=== PATIENT | female | born 1960 | race Caucasian/White ===

== ENCOUNTER 2020-01-29 15:58 | Outpatient (REF) | payer OTHER, SELFPAY ==
[2020-01-29 16:47] LABS: MANUAL DIFF FLAG NO
[2020-01-29 16:50] LABS: Basophils Absolute Auto 0.1 X10*3/uL (0.0-0.2); Basophils Percent Auto 0.5 % (0-2); Eosinophils Absolute Auto 0.2 X10*3/uL (0.0-0.4); Eosinophils Percent Auto 1.9 % (0-4); Hematocrit 42.7 % (37-47); Hemoglobin 14.2 g/dl (12.0-16.0); Imm Gran Abs Auto 0.03 X10*3/uL (0.00-0.03); Imm Gran Pct Auto 0.3 % (0.0-0.4); Lymphocytes Absolute Auto 2.3 X10*3/uL (1.2-4.9); Lymphocytes Percent Auto 19.8 % (20-40); Mean Corpuscular HGB Conc 33.3 g/dl (31.0-35.0); Mean Corpuscular Hemoglobin 30.1 pg (27.0-33.0); Mean Corpuscular Volume 90.7 fL (80-98); Mean Platelet Volume 10.7 fL (9.4-12.3); Monocytes Percent Auto 8.5 % (2-11); Neutrophils Absolute Auto 7.8 X10*3/uL (2.0-8.3); Platelet Count 313 X10*3/uL (160-400); Red Blood Count 4.71 X10*6/uL (4.20-5.50); Red Cell Distribution Width 13.6 % (11.0-16.0); White Blood Count 11.4 X10*3/uL (4.8-10.8)
[2020-01-29 16:53] LABS: Glucose Urine UA NEG (NEG); Leukocyte Esterase Urine NEG (NEG); Nitrite Urine NEG (NEG); Specific Gravity - Urine <= 1.005 (1.005-1.025); Urine Blood 1+ (NEG); Urine Ketones NEG (NEG); Urine Protein NEG (NEG-TRACE)
[2020-01-29 16:55] LABS: Appearance Urine CLEAR; Color Urine STRAW
[2020-01-29 16:58] LABS: Estimated Average Glucose 123 mg/dL; Hemoglobin A1c % 5.9 %
[2020-01-29 17:02] LABS: RBC Urine 0-2 /HPF (0); Squamous Epithelial Cell Urine 4+ /LPF; WBC Urine 0-2 /HPF (0-4)
[2020-01-29 17:18] LABS: Creatinine Urine 14.25 mg/dL; Microalbumin Urine < 5.0 mg/L
[2020-01-29 17:20] LABS: Alanine Aminotransferase 17 U/L (0-31); Albumin Level 4.5 g/dL (3.5-5.0); Alkaline Phosphatase 66 U/L (39-117); Anion Gap 13 (12-20); Aspartate Amino Transferase 18 U/L (5-31); Bilirubin Total 0.3 mg/dL (0.0-1.0); Blood Urea Nitrogen 17 mg/dL (9-16); C Reactive Protein 0.29 mg/dL (< or = 0.50); Carbon Dioxide 25 mmol/L (22-29); Chloride 101 mmol/L (96-108); Estimated Glomerular Filt Rate > 60; Glucose Random 85 mg/dL (60-115); Potassium 4.4 mmol/l (3.3-5.1); Sodium 135 mmol/L (135-145); Total Protein 6.8 g/dL (6.5-8.0)
[2020-01-29 17:42] LABS: Free T4 (Free Thyroxine) 1.08 ng/dL (0.71-1.85); Thyroid Stimulating Hormone 3.21 mIU/mL (0.32-4.0); Vitamin B12 513 pg/mL (200-900)
[2020-01-29 17:48] LABS: Calcium 9.8 mg/dL (8.4-10.2)
== END 2020-01-29 15:59 | disposition home or self-care (01) ==
LOC: HO.LAB 15:58
PROVIDERS: PCP Internal Medicine; Visit Provider Internal Medicine
DX: R73.03 Prediabetes (principal)
CPT/HCPCS: 36415; 80053; 81001; 82043; 82607; 83036; 84439; 84443; 85025; 86140

== ENCOUNTER 2020-12-21 06:30 | Observation (INO) | payer OTHER, SELFPAY ==
--- NOTE | ~2020-12-21 | CT_ITS ---
EXAMINATION: CT HEAD WITHOUT CONTRAST CLINICAL INFORMATION: Weakness, headache COMPARISON: None TECHNIQUE: Contiguous axial imaging was performed from the skull base to vertex without intravenous administration of contrast. This CT examination was performed using dose optimization techniques as appropriate, variously including the following: *Automated exposure control *Adjustment of mA and/or kV according to patient size (this includes techniques or standardized protocols for targeted exams where dose is matched to indication/reason for exam; i.e. extremities or head) *Use of iterative reconstruction technique DLP: 611 mGy-cm FINDINGS: There is no evidence of acute intracranial hemorrhage or territorial infarction. No abnormal mass effect or midline shift is seen. [place]field to white matter differentiation is well preserved. No extra-axial fluid collections are identified. The ventricles are normal in size. There is no abnormal attenuation within the brain parenchyma. The osseous structures and soft tissues are normal. The mastoid air cells and visualized portions of the paranasal sinuses are well aerated. CT/CT head/brain wo con IMPRESSION: No acute intracranial pathology.
[2020-12-21 06:36] VITALS: BP 140/91; PULSE 86; RESP 18; O2SAT 97; BMI 23.4
--- NOTE | 2020-12-21 06:37 | ED.NAVMDI ---
HPI - Nausea/Vomiting/Diarrhea General Chief complaint: Nausea/Vomiting/Diarrhea Stated complaint: vomiting/ not feeling well Time Seen by Provider: 12/21/20 06:37 Source: patient and EMS Mode of arrival: EMS Limitations: other (anxious and somewhat agitated when asking questions, poor historian at times) History of Present Illness MD elicited complaint: nausea, vomiting and other ( I am definitely dehydrated. back pain cramping) Pertinent past history: abdominal surgery (states she had a total colectomy with J pouch and if she ever does to much she gets dehydrated - she spent most of yesterday outside) Onset (ago): day(s) (1) Description of vomiting: watery Associated nausea: Yes Associated abdominal pain: No Pain consistency: intermittent Severity: similar to previous episodes Exacerbating factors: none Relieving factors: other (rest and drinking fluids) Context: history of abdominal surgery (state she gets dehydrated fast due to her colectomy) Associated symptoms: other (chronic back pain then mentions that she has been taking extra ativan every day up to 3mg ) Treatment prior to arrival: fluids (states she tried to drink some water last night but couldn't take much in.) Related Data Home Medications Medication Instructions Recorded Confirmed buspirone 10 mg tablet 1 tab PO TID 12/21/20 12/21/20 gabapentin 300 mg capsule 1 cap PO TID 12/21/20 12/21/20 lorazepam 0.5 mg tablet 1 tab PO TID PRN 12/21/20 12/21/20 Allergies Allergy/AdvReac Type Severity Reaction Status Date / Time amoxicillin [AMOXICILLIN] Allergy Intermediate HIVES Verified 12/21/20 06:49 Review of Systems Review of Systems: Constitutional : No Weight loss, No Fever, No Chills ENT/Mouth : No sore throat, No Rhinorrhea Eyes: No Swelling, No Redness Cardiovascular : No Chest Pain, No SOB, NoEdema Respiratory : No Cough, No Sputum, No Wheezing Gastrointestinal : Positive Nausea, Positive Vomiting, no Diarrhea, no abdominal Pain, No Hematochezia, No Melena Genitourinary : No Dysuria, No Urinary Frequency, No Hematuria, No Urgency Musculoskeletal : No joint pain, No Myalgias, No Joint Swelling, pos back pain Skin : No Skin Lesions, No rash Neuro : No Weakness, No Numbness, No Dizziness, No Headache Psych : No Anxiety/Panic, No Depression Heme/Lymph: No Bruising, No Lymphadenopathy Endocrine : No Polyuria, No Polydipsia All other systems reviewed and are negative. Gastrointestinal: Gastrointestinal: Reports nausea PMFSH Past Medical History Attestation statement: The following information was validated with the patient. Medical History (Updated 12/21/20 @ 12:17 by Susie Silva DO) Anxiety Chronic back pain Depression HTN (hypertension) Surgical History (Updated 12/21/20 @ 07:05 by Susie Silva DO) H/O total colectomy Social History Social History (Updated 12/21/20 @ 07:05 by Susie Silva DO) Patient Tobacco Use Status: Never used Tobacco Use of substances other than those prescribed or required for medical reasons: No Advance Directives: No Advance Directives Information Provided: Yes Physical Exam Vital Signs: Vital Signs: Last Vital Signs Pulse 76 12/21/20 13:52 Resp 16 12/21/20 13:52 BP 126/82 12/21/20 13:52 Pulse Ox 98 12/21/20 13:52 Body Mass Index 23.4 Appearance: Alert. Oriented X3. No acute distress. Anxious walking around getting up and down from the bed in no obvious pain or distress Eyes: Pupils equal, round and reactive to light. ENT: Pharynx dry lips Neck: Normal inspection. Neck supple. CVS: Normal heart rate and rhythm. Pulses normal. Respiratory: No respiratory distress. Breath sounds normal. Abdomen: Soft and non-tender. Skin: Skin warm and dry. Normal skin color. Normal skin turgor. Extremities: No lower extremity edema. No calf ttp Neuro: Oriented X 3. No motor deficit. No sensory deficit. Course Course Course Narrative: IVF x 2 ordered suspected she was dehydrated now the patient notes that she actually drank 100+ ounces of water overnight which she neglected to tell me and it was not consistent with her n/v she has gone from 117 to 128 with IVF will discuss with nephro given her correction likely acute hyponatremia given her now admission of being able to drink 100+ ounces of water overnight - has not had chronic hyponatremia per EMR, of note the patient has 3 cups of water at bed side just now - ?psychogenic polydipsia nephrology call out 1115am repeat call to nephrology 1213pm given Na correction will place on D5W until I hear from nephrology 105pm Dr. Win D5W 100 - 2mcg of DDAVP IV, leave her on D5W on 100 down to 130s and 128 Q2hr hourly sodium keep in ED until down to 128/130 discussed with patient and her sister the over correction they are aware we are watching her and there needs to be a decrease now in sodium to prevent CPM - the patient now states that all night last night she was drinking 8 ounces of fluid every 15 minutes to prevent dehydration which none of this was relayed to us on her arrival the patient is repeatedly taking her fluids off to go to the bathroom then walking around and is giving us a hard time about the labs, this is not a change from her baseline she was anxious and agitated on arrival we are now having her walk to and from the bathroom with the fluids connected increased D5W to 150 per Nephrology patient will need arm board she is now bending her arm Filomena her sister aware we spoke again about the medical error her number is [phone] - she has not been involved with her sister for 4 years until recently thinks there is a BPD or bipolar dx, she went to her sister's house today it is in shambles and the patient is hoarding. Sister did mention if the patient could have done something like this in a self harm manner - I am not sure as the patient has denied SI. signed out to Dr. Suarez, did discuss likely admission with Dr. Persaud 4pm MDM - Nausea/Vomiting/Diarrhea MDM Narrative Medical decision making narrative: 60 yo female with anxiety, depression, chronic back pain, prior total colectomy states she was walking around and very active outside yesterday and thinks she over did it and now she feels dehydrated. She also is complaining of taking more ativan for her back I have compounding medical issues. She is not suicidal and I did ask her if she was in crisis but she states no. At this time labs, IVF, zofran, UA ordered. Concern for dehydration given her total colectomy reports of nausea/vomiting and reported prior episodes of dehydration with exertion. Dispo per results and findings. Lab Data Result diagrams: 12/21/20 07:12 12/21/20 14:40 Labs: Lab Results 12/21/20 12/21/20 12/21/20 Range/Units 07:12 07:12 07:12 WBC 11.1 H (4.8-10.8) X10*3/uL RBC 4.55 (4.20-5.50) X10*6/uL Hgb 13.7 (12.0-16.0) g/dl Hct 38.5 (37-47) % MCV 84.6 (80-98) fL MCH 30.1 (27.0-33.0) pg MCHC 35.6 H (31.0-35.0) g/dl RDW 12.4 (11.0-16.0) % Plt Count 273 (160-400) X10*3/uL MPV 9.4 (9.4-12.3) fL Immature Gran % (Auto) 0.4 (0.0-0.4) % Neut % (Auto) 80.3 H (45-73) % Lymph % (Auto) 11.2 L (20-40) % Bracken % (Auto) 6.6 (2-11) % Eos % (Auto) 1.0 (0-4) % Baso % (Auto) 0.5 (0-2) % Lymph # (Auto) 1.2 (1.2-4.9) X10*3/uL Bracken # (Auto) 0.7 (0.1-1.2) X10*3/uL Eos # (Auto) 0.1 (0.0-0.4) X10*3/uL Baso # (Auto) 0.1 (0.0-0.2) X10*3/uL Abs Immat Gran (auto) 0.04 H (0.00-0.03) X10*3/uL Absolute Neuts (auto) 8.9 H (2.0-8.3) X10*3/uL Absolute Nucleated RBC 0.000 (0.0-0.012) X10*3/uL Nucleated RBC % (auto) 0.0 (0.0-0.2) /100WBC Sodium 117 L* (135-145) mmol/L Potassium 4.1 (3.3-5.1) mmol/L Chloride 84 L (96-108) mmol/L Carbon Dioxide 24 (22-29) mmol/L Anion Gap 13 (12-20) BUN 7 L D (9-16) mg/dL Creatinine 0.67 (0.5-1.4) mg/dL Estim Creat Clear Calc 64.9 Estimated GFR > 60 Random Glucose 107 (60-115) mg/dL Osmolality Calcium 9.8 (8.4-10.2) mg/dL Magnesium 1.6 (1.6-2.6) mg/dL Total Bilirubin 0.7 (0.0-1.0) mg/dL Direct Bilirubin 0.2 (0.0-0.5) mg/dL AST 23 (5-31) U/L ALT 16 (0-31) U/L Alkaline Phosphatase 59 (39-117) U/L Total Protein 6.5 (6.5-8.0) g/dL Albumin 4.2 (3.5-5.0) g/dL Lipase 18 (8-78) U/L Urine Color Urine Appearance Urine pH (5.0-8.0) Ur Specific [place] (1.005-1.025) Urine Protein (NEG-TRACE) MG/DL Urine Glucose (UA) (NEG) MG/DL Urine Ketones (NEG) MG/DL Urine Blood (NEG) Urine Nitrite (NEG) Ur Leukocyte Esterase (NEG) Urine RBC (0) /HPF Urine WBC (0-4) /HPF Ur Squamous Epith Cells /LPF Urine Bacteria /LPF Urine Osmolality (373-1093) mosm/kg Ur Random Sodium mmol/L Urine Creatinine mg/dL COVID-19 ([facility]ERTO) Negative (Negative) COVID-19 Clin Com See Note 12/21/20 12/21/20 12/21/20 Range/Units 07:12 10:06 10:06 WBC (4.8-10.8) X10*3/uL RBC (4.20-5.50) X10*6/uL Hgb (12.0-16.0) g/dl Hct (37-47) % MCV (80-98) fL MCH (27.0-33.0) pg MCHC (31.0-35.0) g/dl RDW (11.0-16.0) % Plt Count (160-400) X10*3/uL MPV (9.4-12.3) fL Immature Gran % (Auto) (0.0-0.4) % Neut % (Auto) (45-73) % Lymph % (Auto) (20-40) % Bracken % (Auto) (2-11) % Eos % (Auto) (0-4) % Baso % (Auto) (0-2) % Lymph # (Auto) (1.2-4.9) X10*3/uL Bracken # (Auto) (0.1-1.2) X10*3/uL Eos # (Auto) (0.0-0.4) X10*3/uL Baso # (Auto) (0.0-0.2) X10*3/uL Abs Immat Gran (auto) (0.00-0.03) X10*3/uL Absolute Neuts (auto) (2.0-8.3) X10*3/uL Absolute Nucleated RBC (0.0-0.012) X10*3/uL Nucleated RBC % (auto) (0.0-0.2) /100WBC Sodium 128 L (135-145) mmol/L Potassium 3.7 (3.3-5.1) mmol/L Chloride 97 (96-108) mmol/L Carbon Dioxide 25 (22-29) mmol/L Anion Gap 10 L (12-20) BUN 6 L (9-16) mg/dL Creatinine 0.65 (0.5-1.4) mg/dL Estim Creat Clear Calc 66.9 Estimated GFR > 60 Random Glucose 94 (60-115) mg/dL Osmolality Cancelled Calcium 8.2 L D (8.4-10.2) mg/dL Magnesium (1.6-2.6) mg/dL Total Bilirubin (0.0-1.0) mg/dL Direct Bilirubin (0.0-0.5) mg/dL AST (5-31) U/L ALT (0-31) U/L Alkaline Phosphatase (39-117) U/L Total Protein (6.5-8.0) g/dL Albumin (3.5-5.0) g/dL Lipase (8-78) U/L Urine Color STRAW Urine Appearance CLEAR Urine pH 6.5 (5.0-8.0) Ur Specific [place] <= 1.005 (1.005-1.025) Urine Protein NEG (NEG-TRACE) MG/DL Urine Glucose (UA) NEG (NEG) MG/DL Urine Ketones NEG (NEG) MG/DL Urine Blood 1+ H (NEG) Urine Nitrite NEG (NEG) Ur Leukocyte Esterase NEG (NEG) Urine RBC 1-4 (0) /HPF Urine WBC 0 (0-4) /HPF Ur Squamous Epith Cells TRACE /LPF Urine Bacteria NONE /LPF Urine Osmolality (373-1093) mosm/kg Ur Random Sodium mmol/L Urine Creatinine mg/dL COVID-19 ([facility]ERTO) (Negative) COVID-19 Clin Com 12/21/20 12/21/20 12/21/20 Range/Units 12:07 12:07 12:33 WBC (4.8-10.8) X10*3/uL RBC (4.20-5.50) X10*6/uL Hgb (12.0-16.0) g/dl Hct (37-47) % MCV (80-98) fL MCH (27.0-33.0) pg MCHC (31.0-35.0) g/dl RDW (11.0-16.0) % Plt Count (160-400) X10*3/uL MPV (9.4-12.3) fL Immature Gran % (Auto) (0.0-0.4) % Neut % (Auto) (45-73) % Lymph % (Auto) (20-40) % Bracken % (Auto) (2-11) % Eos % (Auto) (0-4) % Baso % (Auto) (0-2) % Lymph # (Auto) (1.2-4.9) X10*3/uL Bracken # (Auto) (0.1-1.2) X10*3/uL Eos # (Auto) (0.0-0.4) X10*3/uL Baso # (Auto) (0.0-0.2) X10*3/uL Abs Immat Gran (auto) (0.00-0.03) X10*3/uL Absolute Neuts (auto) (2.0-8.3) X10*3/uL Absolute Nucleated RBC (0.0-0.012) X10*3/uL Nucleated RBC % (auto) (0.0-0.2) /100WBC Sodium 135 (135-145) mmol/L Potassium (3.3-5.1) mmol/L Chloride (96-108) mmol/L Carbon Dioxide (22-29) mmol/L Anion Gap (12-20) BUN (9-16) mg/dL Creatinine (0.5-1.4) mg/dL Estim Creat Clear Calc Estimated GFR Random Glucose (60-115) mg/dL Osmolality 282 Calcium (8.4-10.2) mg/dL Magnesium (1.6-2.6) mg/dL Total Bilirubin (0.0-1.0) mg/dL Direct Bilirubin (0.0-0.5) mg/dL AST (5-31) U/L ALT (0-31) U/L Alkaline Phosphatase (39-117) U/L Total Protein (6.5-8.0) g/dL Albumin (3.5-5.0) g/dL Lipase (8-78) U/L Urine Color Urine Appearance Urine pH (5.0-8.0) Ur Specific [place] (1.005-1.025) Urine Protein (NEG-TRACE) MG/DL Urine Glucose (UA) (NEG) MG/DL Urine Ketones (NEG) MG/DL Urine Blood (NEG) Urine Nitrite (NEG) Ur Leukocyte Esterase (NEG) Urine RBC (0) /HPF Urine WBC (0-4) /HPF Ur Squamous Epith Cells /LPF Urine Bacteria /LPF Urine Osmolality (373-1093) mosm/kg Ur Random Sodium < 20.0 mmol/L Urine Creatinine 18.91 mg/dL COVID-19 ([facility]ERTO) (Negative) COVID-19 Clin Com 12/21/20 12/21/20 Range/Units 12:33 14:40 WBC (4.8-10.8) X10*3/uL RBC (4.20-5.50) X10*6/uL Hgb (12.0-16.0) g/dl Hct (37-47) % MCV (80-98) fL MCH (27.0-33.0) pg MCHC (31.0-35.0) g/dl RDW (11.0-16.0) % Plt Count (160-400) X10*3/uL MPV (9.4-12.3) fL Immature Gran % (Auto) (0.0-0.4) % Neut % (Auto) (45-73) % Lymph % (Auto) (20-40) % Bracken % (Auto) (2-11) % Eos % (Auto) (0-4) % Baso % (Auto) (0-2) % Lymph # (Auto) (1.2-4.9) X10*3/uL Bracken # (Auto) (0.1-1.2) X10*3/uL Eos # (Auto) (0.0-0.4) X10*3/uL Baso # (Auto) (0.0-0.2) X10*3/uL Abs Immat Gran (auto) (0.00-0.03) X10*3/uL Absolute Neuts (auto) (2.0-8.3) X10*3/uL Absolute Nucleated RBC (0.0-0.012) X10*3/uL Nucleated RBC % (auto) (0.0-0.2) /100WBC Sodium 135 (135-145) mmol/L Potassium (3.3-5.1) mmol/L Chloride (96-108) mmol/L Carbon Dioxide (22-29) mmol/L Anion Gap (12-20) BUN (9-16) mg/dL Creatinine (0.5-1.4) mg/dL Estim Creat Clear Calc Estimated GFR Random Glucose (60-115) mg/dL Osmolality Calcium (8.4-10.2) mg/dL Magnesium (1.6-2.6) mg/dL Total Bilirubin (0.0-1.0) mg/dL Direct Bilirubin (0.0-0.5) mg/dL AST (5-31) U/L ALT (0-31) U/L Alkaline Phosphatase (39-117) U/L Total Protein (6.5-8.0) g/dL Albumin (3.5-5.0) g/dL Lipase (8-78) U/L Urine Color Urine Appearance Urine pH (5.0-8.0) Ur Specific [place] (1.005-1.025) Urine Protein (NEG-TRACE) MG/DL Urine Glucose (UA) (NEG) MG/DL Urine Ketones (NEG) MG/DL Urine Blood (NEG) Urine Nitrite (NEG) Ur Leukocyte Esterase (NEG) Urine RBC (0) /HPF Urine WBC (0-4) /HPF Ur Squamous Epith Cells /LPF Urine Bacteria /LPF Urine Osmolality 102 L (373-1093) mosm/kg Ur Random Sodium mmol/L Urine Creatinine mg/dL COVID-19 ([facility]) (Negative) COVID-19 Clin Com Critical Care Time Critical Care Time Critical Care Time: Yes Total Critical Care Time: 60 Attestation: reassessments, medical consult, family discussion I attest to this time spent taking care of the patient Discharge Plan Discharge Clinical Impression: Acute hyponatremia Prescriptions: No Action lorazepam 0.5 mg tablet 1 tab PO TID PRN (Reason: Anxiety) RF: 0 buspirone 10 mg tablet 1 tab PO TID RF: 0 gabapentin 300 mg capsule 1 cap PO TID RF: 0
--- NOTE | 2020-12-21 07:00 | PC.NURSE ---
pt alert, vss. pt presents to ed with multiple complaints. Nausea, vomiting, dehydration, chronic back pain. no c/o sob/headache/dizziness. pt reports that she has been drinking a lot of water but she knows she is dehydrated. Pt pacing back and forth in room, states she is very debilitated because of her back pain. IV established, labs drawn, meds given as documented.
[2020-12-21] MEDS: 0.9 % Sodium Chloride 1,000 ML 999 ML IVCONT (07:15)
[2020-12-21 07:16] LABS: MANUAL DIFF FLAG NO
[2020-12-21 07:18] LABS: Basophils Absolute Auto 0.1 X10*3/uL (0.0-0.2); Basophils Percent Auto 0.5 % (0-2); Eosinophils Absolute Auto 0.1 X10*3/uL (0.0-0.4); Hematocrit 38.5 % (37-47); Hemoglobin 13.7 g/dl (12.0-16.0); Imm Gran Abs Auto 0.04 X10*3/uL (0.00-0.03); Imm Gran Pct Auto 0.4 % (0.0-0.4); Lymphocytes Absolute Auto 1.2 X10*3/uL (1.2-4.9); Lymphocytes Percent Auto 11.2 % (20-40); Mean Corpuscular HGB Conc 35.6 g/dl (31.0-35.0); Mean Corpuscular Hemoglobin 30.1 pg (27.0-33.0); Mean Corpuscular Volume 84.6 fL (80-98); Mean Platelet Volume 9.4 fL (9.4-12.3); Monocytes Absolute Auto 0.7 X10*3/uL (0.1-1.2); Monocytes Percent Auto 6.6 % (2-11); Neutrophils Absolute Auto 8.9 X10*3/uL (2.0-8.3); Neutrophils Percent Auto 80.3 % (45-73); Platelet Count 273 X10*3/uL (160-400); Red Blood Count 4.55 X10*6/uL (4.20-5.50); Red Cell Distribution Width 12.4 % (11.0-16.0); White Blood Count 11.1 X10*3/uL (4.8-10.8)
[2020-12-21 07:22] LABS: Appearance Urine CLEAR; Color Urine STRAW; Glucose Urine UA NEG (NEG); Leukocyte Esterase Urine NEG (NEG); Nitrite Urine NEG (NEG); PH 6.5 (5.0-8.0); Specific Gravity - Urine <= 1.005 (1.005-1.025); UACC Culture Trigger NO; Urine Blood 1+ (NEG); Urine Ketones NEG (NEG); Urine Protein NEG (NEG-TRACE)
[2020-12-21] MEDS: ondansetron HCL 4 MG/2 ML VIAL IVPUSH (07:25)
[2020-12-21 07:34] LABS: COVID-19 Test Negative (Negative)
[2020-12-21 07:37] LABS: Squamous Epithelial Cell Urine TRACE /LPF; WBC Urine 0 /HPF (0-4)
[2020-12-21 07:46] LABS: Alanine Aminotransferase 16 U/L (0-31); Albumin Level 4.2 g/dL (3.5-5.0); Alkaline Phosphatase 59 U/L (39-117); Aspartate Amino Transferase 23 U/L (5-31); Bilirubin Direct 0.2 mg/dL (0.0-0.5); Bilirubin Total 0.7 mg/dL (0.0-1.0); Blood Urea Nitrogen 7 mg/dL (9-16); Calcium 9.8 mg/dL (8.4-10.2); Creatinine Clr Calc Pharmacy 64.9; Estimated Glomerular Filt Rate > 60; Glucose Random 107 mg/dL (60-115); Lipase 18 U/L (8-78); Magnesium 1.6 mg/dL (1.6-2.6); Total Protein 6.5 g/dL (6.5-8.0)
[2020-12-21 07:53] LABS: Anion Gap 13 (12-20); Carbon Dioxide 24 mmol/L (22-29); Chloride 84 mmol/L (96-108); Potassium 4.1 mmol/L (3.3-5.1); Sodium 117 mmol/L (135-145)
[2020-12-21] MEDS: 0.9 % Sodium Chloride 1,000 ML 999 ML IV (08:14)
[2020-12-21 10:41] LABS: Anion Gap 10 (12-20); Blood Urea Nitrogen 6 mg/dL (9-16); Calcium 8.2 mg/dL (8.4-10.2); Carbon Dioxide 25 mmol/L (22-29); Chloride 97 mmol/L (96-108); Creatinine Clr Calc Pharmacy 66.9; Estimated Glomerular Filt Rate > 60; Glucose Random 94 mg/dL (60-115); Potassium 3.7 mmol/L (3.3-5.1); Sodium 128 mmol/L (135-145)
[2020-12-21 11:24] VITALS: BP 134/80; PULSE 84; RESP 16; O2SAT 99
[2020-12-21 12:24] LABS: Sodium 135 mmol/L (135-145)
[2020-12-21] MEDS: Dextrose 5 % 1,000 ML 100 ML IVCONT (12:33)
[2020-12-21 12:40] VITALS: BMI 23.4
[2020-12-21 12:41] LABS: Osmolality, Serum 282 mosm/kg (281-305)
[2020-12-21 13:03] LABS: Creatinine Urine 18.91 mg/dL; Sodium Urine Random < 20.0 mmol/L
[2020-12-21 13:52] VITALS: BP 126/82; PULSE 76; RESP 16; O2SAT 98
[2020-12-21 13:53] LABS: Osmolality Urine 102 mosm/kg (373-1093)
--- NOTE | 2020-12-21 14:26 | PM.EVENT ---
Event Note Date of Service: 12/21/20 Event Note: Pt seen in The ER Consult requested by ER attending Hyponatremia - Mild Hypo osmolar Low Urine OSM/ Low Urine Na c/w excessive free water intake Doubt SIADH or other causes Now Rapid correction Suggested IVF with D5 w Pt can take free water as needed DDAVP 2 mcg IVP x 1 dose now NA level Q 2hrly Target Na 123- 127 over the next few hrs and maintain NA around this level for next 24 hrs D/w Pt / ER attending Please call me for any issues / ? 's Thx Dr. Win
--- NOTE | 2020-12-21 14:51 | PC.NURSE ---
Patient spending long periods in bathroom. Patient can no longer use bathroom without supervision as she is a concern for drinking fluids from sink.
[2020-12-21 15:00] LABS: Sodium 135 mmol/L (135-145)
[2020-12-21] MEDS: Dextrose 5 % 1,000 ML 150 ML IVCONT (15:06)
[2020-12-21 16:12] VITALS: BP 134/86; PULSE 80; RESP 18; O2SAT 98
--- NOTE | 2020-12-21 16:26 | MHC.CARE ---
1530 ? Met with pt after receiving a request for a consult.? Pt has been experiencing anxiety and depression throughout her life but it has recently become exacerbated due to a variety of worsening health conditions.? She has been in counseling in the past, she did not comment on it?s effectiveness.? Today, she is expressing anxiety around being discharged not feeling well enough to return home.? During the consult, it was discovered that she will be admitted to one of the nursing floors so she may fully recover before being discharged.? Pt has been managing many health conditions which she reports have worsened over the years, making attending to many of her ADLs challenging.? She used to cook, clean, and go for walks but no longer does due to back pain (which has worsened) and the pandemic.? During the pandemic, many of her activities such as mandaen and swimming at the [facility] have ceased, eliminating a large portion of the day structure she had in place.? Her health issues and the pandemic have all contributed to an increase in her depression and anxiety.? Pt has adult children and family members but all with the exception of one sister are living out of state.? The one sister that is within the state lives in the [facility].? This isolation has also lent to the increase in anxiety and depression.? Services were not discussed, as pt did not appear ready to discuss them.? The plan is for CARE Team to follow up with pt tomorrow to discuss services.
--- NOTE | 2020-12-21 16:30 | PC.NURSE ---
Addendum entered by Pina Light RN 12/21/20 16:32: Pending lab work. Original Note: Patient in NAD, breathing even and unlabored.
[2020-12-21 16:50] LABS: Sodium 130 mmol/L (135-145)
--- NOTE | 2020-12-21 17:59 | P.HPHOSP_ITS ---
History of Present Illness Date of Service: 12/21/20 Chief Complaint: Hyponatremia 60 year old female with anxiety desorder, depression, chronic back pain, histoy of ulcerative colitis s/p colectomy. She presented to the emergency room because she was not feeling well and felt that she was dehydrated. She reports that she has been feeing more depressed and anxious because of her back pain worsening. She spent alot of time drink water overnight as she felt she was dehydrated and wasn't feeling well so she came to the ED and labs show hypOnatremia sodium level of 117 and was given Normal saline bolus and repeat sodium went up to 135 in a short period of time, making too rapid correction and has since been given DDAVP and D5W in attempt to bring it down and most recent sodium is now 130. She feels better and is assymptomatic. N has seen her, she denies SI Review of Systems Review of Systems: Gen: no fever Resp: no sob, no cough CV: no chest, no ROSSI, no leg edema GI: no n/v, no abd pain Neuro: No confusion Yes all other systems are reviewed and are negative [facility] Medical History (Updated 12/21/20 @ 18:18 by Wilmer Persaud MD) Anxiety Chronic back pain Depression HTN (hypertension) Pertinent family history: No family history of hear diease, kidney disease, or depression Surgical History H/O total colectomy Social History Patient Tobacco Use Status: Never used Tobacco Use of substances other than those prescribed or required for medical reasons: No Advance Directives: No Advance Directives Information Provided: Yes Meds Allergies Allergy/AdvReac Type Severity Reaction Status Date / Time amoxicillin [AMOXICILLIN] Allergy Intermediate HIVES Verified 12/21/20 06:49 Active Medications: Current Medications Dextrose (D5w) 1,000 mls @ 100 mls/hr IVCONT .Q10H SID Last Infusion: 12/21/20 17:43 Dose: 100 mls/hr Documented by: Pharmacy Consult (Consult Rx Perform Med Rec) 1 each MISCELLANE ONCE PRN PRN Reason: Consult order Home Medications Medication Instructions Recorded Confirmed Last Taken Type buspirone 10 mg tablet 1 tab PO TID 12/21/20 12/21/20 Unknown History gabapentin 300 mg capsule 1 cap PO TID 12/21/20 12/21/20 Unknown History lorazepam 0.5 mg tablet 1 tab PO TID PRN 12/21/20 12/21/20 Unknown History Physical Exam Vital Signs and Narrative: Vital Signs: Last Vital Signs Pulse 80 12/21/20 16:12 Resp 18 12/21/20 16:12 BP 134/86 12/21/20 16:12 Pulse Ox 98 12/21/20 16:12 Body Mass Index 23.4 Constitutional Awake and Alert, No apparent distress HEENT Neck Supple, No lymphadenopathy Cardiovascular RRR, No M/R/G, S1 S2, No S3 S4, No pedal edema Respiratory Lungs clear, No respiratory distress Gastrointestinal Non tender, Non-distended Skin No rash Neurological Alert & oriented x3, nofocal deficit, cranial nerve 2 to 12 intact Psychological Appropriate affect, no SI, no HI Results Labs CBC and Chem 7: 12/21/20 07:12 12/21/20 16:38 Labs: Laboratory Results - last 24 hr 12/21/20 12/21/20 12/21/20 07:12 07:12 07:12 MCV 84.6 MCH 30.1 MCHC 35.6 H RDW 12.4 Plt Count 273 MPV 9.4 Immature Gran % (Auto) 0.4 Neut % (Auto) 80.3 H Lymph % (Auto) 11.2 L Bollinger % (Auto) 6.6 Eos % (Auto) 1.0 Baso % (Auto) 0.5 Lymph # (Auto) 1.2 Bollinger # (Auto) 0.7 Eos # (Auto) 0.1 Baso # (Auto) 0.1 Abs Immat Gran (auto) 0.04 H Absolute Neuts (auto) 8.9 H Absolute Nucleated RBC 0.000 Nucleated RBC % (auto) 0.0 Sodium 117 L* Anion Gap 13 Estim Creat Clear Calc 64.9 Estimated GFR > 60 Random Glucose 107 Osmolality Calcium 9.8 Magnesium 1.6 Total Bilirubin 0.7 Direct Bilirubin 0.2 AST 23 ALT 16 Alkaline Phosphatase 59 Total Protein 6.5 Albumin 4.2 Lipase 18 Urine Color Urine Appearance Urine pH Ur Specific [place] Urine Protein Urine Glucose (UA) Urine Ketones Urine Blood Urine Nitrite Ur Leukocyte Esterase Urine RBC Urine WBC Ur Squamous Epith Cells Urine Bacteria Urine Osmolality Ur Random Sodium Urine Creatinine COVID-19 (ROBERTO) Negative COVID-19 Clin Com See Note 12/21/20 12/21/20 12/21/20 07:12 10:06 10:06 MCV MCH MCHC RDW Plt Count MPV Immature Gran % (Auto) Neut % (Auto) Lymph % (Auto) Bollinger % (Auto) Eos % (Auto) Baso % (Auto) Lymph # (Auto) Bollinger # (Auto) Eos # (Auto) Baso # (Auto) Abs Immat Gran (auto) Absolute Neuts (auto) Absolute Nucleated RBC Nucleated RBC % (auto) Sodium 128 L Anion Gap 10 L Estim Creat Clear Calc 66.9 Estimated GFR > 60 Random Glucose 94 Osmolality Cancelled Calcium 8.2 L D Magnesium Total Bilirubin Direct Bilirubin AST ALT Alkaline Phosphatase Total Protein Albumin Lipase Urine Color STRAW Urine Appearance CLEAR Urine pH 6.5 Ur Specific [place] <= 1.005 Urine Protein NEG Urine Glucose (UA) NEG Urine Ketones NEG Urine Blood 1+ H Urine Nitrite NEG Ur Leukocyte Esterase NEG Urine RBC 1-4 Urine WBC 0 Ur Squamous Epith Cells TRACE Urine Bacteria NONE Urine Osmolality Ur Random Sodium Urine Creatinine COVID-19 (ROBERTO) COVID-19 Clin Com 12/21/20 12/21/20 12/21/20 12:07 12:07 12:33 MCV MCH MCHC RDW Plt Count MPV Immature Gran % (Auto) Neut % (Auto) Lymph % (Auto) Bollinger % (Auto) Eos % (Auto) Baso % (Auto) Lymph # (Auto) Bollinger # (Auto) Eos # (Auto) Baso # (Auto) Abs Immat Gran (auto) Absolute Neuts (auto) Absolute Nucleated RBC Nucleated RBC % (auto) Sodium 135 Anion Gap Estim Creat Clear Calc Estimated GFR Random Glucose Osmolality 282 Calcium Magnesium Total Bilirubin Direct Bilirubin AST ALT Alkaline Phosphatase Total Protein Albumin Lipase Urine Color Urine Appearance Urine pH Ur Specific [place] Urine Protein Urine Glucose (UA) Urine Ketones Urine Blood Urine Nitrite Ur Leukocyte Esterase Urine RBC Urine WBC Ur Squamous Epith Cells Urine Bacteria Urine Osmolality Ur Random Sodium < 20.0 Urine Creatinine 18.91 COVID-19 (ROBERTO) COVID-19 Clin Com 12/21/20 12/21/20 12/21/20 12:33 14:40 16:38 MCV MCH MCHC RDW Plt Count MPV Immature Gran % (Auto) Neut % (Auto) Lymph % (Auto) Bollinger % (Auto) Eos % (Auto) Baso % (Auto) Lymph # (Auto) Bollinger # (Auto) Eos # (Auto) Baso # (Auto) Abs Immat Gran (auto) Absolute Neuts (auto) Absolute Nucleated RBC Nucleated RBC % (auto) Sodium 135 130 L Anion Gap Estim Creat Clear Calc Estimated GFR Random Glucose Osmolality Calcium Magnesium Total Bilirubin Direct Bilirubin AST ALT Alkaline Phosphatase Total Protein Albumin Lipase Urine Color Urine Appearance Urine pH Ur Specific [place] Urine Protein Urine Glucose (UA) Urine Ketones Urine Blood Urine Nitrite Ur Leukocyte Esterase Urine RBC Urine WBC Ur Squamous Epith Cells Urine Bacteria Urine Osmolality 102 L Ur Random Sodium Urine Creatinine COVID-19 (ROBERTO) COVID-19 Clin Com Imaging Radiologist's Impressions: Impressions Head CT 12/21/20 11:27 IMPRESSION: No acute intracranial pathology. Assessment and Plan (1) Acute hyponatremia: Status: Acute (2) Anxiety: Status: Acute (3) Chronic back pain: Status: Acute 60/F with anxiety, depression, chronic back here with acute hypOnatremia due to polydypsia, now rapidly corrected 1/HypOnatremia--rapid correction, given DDAVP, sodium level is now 135, has been seen by [facility] with the following remarks and recommendation: IVF with D5 w Pt can take free water as needed DDAVP 2 mcg IVP x 1 dose (done) NA level Q 2hrly Target Na 123- 127 over the next few hrs and maintain NA around this level for next 24 hrs 2. Anxiety/Depression - no SI-- CARE team has done a prelim assessment and will follow up tomorrow. Ativan PRN 3. Back pain--Continue Gabapentin. low risk for dvt as will likely be discharge tomorrow if not then give heparin Quality Stroke Does the patient have a stroke diagnosis?: No VTE Prior VTE?: No VTE Risk Level:: Medical - low VTE Device Contraindication: Treatment Not Indicated VTE Drug Contraindication: Treatment Not Indicated
[2020-12-21 18:55] LABS: Sodium 130 mmol/L (135-145)
[2020-12-21 19:35] LABS: Sodium 130 mmol/L (135-145)
[2020-12-21 21:24] VITALS: BP 120/85; PULSE 80; RESP 15; O2SAT 98
[2020-12-22] VITALS (8 sets, daily range): BP systolic 120–148; BP diastolic 63–96; PULSE 72–85; RESP 14–20; TEMP 36.3–37.1; O2SAT 97–100; BMI 25.3
[2020-12-22] MEDS: Dextrose 5 % 1,000 ML 100 ML IVCONT (02:50)
[2020-12-22] MEDS: 0.9 % Sodium Chloride Flush 3 ML SYRINGE IVFLUSH ×3 (07:28→21:14)
[2020-12-22 08:00] LABS: Anion Gap 9 (12-20); Blood Urea Nitrogen 5 mg/dL (9-16); Calcium 8.9 mg/dL (8.4-10.2); Carbon Dioxide 30 mmol/L (22-29); Chloride 95 mmol/L (96-108); Creatinine Clr Calc Pharmacy 64.9; Estimated Glomerular Filt Rate > 60; Glucose Random 98 mg/dL (60-115); Potassium 3.5 mmol/L (3.3-5.1); Sodium 130 mmol/L (135-145)
[2020-12-22] MEDS: Gabapentin 300 MG CAPSULE PO (08:51)
[2020-12-22] MEDS: busPIRone HCl 10 MG TABLET PO ×3 (08:51→21:14)
[2020-12-22] MEDS: LORazepam 0.5 MG TABLET PO ×2 (09:25→21:14)
--- NOTE | 2020-12-22 11:34 | PC.NURSE ---
THIS RN HAD A CONVERSATION WITH THE PT AND HER SISTER REGARDING HER PENDING DISCHARGE HOME AND CONCERNS REGARDING THIS. HER SISTER DOES NOT FEEL THE PT IS ABLE TO MANAGE HER SELF CARE, MEDICATIONS AND MENTAL WELL BEING. SHE STATES THE HOME IS A HOARDING ATMOSPHERE. THE SISTER FEELS THAT THE PT IS INCAPABLE OF MANAGING HER MEDICATIONS AND PHYSICAL HEALTH. I EDUCATED BOTH ON CASE MANAGEMENTS ROLE AND POSSIBLE PLACEMENT AND/OR SERVICES
--- NOTE | 2020-12-22 11:42 | HO.PM.IMPN ---
Subjective Subjective Date of Service: 12/23/20 Interval History: Seen in f/u HypOnatremia. Sodium is still low but better Review of Systems no confuion Physical Exam Vital Signs: Vital Signs: Last Vital Signs Temp 98.3 F 12/22/20 07:45 Pulse 83 12/22/20 07:45 Resp 17 12/22/20 07:45 BP 120/63 12/22/20 07:45 Pulse Ox 100 12/22/20 07:45 Body Mass Index 23.4 General: AO X 3, no acute distress Resp: CTA bilateral CVS: S1,S2,RRR GI: +BS, NT, no distention Skin: No rash Neuro: motor grossly intact Psych: appropriate affect Objective Data Active Medications Buspirone HCl (Buspirone Hcl 10 Mg Tablet) 10 mg PO TID [facility] Last Admin: 12/22/20 08:51 Dose: 10 mg Documented by: CLEMENTINA Gabapentin (Gabapentin 300 Mg Capsule) 300 mg PO TID [facility] Last Admin: 12/22/20 08:51 Dose: 300 mg Documented by: CLEMENTINA Dextrose (D5w) 1,000 mls @ 150 mls/hr IVCONT .Q6H40M [facility] Last Admin: 12/22/20 02:50 Dose: 100 mls/hr Documented by: SAIRA Lorazepam (Lorazepam 0.5 Mg Tablet) 0.5 mg PO TID PRN PRN Reason: Anxiety Last Admin: 12/22/20 09:25 Dose: 0.5 mg Documented by: CLEMENTINA Ondansetron HCl (Ondansetron Hcl 4 Mg/2 Ml Vial) 4 mg IVPUSH Q8H PRN PRN Reason: Nausea and Vomiting Pharmacy Consult (Consult Rx Perform Med Rec) 1 each MISCELLANE ONCE PRN PRN Reason: Consult order Sodium Chloride (0.9 % Sodium Chloride Flush 3 Ml Syringe) 3 ml IVFLUSH QSHIFT [facility] Last Admin: 12/22/20 07:28 Dose: 3 ml Documented by: CLEMENTINA Labs CBC & Chem 7: 12/21/20 07:12 12/22/20 22:53 Labs: Laboratory Results - last 24 hr 12/21/20 12/21/20 12/21/20 10:06 12:07 12:33 Anion Gap Estim Creat Clear Calc Estimated GFR Random Glucose Osmolality Cancelled 282 Calcium Urine Osmolality Ur Random Sodium < 20.0 Urine Creatinine 18.91 12/21/20 12/22/20 12:33 07:02 Anion Gap 9 L Estim Creat Clear Calc 64.9 Estimated GFR > 60 Random Glucose 98 Osmolality Calcium 8.9 D Urine Osmolality 102 L Ur Random Sodium Urine Creatinine Assessment and Plan (1) Acute hyponatremia: Status: Acute (2) Chronic back pain: Status: Acute (3) Anxiety: Status: Acute Assessment and Plan: 60/F with anxiety, depression, chronic back here with acute hypOnatremia due to polydypsia, now rapidly corrected 1/HypOnatremia--rapid correction, given DDAVP, sodium level is now 130. Awaiting Nephrology input for further direction. Continue D5 for now 2. Anxiety/Depression - no SI-- CARE team has done a prelim assessment and will follow up tomorrow. Atartur RADFORDN. Psych consult, reportedly sister is saying that she does not blieve that patient is safe at home 3. Back pain--Continue Gabapentin. low risk for dvt as will likely be discharge tomorrow if not then give heparin Quality Stroke Does the patient have a stroke diagnosis?: No VTE Prior VTE?: No VTE Risk Level:: Medical - low VTE Device Contraindication: Treatment Not Indicated VTE Drug Contraindication: Treatment Not Indicated
[2020-12-22] MEDS: Dextrose 5 % 1,000 ML 150 ML IVCONT ×2 (14:02→15:41)
--- NOTE | 2020-12-22 14:33 | PC.NURSE ---
pt ate/drank 100% for breakfast and lunch. pt's diet to be upgraded by hosp . pt amb (i) gait steady to br and btb.
--- NOTE | 2020-12-22 19:19 | PM.PNNEP ---
Subjective Subjective Date of Service: 12/22/20 Interval history: Seen in f/u HypOnatremia. NA is still low but better Physical Exam Vital Signs: Vital Signs: Last Vital Signs Temp 98.4 F 12/22/20 14:26 Pulse 74 12/22/20 14:26 Resp 16 12/22/20 14:26 BP 132/88 12/22/20 14:26 Pulse Ox 97 12/22/20 14:26 Body Mass Index 23.4 General: AO X 3, no acute distress Resp:? CTA bilateral CVS: S1,S2,RRR GI: +BS, NT, no distention Skin: No rash Neuro:? motor grossly intact Psych: appropriate affect Objective Data Labs CBC & Chem 7: 12/21/20 07:12 12/22/20 07:02 Labs: Laboratory Results - last 24 hr 12/21/20 12/22/20 19:18 07:02 Sodium 130 L 130 L Potassium 3.5 Chloride 95 L Carbon Dioxide 30 H Anion Gap 9 L BUN 5 L Creatinine 0.67 Estim Creat Clear Calc 64.9 Estimated GFR > 60 Random Glucose 98 Calcium 8.9 D Procedures Date of Service Date of Service: 12/22/20 Assessment & Plan Assessment and plan (1) Acute hyponatremia: Status: Acute (2) Anxiety: Status: Acute Assessment and Plan: Hyponatremia - Mild Hypoosmolar Low Urine OSM/ Low Urine Na c/w excessive free water intake Doubt SIADH or other causes Rapid correction- Treated with DDAVP and D5w Suggested D/c IVF with D5 w D5 NS at 80 ml/ Hr Can d/c IVF in AM - Target Na 130-135 Can check Na in AM Thx Dr. Win Time Spent With Patient Time: Total time spent is greater than 50% in coordination of care (as documented) at patient's floor/unit and/or counseling patient: Progress Note: Quality Stroke Does the patient have a stroke diagnosis?: No
[2020-12-22] MEDS: Dextrose 5 % and 0.9 % NaCl 1,000 ML 80 ML IVCONT (21:09)
--- NOTE | 2020-12-22 22:10 | CONS_ITS ---
DATE OF SERVICE: 12/21/2020 REASON FOR CONSULTATION: Consult requested by the ER team to evaluate and help in management of patient with severe hyponatremia. HISTORY OF PRESENT ILLNESS: The patient is a 60-year-old female, who is a fair historian due to her psych history, history of anxiety, depression, ulcerative colitis, status post colectomy, who presented to the ER as she was not feeling well. She was feeling that she was having dehydration and more depressed. She was also more anxious and had back pain. She has been drinking a fair amount of water i.e. 8 ounces of water every few hours, so the last 2 days. She came into the ER and was evaluated and sodium level of 117. She was given normal saline bolus and repeat sodium increased to 135, and renal consult with me was requested. Over the phone, I requested the ER team to stop the normal saline, started on D5 water at 150 mL an hour. She was also given DDAVP 2 mcg IV push earlier today. Repeat sodium has been around 130. She feels better when I saw her in the ER, but she is comfortable. She did not have any chest pain, did not have any dysuria, urgency of urination, frequent urination, no diarrhea. There was no fever or chills. REVIEW OF SYSTEMS: As noted above. Other systems were reviewed, negative. PAST MEDICAL HISTORY: History of anxiety, chronic back pain, depression, hypertension. PAST SURGICAL HISTORY: History of total colectomy. PERSONAL AND SOCIAL HISTORY: The patient never used to smoke tobacco. Does not abuse drugs or use alcohol. ALLERGIES: THE PATIENT HAS ALLERGIES TO AMOXICILLIN. HOME MEDICATIONS: Include buspirone, gabapentin, lorazepam. PHYSICAL EXAMINATION: GENERAL: The patient is resting in the bed. Awake, alert, oriented x3. VITAL SIGNS: Blood pressure was 134/86, pulse 80, afebrile. HEENT: Shows pupils equal bilaterally and reactive to light. No jugular venous distention is noted. NECK: Supple. CARDIOVASCULAR SYSTEM: S1, S2 without rub or murmur. RESPIRATORY SYSTEM: Air entry decreased in the bases. No crepitation or rhonchi is noted. ABDOMEN: Soft, nontender. No guarding. No rigidity. Bowel sounds normal. EXTREMITIES: Showed no edema. There is no peripheral cyanosis or clubbing. NEURO: Essentially nonfocal. LABORATORY DATA: Labs done recently, sodium 117, potassium 4.1, chloride 84, CO2 of 24, BUN 7, creatinine 0.67, repeat sodium was 135 which dropped down 130 calcium level of 8.2,Platelets 273, hemoglobin 13.7, hematocrit 38.5. Urinalysis shows clear yellow urine, specific gravity less than 1.005, rbc's 1 to 4, wbc's 0, urine sodium was less than 20, urine osmolality was 102. IMPRESSION: 1. A 60-year-old female with hyponatremia, Hypoosmolar.. Her urine osmolality and urine sodium were low and this is consistent with psychogenic polydipsia/excessive free water intake. I doubt the patient has SIADH or other causes. 2. Rapid correction of sodium. 3. Anxiety/depression. RECOMMENDATIONS: I had a lengthy discussion in the ER team and the medical team. I recommend continuation of D5 water as she has already received a DDAVP dose 2 mcg. We need to try to keep her serum sodium targeted around 123 to 127 over the next 24 hours. Free fluid restriction can be discontinued on this patient, but we need to reinstitute it after 24 to 48 hours. We will continue to follow the patient with you closely. Thank you for allowing me to participate in the medical management of this patient. MD CHOLO Mao/CAM / [id number] MTDD
[2020-12-23 00:42] LABS: Anion Gap 9 (12-20); Blood Urea Nitrogen 6 mg/dL (9-16); Carbon Dioxide 29 mmol/L (22-29); Chloride 94 mmol/L (96-108); Creatinine Clr Calc Pharmacy 60.7; Estimated Glomerular Filt Rate > 60; Glucose Random 134 mg/dL (60-115); Potassium 2.8 mmol/L (3.3-5.1); Sodium 129 mmol/L (135-145)
[2020-12-23 04:00] VITALS: BP 145/90; PULSE 75; RESP 18; TEMP 36.8; O2SAT 96
[2020-12-23 07:55] VITALS: BP 134/91; PULSE 91; RESP 18; TEMP 37; O2SAT 98
--- NOTE | 2020-12-23 08:11 | HO.PM.IMPN ---
Subjective Subjective Date of Service: 12/23/20 Interval History: Seen in f/u HypOnatremia. Sodium level is normal with at 138, hyponatremia Review of Systems no fever no confusion Physical Exam Vital Signs: Vital Signs: Last Vital Signs Temp 98.6 F 12/23/20 07:55 Pulse 91 12/23/20 07:55 Resp 18 12/23/20 07:55 BP 134/91 H 12/23/20 07:55 Pulse Ox 98 12/23/20 07:55 Body Mass Index 25.3 General: AO X 3, no acute distress Resp: CTA bilateral CVS: S1,S2,RRR GI: +BS, NT, no distention Skin: No rash Neuro: motor grossly intact Psych: appropriate affect Objective Data Active Medications Buspirone HCl (Buspirone Hcl 10 Mg Tablet) 10 mg PO TID [facility] Last Admin: 12/22/20 21:14 Dose: 10 mg Documented by: JERRY Gabapentin (Gabapentin 300 Mg Capsule) 300 mg PO TID [facility] Last Admin: 12/22/20 20:07 Dose: Not Given Documented by: SAAD Non-Admin Reason: Patient Refused Lorazepam (Lorazepam 0.5 Mg Tablet) 0.5 mg PO TID PRN PRN Reason: Anxiety Last Admin: 12/22/20 21:14 Dose: 0.5 mg Documented by: JERRY Ondansetron HCl (Ondansetron Hcl 4 Mg/2 Ml Vial) 4 mg IVPUSH Q8H PRN PRN Reason: Nausea and Vomiting Pharmacy Consult (Consult Rx Perform Med Rec) 1 each MISCELLANE ONCE PRN PRN Reason: Consult order Sodium Chloride (0.9 % Sodium Chloride Flush 3 Ml Syringe) 3 ml IVFLUSH QSHIFT [facility] Last Admin: 12/22/20 21:14 Dose: 3 ml Documented by: JERRY Labs CBC & Chem 7: 12/21/20 07:12 12/23/20 08:29 Labs: Laboratory Results - last 24 hr 12/21/20 12/21/20 12/21/20 07:12 10:06 12:07 Sodium 117 L* 128 L 135 Anion Gap Estim Creat Clear Calc Estimated GFR Random Glucose Calcium 12/21/20 12/21/20 12/21/20 14:40 16:38 18:39 Sodium 135 130 L 130 L Anion Gap Estim Creat Clear Calc Estimated GFR Random Glucose Calcium 12/21/20 12/22/20 12/22/20 19:18 07:02 22:53 Sodium 130 L 130 L Anion Gap 9 L Estim Creat Clear Calc 60.7 Estimated GFR > 60 Random Glucose 134 H Calcium 9.0 Assessment and Plan (1) Acute hyponatremia: Status: Acute (2) Chronic back pain: Status: Acute (3) Anxiety: Status: Acute Assessment and Plan: 60/F with anxiety, depression, chronic back here with acute hypOnatremia due to polydypsia, now rapidly corrected 1/HypOnatremia--rapid correction, given DDAVP, and came back down, and now up to normal while still on D5 2. Anxiety/Depression - no SI-- CARE team has done a prelim assessment and will follow up tomorrow. Rosy HARRIS. Sister is saying that she doesn't think patient is capable of leaving alone and not able to make decision. Therefore Psych consult to assess compentency/capacity to make decision 3. Back pain--Continue Gabapentin. low risk for dvt, ambulate Quality Stroke Does the patient have a stroke diagnosis?: No VTE Prior VTE?: No VTE Risk Level:: Medical - low VTE Device Contraindication: Treatment Not Indicated VTE Drug Contraindication: Treatment Not Indicated
[2020-12-23 09:07] LABS: Anion Gap 15 (12-20); Blood Urea Nitrogen 6 mg/dL (9-16); Carbon Dioxide 28 mmol/L (22-29); Chloride 99 mmol/L (96-108); Creatinine Clr Calc Pharmacy 61.5; Estimated Glomerular Filt Rate > 60; Glucose Random 104 mg/dL (60-115); Potassium 3.6 mmol/L (3.3-5.1); Sodium 138 mmol/L (135-145)
[2020-12-23] MEDS: busPIRone HCl 10 MG TABLET PO ×2 (10:15→15:10)
[2020-12-23] MEDS: Gabapentin 300 MG CAPSULE PO (10:15)
[2020-12-23] MEDS: Potassium Chloride Packet 20 MEQ PACKET 40 MEQ PO (10:15)
[2020-12-23] MEDS: LORazepam 0.5 MG TABLET PO (10:18)
[2020-12-23] MEDS: 0.9 % Sodium Chloride Flush 3 ML SYRINGE IVFLUSH (10:18)
--- NOTE | 2020-12-23 10:24 | P.CNPS_ITS ---
History of Present Illness Date of Service: 12/23/20 Chief Complaint: vomiting/ not feeling well Reason for Consult: capacity for medical decision making. Also evaluate for depression / anxiety. Requesting physician: Wilmer Persaud Discussed with referring provider: Yes Sources of Information: patient interviewed, chart reviewed and crisis/core team assessment reviewed Additional Sources of Information: sister Melisa, at [phone]. HPI Narrative: Patient is a 60 year-old female, admitted with acute hyponatremia. Psychiatry was asked to meet with patient regarding capacity for medical decision making, and management of depression / anxiety. Patient was alert and oriented x4 upon my entering the room. She was agreeable to meet with me. She was fully alert and oriented, and fully understood medical concerns and why she is hospitalized. She describes her mood as anxious, depressed . She was tearful at times during encounter, and reports that she has been experiencing increased pain in her back, which in turn has caused her anxiety and depression symptoms to increase. She described herself as a person that has always struggled with depression and anxiety during her lifetime. She states that she began seeing a therapist in 2007, while she was going through a divorce. She states that she has been seen her primary care physician who has prescribed her BuSpar for anxiety. She states that she has also been taking p.r.n. lorazepam, as well as gabapentin. She states that she was going to the [facility] 3 times per week for swimming therapy. She states that overall she has been able to keep her anxiety and depressive symptoms under control with the combination of medication and exercise. She states that since the pandemic it has been increasingly harder for her to do this, and the isolation has increased her mental health symptoms. She reports that although gabapentin is scheduled t.i.d., she only takes the morning dose. She also reports that at 1 time her provider had started her on an antidepressant, but she did not feel it helped at all and she did not con tinue it. She does not remember the name of the med. She reports that this was ?years ago ?. She reports that she has 2 adult grown children that live in [place]. She has been since 2007, and has lived alone since then. She is currently receiving disability. She had received therapy at 1 point in 2007, and then again several years ago. She does not currently have any type of psychiatric provider, has never been hospitalized psychiatrically, and has never attended any type of partial program. She does report that she experiences chronic pain issues, which in turn add to her feelings of anxiety and depression. She states that she has had thoughts of wanting ?to harm myself, wanting to end my life . She describes a plan that she would overdose on her medication. She states that these are passive suicidal ideations, and that she does not feel them daily, and has never acted on them. She states that she has tried to eat healthy, exercise on a regular basis, and keep stress management under control. She states that it has been very difficult to do this over the past few months, and that she has noticed her symptoms have been escalating. She does not have any type of home care services, and states that her home is in disarray at this time. She called her sister while this typewriter assembler was in the room. She asked this typewriter assembler to speak with her sister, who happens to be her healthcare proxy. She gave verbal permission for this typewriter assembler to call her sister when out of room to discuss situation. Her sister reports that patient has always struggled with mental health, and appear to have some type of breakdown after college although she was not hospitalized. She describes her sister as extreme the anxious. She states that she is not sure for sister has ever been diagnosed with a personality disorder, but feels that she may have one. Her sister has reported that patient's apartment is in disarray, the patient has been hoarding, and not attending to any type of housekeeping. She also reports that patient has been hoarding medications in the home. She is concerned regarding her sister, and thinks that her sister should live in a nursing home. This typewriter assembler did explain that patient is fully alert and oriented, and most likely would not meet criteria for a nursing home setting at this time. Her sister also reports there is a family history that her grandmother had mental health issues, and that there is a history of dementia in multiple family members. Past Psychiatric History: Therapist in 2007, therapy here outpatient for several months, approximately 4-5 years ago. Medical Evaluation Reviewed: Yes Personal & Social History: Patient raised by parents, has multiple siblings, including a sister who is healthcare proxy. She was and has 2 adult children, who both live in [place]. She in 2007. Currently disabled. Review of Systems Review of Systems A full review of systems was completed and was negative with the exception of pertinent positives noted in history of the presenting illness (HPI). Constitutional: Reports as per HPI Eyes: Reports as per HPI Reports as per HPI and Reports Normal hearing present Cardiovascular: Reports as per HPI Respiratory: Reports as per HPI Gastrointestinal: Reports as per HPI Genitourinary: Reports as per HPI Musculoskeletal: Reports as per HPI and Reports back pain Skin/Breast: Reports other (facial psyoriais present) Reports as per HPI and Reports Normal hearing present Psychiatric: Reports anxiety, Reports depression, Reports hopelessness and Reports irritability Endocrine: Reports as per HPI [facility] Medical History (Updated 12/23/20 @ 15:20 by Carly Campbell) Anxiety Chronic back pain Depression HTN (hypertension) Surgical History H/O total colectomy Family History: familial history of dementia. grandmother had similar depressive / anxiety symptoms sister has depression Social History: lives alone, on disability. Substance History: Patient denies any type of substance use history. Trauma History: unknown. Patient did not report any type of trauma history. Diagnostics Vital Signs (24Hr): Vital Signs - 24 hr 12/22/20 11:48 12/22/20 14:26 12/22/20 20:00 Temperature 98.4 F 97.4 F Pulse Rate 85 74 77 Respiratory Rate 17 16 20 Blood Pressure 148/96 H 132/88 141/85 H Pulse Oximetry 99 97 98 12/22/20 23:23 12/23/20 04:00 12/23/20 07:55 Temperature 97.6 F 98.3 F 98.6 F Pulse Rate 80 75 91 Respiratory Rate 18 18 18 Blood Pressure 132/80 145/90 H 134/91 H Pulse Oximetry 98 96 98 Body Mass Index 25.3 Labs Results: 12/21/20 07:12 12/23/20 08:29 Labs: Laboratory Results - last 48 hr 12/21/20 12/21/20 12/21/20 10:06 10:06 12:07 Sodium 128 L 135 Potassium 3.7 Chloride 97 Carbon Dioxide 25 Anion Gap 10 L BUN 6 L Creatinine 0.65 Estim Creat Clear Calc 66.9 Estimated GFR > 60 Random Glucose 94 Osmolality Cancelled Calcium 8.2 L D Urine Osmolality Ur Random Sodium Urine Creatinine 12/21/20 12/21/20 12/21/20 12:07 12:33 12:33 Sodium Potassium Chloride Carbon Dioxide Anion Gap BUN Creatinine Estim Creat Clear Calc Estimated GFR Random Glucose Osmolality 282 Calcium Urine Osmolality 102 L Ur Random Sodium < 20.0 Urine Creatinine 18.91 12/21/20 12/21/20 12/21/20 14:40 16:38 18:39 Sodium 135 130 L 130 L Potassium Chloride Carbon Dioxide Anion Gap BUN Creatinine Estim Creat Clear Calc Estimated GFR Random Glucose Osmolality Calcium Urine Osmolality Ur Random Sodium Urine Creatinine 12/21/20 12/22/20 12/22/20 19:18 07:02 22:53 Sodium 130 L 130 L 129 L Potassium 3.5 2.8 L Chloride 95 L 94 L Carbon Dioxide 30 H 29 Anion Gap 9 L 9 L BUN 5 L 6 L Creatinine 0.67 0.80 Estim Creat Clear Calc 64.9 60.7 Estimated GFR > 60 > 60 Random Glucose 98 134 H Osmolality Calcium 8.9 D 9.0 Urine Osmolality Ur Random Sodium Urine Creatinine 12/23/20 08:29 Sodium 138 Potassium 3.6 D Chloride 99 Carbon Dioxide 28 Anion Gap 15 BUN 6 L Creatinine 0.79 Estim Creat Clear Calc 61.5 Estimated GFR > 60 Random Glucose 104 Osmolality Calcium 10.0 D Urine Osmolality Ur Random Sodium Urine Creatinine Imaging Radiology Impressions: ITS Impressions Head CT 12/21/20 11:27 IMPRESSION: No acute intracranial pathology. Mental Status Exam Mental Status Exam Narrative: Well-nourished, well-developed female, appears stated age. Somewhat unkempt, wearing hospital garb. Was restless upon this typewriter assembler's entrance, did settle down and sit in bed for rest of interview. Ambulation normal, no cogwhee ling or rigidity noted. Patient was alert and oriented x4. Level of consciousness awake, appropriate. No involuntary movements were noted, motor activity calm. Patient was overall, cooperative with interview. Speech was fluent, articulate, logical, normal rate and rhythm. Mood depressed and an xious. Describes difficulty with concentration. It feeling anhedonia, guilt, passive SI at times. Also reports feeling nervous, excessive worry, difficulty relaxing, fatigue, restlessness, feeling annoyed and irritable, as if something awful is going to happen. Affect: congruent with mood, patient was tearful at times during interview. No evidence of juana or hypomania noted. Thought process and associations were linear, goal directed. Thought content was normal, future oriented. No evidence of any type of delusions or hallucinations noted or reported. Patient describes passive SI, states that she would complete a suicide by overdosing on her medications. She denies any SI at this time, and reports that she feels safe while here in hospital. Patient denies any type of homicide does thoughts or violence toward others. Patient appears to be a reliable historian. Judgment and insight appear fair. Medications Medications Current Medications Buspirone HCl (Buspirone Hcl 10 Mg Tablet) 10 mg PO TID [facility] Last Admin: 12/23/20 10:15 Dose: 10 mg Documented by: Gabapentin (Gabapentin 300 Mg Capsule) 300 mg PO TID [facility] Last Admin: 12/23/20 10:15 Dose: 300 mg Documented by: Dextrose/Sodium Chloride (D51/2ns) 1,000 mls @ 100 mls/hr IVCONT .Q10H [facility] Lorazepam (Lorazepam 0.5 Mg Tablet) 0.5 mg PO TID PRN PRN Reason: Anxiety Last Admin: 12/23/20 10:18 Dose: 0.5 mg Documented by: Ondansetron HCl (Ondansetron Hcl 4 Mg/2 Ml Vial) 4 mg IVPUSH Q8H PRN PRN Reason: Nausea and Vomiting Pharmacy Consult (Consult Rx Perform Med Rec) 1 each MISCELLANE ONCE PRN PRN Reason: Consult order Sodium Chloride (0.9 % Sodium Chloride Flush 3 Ml Syringe) [facility] Admin: 12/23/20 10:18 Dose: 3 ml Documented by: Allergies Allergies Allergy/AdvReac Type Severity Reaction Status Date / Time amoxicillin [AMOXICILLIN] Allergy Intermediate HIVES Verified 12/21/20 06:49 Assessment & Plan Assessment & Plan (1) Anxiety: Status: Acute Code(s): F41.9 - Anxiety disorder, unspecified Assessment and Plan: Patient reports she has been taking BuSpar, although she has been taking higher doses at times. She reports that she has at times been taking 15 mg BuSpar some days rather than 10 mg. Reports this is not daily, and only when she feels she needs extra help regarding her anxiety. also reports that she has not been taking gabapentin regularly, and has only been taking the morning dose. (2) Depression: Status: Acute Code(s): F32.9 - Major depressive disorder, single episode, unspecified Assessment and Plan: Patient is willing to try duloxetine, as it may help with depression, anxiety, and fibromyalgia symptoms concurrently. Assessment and Plan: Regarding Capacity: Ms. Weller was able to state, in her own words, exactly what medical problem has occurred, and why she needed to be hospitalized. She reported that she knew her sodium was low and it needed to be rectified while here. She states that she was concerned about dehydration due to her history of total colectomy. She states that due to this, she can become dehydrated extremely easily. She states that she had gone grocery shopping last Wednesday, and then had consumed 4 bottles of water with in a short time of several hours. She states the next thing she remembers is that she needed to go to the hospital. She states she was told her sodium level was extremely low and was most likely due to her consumption of large amounts of water. She stated that she understands that they have been working to increase her sodium level, and that it has been improving. She states she does not intend to refuse any treatment for this, and that she has been cooperative with her care. Therefore, at this time, patient has demonstrated that she is able to receive information regarding her medical condition, process it in a meaningful way, and make appropriate decisions. Therefore she does have capacity for medical decision making. Depression / Anxiety: Patient was encouraged to take medications as prescribed. Discussion of PHP, respite as options, as well as list of outpatient providers was discussed. Patient not currently reporting active SI at this time, although she has expressed recent suicidal ideation, with a plan to overdose on her medications. Care team has been notified, and asked to meet with patient once she is medically cleared, to determine appropriate level of care upon disposition. Patient was provided education regarding duloxetine, and is willing to try the medication. Recomendations: 1. Although patient has capacity for medical decision making, this typewriter assembler requests that she may not leave AMA until CARE team has met with her. 2. Duloxetine 40mg daily has been ordered, start today. My thoughts and recommendations have been shared with Dr. Wilmer Persaud, via secure electronic messaging. Greater than 50% of the session was spent on counseling and/or coordination of care
[2020-12-23 11:24] VITALS: BP 115/64; PULSE 86; RESP 18; TEMP 37.3; O2SAT 95
--- NOTE | 2020-12-23 11:50 | PM.PNNEP ---
Subjective Subjective Date of Service: 12/23/20 Interval history: Seen in f/u HypOnatremia. Sodium level is normal with at 138, hyponatremia Physical Exam Vital Signs: Vital Signs: Last Vital Signs Temp 99.2 F 12/23/20 11:24 Pulse 86 12/23/20 11:24 Resp 18 12/23/20 11:24 BP 115/64 12/23/20 11:24 Pulse Ox 95 12/23/20 11:24 Body Mass Index 25.3 Const: General: no acute distress Orientation/consciousness: oriented to person Neck: Neck: Yes supple and Yes no JVD Resp: Auscultation: clear to auscultation bilaterally Cardio: Jugular venous distension: no JVD Rhythm: regular rhythm Heart sounds: no gallops, no murmurs and no rubs GI: Inspection: Yes normal to inspection Palpation (GI): Soft to palpation and No hepatosplenomegaly present Auscultation: normal bowel sounds Skin: General skin exam: no rashes or lesions noted Neuro: General: oriented to person and no focal motor deficits Motor exam (neuro): No Asterixis during motor activity present Extrem: General: Yes normal to inspection Left upper extremity: No no edema Objective Data Labs CBC & Chem 7: 12/21/20 07:12 12/23/20 08:29 Labs: Laboratory Results - last 24 hr 12/22/20 12/23/20 22:53 08:29 Sodium 129 L 138 Potassium 2.8 L 3.6 D Chloride 94 L 99 Carbon Dioxide 29 28 Anion Gap 9 L 15 BUN 6 L 6 L Creatinine 0.80 0.79 Estim Creat Clear Calc 60.7 61.5 Estimated GFR > 60 > 60 Random Glucose 134 H 104 Calcium 9.0 10.0 D Procedures Date of Service Date of Service: 12/23/20 Assessment & Plan Assessment and plan (1) Acute hyponatremia: Status: Acute Assessment and Plan: Hyponatremia Dilute urine Na suggestive to excessive free water intake Na stands corrected DC PO water restrition No need for IVF Repeat Sodium to watch for over correction Time Spent With Patient Time: Total time spent is greater than 50% in coordination of care (as documented) at patient's floor/unit and/or counseling patient: Time with patient: 15 - 24 minutes Progress Note: Quality Stroke Does the patient have a stroke diagnosis?: No
--- NOTE | 2020-12-23 12:09 | MHC.CM.PN ---
met with pt who will be seen by edwige allen inpt psych placement pts hcp is on chart
[2020-12-23] MEDS: DULoxetine HCl 20 MG CAPSULE.DR 40 MG PO (15:10)
[2020-12-23 15:16] VITALS: BP 134/80; PULSE 107; RESP 18; TEMP 36.9; O2SAT 97
--- NOTE | 2020-12-23 16:17 | PM.DS ---
DS: Providers Provider Date of Service: 12/23/20 Date of admission: 12/21/20 18:24 Primary care physician: Gee Villarreal MD Consults: 12/21/20 10:55 Consult to Care Team Stat Comment: Reason for consultation: anxiety 12/22/20 11:41 Consult to Psychiatry Routine Consulting Provider: [facility] Reason for consultation: Depression management and competency assessment 12/23/20 11:29 Consult to Care Team Routine Comment: Reason for consultation: medically ready for inpatient [facility] DS: Diagnosis Discharge Diagnosis (1) Acute hyponatremia: Status: Acute (2) Chronic back pain: Status: Acute (3) Anxiety: Status: Acute DS: Summary Hospital Course Hospital Course: Chief Complaint: Hyponatremia 60 year old female with anxiety desorder, depression, chronic back pain, histoy of ulcerative colitis s/p colectomy. She presented to the emergency room because she was not feeling well and felt that she was dehydrated. She reports that she has been feeing more depressed and anxious because of her back pain worsening. She spent alot of time drink water overnight as she felt she was dehydrated and wasn't feeling well so she came to the ED and labs show hypOnatremia sodium level of 117 and was given Normal saline bolus? and repeat sodium went up to 135 in a short period of time, making too rapid correction and has since been given DDAVP and D5W in attempt to bring it down and most recent sodium is now 130. She feels better and is assymptomatic. 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 Management was asissted by nephrology. 2/Depression/Anxiety and Suicide thought at time--To be admitted to inpatient Psych for further treament following evaluation of Psych and Crisis team. Time Spent with Patient Time attestation: Total time spent providing and/or coordinating discharge services: Discharge coordination time: Greater than 30 minutes Quality: Stroke Does the patient have a stroke diagnosis?: No Physical Exam Vital Signs: Vital Signs: Last Vital Signs Temp 98.4 F 12/23/20 15:16 Pulse 107 H 12/23/20 15:16 Resp 18 12/23/20 15:16 BP 134/80 12/23/20 15:16 Pulse Ox 97 12/23/20 15:16 Body Mass Index 25.3 General: AO X 3, no acute distress Resp: CTA bilateral CVS: S1,S2,RRR GI: +BS, NT, no distention Skin: No rash Neuro: motor grossly intact Psych: appropriate affect, no SI thought at moment. DS: Data Data Completed and Pending Labs on day of discharge: Laboratory Results - last 24 hr 12/22/20 12/23/20 22:53 08:29 Sodium 129 L 138 Potassium 2.8 L 3.6 D Chloride 94 L 99 Carbon Dioxide 29 28 Anion Gap 9 L 15 BUN 6 L 6 L Creatinine 0.80 0.79 Estim Creat Clear Calc 60.7 61.5 Estimated GFR > 60 > 60 Random Glucose 134 H 104 Calcium 9.0 10.0 D Discharge Plan Discharge Anticipated Discharge Date/Time: 12/23/20 15:53 Disposition: Xfer Psychiatric Hosp Discharge Diagnosis: Depression, Hyponatremia Referrals: Gee Villarreal MD [Primary Care Provider] - 1 Week Discharge Medications: New duloxetine 20 mg Capsule,Delayed Release(Dr/Ec) 40 mg PO DAILY Qty: 30 RF: 0 Continued lorazepam 0.5 mg tablet 1 tab PO TID PRN (Reason: Anxiety) RF: 0 buspirone 10 mg tablet 1 tab PO TID RF: 0 gabapentin 300 mg capsule 1 cap PO TID RF: 0 Discharge Orders: Discharge Order (Routine); Ordered 12/23/20 Ordered By: Wilmer [facility] Forms: Patient Portal Discharge page Care Plan Goals: prevent rehospitalization Health Concerns: Depression Plan of Treatment: Inpatient Psych treatment Patient Instructions: Duloxetine (By mouth)
--- NOTE | 2020-12-23 16:41 | MHC.CARE ---
CARE team evaluated pt, disposition is for inpt psych. Accepted for admission to [facility]. Will be transferred to unit this evening.
--- NOTE | 2020-12-23 16:54 | MHC.CARE ---
Patient evaluated by CARE team and will require inpatient psychiatric treatment. She has been accepted to for admission today, patient, providers and family all updated about plan of care.
== END 2020-12-23 17:16 ==
LOC: HO.ED 17:20 → HO.EDOVER 18:51 → HO.IMC 12-22 19:06
PROVIDERS: Emergency Medicine; Admitting Provider Internal Medicine; Emergency Provider Emergency Medicine; PCP Internal Medicine; Visit Provider Internal Medicine
DX: E87.1 Hypo-osmolality and hyponatremia (principal); G89.29 Other chronic pain; M54.9 Dorsalgia, unspecified; F41.8 Other specified anxiety disorders; I10 Essential (primary) hypertension; R53.1 Weakness; R51.9 Headache, unspecified; Z20.822 Contact with and (suspected) exposure to COVID-19; Z87.19 Personal history of other diseases of the digestive system; Z90.49 Acquired absence of other specified parts of digestive tract; Z88.1 Allergy status to other antibiotic agents; Z79.899 Other long term (current) drug therapy
CPT/HCPCS: 36415; 70450; 80048; 80076; 81001; 83690; 83735; 83930; 83935; 84295; 84300; 85025; 87635; 96361; 96365; 96366; 96375; 96376; 97166; 99219; 99284; 99291; J2405; J2597

== ENCOUNTER 2020-12-23 19:21 | Inpatient (IN) | payer OTHER, SELFPAY ==
--- NOTE | 2020-12-23 23:32 | HO.PSYADMNOT ---
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 She has chronic back pain, ulcerative colitis s/p colectomy. She reported drinking 16 oz of [place] water every 15 minutes due to believing she was dehydrated. Labs showed hyponatremia sodium level of 117 and was given normal saline bolus and repeat sodium went up to 135 in a short period of time, making too rapid correction, was given DDAVP and D5W in attempt to bring it down. As of 12/23/20 sodium level was 138. Per nephrology, she can now take free water as needed. Upon discharge from [facility] she was seen for psych consult due to endorsing sx of depression, suicidal ideation, and anxiety, it was determined she would benefit from an inpatient psych admission, brought to on a CV. Precipitating factors include worsening back pain, stress from the pandemic. Utox negative for illicit substances, no alcohol use reported. Per CARE team notes and psych consult, collateral contacts were called and provided history. Patient's sister and brother have not seen the patient in several years, she has been difficult to deal with, so distanced themselves. By report, patient's adult children have done the same for similar reasons. Siblings expressed concern regarding patient's mental health stability, appalled by her living conditions. Sister stated there are multiple bags of groceries, bottles of medications, notes saying to take a shower, many lights don't work, things are filthy and the unit is uninhabitable. Her sister reports that patient has always struggled with mental health and had some type of breakdown after college, although she was not hospitalized.?? Current med regimen: gabapentin 300 mg TID (only takes in morning due to ?constipation?), ativan 0.5 mg PRN TID (uses 2-3 times a day), buspar 10 mg TID. Meds prescribed by PCP (Dr. Gee Villarreal [place] [facility] She was started on cymbalta 40 mg QD by Psych consult provider, Carly Campbell, on 09/20/21.? I evaluated the patient this evening and upon interview she reports she is ?depressed.? Of note, pt is extremely circumstantial, speaks at length about certain details and is irritable when redirected. She reports she began drinking water Noah evening because ?I felt because I dont have a large intestine, i was prone to dehydrate.? She felt she was getting dehydrated due to headache, dry mouth, nausea and says her rationale was ?I got to try to nip this in the bud, I thought I was totally doing the right thing.? When her sx were not improving, she called 911 because ?I thought I was going to pass out or have a stroke.? Says she has been more depressed in the past 3 months and attributes this to her ?back has been really acting up a lot? and ?it gets so freakin bad,? unsure why it has been worse.? She was coping with pain and mood sx through physical activity but hasnt been swimming in a yr and 6 mo. Has also decreased her self care routines at home, says she has been ?cutting back? on cooking, doing dishes, cleaning. Only showering once a week due to pain. Reports this has also contributed to her sx of depression. Says her apartment is ?cluttered? and she has needed to give some things back to her ex- but has not done this due to ?difficulty letting go,? says she has had multiple losses in her life. Discloses passive SI and recently has had thoughts that ?I would put myself out and I would overdose.? She has access to excess medication at home, as she takes gabapentin once a day when its prescribed TID and she uses her ativan PRN. In the milieu, patient is safe and appropriate in behavior, ruminative. Denies SI/SIB/HI upon inquiry. Somewhat irritable. Says she feels safe. Substance use: Nicotine: 2 cigarettes per day PMH: -Pt was concerned that she was prediabetic and has been on a strict high fiber and low carbohydrate diet for a year.? -Sister is HCP -She has herniated disc (diagnosed 4 yr ago), nerve pain in leg pain (takes gabapentin). States ?my day involves chronic pain management.? Has seen two neurosurgeons but they declined to operate. Also fractured her L shoulder 2 yr ago this past june, slipped on black ice, did PT.? -Diagnosed with ulcerative colitis at age 36. She had complete colectomy procedure and J-pouch surgery at [facility] age 40. Says this was ?traumatic? and took 2-3 yr to recover. SH: -Per chart, patient's sister provided collateral info that their father provides a great deal of financial support each month. Has SSDI. In the past worked as a statistical methods teacher, paraprofessional but unable to sustain due to chronic back pain and UC. -She has three siblings, parents when she was age 16. Mom is , father is alive. -Has 2 adult grown children that live in [place].? She has been since 2007, and has lived alone since then.? PPH: -Per chart, she reports hx of depression since childhood. Has intermittent hx of therapy, Alanon, self-help books, and med management from PCP. She reportedly began seeing a therapist in 2007, while she was going through a divorce.? -Per psych consult note: She also reports that at 1 time her provider had started her on an antidepressant, but she did not feel it helped at all and she did not continue it. She does not remember the name of the med. She reports that this was ?years ago.? -Per psych consult note, Aan reported ?she has been able to keep her anxiety and depressive symptoms under control with the combination of medication and exercise.? FH: -Bio mom: alcohol use disorder -Grandmother: ?mental health issues? -Hx of dementia in several family members Medical Evaluation Reviewed: Yes [facility] Medical History (Updated 12/23/20 @ 15:20 by Carly Campbell) Anxiety Chronic back pain Depression HTN (hypertension) Surgical History H/O total colectomy Family History: familial history of dementia. grandmother had similar depressive / anxiety symptoms sister has depression Social History: lives alone, on disability. Trauma History: unknown. Patient did not report any type of trauma history. Meds/Allergies Meds Home Medications Acetaminophen (Acetaminophen 325 Mg Tablet) 650 mg PO Q6H PRN PRN Reason: Headache/Pain Mild Scale (1-3) Al Hydroxide/Mg Hydroxide (Magnesium Hydrox/Alum Hydrox 30 Ml Oral.Susp) 30 ml PO Q6H PRN PRN Reason: Heartburn/Nausea Buspirone HCl (Buspirone Hcl 10 Mg Tablet) 10 mg PO TID [facility] Last Admin: 12/24/20 08:23 Dose: 10 mg Documented by: Duloxetine HCl (Duloxetine Hcl 30 Mg Capsule.Dr) 30 mg PO DAILY [facility] Last Admin: 12/24/20 08:23 Dose: 30 mg Documented by: Duloxetine HCl (Duloxetine Hcl 20 Mg Capsule.Dr) 40 mg PO DAILY [facility] Last Admin: 12/24/20 08:34 Dose: Not Given Documented by: Gabapentin (Gabapentin 300 Mg Capsule) 300 mg PO DAILY [facility] Last Admin: 12/24/20 08:23 Dose: 300 mg Documented by: Hydroxyzine HCl (Hydroxyzine Hcl 25 Mg Tablet) 25 mg PO Q6H PRN PRN Reason: Anxiety Ibuprofen (Ibuprofen 600 Mg Tablet) 600 mg PO Q8H PRN PRN Reason: mild-moderate pain Lorazepam (Lorazepam 0.5 Mg Tablet) 0.5 mg PO Q8H PRN PRN Reason: anxiety Magnesium Hydroxide (Milk Of Magnesia 30 Ml Oral.Susp) 30 ml PO DAILY PRN PRN Reason: Constipation Trazodone HCl (Trazodone Hcl 50 Mg Tablet) 50 mg PO BEDTIME PRN PRN Reason: Insomnia Allergies Allergies Allergy/AdvReac Type Severity Reaction Status Date / Time amoxicillin [AMOXICILLIN] Allergy Intermediate HIVES Verified 12/21/20 06:49 Mental Status Exam Mental Status Exam Narrative: A&O. In hospital attire, okay hygiene, overweight, psoriasis on face. Good eye contact, somewhat attentive. No Tics or Tremors. No abnormal involuntary movements. Agitated, guarded, difficult to re-direct. Hyperverbal, excessive. Non-pressured speech, spontaneous with regular rate and rhythm, normal volume and prosody. No prolonged speech latency or dysarthria. Mood is ?depressed,? affect is constricted. Currently denies SI/SIB/HI upon inquiry. Denies A/VH or delusional thought content however thoughts are ruminative, circumstantial. Evasive thought process. Appears paranoid. No known cognitive or memory impairment. Insight/ Judgment limited but adequate. 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 She presents with sx of depression, poor insight, decompensation in self care, impaired thought process (circumstantial, ruminative, difficult to re-direct), paranoid ideations, and SI with plan to OD. R/o BPD and schizoaffective DO/ MDD with psychotic features. Has intermittent hx of OP therapy, no hx of PHP or IPLOC, has not seen a psychiatrist and meds are prescribed by PCP. Hx of trauma related to divorce, multiple losses in family, and has reported her health issues are traumatic to her. Has lack of social supports, as her family finds her difficult to engage with. Denies psychotic sx. No hx of manic episodes endorsed. Was started on cymbalta 40 mg on [facility] per psych consult. Reports she is unsure if cymbalta is helping, as she only had one dose, but thinks it has caused side effects of nausea, increased bowel movements. Will decrease to 30 mg. Plan: 1. Decrease cymbalta to 30 mg QD for sx of depression, anxiety. 2. Continue buspar 10 mg TID for anxiety 3. Continue gabapentin at 300 mg QAM, as this is how she takes it OP, helps with nerve pain 4. Continue ativan 0.5 mg TID PRN for anxiety 5. Consider tx with AAP to target ruminative, paranoid thoughts 6. Monitor response to medications. Monitor for safety in the milieu. Discharge on stabilization. Patient seen. Chart reviewed. Discussed with team. Obtain collateral contact info?as needed Reason for continued inpatient stay Substantial Risk for: inability to function, rapid decompensation and med/psych decompensation
[2020-12-24 06:00] VITALS: BP 162/87; PULSE 79; RESP 16; TEMP 36.4; O2SAT 99
[2020-12-24] MEDS: Gabapentin 300 MG CAPSULE PO (08:23)
[2020-12-24] MEDS: DULoxetine HCl 30 MG CAPSULE.DR PO (08:23)
[2020-12-24] MEDS: busPIRone HCl 10 MG TABLET PO ×3 (08:23→20:34)
--- NOTE | 2020-12-24 16:30 | HO.PSYCHPN ---
Subjective Subjective Date of Service: 12/25/20 Reason For Visit: Depression, Anxiety Subjective Notes: Motley Warning and Conditional Voluntary Interim History: Patient seen and discussed with team. Per RN, she presented as easily agitated, pressured speech, difficult to re-direct. 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 Thinks it might be making me really tired, also c/o constipation, decreased appetite. However, also says she has been up 4-5 times at night to use the bathroom. She is perseverating on the exact times she gets her medications, wants to go over this several times, also wanted to tell me what she ate for every meal in excessive detail, difficult to re-direct. Discussed irritability, she attributes this to back pain. Also discussed her thought process to assess for insight, as she continues to present as paranoid, circumstantial, and disorganized and asked if anyone else in her life has reflected this back to her- she minimized symptoms and says she is not disorganized because she was able to remember to do her shoulder exercises today (hx of L side fx, had PT) but later is able to say I know im needy. She continues to report feeling sad, says she has unresolved pain issues that i have in my personal life and thoughts about my daughter who i havent seen in years. In the milieu, patient is intrusive, agitated, restless in behavior. Denies SI/SIB/HI upon inquiry. Says she feels safe. Medication Compliance: Yes Side effects from medications: Yes Review of Systems Medical Review of Systems: unchanged Mental Status Exam Mental Status Exam Narrative: A&O. In hospital attire, okay hygiene, overweight, psoriasis on face. Good eye contact, somewhat attentive. No Tics or Tremors. No abnormal involuntary movements. Agitated, guarded, difficult to re-direct. Hyperverbal, excessive. Non-pressured speech during interview. Mood is ?sad,? affect is constricted. Currently denies SI/SIB/HI upon inquiry. Denies A/VH or delusional thought content however thoughts are ruminative, circumstantial, presents as paranoid, minimizing sx. No known cognitive or memory impairment. Insight/ Judgment limited but adequate. Diagnostics Vital Signs (24Hr): Vital Signs - 24 hr 09/21/21 06:00 Temperature 97.6 F Pulse Rate 79 Respiratory Rate 16 Blood Pressure 162/87 H Pulse Oximetry 99 Medications Medications Current Medications Acetaminophen (Acetaminophen 325 Mg Tablet) 650 mg PO Q6H PRN PRN Reason: Headache/Pain Mild Scale (1-3) Al Hydroxide/Mg Hydroxide (Magnesium Hydrox/Alum Hydrox 30 Ml Oral.Susp) 30 ml PO Q6H PRN PRN Reason: Heartburn/Nausea Buspirone HCl (Buspirone Hcl 10 Mg Tablet) 10 mg PO TID [facility] Last Admin: 12/24/20 15:51 Dose: 10 mg Documented by: Duloxetine HCl (Duloxetine Hcl 30 Mg Capsule.) 30 mg PO DAILY [facility] Last Admin: 12/24/20 08:23 Dose: 30 mg Documented by: Duloxetine HCl (Duloxetine Hcl 20 Mg Capsule.) 40 mg PO DAILY [facility] Last Admin: 12/24/20 08:34 Dose: Not Given Documented by: Gabapentin (Gabapentin 300 Mg Capsule) 300 mg PO DAILY [facility] Last Admin: 12/24/20 08:23 Dose: 300 mg Documented by: Hydroxyzine HCl (Hydroxyzine Hcl 25 Mg Tablet) 25 mg PO Q6H PRN PRN Reason: Anxiety Ibuprofen (Ibuprofen 600 Mg Tablet) 600 mg PO Q8H PRN PRN Reason: mild-moderate pain Lorazepam (Lorazepam 0.5 Mg Tablet) 0.5 mg PO Q8H PRN PRN Reason: anxiety Magnesium Hydroxide (Milk Of Magnesia 30 Ml Oral.Susp) 30 ml PO DAILY PRN PRN Reason: Constipation Trazodone HCl (Trazodone Hcl 50 Mg Tablet) 50 mg PO BEDTIME PRN PRN Reason: Insomnia Allergies Allergies Allergy/AdvReac Type Severity Reaction Status Date / Time amoxicillin [AMOXICILLIN] Allergy Intermediate HIVES Verified 12/21/20 06:49 Assessment & Plan Assessment & Plan (1) Depression: Status: Acute Code(s): F32.9 - Major depressive disorder, single episode, unspecified (2) Anxiety: Status: Acute Code(s): F41.9 - Anxiety disorder, unspecified Assessment and Plan: Ana is a 60 year old female who presented to [facility] with psychogenic polydipsia and multiple co-morbid medical issues. She presents with sx of depression, poor insight, decompensation in self care, impaired thought process (circumstantial, ruminative, difficult to re-direct), paranoid ideations, and SI with plan to OD. R/o BPD and schizoaffective DO/ MDD with psychotic features. Has intermittent hx of OP therapy, no hx of PHP or IPLOC, has not seen a psychiatrist and meds are prescribed by PCP. Hx of trauma related to divorce, multiple losses in family, and has reported her health issues are traumatic to her. Has lack of social supports, as her family finds her difficult to engage with. Denies psychotic sx. No hx of manic episodes endorsed. Was started on cymbalta 40 mg on [facility] per psych consult. Reports she is unsure if cymbalta is helping thinks it has caused side effects of nausea, constipation. Willing to trial abilify to target sx of depression, disorganized thoughts, agitation. Plan: 1. Discontinue cymbalta to 30 mg QD. Start abilify 5 mg QAM. 2. Continue buspar 10 mg TID for anxiety 3. Continue gabapentin at 300 mg QAM, as this is how she takes it OP, helps with nerve pain 4. Continue ativan 0.5 mg Q6H PRN for anxiety 5. Consider tx with AAP to target ruminative, paranoid thoughts 6. Monitor response to medications. Monitor for safety in the milieu. Discharge on stabilization. Patient seen. Chart reviewed. Discussed with team. Obtain collateral contact info?as needed Greater than 50% of the session was spent on counseling and/or coordination of care Reason for contiued inpatient stay Substantial Risk for: rapid decompensation and med/psych decompensation
[2020-12-24] MEDS: LORazepam 0.5 MG TABLET PO (16:32)
[2020-12-24 18:00] VITALS: BP 123/90; PULSE 84; TEMP 37
[2020-12-24] MEDS: Docusate Sodium 100 MG CAPSULE PO (20:34)
[2020-12-25] MEDS: LORazepam 0.5 MG TABLET PO ×3 (04:05→20:26)
[2020-12-25 08:00] VITALS: BP 117/69; PULSE 98; RESP 16; TEMP 37.1; O2SAT 95
[2020-12-25] MEDS: busPIRone HCl 10 MG TABLET PO ×3 (08:45→20:25)
[2020-12-25] MEDS: ARIPiprazole 5 MG TABLET PO (08:45)
[2020-12-25] MEDS: Gabapentin 300 MG CAPSULE PO (08:46)
--- NOTE | 2020-12-25 11:00 | P.PNPSI_ITS ---
Subjective Subjective Date of Service: 12/25/20 Reason For Visit: Depression, Anxiety Interim History: Met with patient who seems to report ongoing depression and anxiety however it is difficult to gauge her symptoms as she is very circumstantial. She currently denies any SI since her admission to the hospital. She says that over the past few months her depression has increased which is interesting to her is usually she struggles more with anxiety. Patient reports that starting BuSpar in 2008 during her divorce was very helpful for her anxiety. She was started on Abilify the other day and is unsure if it is helpful and publications writer educated patient that it may take a little time to know. Developmental Electronics Assembler discussed medications for depression and anxiety which seemed to trigger some anxiety in patient who then asked multiple questions , often either repeating the question or repeating her thoughts about medication-not disorganized, but in more of a circular way. Patient however agreed with publications writer that it would be best to just think about some of these options and talk about it again tomorrow. Patient shared that her medical history has been contributing to her depression, specifically her history of colectomy and herniated disc which causes pain and discomfort. Of note, patient understands that she misunderstood her need to drink fluids and that she was over drinking water which caused hyponatremia. Mental Status Exam Mental Status Exam Narrative: Pt is alert and oriented; behavior is cooperative, friendly; patient is not in distress; dressed in casual attire with adequate hygiene; mood is described as good and affect congruent; eye contact appropriate; Speech is verbose, but normal rate, volume and prosody and not pressured; some psychomotor agitation pr esent; thought process is very circumstantial and at times tangential but can also be linear and goal directed. Thought content is on treatment and her own hx of illness; otherwise TC relevant to pertinent topics and without any delusional content; no overt paranoid ideations expressed; denies any SI/HI. There is no evidence of perceptual disturbance. ?Patients insight and judgment appear mildly impaired. Diagnostics Vital Signs (24Hr): Vital Signs - 24 hr 12/24/20 18:00 12/25/20 08:00 Temperature 98.6 F 98.8 F Pulse Rate 84 98 Respiratory Rate 16 Blood Pressure 123/90 H 117/69 Pulse Oximetry 95 Medications Medications Current Medications Acetaminophen (Acetaminophen 325 Mg Tablet) 650 mg PO Q6H PRN PRN Reason: Headache/Pain Mild Scale (1-3) Al Hydroxide/Mg Hydroxide (Magnesium Hydrox/Alum Hydrox 30 Ml Oral.Susp) 30 ml PO Q6H PRN PRN Reason: Heartburn/Nausea Aripiprazole (Aripiprazole 5 Mg Tablet) 5 mg PO DAILY [facility] Last Admin: 12/25/20 08:45 Dose: 5 mg Documented by: Buspirone HCl (Buspirone Hcl 10 Mg Tablet) 10 mg PO TID [facility] Last Admin: 12/25/20 08:45 Dose: 10 mg Documented by: Docusate Sodium (Docusate Sodium 100 Mg Capsule) 100 mg PO BEDTIME [facility] Last Admin: 12/24/20 20:34 Dose: 100 mg Documented by: Duloxetine HCl (Duloxetine Hcl 20 Mg Capsule.Dr) 40 mg PO DAILY [facility] Last Admin: 12/25/20 09:51 Dose: Not Given Documented by: Gabapentin (Gabapentin 300 Mg Capsule) 300 mg PO DAILY [facility] Last Admin: 12/25/20 08:46 Dose: 300 mg Documented by: Hydroxyzine HCl (Hydroxyzine Hcl 25 Mg Tablet) 25 mg PO Q6H PRN PRN Reason: Anxiety Ibuprofen (Ibuprofen 600 Mg Tablet) 600 mg PO Q8H PRN PRN Reason: mild-moderate pain Lorazepam (Lorazepam 0.5 Mg Tablet) 0.5 mg PO Q6H PRN PRN Reason: anxiety Last Admin: 12/25/20 04:05 Dose: 0.5 mg Documented by: Magnesium Hydroxide (Milk Of Magnesia 30 Ml Oral.Susp) 30 ml PO DAILY PRN PRN Reason: Constipation Trazodone HCl (Trazodone Hcl 50 Mg Tablet) 50 mg PO BEDTIME PRN PRN Reason: Insomnia Allergies Allergies Allergy/AdvReac Type Severity Reaction Status Date / Time amoxicillin [AMOXICILLIN] Allergy Intermediate HIVES Verified 12/21/20 06:49 Assessment & Plan Assessment & Plan (1) Depression: Status: Acute Code(s): F32.9 - Major depressive disorder, single episode, unspecified (2) Anxiety: Status: Acute Code(s): F41.9 - Anxiety disorder, unspecified Assessment and Plan: Ana is a 60 year old female who [place] [facility] [place]ogenic polydipsia and multiple co-morbid medical issues. She presents with sx of depression, poor insight, decompensation in self care, impaired thought process (circumstantial, ruminative, difficult to re-direct), paranoid ideations, and SI with plan to OD. R/o BPD and schizoaffective DO/ MDD with psychotic features. Has intermittent hx of OP therapy, no hx of PHP or IPLOC, has not seen a psychiatrist and meds are prescribed by PCP. Hx of trauma related to divorce, mu ltiple losses in family, and has reported her health issues are traumatic to her. Has lack of social supports, as her family finds her difficult to engage with. Denies psychotic sx. No hx of manic episodes endorsed. Was started on cymbalta 40 mg on [facility] per psych consult. Patient is willing to continue with Abilify 5 mg daily (Cymbalta discontinue); she presents with anxiety and perseverates on the topic of medication and her history of illness. AMADO is a rule out. Will continue current medication regimen for now Will consider increasing BuSpar since it has helped in the past Plan: 1. Discontinue cymbalta to 30 mg QD. STARTED abilify 5 mg QAM. 2. Continue buspar 10 mg TID for anxiety 3. Continue gabapentin at 300 mg QAM, as this is how she takes it OP, helps with nerve pain 4. Continue ativan 0.5 mg Q6H PRN for anxiety 5. Consider tx with AAP to target ruminative, paranoid thoughts 6. Monitor response to medications. Monitor for safety in the milieu. Discharge on stabilization. Patient seen. Chart reviewed. Discussed with team. Obtain collateral contact info?as needed Greater than 50% of the session was spent on counseling and/or coordination of care Reason for contiued inpatient stay Substantial Risk for: med/psych decompensation
[2020-12-25] MEDS: Nicotine 7 MG PATCH.TD24 TRANSDERMA (14:04)
[2020-12-25 18:00] VITALS: BP 133/70; PULSE 100; RESP 18; TEMP 36.6; O2SAT 96
[2020-12-26] MEDS: busPIRone HCl 10 MG TABLET PO ×3 (08:17→20:14)
[2020-12-26] MEDS: ARIPiprazole 5 MG TABLET PO (08:17)
[2020-12-26] MEDS: Nicotine 7 MG PATCH.TD24 TRANSDERMA ×2 (08:17→14:32)
[2020-12-26] MEDS: Gabapentin 300 MG CAPSULE PO ×2 (08:17→20:17)
[2020-12-26] MEDS: LORazepam 0.5 MG TABLET PO ×2 (08:17→14:31)
[2020-12-26] MEDS: Acetaminophen 325 MG TABLET 650 MG PO (10:31)
[2020-12-26 11:20] VITALS: BMI 27.1
--- NOTE | 2020-12-26 14:01 | P.PNPSI_ITS ---
Subjective Subjective Date of Service: 12/26/20 Reason For Visit: Depression, Anxiety Subjective Notes: Motley Warning and Conditional Voluntary Healthcare Proxy: No Guardianship: No Medical Problems Affecting Mental Status: Yes Interim History: Patient seen and discussed with team. Patient evaluated this morning and upon interview she states she has had unwanted side effects on abilify. States she was initially experiencing lightheadedness, dizziness, and a ?tired feeling? but this subsided after a day. Says she has noticed three incidents of it ?affecting my speech,? says her words came out ?slowed,? felt she was ?tripping on my tongue.? No akathesia. AIMS negative, no oral/facial dyskinesia noticed or involuntary movements. Says her energy is ?okay? and last night ?I actually slept 7 hours straight which was unreal.? Initially requested to have gabapentin BID PRN for pain (was prescribed TID in the community) decided not to take it ?because I was doing okay,? she was worried about constipation. Denies noticing any benefit on abilify, says ?I cant say that there?s anything going well,? however T/W noticed she is less circumstantial and less agitated. 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 nausea, and headache on this. Participated in art group today. Interested in increasing buspar for anxiety but will discuss this with primary team tomorrow. In the milieu, patient is safe but intrusive at times in behavior, has mutliple requests of nursing staff. Denies SI/SIB/HI upon inquiry. Denies irritability or assaultive ideation. Says she feels safe. Medication Compliance: Yes Side effects from medications: Yes Attending Groups: Intermittent Review of Systems Acute medical concerns: No Medical Review of Systems: unchanged Mental Status Exam Mental Status Exam Narrative: Pt is alert and oriented; behavior is cooperative, friendly; patient is not in distress; dressed in casual attire with adequate hygiene; mood is described as okay and affect congruent; eye contact appropriate; Speech is verbose, but normal rate, volume and prosody and not pressured; some psychomotor agitation present; thought process is somewhat less circumstantial, more linear and goal directed. Thought content is on side effects of meds, pain, what she ate today; without any delusional content; no overt paranoid ideations expressed; denies any SI/HI. There is no evidence of perceptual disturbance. Patients insight and judgment appear mildly impaired. Diagnostics Vital Signs (24Hr): Vital Signs - 24 hr 12/25/20 18:00 Temperature 97.9 F Pulse Rate 100 Respiratory Rate 18 Blood Pressure 133/70 Pulse Oximetry 96 Body Mass Index 27.1 Medications Medications Current Medications Acetaminophen (Acetaminophen 325 Mg Tablet) 650 mg PO Q6H PRN PRN Reason: Headache/Pain Mild Scale (1-3) Last Admin: 12/26/20 10:31 Dose: 650 mg Documented by: Al Hydroxide/Mg Hydroxide (Magnesium Hydrox/Alum Hydrox 30 Ml Oral.Susp) 30 ml PO Q6H PRN PRN Reason: Heartburn/Nausea Aripiprazole (Aripiprazole 5 Mg Tablet) 5 mg PO DAILY [facility] Last Admin: 12/26/20 08:17 Dose: 5 mg Documented by: Buspirone HCl (Buspirone Hcl 10 Mg Tablet) 10 mg PO TID [facility] Last Admin: 12/26/20 08:17 Dose: 10 mg Documented by: Docusate Sodium (Docusate Sodium 100 Mg Capsule) 100 mg PO BEDTIME [facility] Last Admin: 12/25/20 20:26 Dose: Not Given Documented by: Gabapentin (Gabapentin 300 Mg Capsule) 300 mg PO DAILY [facility] Last Admin: 12/26/20 08:17 Dose: 300 mg Documented by: Gabapentin (Gabapentin 300 Mg Capsule) 300 mg PO BID PRN PRN Reason: pain Hydroxyzine HCl (Hydroxyzine Hcl 25 Mg Tablet) 25 mg PO Q6H PRN PRN Reason: Anxiety Ibuprofen (Ibuprofen 600 Mg Tablet) 600 mg PO Q8H PRN PRN Reason: mild-moderate pain Lorazepam (Lorazepam 0.5 Mg Tablet) 0.5 mg PO Q6H PRN PRN Reason: anxiety Last Admin: 12/26/20 08:17 Dose: 0.5 mg Documented by: Magnesium Hydroxide (Milk Of Magnesia 30 Ml Oral.Susp) 30 ml PO DAILY PRN PRN Reason: Constipation Nicotine (Nicotine 7 Mg Patch.Td24) 7 mg TRANSDERMA DAILY [facility] Last Admin: 12/26/20 08:17 Dose: 7 mg Documented by: Trazodone HCl (Trazodone Hcl 50 Mg Tablet) 50 mg PO BEDTIME PRN PRN Reason: Insomnia Allergies Allergies Allergy/AdvReac Type Severity Reaction Status Date / Time amoxicillin [AMOXICILLIN] Allergy Intermediate HIVES Verified 12/21/20 06:49 Assessment & Plan Assessment & Plan (1) Depression: Status: Acute Code(s): F32.9 - Major depressive disorder, single episode, unspecified (2) Anxiety: Status: Acute Code(s): F41.9 - Anxiety disorder, unspecified Assessment and Plan: Ana is a 60 year old female who [place] [facility] [place]ogenic polydipsia and multiple co-morbid medical issues. She presents with sx of depression, poor insight, decompensation in self care, impaired thought process (circumstantial, ruminative, difficult to re-direct), paranoid ideations, and SI with plan to OD. R/o BPD and schizoaffective DO/ MDD with psychotic features. Has intermittent hx of OP therapy, no hx of PHP or IPLOC, has not seen a psychiatrist and meds are prescribed by PCP. Hx of trauma related to divorce, multiple losses in family, and has reported her health issues are traumatic to her. Has lack of social supports, as her family finds her difficult to engage with. Denies psychotic sx. No hx of manic episodes endorsed. Was started on cymbalta 40 mg on [facility] per psych consult. Patient is willing to continue with Abilify 5 mg daily (Cymbalta discontinue); she presents with anxiety and perseverates on the topic of medication and her history of illness. AMADO is a rule out. Will continue current medication regimen for now Will consider increasing BuSpar since it has helped in the past 12/26: Reports SE of impaired speech on abilify, AIMS 0, will continue to monitor, thoughts appear less circumstantial, less agitated today. Will consider inrease in buspar. Has tx plan meeting scheduled for 12/27/20 with family. Plan: 1. Discontinue cymbalta to 30 mg QD. STARTED abilify 5 mg QAM. 2. Continue buspar 10 mg TID for anxiety 3. Continue gabapentin at 300 mg QAM, as this is how she takes it OP, helps with nerve pain 4. Continue ativan 0.5 mg Q6H PRN for anxiety 5. Consider tx with AAP to target ruminative, paranoid thoughts 6. Monitor response to medications. Monitor for safety in the milieu. Discharge on stabilization. Patient seen. Chart reviewed. Discussed with team. Obtain collateral contact info?as needed Greater than 50% of the session was spent on counseling and/or coordination of care Reason for contiued inpatient stay Substantial Risk for: rapid decompensation and med/psych decompensation
[2020-12-26 16:31] VITALS: BP 128/81; PULSE 84; RESP 16; TEMP 36.4; O2SAT 98
[2020-12-26] MEDS: Docusate Sodium 100 MG CAPSULE PO (20:14)
[2020-12-27] MEDS: LORazepam 0.5 MG TABLET PO ×4 (01:24→22:01)
[2020-12-27] MEDS: Docusate Sodium 100 MG CAPSULE PO (01:24)
[2020-12-27] MEDS: busPIRone HCl 10 MG TABLET PO ×3 (08:23→20:37)
[2020-12-27] MEDS: ARIPiprazole 5 MG TABLET PO (08:23)
[2020-12-27] MEDS: Gabapentin 300 MG CAPSULE PO (08:23)
[2020-12-27] MEDS: Nicotine 7 MG PATCH.TD24 TRANSDERMA (08:23)
--- NOTE | 2020-12-27 11:09 | P.PNPSI_ITS ---
Subjective Subjective Date of Service: 12/27/20 Reason For Visit: Depression, Anxiety Interim History: Patient continues to deny depression and says anxiety is lower, however she says that hospital setting makes it hard to fully judge's clerk. She denies any side effects today of medication and agrees to continue. Given her overall anxiety patient agrees to increase BuSpar to 20 mg t.i.d., rather than start Prozac for what seems like AMAOD. Patient reports that she sleeping ?good enough.: She denies any SI. Also Met with patient and her family at a family meeting with social services. If patient and her brother and sister agreed that they would help clean her apartment and that she will remain in the hospital for continued medication management during which time outpatient services will be set up including [facility]. Mental Status Exam Mental Status Exam Narrative: ?Pt is alert and oriented; behavior is cooperative, friendly; patient is not in distress; dressed in casual attire with adequate hygiene; mood is described as good and affect congruent; eye contact appropriate; Speech is verbose, but normal rate, volume and prosody and not pressured; no psychomotor present; thought process circumstantial and can get overly fixated on one idea, but she is also able to be goal directed. Thought content is on side effects of meds, chronic pain...on what she ate today; no any delusional content; no paranoid ideations expressed; denies any SI/HI. There is no evidence of perceptual disturbance. Patients insight and judgment appear mildly impaired. Diagnostics Vital Signs (24Hr): Vital Signs - 24 hr 12/26/20 16:31 Temperature 97.6 F Pulse Rate 84 Respiratory Rate 16 Blood Pressure 128/81 Pulse Oximetry 98 Body Mass Index 27.1 Medications Medications Current Medications Acetaminophen (Acetaminophen 325 Mg Tablet) 650 mg PO Q6H PRN PRN Reason: Headache/Pain Mild Scale (1-3) Last Admin: 12/26/20 10:31 Dose: 650 mg Documented by: Al Hydroxide/Mg Hydroxide (Magnesium Hydrox/Alum Hydrox 30 Ml Oral.Susp) 30 ml PO Q6H PRN PRN Reason: Heartburn/Nausea Aripiprazole (Aripiprazole 5 Mg Tablet) 5 mg PO DAILY [facility] Last Admin: 12/27/20 08:23 Dose: 5 mg Documented by: Buspirone HCl (Buspirone Hcl 10 Mg Tablet) 10 mg PO TID [facility] Last Admin: 12/27/20 08:23 Dose: 10 mg Documented by: Docusate Sodium (Docusate Sodium 100 Mg Capsule) 100 mg PO BEDTIME [facility] Last Admin: 12/27/20 01:24 Dose: 100 mg Documented by: Gabapentin (Gabapentin 300 Mg Capsule) 300 mg PO DAILY [facility] Last Admin: 12/27/20 08:23 Dose: 300 mg Documented by: Gabapentin (Gabapentin 300 Mg Capsule) 300 mg PO BID PRN PRN Reason: pain Last Admin: 12/26/20 20:17 Dose: 300 mg Documented by: Hydroxyzine HCl (Hydroxyzine Hcl 25 Mg Tablet) 25 mg PO Q6H PRN PRN Reason: Anxiety Ibuprofen (Ibuprofen 600 Mg Tablet) 600 mg PO Q8H PRN PRN Reason: mild-moderate pain Lorazepam (Lorazepam 0.5 Mg Tablet) 0.5 mg PO Q6H PRN PRN Reason: anxiety Last Admin: 12/27/20 08:23 Dose: 0.5 mg Documented by: Magnesium Hydroxide (Milk Of Magnesia 30 Ml Oral.Susp) 30 ml PO DAILY PRN PRN Reason: Constipation Nicotine (Nicotine 7 Mg Patch.Td24) 7 mg TRANSDERMA DAILY [facility] Last Admin: 12/27/20 08:23 Dose: 7 mg Documented by: Trazodone HCl (Trazodone Hcl 50 Mg Tablet) 50 mg PO BEDTIME PRN PRN Reason: Insomnia Allergies Allergies Allergy/AdvReac Type Severity Reaction Status Date / Time amoxicillin [AMOXICILLIN] Allergy Intermediate HIVES Verified 12/21/20 06:49 Assessment & Plan Assessment & Plan (1) Depression: Status: Acute Code(s): F32.9 - Major depressive disorder, single episode, unspecified (2) Anxiety: Status: Acute Code(s): F41.9 - Anxiety disorder, unspecified Assessment and Plan: Ana is a 60 year old female who 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 She presents with sx of depression, poor insight, decompensation in self care, impaired thought process (circumstantial, ruminative, difficult to re-direct), paranoid ideations, and SI with plan to OD. R/o BPD and schizoaffective DO/ MDD with psychotic features. Has intermittent hx of OP therapy, no hx of PHP or IPLOC, has not seen a psychiatrist and meds are prescribed by PCP. Hx of trauma related to divorce, multiple losses in family, and has reported her health issues are traumatic to her. Has lack of social supports, as her family finds her difficult to engage with. Denies psychotic sx. No hx of manic episodes endorsed. Was started on cymbalta 40 mg on [facility] per psych consult. Patient is willing to continue with Abilify 5 mg daily (Cymbalta discontinue); she presents with anxiety and perseverates on the topic of medication and her history of illness. AMADO is a rule out. Will continue current medication regimen for now Will consider increasing BuSpar since it has helped in the past 12/26: Reports SE of impaired speech on abilify, AIMS 0, will continue to monitor, thoughts appear less circumstantial, less agitated today. -no return of any side effects from Abilify which she is tolerating well Agreed to increase BuSpar for anxiety/depression; considered Prozac but patient has already been started on Abilify which will hopefully tamped down her anxious thoughts which reportedly had a touch of paranoia to them Plan: Continue abilify 5 mg QAM. (started on this admission after Cymbalta discontinued which was also started on this admission) Increased to BuSpar 20 mg t.i.d. for chronic anxiety and depression Continue gabapentin at 300 mg QAM, as this is how she takes it OP, helps with nerve pain Continue ativan 0.5 mg Q6H PRN for anxiety Monitor response to medications. Monitor for safety in the milieu. Discharge on stabilization. Patient seen. Chart reviewed. Discussed with team. Obtain collateral contact info?as needed Greater than 50% of the session was spent on counseling and/or coordination of care Reason for contiued inpatient stay Substantial Risk for: rapid decompensation
[2020-12-27 13:36] VITALS: BP 127/90; PULSE 109; RESP 16; TEMP 36.2; O2SAT 97
[2020-12-27 18:00] VITALS: BP 122/82; PULSE 76; RESP 18; O2SAT 99
[2020-12-27] MEDS: Ibuprofen 600 MG TABLET PO (19:35)
--- NOTE | 2020-12-27 21:37 | PM.EVENT ---
Event Note Date of Service: 12/27/20 Event Note: Patient reports she is not comfortable increasing buspar to 20 mg TID, will change to 15 mg TID to target sx of anxiety.
[2020-12-28 06:00] VITALS: BP 145/91; PULSE 90; RESP 16; TEMP 35.9; O2SAT 95
[2020-12-28] MEDS: busPIRone HCl 5 MG TABLET 15 MG PO ×3 (08:02→20:38)
[2020-12-28] MEDS: Nicotine 7 MG PATCH.TD24 TRANSDERMA (08:02)
[2020-12-28] MEDS: Gabapentin 300 MG CAPSULE PO ×2 (08:02→16:07)
[2020-12-28] MEDS: ARIPiprazole 5 MG TABLET PO (08:02)
[2020-12-28] MEDS: LORazepam 0.5 MG TABLET PO ×3 (08:02→20:38)
--- NOTE | 2020-12-28 12:52 | P.PNPSI_ITS ---
Subjective Subjective Date of Service: 12/28/20 Reason For Visit: Depression, Anxiety Interim History: Patient continues to deny depression or any SI; anxiety seems to be improving Patient said she talked with provider last evening and wanted to continue with increased Buspar but at only 15 mg t.i.d. rather than 20 mg t.i.d. Vocational Rehabilitation Technician agrees with this change accepting that patient is more comfortable with modest increase at this time. Patient denies any medication side effects from Abilify. She says that she has managing to sleep despite uncomfortable mattress and chronic back pain. Otherwise patient has no complaints or requests. Mental Status Exam Mental Status Exam Narrative: ??Pt is alert and oriented; behavior is cooperative, friendly; patient is not in distress; dressed in casual attire with adequate hygiene; mood is described as good and affect congruent; eye contact appropriate; Speech is verbose, but normal rate, volume and prosody and not pressured; no psychomotor? present; thought process circumstantial but take less time to [place] back to original point; she is also able to be goal directed. Thought content is to exhaustively share her thoughts on a topic which is on her mind, such as thoughts about medications, dealing with uncomfortable mattress and her chronic pain; no any delusional content; no paranoid ideations expressed; denies any SI/HI. There is no evidence of perceptual disturbance. Patients insight and judgment appear intact. Diagnostics Vital Signs (24Hr): Vital Signs - 24 hr 12/27/20 13:36 12/27/20 18:00 12/28/20 06:00 Temperature 97.2 F 96.7 F L Pulse Rate 109 H 76 90 Respiratory Rate 16 18 16 Blood Pressure 127/90 H 122/82 145/91 H Pulse Oximetry 97 99 95 Body Mass Index 27.1 Medications Medications Current Medications Acetaminophen (Acetaminophen 325 Mg Tablet) 650 mg PO Q6H PRN PRN Reason: Headache/Pain Mild Scale (1-3) Last Admin: 12/26/20 10:31 Dose: 650 mg Documented by: Al Hydroxide/Mg Hydroxide (Magnesium Hydrox/Alum Hydrox 30 Ml Oral.Susp) 30 ml PO Q6H PRN PRN Reason: Heartburn/Nausea Aripiprazole (Aripiprazole 5 Mg Tablet) 5 mg PO DAILY SID Last Admin: 12/28/20 08:02 Dose: 5 mg Documented by: Buspirone HCl (Buspirone Hcl 5 Mg Tablet) 15 mg PO TID [facility] Last Admin: 12/28/20 08:02 Dose: 15 mg Documented by: Docusate Sodium (Docusate Sodium 100 Mg Capsule) 100 mg PO BEDTIME [facility] Last Admin: 12/27/20 01:24 Dose: 100 mg Documented by: Gabapentin (Gabapentin 300 Mg Capsule) 300 mg PO DAILY [facility] Last Admin: 12/28/20 08:02 Dose: 300 mg Documented by: Gabapentin (Gabapentin 300 Mg Capsule) 300 mg PO BID PRN PRN Reason: pain Last Admin: 12/26/20 20:17 Dose: 300 mg Documented by: Hydroxyzine HCl (Hydroxyzine Hcl 25 Mg Tablet) 25 mg PO Q6H PRN PRN Reason: Anxiety Ibuprofen (Ibuprofen 600 Mg Tablet) 600 mg PO Q8H PRN PRN Reason: mild-moderate pain Last Admin: 12/27/20 19:35 Dose: 600 mg Documented by: Lorazepam (Lorazepam 0.5 Mg Tablet) 0.5 mg PO Q6H PRN PRN Reason: anxiety Last Admin: 12/28/20 08:02 Dose: 0.5 mg Documented by: Magnesium Hydroxide (Milk Of Magnesia 30 Ml Oral.Susp) 30 ml PO DAILY PRN PRN Reason: Constipation Nicotine (Nicotine 7 Mg Patch.Td24) 7 mg TRANSDERMA DAILY [facility] Last Admin: 12/28/20 08:02 Dose: 7 mg Documented by: Nicotine Polacrilex (Nicotine Polacrilex 2 Mg Gum) 2 mg BUCCAL Q2H PRN PRN Reason: Nicotine Cravings Trazodone HCl (Trazodone Hcl 50 Mg Tablet) 50 mg PO BEDTIME PRN PRN Reason: Insomnia Allergies Allergies Allergy/AdvReac Type Severity Reaction Status Date / Time amoxicillin [AMOXICILLIN] Allergy Intermediate HIVES Verified 12/21/20 06:49 Assessment & Plan Assessment & Plan (1) Depression: Status: Acute Code(s): F32.9 - Major depressive disorder, single episode, unspecified (2) Anxiety: Status: Acute Code(s): F41.9 - Anxiety disorder, unspecified Assessment and Plan: Ana is a 60 year old female who 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 She presents with sx of depression, poor insight, decompensation in self care, impaired thought process (circumstantial, ruminative, difficult to re-direct), paranoid ideations, and SI with plan to OD. R/o BPD and schizoaffective DO/ MDD with psychotic features. Has intermittent hx of OP therapy, no hx of PHP or IPLOC, has not seen a psychiatrist and meds are prescribed by PCP. Hx of trauma related to divorce, multiple losses in family, and has reported her health issues are traumatic to her. Has lack of social supports, as her family finds her difficult to engage with. Denies psychotic sx. No hx of manic episodes endorsed. Was started on cymbalta 40 mg on [facility] per psych consult. Patient is willing to continue with Abilify 5 mg daily (Cymbalta discontinue); she presents with anxiety and perseverates on the topic of medication and her history of illness. AMADO is a rule out. Will continue current medication regimen for now Will consider increasing BuSpar since it has helped in the past 12/26: Reports SE of impaired speech on abilify, AIMS 0, will continue to monitor, thoughts appear less circumstantial, less agitated today. -no return of any side effects from Abilify which she is tolerating well Agreed to increase BuSpar for anxiety/depression; considered Prozac but patient has already been started on Abilify which will hopefully tamped down her anxious thoughts which reportedly had a touch of paranoia to them Remains stable, continues to deny any SI, depression seems to have abated and anxiety getting under control Plan: Continue abilify 5 mg QAM. (started on this admission after Cymbalta discontinued which was also started on this admission) Increased to BuSpar 20 mg t.i.d. for chronic anxiety and depression Continue gabapentin at 300 mg QAM, as this is how she takes it OP, helps with nerve pain Continue ativan 0.5 mg Q6H PRN for anxiety Monitor response to medications. Monitor for safety in the milieu. Discharge on stabilization. Patient seen. Chart reviewed. Discussed with team. Obtain collateral contact info?as needed Greater than 50% of the session was spent on counseling and/or coordination of care Reason for contiued inpatient stay Substantial Risk for: med/psych decompensation
[2020-12-28] MEDS: Nicotine Polacrilex 2 MG GUM BUCCAL ×2 (15:21→20:08)
[2020-12-28 18:00] VITALS: BP 110/78; PULSE 87; RESP 18; TEMP 36.6; O2SAT 97
[2020-12-28] MEDS: Docusate Sodium 100 MG CAPSULE PO (20:38)
[2020-12-29 06:00] VITALS: BP 137/94; PULSE 99; RESP 16; TEMP 36.5; O2SAT 98
[2020-12-29] MEDS: ARIPiprazole 5 MG TABLET PO (08:08)
[2020-12-29] MEDS: LORazepam 0.5 MG TABLET PO ×3 (08:08→20:58)
[2020-12-29] MEDS: Gabapentin 300 MG CAPSULE PO (08:08)
[2020-12-29] MEDS: Nicotine 7 MG PATCH.TD24 TRANSDERMA (08:08)
[2020-12-29] MEDS: busPIRone HCl 5 MG TABLET 15 MG PO ×3 (08:08→20:27)
[2020-12-29] MEDS: Ibuprofen 600 MG TABLET PO (13:48)
--- NOTE | 2020-12-29 19:08 | P.PNPSI_ITS ---
Subjective Subjective Date of Service: 12/29/20 Reason For Visit: Depression, Anxiety Interim History: pt denies depression or SI; mood is good and affect noticeable brighter. Pt denies medication side-effects and want to keep taking current regimen. She remains verbose and likes to explain all her thoughts regarding a topic, but her speech is not pressured and she is overall organized in speech and behavior. Sleeping well. had good visit / her brother yesterday; Mental Status Exam Mental Status Exam Narrative: Pt is alert and oriented; behavior is cooperative, friendly; patient is not in distress; dressed in casual attire with adequate hygiene; mood is described as good and affect congruent; eye contact appropriate; Speech is verbose, but normal rate, volume and prosody and not pressured; no psychomotor? present; thought process circumstantial but take less time to [place] back to original point; she is also able to be goal directed. Thought content is to exhaustively share her thoughts on a topic which is on her mind, such as thoughts about medications, chronic pain; no any delusional content; no paranoid ideations expressed; denies any SI/HI. There is no evidence of perceptual disturbance. Patients insight and judgment appear intact. Diagnostics Vital Signs (24Hr): Vital Signs - 24 hr 12/29/20 06:00 Temperature 97.7 F Pulse Rate 99 Respiratory Rate 16 Blood Pressure 137/94 H Pulse Oximetry 98 Body Mass Index 27.1 Medications Medications Current Medications Acetaminophen (Acetaminophen 325 Mg Tablet) 650 mg PO Q6H PRN PRN Reason: Headache/Pain Mild Scale (1-3) Last Admin: 12/26/20 10:31 Dose: 650 mg Documented by: Al Hydroxide/Mg Hydroxide (Magnesium Hydrox/Alum Hydrox 30 Ml Oral.Susp) 30 ml PO Q6H PRN PRN Reason: Heartburn/Nausea Aripiprazole (Aripiprazole 5 Mg Tablet) 5 mg PO DAILY [facility] Last Admin: 12/29/20 08:08 Dose: 5 mg Documented by: Buspirone HCl (Buspirone Hcl 5 Mg Tablet) 15 mg PO TID [facility] Last Admin: 12/29/20 15:05 Dose: 15 mg Documented by: Docusate Sodium (Docusate Sodium 100 Mg Capsule) 100 mg PO BEDTIME [facility] Last Admin: 12/28/20 20:38 Dose: 100 mg Documented by: Gabapentin (Gabapentin 300 Mg Capsule) 300 mg PO DAILY [facility] Last Admin: 12/29/20 08:08 Dose: 300 mg Documented by: Gabapentin (Gabapentin 300 Mg Capsule) 300 mg PO BID PRN PRN Reason: pain Last Admin: 12/28/20 16:07 Dose: 300 mg Documented by: Hydroxyzine HCl (Hydroxyzine Hcl 25 Mg Tablet) 25 mg PO Q6H PRN PRN Reason: Anxiety Ibuprofen (Ibuprofen 600 Mg Tablet) 600 mg PO Q8H PRN PRN Reason: mild-moderate pain Last Admin: 12/29/20 13:48 Dose: 600 mg Documented by: Magnesium Hydroxide (Milk Of Magnesia 30 Ml Oral.Susp) 30 ml PO DAILY PRN PRN Reason: Constipation Nicotine (Nicotine 7 Mg Patch.Td24) 7 mg TRANSDERMA DAILY [facility] Last Admin: 12/29/20 08:08 Dose: 7 mg Documented by: Nicotine Polacrilex (Nicotine Polacrilex 2 Mg Gum) 2 mg BUCCAL Q2H PRN PRN Reason: Nicotine Cravings Last Admin: 12/28/20 20:08 Dose: 2 mg Documented by: Trazodone HCl (Trazodone Hcl 50 Mg Tablet) 50 mg PO BEDTIME PRN PRN Reason: Insomnia Allergies Allergies Allergy/AdvReac Type Severity Reaction Status Date / Time amoxicillin [AMOXICILLIN] Allergy Intermediate HIVES Verified 12/21/20 06:49 Assessment & Plan Assessment & Plan (1) Depression: Status: Acute Code(s): F32.9 - Major depressive disorder, single episode, unspecified (2) Anxiety: Status: Acute Code(s): F41.9 - Anxiety disorder, unspecified Assessment and Plan: Ana is a 60 year old female who 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 She presents with sx of depression, poor insight, decompensation in self care, impaired thought process (circumstantial, ruminative, difficult to re-direct), paranoid ideations, and SI with plan to OD. R/o BPD and schizoaffective DO/ MDD with psychotic features. Has intermittent hx of OP therapy, no hx of PHP or IPLOC, has not seen a psychiatrist and meds are prescribed by PCP. Hx of trauma related to divorce, multiple losses in family, and has reported her health issues are traumatic to her. Has lack of social supports, as her family finds her difficult to engage with. Denies psychotic sx. No hx of manic episodes endorsed. Was started on cymbalta 40 mg on I[facility] per psych consult. Patient is willing to continue with Abilify 5 mg daily (Cymbalta discontinue); she presents with anxiety and perseverates on the topic of medication and her history of illness. AMADO is a rule out and seems likely; some thoughts about D. Will continue current medication regimen for now increase BuSpar since it has helped in the past 12/26: Reports SE of impaired speech on abilify, AIMS 0, will continue to monitor, thoughts appear less circumstantial, less agitated today. -no return of any side effects from Abilify which she is tolerating well Agreed to increase BuSpar for anxiety/depression; considered Prozac but patient has already been started on Abilify which will hopefully tamped down her anxious thoughts which reportedly had a touch of paranoia to them Remains stable, continues to deny any SI, depression seems to have abated and anxiety getting under control Plan: Continue abilify 5 mg QAM. (started on this admission after Cymbalta discontinued which was also started on this admission) Increased to BuSpar 15 mg t.i.d. for chronic anxiety and depression Continue gabapentin at 300 mg QAM, as this is how she takes it OP, helps with nerve pain Continue ativan 0.5 mg Q6H PRN for anxiety Monitor response to medications. Monitor for safety in the milieu. Discharge on stabilization. Patient seen. Chart reviewed. Discussed with team. Obtain collateral contact info?as needed Greater than 50% of the session was spent on counseling and/or coordination of care Reason for contiued inpatient stay Substantial Risk for: stable for discharge
[2020-12-29] MEDS: Docusate Sodium 100 MG CAPSULE PO (20:27)
[2020-12-30] MEDS: busPIRone HCl 5 MG TABLET 15 MG PO ×3 (09:35→20:52)
[2020-12-30] MEDS: ARIPiprazole 5 MG TABLET PO (09:35)
[2020-12-30] MEDS: Nicotine 7 MG PATCH.TD24 TRANSDERMA (09:35)
[2020-12-30] MEDS: Gabapentin 300 MG CAPSULE PO (09:35)
[2020-12-30 10:00] VITALS: BP 137/97; PULSE 102
[2020-12-30] MEDS: LORazepam 0.5 MG TABLET PO ×2 (10:28→17:18)
[2020-12-30] MEDS: Ibuprofen 600 MG TABLET PO (15:21)
[2020-12-30 18:00] VITALS: BP 136/94; PULSE 102; TEMP 36.2; O2SAT 97
--- NOTE | 2020-12-30 19:08 | P.PNPSI_ITS ---
Subjective Subjective Date of Service: 12/30/20 Reason For Visit: Depression, Anxiety Interim History: pt in good mood, no depression, no SI; anxiety under control, tolerating meds well. She says she's constipated since she does not have her coffee in the morning and asks junior copywriter if it's possible to make this available to which junior copywriter agreed to try and organize. Pt feels ready to go home however, her sister won't be able to get her until tomorrow. Mental Status Exam Mental Status Exam Narrative: ?Pt is alert and oriented; behavior is cooperative, friendly; patient is not in distress; dressed in casual attire with adequate hygiene; mood is described as good and affect congruent; eye contact appropriate; Speech is verbose, but normal rate, volume and prosody and not pressured; no psychomotor? present; thought process circumstantial; she is also able to be goal directed. Thought content is to exhaustively share her thoughts on a topic; no any delusional content; no paranoid ideations expressed; denies any SI/HI. There is no evidence of perceptual disturbance. Patients insight and judgment appear intact. Diagnostics Vital Signs (24Hr): Vital Signs - 24 hr 12/30/20 10:00 Pulse Rate 102 H Blood Pressure 137/97 H Body Mass Index 27.1 Medications Medications Current Medications Acetaminophen (Acetaminophen 325 Mg Tablet) 650 mg PO Q6H PRN PRN Reason: Headache/Pain Mild Scale (1-3) Last Admin: 12/26/20 10:31 Dose: 650 mg Documented by: Al Hydroxide/Mg Hydroxide (Magnesium Hydrox/Alum Hydrox 30 Ml Oral.Susp) 30 ml PO Q6H PRN PRN Reason: Heartburn/Nausea Aripiprazole (Aripiprazole 5 Mg Tablet) 5 mg PO DAILY [facility] Last Admin: 12/30/20 09:35 Dose: 5 mg Documented by: Buspirone HCl (Buspirone Hcl 5 Mg Tablet) 15 mg PO TID [facility] Last Admin: 12/30/20 15:21 Dose: 15 mg Documented by: Docusate Sodium (Docusate Sodium 100 Mg Capsule) 100 mg PO BEDTIME [facility] Last Admin: 12/29/20 20:27 Dose: 100 mg Documented by: Gabapentin (Gabapentin 300 Mg Capsule) 300 mg PO DAILY [facility] Last Admin: 12/30/20 09:35 Dose: 300 mg Documented by: Gabapentin (Gabapentin 300 Mg Capsule) 300 mg PO BID PRN PRN Reason: pain Last Admin: 12/28/20 16:07 Dose: 300 mg Documented by: Hydroxyzine HCl (Hydroxyzine Hcl 25 Mg Tablet) 25 mg PO Q6H PRN PRN Reason: Anxiety Ibuprofen (Ibuprofen 600 Mg Tablet) 600 mg PO Q8H PRN PRN Reason: mild-moderate pain Last Admin: 12/30/20 15:21 Dose: 600 mg Documented by: Lorazepam (Lorazepam 0.5 Mg Tablet) 0.5 mg PO Q6H PRN PRN Reason: anixety Last Admin: 12/30/20 17:18 Dose: 0.5 mg Documented by: Magnesium Hydroxide (Milk Of Magnesia 30 Ml Oral.Susp) 30 ml PO DAILY PRN PRN Reason: Constipation Nicotine (Nicotine 7 Mg Patch.Td24) 7 mg TRANSDERMA DAILY [facility] Last Admin: 12/30/20 09:35 Dose: 7 mg Documented by: Nicotine Polacrilex (Nicotine Polacrilex 2 Mg Gum) 2 mg BUCCAL Q2H PRN PRN Reason: Nicotine Cravings Last Admin: 12/28/20 20:08 Dose: 2 mg Documented by: Trazodone HCl (Trazodone Hcl 50 Mg Tablet) 50 mg PO BEDTIME PRN PRN Reason: Insomnia Allergies Allergies Allergy/AdvReac Type Severity Reaction Status Date / Time amoxicillin [AMOXICILLIN] Allergy Intermediate HIVES Verified 12/21/20 06:49 Assessment & Plan Assessment & Plan (1) Depression: Status: Acute Code(s): F32.9 - Major depressive disorder, single episode, unspecified (2) Anxiety: Status: Acute Code(s): F41.9 - Anxiety disorder, unspecified Assessment and Plan: Ana is a 60 year old female who 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 She presents with sx of depression, poor insight, decompensation in self care, impaired thought process (circumstantial, ruminative, difficult to re-direct), paranoid ideations, and SI with plan to OD. R/o BPD and schizoaffective DO/ MDD with psychotic features. Has intermittent hx of OP therapy, no hx of PHP or IPLOC, has not seen a psychiatrist and meds are prescribed by PCP. Hx of trauma related to divorce, multiple losses in family, and has reported her health issues are traumatic to her. Has lack of social supports, as her family finds her difficult to engage with. Denies psychotic sx. No hx of manic episodes endorsed. Was started on cymbalta 40 mg on I[facility] per psych consult. Patient is willing to continue with Abilify 5 mg daily (Cymbalta discontinue); she presents with anxiety and perseverates on the topic of medication and her history of illness. AMADO is a rule out and seems likely; some thoughts about ASD. Will continue current medication regimen for now increase BuSpar since it has helped in the past 12/26: Reports SE of impaired speech on abilify, AIMS 0, will continue to monitor, thoughts appear less circumstantial, less agitated today. -no return of any side effects from Abilify which she is tolerating well Agreed to increase BuSpar for anxiety/depression; considered Prozac but patient has already been started on Abilify which will hopefully tamped down her anxious thoughts which reportedly had a touch of paranoia to them Remains stable, continues to deny any SI, depression seems to have abated and anxiety getting under control Plan: Continue abilify 5 mg QAM. (started on this admission after Cymbalta discontinued which was also started on this admission) Increased to BuSpar 15 mg t.i.d. for chronic anxiety and depression Continue gabapentin at 300 mg QAM, as this is how she takes it OP, helps with nerve pain Continue ativan 0.5 mg Q6H PRN for anxiety Monitor response to medications. Monitor for safety in the milieu. Discharge on stabilization. Patient seen. Chart reviewed. Discussed with team. Obtain collateral contact info?as needed Greater than 50% of the session was spent on counseling and/or coordination of care Reason for contiued inpatient stay Substantial Risk for: stable for discharge
[2020-12-30] MEDS: Docusate Sodium 100 MG CAPSULE PO (20:53)
[2020-12-31] MEDS: LORazepam 0.5 MG TABLET PO ×2 (04:54→14:10)
[2020-12-31] MEDS: Gabapentin 300 MG CAPSULE PO ×2 (04:54→14:10)
[2020-12-31 06:00] VITALS: BP 117/83; PULSE 104; RESP 18; TEMP 36.3; O2SAT 97
[2020-12-31] MEDS: ARIPiprazole 5 MG TABLET PO (08:28)
[2020-12-31] MEDS: Triamcinolone Acet 0.1 % Cream 15 GM TUBE 1 APPL TOPICAL (08:29)
[2020-12-31] MEDS: busPIRone HCl 5 MG TABLET 15 MG PO ×2 (08:29→14:10)
[2020-12-31] MEDS: Nicotine 7 MG PATCH.TD24 TRANSDERMA (08:29)
--- NOTE | 2020-12-31 09:59 | PM.PSYDC ---
DS: Providers Provider Date of Service: 12/31/20 Date of admission: 12/23/20 19:21 Date of discharge: 12/31/20 Primary care physician: Unknown Physician Attending physician on admission: Iván Aguila Attending physician on discharge: Iván Aguila DS: Diagnosis Discharge Diagnosis (1) MDD (major depressive disorder), recurrent episode, moderate: Status: Acute (2) AMADO (generalized anxiety disorder): Status: Acute DS: Medications Discharge Medications Home Medications: Home Medications Medication Instructions Recorded Confirmed buspirone 10 mg tablet 1 tab PO TID 12/21/20 12/21/20 gabapentin 300 mg capsule 1 cap PO TID 12/21/20 12/21/20 lorazepam 0.5 mg tablet 1 tab PO TID PRN 12/21/20 12/21/20 Previous Rx's Medication Instructions Recorded duloxetine 20 mg capsule,delayed 40 mg PO DAILY #30 cap 12/23/20 release Mental Status Exam Mental Status Exam Narrative: ?Pt is alert and oriented; behavior is cooperative, friendly; patient is not in distress; dressed in casual attire with adequate hygiene; mood is described as good and affect congruent; eye contact appropriate; Speech is verbose at times, but not pressured and normal rate, volume and prosody; no psychomotor? present; thought process linear and goal oriented; sometime circumstantial; Thought content is on treatment and discharge; no delusional content; no paranoid ideations; denies any SI/HI. There is no evidence of perceptual disturbance. Patients insight and judgment are intact. 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 She presents with sx of depression, poor insight, decompensation in self care, impaired thought process (circumstantial, ruminative, difficult to re-direct), paranoid ideations, and SI with plan to OD. R/o BPD and schizoaffective DO/ MDD with psychotic features. Has intermittent hx of OP therapy, no hx of PHP or IPLOC, has not seen a psychiatrist and meds are prescribed by PCP. Hx of trauma related to divorce, multiple losses in family, and has reported her health issues are traumatic to her. Has lack of social supports, as her family finds her difficult to engage with. Denies psychotic sx. No hx of manic episodes endorsed. Was started on cymbalta 40 mg on IMC per psych consult. Patient signed a CV. She was started on Abilify 5 mg. Patient reported that depression had cleared and she denied any SI. She still continued to have anxiety and perseverating on various issues, and frequently the topic of medication and her history of illness.? Patient was eventually diagnosed with AMADO in addition to MDD. Patient agreed to increase BuSpar since it has helped in the past. At 1st patient thought she had side effects from Abilify, however there were vague and quickly resolved on their own; patient thus for tolerated Abilify well as well as increase in BuSpar. Patient's mood remained good; she reported her anxiety was under better control and she continued to deny any SI saying that depression has abated. Patient could be mildly irritable times but overall got along with peers and staff and demonstrated appropriate behaviors and impulse control while on the unit. Patient felt ready for discharge. She understood her medication regimen and plan to continue taking it. She was future oriented with good mood, appearing more relaxed and with a noticeably brighter affect. She was not in imminent risk for harm to self or others and her request for discharge honored. Time spent discussing smoking cessation with patient: 3 to 10 minutes Status at Discharge Functional status at discharge: independent ambulation Overall status at discharge: patient is back to baseline Time Spent with Patient Time attestation: Total time spent providing and/or coordinating discharge services: Discharge Plan Discharge Patient Disposition: Home, Self-Care Discharge Diagnosis: MDD, recurrent, moderate in full remission Referrals: [facility] ([facility]) [Other] - 01/01/21 11:30 am (Referral made to [facility] on [facility], spoke with Liudmila in intake and referral department and provided discharge date of 12/30/20 @ 1 PM. Please call intake and referral with any questions @ [phone] ext. [phone] Meals are set to occur on Wednesday01/01/21.) [facility] (psychiatrist) [Other] - 01/29/21 9:00 am (Initial medication appointment scheduled for 01/29/21 9:00 AM-10:00 AM with Doretha Cortez meeting via computer, so please check your email for the link. Please call above number with any questions or concerns. 2 nd MEDICATION APPT SCHEDULED FOR 02/25/21 @ 8:30 AM-8:50 AM WITH Lamont Coyne via zoom so again please check your email for zoom link. ) [facility] (therapists) [Other] - 01/03/21 11:30 am (Appointment scheduled for initial assessment on 01/03/21 @ 11:30-12:20 PM with Mone Chester. Please do not miss appointment or all subsequent appointments will be canceled.) [facility] (TRANSPORTATION [employer]ING TECHNICIAN services) [Other] - 01/02/21 1:00 am (Referral made on 12/27/20 to intake and referral at [facility], please call and follow up with referral status when you arrive home. ext. [phone]) Physician,Unknown J [Primary Care Provider] - 1 Week Discharge Medications: New buspirone 15 mg tablet 15 mg PO TID 30 Days Qty: 90 RF: 0 aripiprazole [Abilify] 5 mg tablet 5 mg PO DAILY 30 Days Qty: 30 RF: 0 gabapentin 300 mg capsule 300 mg PO BID 30 Days Qty: 60 RF: 0 nicotine (polacrilex) 2 mg Gum 2 mg buccal Q2H PRN (Reason: Nicotine Cravings) 30 Days Qty: 50 RF: 0 docusate sodium 100 mg capsule 100 mg PO DAILY 30 Days Qty: 30 RF: 0 triamcinolone acetonide 0.1 % cream 1 appl topical DAILY PRN (Reason: psoriasis) 30 Days Qty: 15 RF: 0 Changed lorazepam 0.5 mg tablet 0.5 mg PO TID PRN (Reason: Anxiety) 30 Days Qty: 90 RF: 0 Discontinued buspirone 10 mg tablet 1 tab PO TID RF: 0 gabapentin 300 mg capsule 1 cap PO TID RF: 0 duloxetine 20 mg Capsule,Delayed Release(Dr/Ec) 40 mg PO DAILY Qty: 30 RF: 0 Discharge Orders: Discharge Order (Routine); Ordered 12/24/20 Ordered By: Kelsey Luong Diet: regular diet Activity on Discharge: As tolerated Stand Alone Forms: Patient Portal Discharge page Care Plan Goals: Maintain mood and safe behaviors Take medications as prescribed Practice coping skills Continue with outpatient providers and reach out to them as needed Health Concerns: Mood stability Chronic lower back pain; leg pain Ulcerative Colitis Plan of Treatment: Follow up with your PCP and psychiatric provider regarding above concerns Take medications as prescribed Assessment: Risk assessment at time of discharge: Patient was interviewed prior to discharge and found to be fully oriented and without any SI or HI. Patient has insight and demonstrates good judgment in terms of wanting to pursue treatment. Patient is not in imminent risk of harm to self or others and has a safety plan that includes presenting to the closest ER or calling 911 if feeling unsafe. Patient has been observed closely by nursing and unit staff throughout admission; patient has not engaged in any behaviors that suggest dangerousness to self or others and has demonstrated appropriate behaviors and impulse control. Discharge Date/Time: 12/31/20 14:27
[2020-12-31] MEDS: Ibuprofen 600 MG TABLET PO (11:18)
== END 2020-12-31 14:27 | disposition home or self-care (01) | DRG 751 ==
PROVIDERS: Admitting Provider Psychiatry & Neurology Psychiatry; Visit Provider Psychiatry & Neurology Psychiatry
DX: F33.1 Major depressive disorder, recurrent, moderate (principal); R45.851 Suicidal ideations; F17.210 Nicotine dependence, cigarettes, uncomplicated; F41.1 Generalized anxiety disorder; F41.9 Anxiety disorder, unspecified; G89.29 Other chronic pain; I10 Essential (primary) hypertension; Z71.6 Tobacco abuse counseling; Z88.0 Allergy status to penicillin; Z79.899 Other long term (current) drug therapy

== ENCOUNTER 2021-01-07 13:53 | Outpatient (REF) | payer OTHER, SELFPAY ==
[2021-01-07 14:58] LABS: Alanine Aminotransferase 13 U/L (0-31); Albumin Level 4.1 g/dL (3.5-5.0); Alkaline Phosphatase 56 U/L (39-117); Anion Gap 11 (12-20); Aspartate Amino Transferase 20 U/L (5-31); Bilirubin Total 0.2 mg/dL (0.0-1.0); Blood Urea Nitrogen 18 mg/dL (9-16); Calcium 9.8 mg/dL (8.4-10.2); Carbon Dioxide 29 mmol/L (22-29); Chloride 105 mmol/L (96-108); Estimated Glomerular Filt Rate > 60; Glucose Random 84 mg/dL (60-115); Magnesium 2.2 mg/dL (1.6-2.6); Potassium 4.1 mmol/L (3.3-5.1); Sodium 141 mmol/L (135-145); Total Protein 6.2 g/dL (6.5-8.0)
== END 2021-01-07 13:54 | disposition home or self-care (01) ==
LOC: HO.LAB 13:53
PROVIDERS: PCP Internal Medicine; Visit Provider Internal Medicine
DX: M54.9 Dorsalgia, unspecified (principal); M19.90 Unspecified osteoarthritis, unspecified site; E03.9 Hypothyroidism, unspecified
CPT/HCPCS: 36415; 80053; 83735

== ENCOUNTER 2021-01-28 11:36 | Outpatient (REF) | payer OTHER, SELFPAY ==
[2021-01-28 12:09] LABS: MANUAL DIFF FLAG NO
[2021-01-28 12:42] LABS: Basophils Absolute Auto 0.1 X10*3/uL (0.0-0.2); Basophils Percent Auto 0.4 % (0-2); Eosinophils Absolute Auto 0.3 X10*3/uL (0.0-0.4); Eosinophils Percent Auto 2.7 % (0-4); Hematocrit 41.6 % (37-47); Hemoglobin 13.9 g/dl (12.0-16.0); Imm Gran Abs Auto 0.03 X10*3/uL (0.00-0.03); Imm Gran Pct Auto 0.3 % (0.0-0.4); Lymphocytes Absolute Auto 2.1 X10*3/uL (1.2-4.9); Mean Corpuscular HGB Conc 33.4 g/dl (31.0-35.0); Mean Corpuscular Hemoglobin 30.2 pg (27.0-33.0); Mean Corpuscular Volume 90.2 fL (80-98); Mean Platelet Volume 10.3 fL (9.4-12.3); Monocytes Absolute Auto 0.8 X10*3/uL (0.1-1.2); Neutrophils Absolute Auto 8.4 X10*3/uL (2.0-8.3); Neutrophils Percent Auto 71.6 % (45-73); Platelet Count 284 X10*3/uL (160-400); Red Blood Count 4.61 X10*6/uL (4.20-5.50); White Blood Count 11.7 X10*3/uL (4.8-10.8)
[2021-01-28 12:47] LABS: INTERNATIONAL NORM RATIO 0.9 (0.9-1.1); Prothrombin Time 10.4 SEC (9.9-13.0)
[2021-01-28 12:47] LABS: Sodium Urine Random < 20.0 mmol/L
[2021-01-28 12:50] LABS: Partial Thromboplastin Time 33.8 SEC (24.1-38.0)
[2021-01-28 13:38] LABS: Alanine Aminotransferase 17 U/L (0-31); Albumin Level 4.4 g/dL (3.5-5.0); Alkaline Phosphatase 64 U/L (39-117); Anion Gap 13 (12-20); Aspartate Amino Transferase 21 U/L (5-31); Bilirubin Total 0.3 mg/dL (0.0-1.0); Blood Urea Nitrogen 17 mg/dL (9-16); C Reactive Protein 0.33 mg/dL (< or = 0.50); Calcium 10.1 mg/dL (8.4-10.2); Carbon Dioxide 29 mmol/L (22-29); Chloride 100 mmol/L (96-108); Estimated Glomerular Filt Rate > 60; Glucose Random 88 mg/dL (60-115); Potassium 4.4 mmol/L (3.3-5.1); Sodium 138 mmol/L (135-145); Total Protein 6.8 g/dL (6.5-8.0)
[2021-01-28 13:49] LABS: Lactate Dehydrogenase 264 U/L (122-220)
== END 2021-01-28 11:37 | disposition home or self-care (01) ==
LOC: HO.LAB 11:36
PROVIDERS: PCP Internal Medicine; Visit Provider Internal Medicine
DX: M19.90 Unspecified osteoarthritis, unspecified site (principal); M54.9 Dorsalgia, unspecified; S60.00XD Contusion of unspecified finger without damage to nail, subsequent encounter; Z87.19 Personal history of other diseases of the digestive system
CPT/HCPCS: 36415; 80053; 82550; 83615; 84300; 85025; 85610; 85730; 86140

== ENCOUNTER 2021-10-16 13:37 | Outpatient (REF) | payer OTHER, SELFPAY ==
[2021-10-16 15:21] LABS: Anion Gap 15 (12-20); Blood Urea Nitrogen 23 mg/dL (9-16); Calcium 9.3 mg/dL (8.4-10.2); Carbon Dioxide 24 mmol/L (22-29); Chloride 102 mmol/L (96-108); Estimated Glomerular Filt Rate > 60; Glucose Random 117 mg/dL (60-115); Potassium 4.5 mmol/L (3.3-5.1); Sodium 136 mmol/L (135-145)
== END 2021-10-16 13:38 | disposition home or self-care (01) ==
LOC: HO.LAB 13:37
PROVIDERS: PCP Internal Medicine; Visit Provider Internal Medicine
DX: E87.1 Hypo-osmolality and hyponatremia (principal)
CPT/HCPCS: 36415; 80048

== ENCOUNTER 2022-02-05 08:45 | Outpatient (REF) | payer OTHER, SELFPAY ==
[2022-02-05 11:22] LABS: MANUAL DIFF FLAG NO
[2022-02-05 11:26] LABS: Basophils Absolute Auto 0.1 X10*3/uL (0.0-0.2); Basophils Percent Auto 0.8 % (0-2); Eosinophils Absolute Auto 0.2 X10*3/uL (0.0-0.4); Eosinophils Percent Auto 2.1 % (0-4); Hematocrit 40.7 % (37.0-47.0); Hemoglobin 13.8 g/dl (12.0-16.0); Imm Gran Abs Auto 0.03 X10*3/uL (0.00-0.03); Imm Gran Pct Auto 0.3 % (0.0-0.4); Lymphocytes Absolute Auto 1.6 X10*3/uL (1.2-4.9); Lymphocytes Percent Auto 17.9 % (20-40); Mean Corpuscular HGB Conc 33.9 g/dl (31.0-35.0); Mean Corpuscular Hemoglobin 29.4 pg (27.0-33.0); Mean Corpuscular Volume 86.8 fL (80.0-98.0); Mean Platelet Volume 10.5 fL (9.4-12.3); Monocytes Absolute Auto 0.7 X10*3/uL (0.1-1.2); Monocytes Percent Auto 8.2 % (2-11); Neutrophils Absolute Auto 6.4 x10*3/uL (2.0-8.3); Neutrophils Percent Auto 70.7 % (45-73); Platelet Count 377 X10*3/uL (160-400); Red Blood Count 4.69 X10*6/uL (4.20-5.50); Red Cell Distribution Width 13.2 % (11.0-16.0)
[2022-02-05 11:48] LABS: Alanine Aminotransferase 12 U/L (0-31); Albumin Level 4.4 g/dL (3.5-5.0); Alkaline Phosphatase 67 U/L (39-117); Anion Gap 16 (12-20); Aspartate Amino Transferase 16 U/L (5-31); Bilirubin Total 0.4 mg/dL (0.0-1.0); Blood Urea Nitrogen 10 mg/dL (9-16); Calcium 10.2 mg/dL (8.4-10.2); Carbon Dioxide 24 mmol/L (22-29); Chloride 98 mmol/L (96-108); Cholesterol 203 mg/dL; Estimated Glomerular Filt Rate > 60; Glucose Fasting 91 mg/dL (60-99); HDL Cholesterol 64 mg/dL; LDL Cholesterol Calculated 119 mg/dl; Potassium 4.7 mmol/L (3.3-5.1); Sodium 133 mmol/L (135-145); Total Protein 6.7 g/dL (6.5-8.0); Triglycerides 100 mg/dL
[2022-02-05 11:59] LABS: Thyroid Stimulating Hormone 1.53 uIU/mL (0.32-4.0); Vitamin D 25-OH Total 56.5 ng/mL (>30)
== END 2022-02-05 08:46 | disposition home or self-care (01) ==
LOC: HO.HMGCLDS 08:45
PROVIDERS: PCP Internal Medicine; Visit Provider Internal Medicine
DX: Z00.00 Encounter for general adult medical examination without abnormal findings (principal)
CPT/HCPCS: 36415; 80053; 80061; 82306; 84443; 85025

== ENCOUNTER → 2022-03-09 12:55 | Outpatient (BNVA) | payer OTHER, SELFPAY | PROVIDERS: PCP Internal Medicine; Visit Provider Nurse Practitioner Family | DX: M47.26 Other spondylosis with radiculopathy, lumbar region (principal); M48.061 Spinal stenosis, lumbar region without neurogenic claudication; M51.36 Other intervertebral disc degeneration, lumbar region; M51.26 Other intervertebral disc displacement, lumbar region; M25.561 Pain in right knee; M25.562 Pain in left knee; M79.7 Fibromyalgia | CPT/HCPCS: 99202 ==

== ENCOUNTER 2022-07-27 10:50 | Emergency (ER) | payer OTHER, SELFPAY ==
--- NOTE | ~2022-07-27 | MR_ITS ---
EXAMINATION: MR LUMBAR SPINE WITHOUT CONTRAST CLINICAL INFORMATION: Back pain, incontinence, rule out cauda equina COMPARISON: MRI lumbar spine without contrast 02/04/2017 TECHNIQUE: MRI of the lumbar spine was obtained using routine sequences without contrast. FINDINGS: Transitional lumbosacral anatomy. The last well-formed disc space corresponds to S1-S2 with a lumbarized butterfly S1 vertebra. There is also a butterfly L4 vertebra. Rightward convexity of the lumbar spine. No suspicious marrow signal or focal osseous lesion. No significant marrow edema. No new vertebral body height loss. Stable chronic decreased height of L4 and S1. The intervertebral discs are of normal height and signal. The conus medullaris terminates at the level of L1-L2. The distal spinal cord is normal in appearance. The cauda equina nerve roots appear normal. No significant abnormalities of the paraspinal musculature. Limited evaluation of the intra-abdominal structures without significant abnormalities. Incompletely visualized enlarged and likely fibroid uterus The abdominal aorta is of normal contour and caliber. SPINAL LEVELS: L1-L2: No significant spinal canal or neuroforaminal narrowing. Shallow disc bulge L2-L3: No significant spinal canal or neuroforaminal narrowing. Decreased size of a previous left central disc extrusion with small residual disc bulge and annular fissure. L3-L4: Broad-based disc bulge with superimposed left paracentral disc protrusion which impinges the traversing left L4 nerve root, similar to prior. Bilateral facet arthropathy. Stable extruded disc material along the left posterior aspect of the L4 vertebral body connecting the L3-L4 and L4-L5 discs. No significant central spinal canal stenosis. Stable mild bilateral neural foraminal narrowing L4-L5: Diffuse disc bulge with superimposed left foraminal extrusion which contributes to stable severe left neural foraminal narrowing and impingement of the exiting left L4 nerve root. Stable left subarticular zone narrowing with mass effect on the traversing left L5 nerve root. Bilateral facet arthropathy. No significant central spinal canal stenosis. L5-S1: Disc bulge and facet arthropathy. No significant central spinal canal stenosis. Stable mild to moderate right neural foraminal narrowing. S1-S2: Facet arthropathy and shallow disc bulge. No significant spinal canal stenosis. Stable mild right neural foraminal narrowing. Increased size of a left-sided sacral Tarlov cyst at S1-S2 measuring up to to 12 mm craniocaudally (previously 8 mm). MR/MR lumbar spine wo con IMPRESSION: 1. No significant spinal canal stenosis or evidence of cauda equina nerve root compression. 2. 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 Multilevel lumbar spondylosis and associated subarticular and neural foraminal narrowing appears stable stable compared to MRI from 2017, most notable for severe left neural foraminal narrowing at L4-L5 with left L4 nerve root impingement. 3. Increased size of a left-sided sacral Tarlov cyst at S1-S2 4. Incompletely visualized enlarged and likely fibroid uterus
--- NOTE | 2022-07-27 11:27 | ED_ITS ---
HPI - General Adult General Chief complaint: Back Pain/Injury <ELVI Kennedy - Last Filed: 07/27/22 11:52> Stated complaint: l leg into hip groin foot ankle numbness <ELVI Kennedy - Last Filed: 07/27/22 11:52> Time Seen by Provider: 07/27/22 12:08 <ELVI Kennedy - Last Filed: 07/27/22 11:52> Source: patient <Sofía Rust NP - Last Filed: 07/27/22 18:41> Mode of arrival: ambulatory <Sofía Rust NP - Last Filed: 07/27/22 18:41> Limitations: no limitations <Sofía Rust NP - Last Filed: 07/27/22 18:41> History of Present Illness HPI narrative: 62 year old female with anxiety disorder, depression, chronic back pain, history of ulcerative colitis s/p colectomy, lumbar spinal stenosis, fibromyalgia c/o acute on chronic low back pain radiating down LLE with associated numbness/tingling x 1 week. Patient believes that showering on may have and had denies her pain. She reports over the last 1 week she has had worsening left-sided back pain which radiates down the left leg with numbness and tingling in her calf region. Patient reports history of urinary incontinence but feels over the last week that this has been worse require her to use a pad. Patient also reports bowel incontinence with an episode occurring last evening while she was sleeping. Of note, patient does have a history of a J pouch and intermittent incontinence. No fevers, chills, saddle anesthesia. Patient is ambulatory with a walker. Patient has been on Solu-Medrol with continued symptoms. She spoke to her primary care doctor who referred into the ER for further evaluation. Of note patient has history of degenerative spinal changes and stenosis with her last MRI in 2016 (degeneratve changes, L4-L5 left central protrusion on ventral thecal sac, asymmetric narrowing of the left subarticular zone causing compression of the left traversing L5 nerve roots. Moderate to severe compression of the formal segment of the left L4-L5 nerve root.) Patient reports chronic back pain since then but worsened over the last week. <Sofía Rust NP - Last Filed: 07/27/22 18:41> Related Data Home medications: Previous Rx's Medication Instructions Recorded aripiprazole 5 mg tablet (Abilify) 5 mg PO DAILY 30 days #30 tabs 12/31/20 buspirone 15 mg tablet 15 mg PO TID 30 days #90 tabs 12/31/20 docusate sodium 100 mg capsule 100 mg PO DAILY 30 days #30 caps 12/31/20 gabapentin 300 mg capsule 300 mg PO BID 30 days #60 caps 12/31/20 lorazepam 0.5 mg tablet 0.5 mg PO TID PRN Anxiety 30 days 12/31/20 #90 tabs nicotine (polacrilex) 2 mg gum 2 mg buccal Q2H PRN Nicotine 12/31/20 Cravings 30 days #50 ea triamcinolone acetonide 0.1 % 1 appl topical DAILY PRN psoriasis 12/31/20 topical cream 30 days #15 grams <ELVI Kennedy - Last Filed: 07/27/22 11:52> Allergies/adverse reactions: Allergies Allergy/AdvReac Type Severity Reaction Status Date / Time amoxicillin [AMOXICILLIN] Allergy Intermediate HIVES Verified 07/27/22 11:34 <ELVI Kennedy - Last Filed: 07/27/22 11:52> Review of Systems Review of Systems: Yes all other systems are reviewed and are negative <Sofía Rust NP - Last Filed: 07/27/22 18:41> Constitutional: Constitutional: Reports no additional constitutional complaints, Denies body ache(s), Denies chills, Denies fever(s), Denies headache(s) and Denies weakness <JIM Yang Last Filed: 07/27/22 18:41> Eyes: Eyes: Reports no additional eye complaints and Denies change in vision <Sofía Rust NP - Last Filed: 07/27/22 18:41> ENT: Reports system reviewed and no additional complaints, except as documented, Denies dizziness, Denies headache(s), Denies nasal congestion, Denies nasal discharge and Denies neck pain <Sofía Rust NP - Last Filed: 07/27/22 18:41> Cardiovascular: Cardiovascular: Reports no additional cardiovascular complaints, Denies chest pain, Denies leg edema and Denies dyspnea <Sofía Rust NP - Last Filed: 07/27/22 18:41> Respiratory: Respiratory: Reports no additional respiratory complaints, Denies cough and Denies dyspnea <Sofía Rust NP - Last Filed: 07/27/22 18:41> Gastrointestinal: Gastrointestinal: Reports no additional gastrointestinal complaints, Denies abdominal pain, Reports fecal incontinence, Denies diarrhea, Denies nausea and Denies vomiting <Sofía Rust NP - Last Filed: 07/27/22 18:41> Genitourinary: Genitourinary: Reports no additional female genitourinary complaints and Reports urinary incontinence <Sofía Rust NP - Last Filed: 07/27/22 18:41> Musculoskeletal: Musculoskeletal: Reports no additional musculoskeletal complaints, Reports back pain, Denies arthralgias, Denies joint swelling, Denies neck pain, Reports numbness and Reports tingling <Sofía Rust NP - Last Filed: 07/27/22 18:41> Integumentary/Breasts: Skin/Breast: Reports system reviewed and no additional complaints, except as docu and Denies rash <Sofía Rust NP - Last Filed: 07/27/22 18:41> Neurologic: Reports system reviewed and no additional complaints, except as documented, Denies dizziness, Denies headache(s), Reports numbness, Reports tingling and Denies weakness <Sofía Rust NP - Last Filed: 07/27/22 18:41> [facility] Past Medical History Attestation statement: The following information was validated with the patient. <Sofía Rust NP - Last Filed: 07/27/22 18:41> Source: old records reviewed and nursing notes reviewed <Sofía Rust NP - Last Filed: 07/27/22 18:41> Medical History: Medical History Anxiety Chronic back pain Depression AMADO (generalized anxiety disorder) HTN (hypertension) MDD (major depressive disorder), recurrent episode, moderate <ELVI Kennedy - Last Filed: 07/27/22 11:52> Surgical History: Surgical History H/O total colectomy <ELVI Kennedy - Last Filed: 07/27/22 11:52> Social History Social History: Social History Household Members: None Housing: House Do you presently have visiting nurse or other home services: No Unable to assess alcohol history related to: Unknown Alcohol intake: never Patient Tobacco Use Status: Current everyday Tobacco user Tobacco use type: Cigarette Smoked in Last 30 Days: No Use of substances other than those prescribed or required for medical reasons: No Advance Directives: No Advance Directives Information Provided: Yes Patient : No service: No Sexual orientation: Straight/Heterosexual <ELVI Kennedy - Last Filed: 07/27/22 11:52> Physical Exam ED Vital Signs: Vital Signs - 24 hr 07/27/22 11:28 07/27/22 16:21 07/27/22 18:15 Temperature 98.5 F 98.3 F Pulse Rate 120 H 97 82 Respiratory Rate 18 16 18 Blood Pressure 140/110 H 116/72 141/86 H Pulse Oximetry 97 96 98 Oxygen Delivery Method Room Air Room Air Room Air BMI result Body Mass Index 24.7 <ELVI Kennedy - Last Filed: 07/27/22 11:52> Vital Signs - 24 hr 07/27/22 11:28 07/27/22 16:21 07/27/22 18:15 Temperature 98.5 F 98.3 F Pulse Rate 120 H 97 82 Respiratory Rate 18 16 18 Blood Pressure 140/110 H 116/72 141/86 H Pulse Oximetry 97 96 98 Oxygen Delivery Method Room Air Room Air Room Air BMI result Body Mass Index 24.7 <Sofía Rust NP - Last Filed: 07/27/22 18:41> Vital Signs - 24 hr 07/27/22 11:28 07/27/22 16:21 07/27/22 18:15 Temperature 98.5 F 98.3 F Pulse Rate 120 H 97 82 Respiratory Rate 18 16 18 Blood Pressure 140/110 H 116/72 141/86 H Pulse Oximetry 97 96 98 Oxygen Delivery Method Room Air Room Air Room Air BMI result Body Mass Index 24.7 <Anna Cantor PA - Last Filed: 07/27/22 20:37> Const General: cooperative, healthy appearing, comfortable and no acute distress <Sofía Rust NP - Last Filed: 07/27/22 18:41> Orientation/consciousness: patient oriented x3 <Sofía Rust BENZENE STILL UTILITY OPERATOR - Last Filed: 07/27/22 18:41> Limitations: no limitations <Sofía Rust NP - Last Filed: 07/27/22 18:41> HENMT Head: Yes normal to inspection <Sofía Rust [employer]ENZENE STILL UTILITY OPERATOR - Last Filed: 07/27/22 18:41> Ears: hearing grossly normal bilaterally <Sofía Rust NP - Last Filed: 07/27/22 18:41> Eyes General: appearance normal, both eyes and all related structures <Sofía Rust NP - Last Filed: 07/27/22 18:41> Neck Neck: Yes normal visual inspection <Sofía Rust [employer]ENZENE STILL UTILITY OPERATOR - Last Filed: 07/27/22 18:41> Chest Chest palpation & inspection: normal inspection of the chest <Sofía Rust NP - Last Filed: 07/27/22 18:41> Resp Effort & Inspection: normal respiratory effort <Sofía Rust NP - Last Filed: 07/27/22 18:41> Cardio Peripheral pulses: Peripheral pulses 2+ throughout <Sofía Rust NP - Last Filed: 07/27/22 18:41> GI Other: +perinanal sensation Neena RN overhauler <Sofía Rust BENZENE STILL UTILITY OPERATOR - Last Filed: 07/27/22 18:41> Inspection: Yes normal to inspection <Sofía Rust NP - Last Filed: 07/27/22 18:41> Palpation (GI): Soft to palpation and nontender <Sofía Rust NP - Last Filed: 07/27/22 18:41> Rectal Exam - Female: visual inspection normal and normal sphincter tone <Sofía Rust NP - Last Filed: 07/27/22 18:41> Back/Spine/Pelvis Other: +TTP lumbar spine with no step offs or deformities <Sofía Rust BENZENE STILL UTILITY OPERATOR - Last Filed: 07/27/22 18:41> Thoracic/Lumbar Spine: thoracic and lumbar spine normal to inspection <Sofía Rust BENZENE STILL UTILITY OPERATOR - Last Filed: 07/27/22 18:41> Skin General skin exam: no rashes or lesions noted <Sofíadoreen Rust, BENZENE STILL UTILITY OPERATOR - Last Filed: 07/27/22 18:41> Neuro General: patient oriented x3 and moves all extremities <Sofíadoreen Rust, BENZENE STILL UTILITY OPERATOR - Last Filed: 07/27/22 18:41> Cognition (Neuro): normal cognition <Sofíadoreen Rust, BENZENE STILL UTILITY OPERATOR - Last Filed: 07/27/22 18:41> Gait exam (Neuro): Normal gait present <Sofíadoreen Rust, BENZENE STILL UTILITY OPERATOR - Last Filed: 07/27/22 18:41> Motor exam (neuro): 5/5 motor strength present throughout <Sofía Barrera, BENZENE STILL UTILITY OPERATOR - Last Filed: 07/27/22 18:41> Sensory Exam: Normal double simultaneous stimulation for sensation <Sofíadoreen Rust, BENZENE STILL UTILITY OPERATOR - Last Filed: 07/27/22 18:41> Deep tendon reflexes (DTR's): Right patellar reflex intensity grade: 2+ and Left patellar reflex inten sity grade: 2+ <Sofía Rust BENZENE STILL UTILITY OPERATOR - Last Filed: 07/27/22 18:41> Extrem General: Yes normal to inspection <Sofía Rust BENZENE STILL UTILITY OPERATOR - Last Filed: 07/27/22 18:41> Course Course Course Narrative: RME: 62yo F w/PMHx AMADO, lumbar spinal stenosis, fibromyalgia c/o acute on chronic low back pain radiating down LLE with assoc numbness/tingling x 1 week. Sent in by PCP for imaging, finished coarse of Prednisone taper today w/o relief. Denies incontinence/retention, fever, injury Ambulating with rollating walker Lumbar CT ordered. Full HPI, ROS and PE to be performed by primary ED provider. <ELVI Kennedy - Last Filed: 07/27/22 11:52> Reevaluation(s) Reevaluation #1: 1400-Spoke to MRI, they will likely be able to take the patient between 330-430pm <Sofía Rust NP - Last Filed: 07/27/22 18:41> Reevaluation #2: 1830-sign out to [facility] BOLES pending above. <Sofía Rust NP - Last Filed: 07/27/22 18:41> Reevaluation #3: MRI of the lumbar region with no significant spinal canal stenosis or evidence of cauda equina or nerve root compression. There is some foraminal narrowing that appears stable when compared to previous MRI in 2017. There is left neural own all foraminal narrowing at L4-L5 with some nerve root impingement which could be contributing to patient's symptoms. Increased size of left-sided sacral cyst. Patient educated on findings of MRI and they were attached her discharge. Patient ambulatory at discharge and feeling better. Educated patient on diagnosis and treatment plan, answered all question, patient verbalizes understanding. At this time patient will be discharged home, advised to return with new or worsening symptoms. Educated on worrisome signs and symptoms and when to return. At this time I feel comfortable discharge home. <ELVI Platt - Last Filed: 07/27/22 20:37> Time: 20:37 <ELVI Platt - Last Filed: 07/27/22 20:37> Medical Decision Making Medical Decision Making MDM Narrative: 62 year old female with anxiety disorder, depression, chronic back pain, history of ulcerative colitis s/p colectomy, lumbar spinal stenosis, fibromyalgia c/o acute on chronic low back pain radiating down LLE with associated numbness/tingling x 1 week w/ component of bowel/urinary incontinence. Patient with intact reflexes, normal strength on exam, walking with walker. Patient tenderness of the lumbar spine exam with no step-offs deformities. Will need postvoid residual bladder scan, UA, MRI of lumbar spine <Sofía Rust NP - Last Filed: 07/27/22 18:41> Differential Diagnosis Differential Diagnoses: The differential diagnosis associated with the presentation includes <Sofía Rust NP - Last Filed: 07/27/22 18:41> Cord compression, cauda equina No history of fevers, IV drug abuse, immunocompromised state, lumbar hardware to suggest epidural abscess or osteomyelitis No night sweats, fevers, weight loss to suggest malignancy Gradual onset still low concern for AAA <Sofía Rust NP - Last Filed: 07/27/22 18:41> Lab Data Labs: Lab Results 07/27/22 Range/Units 16:50 Urine Color Yellow Urine Appearance Clear Urine pH 5.5 (5.0-9.0) Ur Specific Faith 1.010 (1.005-1.025) Urine Protein Negative (Neg-Trace) mg/dL Urine Glucose (UA) Negative (Negative) mg/dL Urine Ketones Negative (Negative) mg/dL Urine Blood Trace H (Negative) Urine Nitrite Negative (Negative) Ur Leukocyte Esterase Negative (Negative) Urine RBC 0-2 (0-2) /HPF Urine WBC 0-5 (0-5) /HPF Ur Squamous Epith Cells 0-2 (0-2) /HPF Urine Bacteria None Seen (None Seen) Hyaline Casts 0-2 (0-2) /LPF <ELVI Kennedy - Last Filed: 07/27/22 11:52> Lab Results 07/27/22 Range/Units 16:50 Urine Color Yellow Urine Appearance Clear Urine pH 5.5 (5.0-9.0) Ur Specific Faith 1.010 (1.005-1.025) Urine Protein Negative (Neg-Trace) mg/dL Urine Glucose (UA) Negative (Negative) mg/dL Urine Ketones Negative (Negative) mg/dL Urine Blood Trace H (Negative) Urine Nitrite Negative (Negative) Ur Leukocyte Esterase Negative (Negative) Urine RBC 0-2 (0-2) /HPF Urine WBC 0-5 (0-5) /HPF Ur Squamous Epith Cells 0-2 (0-2) /HPF Urine Bacteria None Seen (None Seen) Hyaline Casts 0-2 (0-2) /LPF <Sofía Rust NP - Last Filed: 07/27/22 18:41> Lab Results 07/27/22 Range/Units 16:50 Urine Color Yellow Urine Appearance Clear Urine pH 5.5 (5.0-9.0) Ur Specific Faith 1.010 (1.005-1.025) Urine Protein Negative (Neg-Trace) mg/dL Urine Glucose (UA) Negative (Negative) mg/dL Urine Ketones Negative (Negative) mg/dL Urine Blood Trace H (Negative) Urine Nitrite Negative (Negative) Ur Leukocyte Esterase Negative (Negative) Urine RBC 0-2 (0-2) /HPF Urine WBC 0-5 (0-5) /HPF Ur Squamous Epith Cells 0-2 (0-2) /HPF Urine Bacteria None Seen (None Seen) Hyaline Casts 0-2 (0-2) /LPF <ELVI Platt - Last Filed: 07/27/22 20:37> Radiology Impression Discussion of test interpretation with radiology: I have reviewed the radiologist's reading. <Sofía Rust NP - Last Filed: 07/27/22 18:41> Discharge Plan Discharge Clinical Impression: Lumbar radiculopathy <ELVI Kennedy - Last Filed: 07/27/22 11:52> Patient Disposition: Still a Patient <ELVI Kennedy - Last Filed: 07/27/22 11:52> Instructions: Lumbar Radiculopathy (ED) <ELVI Kennedy - Last Filed: 07/27/22 11:52> Additional Instructions: Continue solumedrol Follow-up with your PCP as a follow-up MR/MR lumbar spine wo con IMPRESSION: ? 1.? No significant spinal canal stenosis or evidence of cauda equina nerve root compression. ? 2.? 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 Multilevel lumbar spondylosis and associated subarticular and neural foraminal narrowing appears stable stable compared to MRI from 2017, most notable for severe left neural foraminal narrowing at L4-L5 with left L4 nerve root impingement. ? 3.? Increased size of a left-sided sacral Tarlov cyst at S1-S2 ? 4.? Incompletely visualized enlarged and likely fibroid uterus <ELVI Kennedy - Last Filed: 07/27/22 11:52> Prescriptions: No Action buspirone 15 mg tablet 15 mg PO TID 30 Days Qty: 90 0RF aripiprazole [Abilify] 5 mg tablet 5 mg PO DAILY 30 Days Qty: 30 0RF gabapentin 300 mg capsule 300 mg PO BID 30 Days Qty: 60 0RF nicotine (polacrilex) 2 mg Gum 2 mg buccal Q2H PRN (Reason: Nicotine Cravings) 30 Days Qty: 50 0RF lorazepam 0.5 mg tablet 0.5 mg PO TID PRN (Reason: Anxiety) 30 Days Qty: 90 0RF docusate sodium 100 mg capsule 100 mg PO DAILY 30 Days Qty: 30 0RF triamcinolone acetonide 0.1 % cream 1 appl topical DAILY PRN (Reason: psoriasis) 30 Days Qty: 15 0RF <ELVI Kennedy - Last Filed: 07/27/22 11:52> Referrals: Gee Villarreal MD [Primary Care Provider] - 10 days [facility] [Provider Group] - 2 days <ELVI Kennedy - Last Filed: 07/27/22 11:52>
[2022-07-27 11:28] VITALS: BP 140/110; PULSE 120; RESP 18; TEMP 36.9; O2SAT 97; BMI 24.7
--- NOTE | 2022-07-27 13:09 | PC.NURSE ---
urine pre-void 111cc Post void-30cc
[2022-07-27 16:21] VITALS: BP 116/72; PULSE 97; RESP 16; O2SAT 96
[2022-07-27 17:10] LABS: Appearance Urine Clear; Color Urine Yellow; Glucose Urine UA Negative (Negative); Leukocyte Esterase Urine Negative (Negative); Nitrite Urine Negative (Negative); PH 5.5 (5.0-9.0); UMIC TRIGGER UACC YES; Urine Blood Trace (Negative); Urine Ketones Negative (Negative); Urine Protein Negative (Neg-Trace)
[2022-07-27 17:15] LABS: Bacteria Urine None Seen (None Seen); Hyaline Casts Urine 0-2 /LPF (0-2); RBC Urine 0-2 /HPF (0-2); Squamous Epithelial Cell Urine 0-2 /HPF (0-2); WBC Urine 0-5 /HPF (0-5)
[2022-07-27 18:15] VITALS: BP 141/86; PULSE 82; RESP 18; TEMP 36.8; O2SAT 98
[2022-07-27] MEDS: Ketorolac Tromethamine 15 MG/ML VIAL 30 MG IM (20:51)
== END 2022-07-27 21:13 | disposition still patient (30) ==
PROVIDERS: Nurse Practitioner Family; Emergency Provider Emergency Medicine; PCP Internal Medicine
DX: M54.16 Radiculopathy, lumbar region (principal); F17.210 Nicotine dependence, cigarettes, uncomplicated; Z79.899 Other long term (current) drug therapy
CPT/HCPCS: 51798; 72148; 81001; 96372; 99284; 99285; J1885

== ENCOUNTER → 2022-08-04 16:00 | Outpatient (BNVA) | payer OTHER, SELFPAY | PROVIDERS: PCP Internal Medicine; Visit Provider Nurse Practitioner Family | DX: M48.061 Spinal stenosis, lumbar region without neurogenic claudication (principal); M51.16 Intervertebral disc disorders with radiculopathy, lumbar region; M47.26 Other spondylosis with radiculopathy, lumbar region | CPT/HCPCS: 99212 ==

== ENCOUNTER → 2022-09-18 09:32 | Outpatient (BNVA) | payer OTHER, SELFPAY | PROVIDERS: PCP Internal Medicine; Visit Provider Physician Assistant | DX: M47.26 Other spondylosis with radiculopathy, lumbar region (principal) | CPT/HCPCS: 99202 ==

== ENCOUNTER → 2022-11-25 09:15 | Outpatient (BNV) | payer OTHER, SELFPAY | PROVIDERS: Visit Provider Radiology Diagnostic Radiology | DX: M81.0 Age-related osteoporosis without current pathological fracture (principal) | CPT/HCPCS: 77080 ==

== ENCOUNTER 2022-11-25 09:20 | Outpatient (REF) | payer OTHER, SELFPAY ==
--- NOTE | ~2022-11-25 | MM_ITS ---
EXAMINATION: BONE DENSITOMETRY CLINICAL INDICATION: Other specified disorders of bone density and structure, unspecified site. COMPARISON: Baseline BD dated 08/04/2016. TECHNIQUE: Using a [employer] DXA System (software version: 13.1) manufactured by [employer], dual-energy x-ray absorptiometry was performed of the lumbar spine and left hip. The images are of good technical quality. Summary results are attached. FINDINGS: LEFT FEMUR, NECK: Current: BMD 0.561 g/cm2, Z-score -2.1, T-score -3.4, osteoporosis. Baseline: BMD 0.747 g/cm2. LEFT FEMUR, TOTAL: Current: BMD 0.600 g/cm2, Z-score -2.2, T-score -3.2, osteoporosis, 24.1% decrease from baseline (<5% change is not significant). Baseline: BMD 0.791 g/cm2. AP SPINE L1-L4: Current: BMD 0.799 g/cm2, Z-score -1.8, T-score -3.2, osteoporosis, 1.8% increase from baseline (<5% change is not significant). Baseline: BMD 0.785 g/cm2. IDENTIFIED RISK FACTORS: Menopause, secondary osteoporosis, glucocorticoids (chronic), history of fracture (adult). HISTORY OF FRACTURE: Shoulder. MEDICATIONS: Calcium supplements or multivitamin, vitamin D. MM/XR DEXA axial skeleton IMPRESSION: 1. DIAGNOSIS: Severe osteoporosis based on the lowest T-score value of -3.4 in the femoral neck and history of fracture applying World Health Organization criteria. 2. 10-YEAR FRACTURE RISK PREDICTION, FRAX: According to the guidelines, FRAX calculation should only be performed on patients in the osteopenia bone density category. Therefore, FRAX was not performed on this patient. 3. Treatment Recommendations: NOF guidelines recommend consideration for treatment in postmenopausal women and men age 50 and older presenting with the following: -A hip or vertebral (clinical or morphometric) fracture. -T-score less than or equal to -2.5 at the femoral neck or spine after appropriate evaluation to exclude secondary causes. -Low bone mass at the hip or spine and a 10-year fracture probability by FRAX of greater than or equal to 3% for hip fracture or greater than or equal to 20% for major osteoporotic fracture based on the [place] adapted WHO algorithm. 4. Other Recommendations: All treatment decisions require clinical judgment and consideration of individual patient factors, including patient preferences, comorbidities, previous drug use, risk factors not captured in the FRAX model (e.g. frailty, falls, vitamin D deficiency, increased bone turnover, interval significant decline in bone density) and possible under or overestimation of fracture risk by FRAX. Additional medical evaluation for secondary cause of low bone mineral density may be appropriate. FUTURE SCAN RECOMMENDATION: People with diagnosed cases of osteoporosis or at high risk for fracture should have regular bone mineral density tests. For patients eligible for Medicare, routine testing is allowed once every 2 years. The testing frequency can be increased to one year for patients who have rapidly progressing disease, those who are receiving or discontinuing medical therapy to restore bone mass, or have additional risk factors.
== END 2022-11-25 09:21 | disposition home or self-care (01) ==
LOC: HO.MAMMO 09:20
PROVIDERS: Visit Provider Internal Medicine
DX: Z13.820 Encounter for screening for osteoporosis (principal); M85.89 Other specified disorders of bone density and structure, multiple sites; Z78.0 Asymptomatic menopausal state
CPT/HCPCS: 77080

== ENCOUNTER 2023-02-10 06:38 | Outpatient (REF) | payer OTHER, SELFPAY ==
[2023-02-10 11:25] LABS: MANUAL DIFF FLAG NO
[2023-02-10 11:35] LABS: Basophils Absolute Auto 0.1 X10*3/uL (0.0-0.2); Basophils Percent Auto 1.1 % (0-2); Eosinophils Absolute Auto 0.3 X10*3/uL (0.0-0.4); Eosinophils Percent Auto 3.1 % (0-4); Hemoglobin 12.4 g/dl (12.0-16.0); Imm Gran Abs Auto 0.02 X10*3/uL (0.00-0.03); Imm Gran Pct Auto 0.3 % (0.0-0.4); Lymphocytes Absolute Auto 1.9 X10*3/uL (1.2-4.9); Lymphocytes Percent Auto 23.5 % (20-40); Mean Corpuscular HGB Conc 31.8 g/dl (31.0-35.0); Mean Corpuscular Hemoglobin 26.5 pg (27.0-33.0); Mean Corpuscular Volume 83.3 fL (80.0-98.0); Mean Platelet Volume 10.6 fL (9.4-12.3); Monocytes Absolute Auto 0.7 X10*3/uL (0.1-1.2); Monocytes Percent Auto 9.2 % (2-11); Neutrophils Percent Auto 62.8 % (45-73); Platelet Count 349 X10*3/uL (160-400); Red Blood Count 4.68 X10*6/uL (4.20-5.50); Red Cell Distribution Width 16.2 % (11.0-16.0)
[2023-02-10 11:49] LABS: Alanine Aminotransferase 12 U/L (0-31); Albumin Level 4.2 g/dL (3.5-5.0); Alkaline Phosphatase 60 U/L (39-117); Anion Gap 12 (12-20); Aspartate Amino Transferase 17 U/L (5-31); Bilirubin Total 0.3 mg/dL (0.0-1.0); Blood Urea Nitrogen 13 mg/dL (9-16); C Reactive Protein 0.23 mg/dL (< or = 0.50); Calcium 10.1 mg/dL (8.4-10.2); Carbon Dioxide 29 mmol/L (22-29); Chloride 100 mmol/L (96-108); Cholesterol 183 mg/dL (<200); Estimated Glomerular Filt Rate > 60; Glucose Fasting 88 mg/dL (60-99); HDL Cholesterol 65 mg/dL (>40); LDL Cholesterol Calculated 96 mg/dL (<100); Sodium 137 mmol/L (135-145); Total Protein 6.7 g/dL (6.5-8.0); Triglycerides 111 mg/dL (<150)
[2023-02-10 12:06] LABS: Vitamin D 25-OH Total 102.1 ng/mL (>30)
== END 2023-02-10 06:39 | disposition home or self-care (01) ==
LOC: HO.HMGCLDS 06:38
PROVIDERS: PCP Internal Medicine; Visit Provider Internal Medicine
DX: M54.9 Dorsalgia, unspecified (principal); E78.00 Pure hypercholesterolemia, unspecified; M81.0 Age-related osteoporosis without current pathological fracture
CPT/HCPCS: 36415; 80053; 80061; 82306; 85025; 86140

== ENCOUNTER 2023-05-31 14:06 | Outpatient (REF) | payer OTHER, SELFPAY ==
[2023-05-31 16:22] LABS: MANUAL DIFF FLAG NO
[2023-05-31 16:37] LABS: Basophils Absolute Auto 0.1 X10*3/uL (0.0-0.2); Basophils Percent Auto 0.9 % (0-2); Eosinophils Absolute Auto 0.2 X10*3/uL (0.0-0.4); Eosinophils Percent Auto 2.7 % (0-4); Hematocrit 37.3 % (37.0-47.0); Hemoglobin 12.3 g/dl (12.0-16.0); Imm Gran Abs Auto 0.03 X10*3/uL (0.00-0.03); Imm Gran Pct Auto 0.3 % (0.0-0.4); Lymphocytes Absolute Auto 1.9 X10*3/uL (1.2-4.9); Lymphocytes Percent Auto 21.7 % (20-40); Mean Corpuscular Hemoglobin 27.7 pg (27.0-33.0); Mean Platelet Volume 10.6 fL (9.4-12.3); Monocytes Absolute Auto 0.8 X10*3/uL (0.1-1.2); Monocytes Percent Auto 9.8 % (2-11); Neutrophils Absolute Auto 5.6 x10*3/uL (2.0-8.3); Neutrophils Percent Auto 64.6 % (45-73); Platelet Count 327 X10*3/uL (160-400); Red Blood Count 4.44 X10*6/uL (4.20-5.50); Red Cell Distribution Width 15.7 % (11.0-16.0); White Blood Count 8.6 X10*3/uL (4.8-10.8)
[2023-05-31 16:57] LABS: Alanine Aminotransferase 14 U/L (0-31); Albumin Level 3.9 g/dL (3.5-5.0); Alkaline Phosphatase 55 U/L (39-117); Anion Gap 12 (12-20); Aspartate Amino Transferase 18 U/L (5-31); Bilirubin Total 0.1 mg/dL (0.0-1.0); Blood Urea Nitrogen 26 mg/dL (9-16); C Reactive Protein 0.22 mg/dL (< or = 0.50); Calcium 9.9 mg/dL (8.4-10.2); Carbon Dioxide 27 mmol/L (22-29); Chloride 102 mmol/L (96-108); Estimated Glomerular Filt Rate > 60; Glucose Random 124 mg/dL (60-115); Potassium 4.3 mmol/L (3.3-5.1); Sodium 137 mmol/L (135-145); Total Protein 6.5 g/dL (6.5-8.0)
[2023-05-31 17:02] LABS: Free T4 (Free Thyroxine) 0.99 ng/dL (0.71-1.85); Vitamin D 25-OH Total 73.2 ng/mL (>30)
[2023-05-31 17:06] LABS: Vitamin B12 504 pg/mL (200-900)
== END 2023-05-31 14:07 | disposition home or self-care (01) ==
LOC: HO.HMGCLDS 14:06
PROVIDERS: PCP Internal Medicine; Visit Provider Internal Medicine
DX: M54.9 Dorsalgia, unspecified (principal); R53.83 Other fatigue; K58.9 Irritable bowel syndrome, unspecified
CPT/HCPCS: 36415; 80053; 82306; 82550; 82607; 84439; 85025; 86140

== ENCOUNTER 2024-03-07 09:21 | Outpatient (REF) | payer OTHER, SELFPAY ==
[2024-03-07 11:16] LABS: MANUAL DIFF FLAG NO
[2024-03-07 11:27] LABS: Estimated Average Glucose 128 mg/dL; Hemoglobin A1C 134.9202 umol/L; Hemoglobin A1c % 6.1 % (<6.0); Total Hemoglobin (HGBA1C) 3111.0064 umol/L
[2024-03-07 11:31] LABS: Basophils Absolute Auto 0.1 X10*3/uL (0.0-0.2); Basophils Percent Auto 1.1 % (0-2); Eosinophils Absolute Auto 0.1 X10*3/uL (0.0-0.4); Eosinophils Percent Auto 1.9 % (0-4); Hematocrit 37.4 % (37.0-47.0); Hemoglobin 12.4 g/dl (12.0-16.0); Imm Gran Abs Auto 0.04 X10*3/uL (0.00-0.03); Imm Gran Pct Auto 0.5 % (0.0-0.4); Lymphocytes Percent Auto 26.5 % (20-40); Mean Corpuscular HGB Conc 33.2 g/dl (31.0-35.0); Mean Corpuscular Hemoglobin 29.1 pg (27.0-33.0); Mean Corpuscular Volume 87.8 fL (80.0-98.0); Mean Platelet Volume 10.3 fL (9.4-12.3); Monocytes Absolute Auto 0.5 X10*3/uL (0.1-1.2); Monocytes Percent Auto 6.9 % (2-11); Neutrophils Absolute Auto 4.7 x10*3/uL (2.0-8.3); Neutrophils Percent Auto 63.1 % (45-73); Platelet Count 382 X10*3/uL (160-400); Red Blood Count 4.26 X10*6/uL (4.20-5.50); Red Cell Distribution Width 13.7 % (11.0-16.0); White Blood Count 7.4 X10*3/uL (4.8-10.8)
[2024-03-07 11:45] LABS: Albumin Level 4.1 g/dL (3.5-5.0); Alkaline Phosphatase 62 U/L (39-117); Anion Gap 11 (12-20); Aspartate Amino Transferase 24 U/L (5-31); Bilirubin Total 0.2 mg/dL (0.0-1.0); Blood Urea Nitrogen 11 mg/dL (9-16); Calcium 9.7 mg/dL (8.4-10.2); Carbon Dioxide 30 mmol/L (22-29); Chloride 100 mmol/L (96-108); Cholesterol 189 mg/dL (<200); Estimated Glomerular Filt Rate > 60; Glucose Fasting 85 mg/dL (60-99); HDL Cholesterol 59 mg/dL (>40); LDL Cholesterol Calculated 108 mg/dL (<100); Potassium 3.8 mmol/L (3.3-5.1); Sodium 137 mmol/L (135-145); Total Protein 6.6 g/dL (6.5-8.0); Triglycerides 110 mg/dL (<150)
[2024-03-07 12:05] LABS: Vitamin D 25-OH Total 83.4 ng/mL (>30)
[2024-03-07 12:06] LABS: Vitamin B12 634 pg/mL (200-900)
[2024-03-07 12:31] LABS: Alanine Aminotransferase 28 U/L (0-31)
== END 2024-03-07 09:22 | disposition home or self-care (01) ==
LOC: HO.HMGCLDS 09:21
PROVIDERS: PCP Internal Medicine; Visit Provider Internal Medicine
DX: R63.4 Abnormal weight loss (principal); E78.00 Pure hypercholesterolemia, unspecified; R73.03 Prediabetes; M81.0 Age-related osteoporosis without current pathological fracture; K58.9 Irritable bowel syndrome, unspecified
CPT/HCPCS: 36415; 80053; 80061; 82306; 82607; 83036; 85025

== ENCOUNTER 2024-09-14 11:28 | Outpatient (AMB) | payer OTHER, SELFPAY ==
--- NOTE | 2024-09-14 10:32 | A.OFFPC_ITS ---
Vital Signs 09/14/24 11:47 Height 5 ft 2 in Weight 119 lb BMI 21.8 BP 124/80 Blood Pressure Location Lt brachial Position Sitting Pulse 88 Pulse Source Pulse Oximeter Temp 97.2 F Temp Source Axillary Pulse Oximetry (%) 98 Oxygen Delivery Method Room Air Intake Visit Reasons: Routine - see comments Supervisor Molding Required: No Accompanied by: Self / Same As Patient Allergies amoxicillin [AMOXICILLIN] Allergy (Intermediate, Verified 09/14/24 10:32) HIVES Tobacco use date assessed: 09/14/24 Dental Screening Dental Screen Date: 09/14/24 Did you have a dental visit in the last 12 months?: Yes Did you have a dental problem in the last 6 months where you did not have access to dental care?: No HPI HPI Comments History of Present Illness Details This is a 64 year old female with a past medical history of UC, anxiety, depression, fibromyalgia, lumbar DDD, hyperlipidemia, prediabetes, osteoporosis, IBS, psoriasis presenting for follow up BH: On buspar QID, lorazepam QID, gabapentin QID. GI: history of UC. s/p total colectomy. J pouch. Chronic constipation. Takes metamucil daily. Does not follow with GI MSK: Chronic back pain. Has seen pain management, neurospine. On gabapentin QID. Severe osteoporosis Psoriasis: sees dermatology Mammo-overdue colon cancer screening-j pouch.overdue GI Pap-overdue DXA-severe osteoporosis ROS CONSTITUTIONAL: Denies weight loss, fever and chills. HEENT: Denies changes in vision and hearing. RESPIRATORY: Denies SOB and cough. CV: Denies palpitations and CP GI: Denies abdominal pain, nausea, vomiting and diarrhea. : Denies dysuria and urinary frequency. MSK: Denies new myalgia and joint pain. SKIN: Denies rash and pruritus. NEUROLOGICAL: Denies headache PSYCHIATRIC: Denies recent changes in mood. PHYSICAL EXAM: GENERAL: Alert and oriented x 3. NAD EYES: EOMI. Anicteric. HENT: Moist mucous membranes. No scleral icterus. No cervical lymphadenopathy. LUNGS: Clear to auscultation bilaterally. CARDIOVASCULAR: Regular rate and rhythm. No murmur. No JVD. ABDOMEN: Soft, non-tender +bs EXTREMITIES: No edema. Non-tender. SKIN: No rashes or lesions. Warm. NEUROLOGIC: No focal neurological deficits. CN II-XII grossly intact PSYCHIATRIC: Cooperative. Appropriate mood and affect [facility] Medical History AMADO (generalized anxiety disorder) MDD (major depressive disorder), recurrent episode, moderate Depression Anxiety Chronic back pain HTN (hypertension) Surgical History H/O total colectomy Family History Mother No problems noted. Father No problems noted. Social History Household Members: None Housing: House Do you presently have visiting nurse or other home services: No Unable to assess alcohol history related to: Unknown Alcohol intake: never Patient Tobacco Use Status: Former Tobacco user Tobacco use type: Cigarette e-Cigarette/Vaping Use: Former Use service: No Current occupational status: disabled Sexual orientation: Straight/Heterosexual Cognitive needs: Yes (walker) Hearing needs: No Vision needs: Yes (reading glasses) Questionnaire PHQ-9 Over the last 2 weeks, how often have you been bothered by any of the following problems? 1. Little interest or pleasure in doing things: not at all 2. Feeling down, depressed, or hopeless: not at all 3. Trouble falling or staying asleep, or sleeping too much: not at all 4. Feeling tired or having little energy: not at all 5. Poor appetite or overeating: not at all 6. Feeling bad about yourself - or that you are a failure or have let yourself or your family down: not at all 7. Trouble concentrating on things, such as reading the newspaper or watching television: not at all 8. Moving or speaking so slowly that other people could have noticed. Or the opposite - being so fidgety or restless that you have been moving around a lot more than usual: not at all 9. Thoughts that you would be better off or of hurting yourself in some way: not at all Total score: 0 Depression Screening Interpretation: Negative Depression Screening Done: Yes 73078 - PHQ-9 Billing: Yes Source: Developed by Drs. Rafael L. GailKimberly mar Kurt Kroenke and colleagues, with an educational rodrigo from [employer]. Thrive Questionnaire Date Thrive assessed: 09/14/24 I am a: Patient Within the past 12 months, did the food you bought not last and you didn't have the money to get more?: Never true Within the past 12 months, did you worry whether your food would run out before you got money to buy more?: Never true Do you have trouble paying for medicines?: No Do you have trouble getting transportation to medical appointments?: No Do you have trouble paying your heating and electricity bill?: No Do you have trouble taking care of your child, family member or friend?: No Do you have trouble with day-to-day activities such as bathing, preparing meals, shopping, managing finances, etc.?: No Are you currently unemployed and looking for a job?: No Are you interested in more education?: No THRIVE Score: 0 AUDIT C Alcohol Use Questionnaire (AUDIT-C) 1. How often do you have a drink containing alcohol?: Never 3. How often do you have six or more drinks on one occasion?: Never Total Score: 0 AMADO-7 AMB Questionnaire AMADO-7 Date AMADO - 7 assessed: 09/14/24 Feeling nervous, anxious, or on edge: 0 = Not at all Not being able to stop or control worryin = Not at all Worrying too much about different things: 0 = Not at all Trouble relaxin = Not at all Being so restless that it is hard to sit still: 0 = Not at all Becoming easily annoyed or irritable: 0 = Not at all Feeling afraid as if something awful might happen: 0 = Not at all Total AMADO-7 score (0-4 normal; 5-9 mild; 10-14 moderate; 15-21 severe): 0 Source: Developed by Drs. Rafael Reynolds, Ebenezer Ordonez and colleagues, with an educational rodrigo from [employer]. Physical exam (Primary Care) Vital Signs: Last Vital Signs Temp 97.2 F 09/14/24 11:47 Pulse 88 09/14/24 11:47 BP 124/80 09/14/24 11:47 Pulse Ox 98 09/14/24 11:47 Oxygen Delivery Method Room Air 09/14/24 11:47 BMI result Body Mass Index 21.8 Tobacco/Smoking Status: Tobacco use Status Tobacco use date assessed 09/14/24 09/14/24 10:33 Patient Tobacco Use Status Former Tobacco user 09/14/24 11:53 Tobacco use type Cigarette 09/14/24 10:33 e-Cigarette/Vaping Use Former Use 09/14/24 11:53 PHQ-9: PHQ-9 Score PHQ-9: Total score 0 09/14/24 11:55 Depression Screening Interpretation: Negative Thrive Assessment: Date of Thrive Assessment Date Thrive assessed 09/14/24 09/14/24 10:33 Coding Level of Care Code New Pt Level 4 (97515) Complex EM visit Add On G2211 Diagnoses MDD (major depressive disorder), recurrent episode, moderate F33.1 AMADO (generalized anxiety disorder) F41.1 Chronic back pain, unspecified back location, unspecified back pain laterality M54.9; G89.29 Back pain laterality: unspecified Back pain location: back pain in unspecified location Prediabetes R73.03 Additional Codes PHQ-9 - 22563 - PHQ-9 Billing: Yes ([id number]) Assessment & Plan Assessment & Plan (1) MDD (major depressive disorder), recurrent episode, moderate: Code(s): F33.1 - Major depressive disorder, recurrent, moderate Category: Medical (2) AMADO (generalized anxiety disorder): Code(s): F41.1 - Generalized anxiety disorder Category: Medical (3) Chronic back pain: Code(s): M54.9 - Dorsalgia, unspecified; G89.29 - Other chronic pain Category: Medical Qualifiers: Back pain laterality: unspecified Back pain location: back pain in unspecified location Qualified Code(s): M54.9 - Dorsalgia, unspecified; G89.29 - Other chronic pain (4) Prediabetes: Code(s): R73.03 - Prediabetes Category: Medical Plan 64 yo to establish care Past medical, surgical, social reviewed Anxiety stable Chronic pain-stable with increased gabapentin,lorzepam Orders: Orders Hemoglobin A1c 09/14/24 F41.1 - Generalized anxiety disorder, K51.90 - Ulcerat stuart colitis, unspecified, without complications, M48.061 - Spinal stenosis, lumbar region without neurogenic claudication, R73.03 - Prediabetes, Z13.220 - Encounter for screening for lipoid disorders, Z13.228 - Encounter for screening for other metabolic disorders Comprehensive Met. Panel 09/14/24 Z13.220 - Encounter for screening for lipoid disorders Complete Blood Count Auto Diff 09/14/24 F41.1 - Generalized anxiety disorder, K51.90 - Ulcerative colitis, unspecified, without complications, M48.061 - Spinal stenosis, lumbar region without neurogenic claudication, R73.03 - Prediabetes, Z13.220 - Encounter for screening for lipoid disorders, Z13.228 - Encounter for screening for other metabolic disorders Vitamin D 25-OH (D2 and D3) 09/14/24 F41.1 - Generalized anxiety disorder, K51.90 - Ulcerative colitis, unspecified, without complications, M48.061 - Spinal stenosis, lumbar region without neurogenic claudication, R73.03 - Prediabetes, Z13.220 - Encounter for screening for lipoid disorders, Z13.228 - Encounter for screening for other metabolic disorders LDL Cholesterol Direct 09/14/24 Z13.220 - Encounter for screening for lipoid disorders Vitamin B12 and Folate 09/14/24 K51.90 - Ulcerative colitis, unspecified, without complications, M81.0 - Age-related osteoporosis without current pathological fracture Referrals Rheumatology Referral M81.0 - Age-related osteoporosis without current path ological fracture Medications: Refilled triamcinolone acetonide 0.1% 1 appl topical DAILY 30 days PRN 15 grams 0RF psoriasis
[2024-09-14 11:47] VITALS: BP 124/80; PULSE 88; TEMP 36.2; O2SAT 98; BMI 21.8
--- OUTSIDE RECORDS SUMMARY | 2024-09-14 13:39 | XMS_ITS | Clinical Summary ---
Author Organization [facility] Facility Address [address] [place] [address] Care Team Providers Care School Counsellor Name Role Phone Unavailable Primary Care Provider Unavailabl e Social History Tobacco Use Types Packs/Day Years Used Date Smoking Tobacco: Never Assessed Comments Unknown Sex and Gender Information Value Date Recorded Sex Assigned at Not on file Legal Sex Female 9:28 AM EDT Gender Identity Not on file Sexual Orientation Not on file Plan of Treatment Health Maintenance Due Date Last Done Comments Breast Cancer Screening 1961 Colorectal Cancer Screening: Annual FOBT 2010 Colorectal Cancer Screening: Colonoscopy 2010 Colorectal Cancer Screening: Sigmoidoscopy 2010 Pneumococcal Vaccine: 50+ Ye ars (1 - PCV) 07/25/2011 Influenza Vaccine (Season Ended) 2024 Hepatitis B Vaccine Aged Out No longe r eligible based on patient's age to complete this topic Insurance Medicaid [facility] Medicaid
== END 2024-09-14 12:58 | disposition home or self-care (01) ==
LOC: HO.HMCHD 11:29
PROVIDERS: PCP Internal Medicine; Visit Provider Internal Medicine
DX: F33.1 Major depressive disorder, recurrent, moderate (principal); F41.1 Generalized anxiety disorder; M54.9 Dorsalgia, unspecified; G89.29 Other chronic pain; R73.03 Prediabetes

== ENCOUNTER → 2024-09-14 11:28 | Outpatient (BNVA) | payer OTHER, SELFPAY | PROVIDERS: PCP Internal Medicine; Visit Provider Internal Medicine | DX: F33.1 Major depressive disorder, recurrent, moderate (principal); F41.1 Generalized anxiety disorder; M54.9 Dorsalgia, unspecified; G89.29 Other chronic pain; R73.03 Prediabetes; L40.9 Psoriasis, unspecified; M81.0 Age-related osteoporosis without current pathological fracture; Z79.899 Other long term (current) drug therapy; Z13.31 Encounter for screening for depression; Z13.30 Encounter for screening examination for mental health and behavioral disorders, unspecified | CPT/HCPCS: 96127; 99202 ==

== ENCOUNTER 2024-09-21 09:32 | Outpatient (REF) | payer OTHER, SELFPAY ==
--- OUTSIDE RECORDS SUMMARY | 2024-09-21 10:22 | XMS_ITS | Clinical Summary ---
Author Organization [facility] Facility Address [address] [place] [address] Care Team Providers Care Copier Repair Technician Name Role Phone Unavailable Primary Care Provider [...]
[2024-09-21 13:02] LABS: MANUAL DIFF FLAG NO
[2024-09-21 13:07] LABS: Basophils Absolute Auto 0.1 X10*3/uL (0.0-0.2); Basophils Percent Auto 0.9 % (0-2); Eosinophils Absolute Auto 0.1 X10*3/uL (0.0-0.4); Eosinophils Percent Auto 1.5 % (0-4); Hematocrit 34.6 % (37.0-47.0); Hemoglobin 11.4 g/dl (12.0-16.0); Imm Gran Abs Auto 0.04 X10*3/uL (0.00-0.03); Imm Gran Pct Auto 0.5 % (0.0-0.4); Lymphocytes Absolute Auto 1.6 X10*3/uL (1.2-4.9); Lymphocytes Percent Auto 19.7 % (20-40); Mean Corpuscular HGB Conc 32.9 g/dl (31.0-35.0); Mean Corpuscular Hemoglobin 28.6 pg (27.0-33.0); Mean Corpuscular Volume 86.7 fL (80.0-98.0); Mean Platelet Volume 9.8 fL (9.4-12.3); Monocytes Absolute Auto 0.8 X10*3/uL (0.1-1.2); Monocytes Percent Auto 9.3 % (2-11); Neutrophils Absolute Auto 5.5 x10*3/uL (2.0-8.3); Neutrophils Percent Auto 68.1 % (45-73); Platelet Count 433 X10*3/uL (160-400); Red Blood Count 3.99 X10*6/uL (4.20-5.50); Red Cell Distribution Width 14.2 % (11.0-16.0)
[2024-09-21 13:11] LABS: Estimated Average Glucose 126 mg/dL
[2024-09-21 13:32] LABS: Alanine Aminotransferase 14 U/L (0-31); Albumin Level 4.2 g/dL (3.5-5.0); Alkaline Phosphatase 50 U/L (39-117); Anion Gap 14 (12-20); Aspartate Amino Transferase 22 U/L (5-31); Bilirubin Total 0.1 mg/dL (0.0-1.0); Blood Urea Nitrogen 17 mg/dL (9-16); Calcium 10.1 mg/dL (8.4-10.2); Carbon Dioxide 24 mmol/L (22-29); Chloride 98 mmol/L (96-108); Estimated Glomerular Filt Rate 54; Glucose Random 83 mg/dL (60-115); Potassium 4.9 mmol/L (3.3-5.1); Sodium 131 mmol/L (135-145); Total Protein 6.5 g/dL (6.5-8.0)
[2024-09-21 13:57] LABS: Folate 12.9 ng/mL (> or = 4.0); Vitamin B12 1292 pg/mL (200-900)
[2024-09-22 16:18] LABS: LDL Cholesterol Direct 83 mg/dL (<100)
[2024-09-27 06:29] LABS: Vitamin D 25-OH, D2 <4 ng/mL; Vitamin D 25-OH, D3 76 ng/mL; Vitamin D 25-OH, Total 76 ng/mL (30-100)
== END 2024-09-21 09:33 | disposition home or self-care (01) ==
LOC: HO.HMGCLDS 09:32
PROVIDERS: PCP Internal Medicine; Visit Provider Internal Medicine
DX: F41.1 Generalized anxiety disorder (principal); R73.03 Prediabetes; M48.061 Spinal stenosis, lumbar region without neurogenic claudication; Z13.220 Encounter for screening for lipoid disorders; Z13.228 Encounter for screening for other metabolic disorders; M81.0 Age-related osteoporosis without current pathological fracture; I10 Essential (primary) hypertension
CPT/HCPCS: 36415; 80053; 82306; 82607; 82746; 83036; 83721; 85025

== ENCOUNTER 2024-10-20 08:25 | Outpatient (REF) | payer OTHER, SELFPAY ==
--- OUTSIDE RECORDS SUMMARY | 2024-10-20 08:28 | XMS_ITS | Patient Health Record ---
Author Organization [facility] Address [address] [place] [address] Care Team Providers Care Forming Department End Finder Name Role Phone Talat Nguyen MD Primary Care Provider Rafael Waldron [phone] Reason For Referral No Information Plan Of Treatment No Information
--- OUTSIDE RECORDS SUMMARY | 2024-10-20 08:28 | XMS_ITS | Clinical Summary ---
Author Organization [facility] Facility Address [address] [place] [address] Care Team Providers Care Snowmobile Mechanic Name Role Phone Unavailable Primary Care Provider [...] 2010 Pneumococcal Vaccine: 50+ Ye ars (1 of 1 - PCV) 07/25/2011 Influenza Vaccine (#1) 2024 Hepatitis B Vaccine Aged Out No longe r eligible based on patient's age to complete this topic Insurance Medicaid [facility] Medicaid
[2024-10-20 10:05] LABS: MANUAL DIFF FLAG NO
[2024-10-20 10:23] LABS: Hematocrit 30.7 % (37.0-47.0); Hemoglobin 10.2 g/dl (12.0-16.0); Imm Gran Abs Auto 0.03 X10*3/uL (0.00-0.03); Imm Gran Pct Auto 0.4 % (0.0-0.4); Lymphocytes Absolute Auto 1.4 X10*3/uL (1.2-4.9); Mean Corpuscular HGB Conc 33.2 g/dl (31.0-35.0); Mean Corpuscular Hemoglobin 28.1 pg (27.0-33.0); Mean Corpuscular Volume 84.6 fL (80.0-98.0); NRBC Abs Auto 0.000 X10*3/uL (0.0-0.012); NRBC Pct Auto 0.0 /100WBC (0.0-0.2); Platelet Count 446 X10*3/uL (160-400); Red Blood Count 3.63 X10*6/uL (4.20-5.50); White Blood Count 7.0 X10*3/uL (4.8-10.8)
[2024-10-20 10:53] LABS: Alanine Aminotransferase 17 U/L (0-31); Albumin Level 3.9 g/dL (3.5-5.0); Alkaline Phosphatase 48 U/L (39-117); Anion Gap 11 (12-20); Aspartate Amino Transferase 22 U/L (5-31); Blood Urea Nitrogen 12 mg/dL (9-16); Calcium 9.3 mg/dL (8.4-10.2); Carbon Dioxide 26 mmol/L (22-29); Chloride 96 mmol/L (96-108); Estimated Glomerular Filt Rate > 60; Iron 36 mcg/dL (30-160); Percent Iron Saturation 11 % (15-50); Potassium 4.6 mmol/L (3.3-5.1); Sodium 128 mmol/L (135-145); Total Iron Binding Capacity 333 mcg/dL (228-428); Total Protein 6.2 g/dL (6.5-8.0); Unsaturated Iron Binding 297 ug/dL
[2024-10-20 11:19] LABS: Folate 12.9 ng/mL (> or = 4.0); Vitamin B12 965 pg/mL (200-900)
== END 2024-10-20 08:26 | disposition home or self-care (01) ==
LOC: HO.HMGCLDS 08:25
PROVIDERS: PCP Internal Medicine; Visit Provider Internal Medicine
DX: M47.26 Other spondylosis with radiculopathy, lumbar region (principal); R73.03 Prediabetes
CPT/HCPCS: 36415; 80053; 82607; 82746; 83540; 85025

== ENCOUNTER 2024-10-31 08:58 | Outpatient (AMB) | payer OTHER, SELFPAY ==
[2024-10-31 09:13] VITALS: BP 110/84; PULSE 80; TEMP 36.9; O2SAT 99; BMI 21.9
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
--- OUTSIDE RECORDS SUMMARY | 2024-10-31 09:15 | XMS_ITS | Patient Health Record ---
Author Organization [facility] Address [address] [place] [id number] Care Team Providers Care Airline Lounge Receptionist Name Role Phone Talat Nguyen MD Primary Care Provider Rafael Waldron [phone] Reason For Referral No Information Plan Of Treatment No Information
--- OUTSIDE RECORDS SUMMARY | 2024-10-31 09:15 | XMS_ITS | Clinical Summary ---
Author Organization [facility] Facility Address [address] [place] [address] Care Team Providers Care Block Mason Name Role Phone Unavailable Primary Care Provider [...] age to complete this topic Insurance Medicaid [facility] Medicaid
== END 2024-10-31 10:05 | disposition home or self-care (01) ==
PROVIDERS: PCP Internal Medicine; Visit Provider Physician Assistant Medical
DX: T23.212A Burn of second degree of left thumb (nail), initial encounter (principal)

== ENCOUNTER → 2024-10-31 08:58 | Outpatient (BNVA) | payer OTHER, SELFPAY | PROVIDERS: PCP Internal Medicine; Visit Provider Physician Assistant Medical | DX: T23.212A Burn of second degree of left thumb (nail), initial encounter (principal); X15.8XXA Contact with other hot household appliances, initial encounter; Y93.9 Activity, unspecified; Y92.9 Unspecified place or not applicable; Y99.9 Unspecified external cause status | CPT/HCPCS: 99212 ==

== ENCOUNTER 2024-11-03 09:48 | Outpatient (AMB) | payer OTHER, SELFPAY ==
--- NOTE | 2024-11-03 09:49 | A.OFFPC_ITS ---
Intake Visit Reasons: Routine Offset Platemaker Required: No Accompanied by: Self / Same As Patient Allergies amoxicillin (AMOXICILLIN) Allergy (Intermediate, Verified 11/03/24 09:50) HIVES Tobacco use date assessed: 09/14/24 Dental Screening Dental Screen Date: 09/14/24 HPI HPI Comments History of Present Illness Details This is a 64 year old female with a past medical history of UC, anxiety, depression, fibromyalgia, lumbar DDD, hyperlipidemia, prediabetes, osteoporosis, IBS, psoriasis presenting for follow up Discussed labs Sodium worsened on last labs from 131 to 127. Referral was made to neprology. She is hesitant to go. She wants to recheck after taking care of herself better. BH: On buspar QID, lorazepam QID, gabapentin QID. GI: history of UC. s/p total colectomy. J pouch. Chronic constipation. Takes metamucil daily. Does not follow with GI. Discussed potential pouchoscopy last visit, declined at the time. She is increasingly anemia MSK: Chronic back pain. Has seen pain management, neurospine. On gabapentin QID. Severe osteoporosis Psoriasis: sees dermatology Mammo-overdue colon cancer screening-j pouch.overdue GI Pap-overdue DXA-severe osteoporosis ROS CONSTITUTIONAL: Denies weight loss, fever and chills. HEENT: Denies changes in vision and hearing. RESPIRATORY: Denies SOB and cough. CV: Denies palpitations and CP GI: Denies abdominal pain, nausea, vomiting and diarrhea. : Denies dysuria and urinary frequency. MSK: Denies new myalgia and joint pain. SKIN: Denies rash and pruritus. NEUROLOGICAL: Denies headache PSYCHIATRIC: Denies recent changes in mood. PHYSICAL EXAM: [facility] Medical History AMADO (generalized anxiety disorder) MDD (major depressive disorder), recurrent episode, moderate Depression Anxiety Chronic back pain HTN (hypertension) Surgical History H/O total colectomy Family History Mother No problems noted. Father No problems noted. Social History Household Members: None Housing: House Do you presently have visiting nurse or other home services: No Unable to assess alcohol history related to: Unknown Alcohol intake: never Patient Tobacco Use Status: Former Tobacco user Tobacco use type: Cigarette e-Cigarette/Vaping Use: Former Use service: No Current occupational status: disabled Sexual orientation: Straight/Heterosexual Cognitive needs: Yes (walker) Hearing needs: No Vision needs: Yes (reading glasses) Questionnaire Thrive Questionnaire Date Thrive assessed: 09/14/24 AMADO-7 AMB Questionnaire AMADO-7 Date AMADO - 7 assessed: 09/14/24 Source: Developed by Drs. Rafael Reynolds, Kimberly La, Ebenezer Cooper and colleagues, with an educational rodrigo from [employer]. Physical exam (Primary Care) Tobacco/Smoking Status: Tobacco use Status Tobacco use date assessed 09/14/24 11/03/24 09:50 Patient Tobacco Use Status Former Tobacco user 11/03/24 09:50 Tobacco use type Cigarette 11/03/24 09:50 e-Cigarette/Vaping Use Former Use 11/03/24 09:50 Thrive Assessment: Date of Thrive Assessment Date Thrive assessed 09/14/24 11/03/24 09:50 Telehealth Telehealth Telehealth Platform: Telephone Location of provider rendering services: practice address Location of patient: address on file Patient Identification confirmed using: Name, : Yes Telehealth method: voice only Patient verbally consented to treatment: Yes Patient verbally consented to billing insurance company: Yes Patient informed of any privacy concerns related to visit: Yes Minutes spent on Phone/Video with Pt.: 42 Coding Level of Care Code Tele Est Pt Level 4 (68318) Diagnoses Hyponatremia E87.1 Ulcerative colitis with complication, unspecified location K51.919 Digestive disease complication type: unspecified complication Ulcerative colitis location: unspecified ulcerative colitis location Assessment & Plan Assessment & Plan (1) Hyponatremia: Code(s): E87.1 - Hypo-osmolality and hyponatremia Category: Medical (2) Ulcerative colitis: Code(s): K51.90 - Ulcerative colitis, unspecified, without complications Category: Medical Qualifiers: Digestive disease complication type: unspecified complication Ulcerative colitis location: unspecified ulcerative colitis location Qualified Code(s): K51.919 - Ulcerative colitis, unspecified with unspecified complications Plan 64 year old female for follow up An extensive amount of time was spent reviewing labs discussing hyponatremia. she would like to hold on nephrology referral until repeat testing is obtained Anemia-already discussed need for GI follow up
--- OUTSIDE RECORDS SUMMARY | 2024-11-03 09:59 | XMS_ITS | Patient Health Record ---
Author Organization [facility] Address [address] [place] [address] Care Team Providers Care Costume Specialist Name Role Phone Talat Nguyen MD Primary Care Provider Rafael Waldron [phone] Reason For Referral No Information Plan Of Treatment No Information
--- OUTSIDE RECORDS SUMMARY | 2024-11-03 09:59 | XMS_ITS | Clinical Summary ---
Author Organization [facility] Facility Address [address] [place] [address] Care Team Providers Care Business Planner Name Role Phone Unavailable Primary Care Provider [...] age to complete this topic Insurance Medicaid [facility] Medicaid
== END 2024-11-03 10:24 | disposition home or self-care (01) ==
LOC: HO.HMCHD 09:48
PROVIDERS: PCP Internal Medicine; Visit Provider Internal Medicine
DX: E87.1 Hypo-osmolality and hyponatremia (principal); K51.919 Ulcerative colitis, unspecified with unspecified complications

== ENCOUNTER 2024-11-28 16:55 | Inpatient (IN) | payer OTHER, SELFPAY ==
--- NOTE | ~2024-11-28 | CT_ITS ---
CLINICAL HISTORY: head injury CT cervical spine without contrast Comparison: None provided Findings: Straightening of the normal cervical lordosis. Annular disc bulge at C2-3 with mild canal stenosis and no significant foraminal stenosis. Multilevel facet arthropathy and disc space narrowing, most at C6-7. No acute fractures or dislocations. Visualized intracranial contents are unremarkable. No cervical fluid collections or masses. Lung apices are clear. IMPRESSION: No acute findings. This document has been electronically signed by: Sadiq Harry MD on 11/28/2024 21:05:47
--- NOTE | ~2024-11-28 | CT_ITS ---
CLINICAL HISTORY: syncope CT head without contrast Comparison: None provided Findings: No intra-axial mass, midline shift, hydrocephalus, or acute hemorrhage. No significant atrophy-like change or white matter disease. The visualized paranasal sinuses and mastoid air cells are normal. The orbits are unremarkable. No skull fracture. IMPRESSION: 1. No acute intracranial findings. This document has been electronically signed by: Sadiq Hrary MD on 11/28/2024 21:00:38
[2024-11-28 17:01] VITALS: BP 169/103; PULSE 77; PULSE 88; RESP 12; TEMP 36.9; O2SAT 98; O2SAT 99; BMI 23.0
--- NOTE | 2024-11-28 17:17 | MHC.EDTECH ---
lac to right under eye, two lacs to nasal, and 1 skin tear to right 4th digit all cleaned with wipes and saline/betadine mixture, UGO aware
--- NOTE | 2024-11-28 17:22 | ECG_ITS ---
Test Reason : SYNCOPE Blood Pressure : */* mmHG Vent. Rate : 73 BPM Atrial Rate : 73 BPM P-R Int : 128 ms QRS Dur : 84 ms QT Int : 340 ms P-R-T Axes : 34 57 73 degrees QTcB Int : 374 ms Normal sinus rhythm Normal ECG No previous ECGs available Referred By: Izzy Yañez Electronically Signed By: MARGIE WILD
[2024-11-28 17:28] LABS: MANUAL DIFF FLAG NO
[2024-11-28 17:30] LABS: Hematocrit 28.8 % (37.0-47.0); Hemoglobin 9.8 g/dl (12.0-16.0); Imm Gran Abs Auto 0.04 X10*3/uL (0.00-0.03); Imm Gran Pct Auto 0.4 % (0.0-0.4); Lymphocytes Absolute Auto 1.7 X10*3/uL (1.2-4.9); Mean Corpuscular HGB Conc 34.0 g/dl (31.0-35.0); Mean Corpuscular Hemoglobin 27.2 pg (27.0-33.0); Mean Corpuscular Volume 80.0 fL (80.0-98.0); NRBC Abs Auto 0.000 X10*3/uL (0.0-0.012); NRBC Pct Auto 0.0 /100WBC (0.0-0.2); Platelet Count 419 X10*3/uL (160-400); Red Blood Count 3.60 X10*6/uL (4.20-5.50); White Blood Count 10.9 X10*3/uL (4.8-10.8)
[2024-11-28 17:42] LABS: Alanine Aminotransferase 14 U/L (0-31); Albumin Level 3.9 g/dL (3.5-5.0); Alkaline Phosphatase 54 U/L (39-117); Anion Gap 14 (12-20); Aspartate Amino Transferase 23 U/L (5-31); Blood Urea Nitrogen 20 mg/dL (9-16); Calcium 9.9 mg/dL (8.4-10.2); Carbon Dioxide 22 mmol/L (22-29); Chloride 96 mmol/L (96-108); Creatinine Clr Calc Pharmacy 49.0; Estimated Glomerular Filt Rate > 60; Magnesium 2.1 mg/dL (1.6-2.6); Potassium 4.5 mmol/L (3.3-5.1); Sodium 127 mmol/L (135-145); Total Protein 6.2 g/dL (6.5-8.0)
[2024-11-28 17:52] LABS: Troponin-I High Sensitivity < 2.7 ng/L (<3.5-17.0)
[2024-11-28 18:07] LABS: Appearance Urine Clear; Glucose Urine UA Negative (Negative); PH 6.0 (5.0-9.0); Specific Gravity - Urine <= 1.005 (1.005-1.025)
[2024-11-28 18:14] VITALS: PULSE 77; RESP 12; TEMP 36.9; O2SAT 99
--- OUTSIDE RECORDS SUMMARY | 2024-11-28 18:14 | XMS_ITS | Patient Health Record ---
Author Organization [facility] Address [address] [place] [id number] Care Team Providers Care Printing Plate Setter Name Role Phone Talat Nguyen MD Primary Care Provider Rafael Waldron [phone] Reason For Referral No Information Plan Of Treatment No Information
--- OUTSIDE RECORDS SUMMARY | 2024-11-28 18:14 | XMS_ITS | Clinical Summary ---
Author Organization [facility] Facility Address [address] [place] [address] Care Team Providers Care Real Property Appraiser Name Role Phone Unavailable Primary Care Provider [...] age to complete this topic Insurance Medicaid [facility] Medicaid
[2024-11-28 20:03] VITALS: BP 153/94; BP 163/100; PULSE 75; PULSE 78
--- NOTE | 2024-11-28 20:03 | ED_ITS ---
HPI - Syncope General Chief Complaint: Syncope Stated Complaint: syncope fall, abrasion face, r arm pain Time Seen by Provider: 11/28/24 17:59 History of Present Illness HPI narrative: Patient is a 64-year-old female presents today with having syncopal episode. Had 3 episodes of syncope. The 1st time was about 10 days ago patient was going to the bathroom when she walked out she felt lightheaded dizzy then had a syncopal episode. Second episode happened when she was having arm pain about 5 days ago she felt lightheaded then had a syncopal episode. Today patient had a 3rd episode at 04:00. Patient was going to the bathroom when she felt lightheaded her head hit the bed frame. Positive loss of consciousness. Denies any chest pain or diaphoresis. No blood in the stool. No fever no chills. Not on blood thinners. History of fibromyalgia. History of psychogenic polydipsia. Causing low sodiums in the past. Patient not on any water pill. No fever no chills. No cough no congestion or respiratory symptoms. No diaphoresis. From home. Related Data Home Medications ?Medication ?Instructions ?Recorded ?Confirmed ibuprofen 200 mg tablet 800 mg PO Q8H PRN pain 08/0408/04/22 Previous Rx's ?Medication ?Instructions ?Recorded buspirone 15 mg tablet 15 mg PO QID #180 tabs 06/30 gabapentin 300 mg capsule 300 mg PO QID #360 caps 06/04 11/27 lorazepam 0.5 mg tablet 0.5 mg PO QID PRN anxiety #1 12 tabs 10/09/24 triamcinolone acetonide 0.1 % 1 appl topical DAILY PRN psoriasis 10/26/24 topical cream 30 days #30 grams mupirocin 2 % topical ointment 1 appl topical TID #22 grams 10/31/24 Allergies Allergy/AdvReac Type Severity Reaction Status Date / Time amoxicillin (AMOXICILLIN) Allergy Intermediate HIVES Verified 11/28/24 17:03 Review of Systems 2 Review of Systems: Positive syncope x3 Yes all other systems are reviewed and are negative [facility] Past Medical History Medical History AMADO (generalized anxiety disorder) MDD (major depressive disorder), recurrent episode, moderate Depression Anxiety Chronic back pain HTN (hypertension) Surgical History H/O total colectomy Family History Family History Mother No problems noted. Father No problems noted. Social History Social History Household Members: None Housing: House Do you presently have visiting nurse or other home services: No Unable to assess alcohol history related to: Unknown Alcohol intake: never Patient Tobacco Use Status: Former Tobacco user Tobacco use type: Cigarette Smoked in Last 30 Days: No e-Cigarette/Vaping Use: Former Use Use of substances other than those prescribed or required for medical reasons: No Advance Directives: No Advance Directives Information Provided: Yes Do you have a plan to hurt others: No Plan Patient : No service: No Current occupational status: disabled Sexual orientation: Straight/Heterosexual Cognitive needs: Yes (walker) Hearing needs: No Vision needs: Yes (reading glasses) Physical Exam 2 Exam: Exam: Appearance: Alert. Oriented X3. No acute distress. Eyes: Pupils equal, round and reactive to light. ENT: Pharynx normal. Neck: Normal inspection. Neck supple. No lymph nodes noted. No crepitus CVS: Normal heart rate and rhythm. Pulses normal. Normal S1 and S2 Respiratory: No respiratory distress. Breath sounds normal. No Wheezing. No rales Abdomen: Soft and nontender. No rigidity. No distention. good BS x4 Skin: Skin warm and dry. Normal skin color. Normal skin turgor. Extremities: No lower extremity edema. Neurovascular intact to all extremities. No Lacerations. No Rash Neuro: Oriented X 3. No motor deficit. No sensory deficit. Moving all extermities. No slurred speech Vital Signs: Vital Signs: Last Vital Signs Temp 98.4 F 11/28/24 18:14 Pulse 78 11/28/24 20:07 Resp 12 11/28/24 18:14 BP 168/97 H 11/28/24 20:07 Pulse Ox 99 11/28/24 18:14 O2 Del Method Room Air 11/28/24 18:14 BMI result Body Mass Index 23.0 Medical Decision Making Medical Decision Making MDM Narrative: My interpretation patient's EKG showed a sinus rhythm heart rate is 70 LA QRS QTC normal no acute ST segment elevation noted. Patient's troponin 1st set was negative. Had syncopal episode x3. Patient's hemoglobin is 9.8. Previous hemoglobin was 10.2. Had syncopal episode x3. Has a history of psychogenic polydipsia. Patient's sodium today was 127. Patient's urine showed low specific gravity. Consistent with psychogenic polydipsia. Will water restrict as much as possible. CT scan of the head was ordered CT scan of the C-spine was ordered this patient fell. Her troponin was negative. Patient will be admitted for monitoring overnight. In stable condition. My interpretation patient's CT scan was grossly negative. Differential Diagnosis Differential Diagnoses: The differential diagnosis associated with the presentation includes Hyponatremia, electrolyte disturbance, anemia, head injury, intracranial bleed, syncope Admission/Observation Consideration of admission/observation: Escalation of care including admission/observation considered Consult Healthcare Provider Management of the patient was discussed with: Hospitalist (For admission observation) Lab Data MDM Lab Attestation statement: I reviewed the patient's lab results. 11/28/24 17:24 11/28/24 17:24 Labs: Lab Results 11/28/24 11/28/24 11/28/24 Range/Units 17:24 17:59 20:07 WBC 10.9 H (4.8-10.8) X10*3/uL RBC 3.60 L (4.20-5.50) X10*6/uL Hgb 9.8 L (12.0-16.0) g/dl Hct 28.8 L (37.0-47.0) % MCV 80.0 (80.0-98.0) fL MCH 27.2 (27.0-33.0) pg MCHC 34.0 (31.0-35.0) g/dl RDW 13.3 (11.0-16.0) % Plt Count 419 H (160-400) X10*3/uL MPV 9.0 L (9.4-12.3) fL Immature Gran % (Auto) 0.4 (0.0-0.4) % Neut % (Auto) 73.2 H (45-73) % Lymph % (Auto) 15.5 L (20-40) % [place] % (Auto) 7.7 (2-11) % Eos % (Auto) 2.6 (0-4) % Baso % (Auto) 0.6 (0-2) % Lymph # (Auto) 1.7 (1.2-4.9) X10*3/uL [place] # (Auto) 0.8 (0.1-1.2) X10*3/uL Eos # (Auto) 0.3 (0.0-0.4) X10*3/uL Baso # (Auto) 0.1 (0.0-0.2) X10*3/uL Abs Immat Gran (auto) 0.04 H (0.00-0.03) X10*3/uL Absolute Neuts (auto) 7.9 (2.0-8.3) x10*3/uL Absolute Nucleated RBC 0.000 (0.0-0.012) X10*3/uL Nucleated RBC % (auto) 0.0 (0.0-0.2) /100WBC Sodium 127 L (135-145) mmol/L Potassium 4.5 (3.3-5.1) mmol/L Chloride 96 (96-108) mmol/L Carbon Dioxide 22 (22-29) mmol/L Anion Gap 14 (12-20) BUN 20 H (9-16) mg/dL Creatinine 0.93 (0.5-1.4) mg/dL Estim Creat Clear Calc 49.0 Estimated GFR > 60 Random Glucose 92 (60-115) mg/dL Calcium 9.9 D (8.4-10.2) mg/dL Magnesium 2.1 (1.6-2.6) mg/dL Total Bilirubin 0.1 (0.0-1.0) mg/dL AST 23 (5-31) U/L ALT 14 (0-31) U/L Alkaline Phosphatase 54 (39-117) U/L Troponin I High Sens < 2.7 < 2.7 (<3.5-17.0) ng/L Total Protein 6.2 L (6.5-8.0) g/dL Albumin 3.9 (3.5-5.0) g/dL Urine Color Yellow Urine Appearance Clear Urine pH 6.0 (5.0-9.0) Ur Specific [place] <= 1.005 (1.005-1.025) Urine Protein Negative (Neg-Trace) mg/dL Urine Glucose (UA) Negative (Negative) mg/dL Urine Ketones Negative (Negative) mg/dL Urine Blood Negative (Negative) Urine Nitrite Negative (Negative) Ur Leukocyte Esterase Negative (Negative) Urine RBC 0-2 (0-2) /HPF Urine WBC 0-5 (0-5) /HPF Ur Squamous Epith Cells 0-2 (0-2) /HPF Urine Bacteria None Seen (None Seen) Hyaline Casts 0-2 (0-2) /LPF Independent Interpretation I performed an independent interpretation of an: EKG (My interpretation patient's EKG showed a sinus rhythm heart rate is 70 LA QRS QTC normal no acute ST segment elevation) External Record Review External record reviewed: Inpatient record (History of hyponatremia caused by psychogenic polydipsia) Chronic Conditions History of hyponatremia Social Determinants Patient?s care significantly limited by Social Determinants of Health including: Problems related to primary support group Discharge Plan Discharge Clinical Impression: Syncope, Head injury, Acute hyponatremia Patient Disposition: Admitted As Inpatient Print Language: Jamaican
[2024-11-28 20:07] VITALS: BP 168/97; PULSE 78
[2024-11-28 20:34] LABS: Troponin-I High Sensitivity < 2.7 ng/L (<3.5-17.0)
[2024-11-28 22:30] VITALS: BP 138/88; PULSE 84; RESP 17; TEMP 36.9; O2SAT 94
--- NOTE | 2024-11-28 22:35 | MHC.EDTECH ---
pt independently transferred out of ER stretcher into hospital bed
--- NOTE | 2024-11-28 23:00 | PHA.MEDREC ---
Addendum entered by Sergio Castrejon, PharmD 11/28/24 23:04: [facility] REC CHECKED BY [facility] Original Note: Pharmacy Consult ? Medication Reconciliation Pharmacy has completed the medication reconciliation. Spoke with pt and she confirmed her medications. Pt confirmed she is taking her Ibuprofen 200mg tab 5 tabs in the morning and 4 tabs every 4 hours. Pt taking Triamcinolone once a week on Mondays now as needed for her psoriasis.
--- NOTE | 2024-11-28 23:07 | PM.IMHP ---
History of Present Illness Date of Service: 11/28/24 Attending physician on admission: Khris Moreira Chief Complaint: syncope Patient is a 64-year-old female with a past medical history significant for fibromyalgia, ulcerative colitis s/p J-pouch, anxiety, mood disorder, psoriasis, chronic hyponatremia (history psychogenic polydipsia), who presented the ED due to multiple syncopal episodes in the past 10 days. Patient reports 3 episodes, 1st 1 was after having a bowel movement, 2nd episode after lifting something heavy and again 3rd episode after lifting something heavy and experiencing significant right arm pain. Today she did fall and hit her head on the bed frame after lifting a heavy object. She reports the 2nd episode she was able to catch herself from having a full syncopal episode. She is very hyper focused on her diet and bowel movements. She does not wish to address her hyponatremia as she states it this summer and that is the reason. She denies any blood in the stool. She reports she was taking a B12 supplement with very high B12 levels therefore stopped. The history was almost impossible to take as the patient wants to focus on her diet and details regarding her bowel movements which are unrelated to the reason for admission aside from constipation. Review of Systems Constitutional: Constitutional: Denies chills, Denies fatigue and Denies fever(s) Eyes: Eyes: Denies change in vision ENT: Denies nasal congestion and Denies sore throat Cardiovascular: Cardiovascular: Denies chest pain, Denies rapid heart rate, Denies leg edema, Reports lightheadedness and Denies dyspnea Respiratory: Respiratory: Denies chest congestion, Denies cough, Denies dyspnea and Denies wheezing Gastrointestinal: Gastrointestinal: Reports constipation, Denies nausea and Denies vomiting Genitourinary: Genitourinary: Denies difficulty voiding and Denies dysuria Musculoskeletal: Musculoskeletal: Denies myalgias Integumentary/Breasts: Skin/Breast: Denies rash Neurologic: Denies confusion Psychiatric: Psychiatric: Denies confusion Endocrine: Endocrine: Denies fatigue Hematologic/Lymphatic: Hematologic/Lymphatic: Denies easy bleeding and Denies easy bruising Allergic/Immunologic: Allergic/Immunologic: Denies wheezing [facility] Medical History AMADO (generalized anxiety disorder) MDD (major depressive disorder), recurrent episode, moderate Depression Anxiety Chronic back pain HTN (hypertension) Functional capacity: uses cane/walker Family History Mother No problems noted. Father No problems noted. Surgical History H/O total colectomy Social History Household Members: None Housing: Apartment Do you presently have visiting nurse or other home services: No Unable to assess alcohol history related to: Unknown Alcohol intake: never Patient Tobacco Use Status: Former Tobacco user Tobacco use type: Cigarette Cigarettes Per Day: 2 Years Smoked: 30 Smoked in Last 30 Days: No e-Cigarette/Vaping Use: Former Use Use of substances other than those prescribed or required for medical reasons: No Have you been hit, kicked, punched, or otherwise hurt by someone within the past year? If so, by whom?: No Do you feel safe in your current relationship?: Yes Is there a partner from a previous relationship who is making you feel unsafe now?: No Are you made to feel afraid or neglected: No Advance Directives: No Advance Directives Information Provided: Yes Do you have a plan to hurt others: No Plan Recently lost weight without trying: Yes How much weight loss: 2-13 pounds Eating poorly because of decreased appetite: No Nutrition screen score: 3 Patient : No : No Poor oral hygiene: No service: No Current occupational status: disabled Sexual orientation: Straight/Heterosexual Cognitive needs: Yes (walker) Hearing needs: No Vision needs: Yes (reading glasses) Narrative: no smoking or etoh Meds Allergies Allergy/AdvReac Type Severity Reaction Status Date / Time amoxicillin (AMOXICILLIN) Allergy Intermediate HIVES Verified 11/28/24 17:03 Active Medications: Current Medications Acetaminophen (Acetaminophen 325 Mg Tablet) 975 mg PO Q6H PRN PRN Reason: Pain, Mild 1-3,fever,headache Buspirone HCl (Buspirone Hcl 5 Mg Tablet) 15 mg PO QID SID Calcium Carbonate (Calcium Carbonate 750 Mg Tab.Chew) 750 mg PO Q4H PRN PRN Reason: Heartburn Enoxaparin Sodium (Enoxaparin Sodium 40 Mg/0.4 Ml Syringe) 40 mg SUBCUT Q24H SID Gabapentin (Gabapentin 300 Mg Capsule) 300 mg PO QID SID Lorazepam (Lorazepam 0.5 Mg Tablet) 0.5 mg PO QID PRN PRN Reason: Anxiety Magnesium Hydroxide (Milk Of Magnesia 30 Ml Oral.Susp) 30 ml PO DAILY PRN PRN Reason: Constipation Melatonin (Melatonin 3 Mg Tablet) 6 mg PO BEDTIME PRN PRN Reason: Insomnia Non-Formulary Medication (Tsgmjjwc-Accdaor-Jxbe-Lutein) 1 tab PO DAILY [facility] Ondansetron HCl (Ondansetron Hcl 4 Mg/2 Ml Vial) 4 mg IVPUSH Q8H PRN PRN Reason: Nausea and Vomiting Sodium Chloride (0.9 % Sodium Chloride Flush 3 Ml Syringe) 3 ml IVFLUSH QSHIFT [facility] Triamcinolone Acetonide (Triamcinolone Acet 0.1 % Cream 15 Gm Tube) 1 appl TOPICAL MO PRN; Protocol PRN Reason: psoriasis Vitamin D (Cholecalciferol (Vitamin D3) 25 Mcg Tablet) 25 mcg PO DAILY [facility] Home Medications ?Medication ?Instructions ?Recorded ?Confirmed ?Last Taken ?Type cholecalciferol (vitamin D3) 25 25 mcg PO DAILY 11/28/24 11/28/24 11/28/24 History mcg (1,000 unit) tablet (Vitamin D3) duqpweqw-waqaqdi-lrzh-lutein tablet 1 tab PO DAILY 11/28/24 11/28/24 11/28/24 History triamcinolone acetonide 0.1 % 1 appl topical MO PRN psoriasis 11/28/24 11/28/24 11/28/24 History topical cream Physical Exam Vital Signs and Narrative: Vital Signs: Last Vital Signs Temp 98.4 F 11/28/24 22:30 Pulse 84 11/28/24 22:30 Resp 17 11/28/24 22:30 BP 138/88 11/28/24 22:30 Pulse Ox 94 11/28/24 22:30 O2 Del Method Room Air 11/28/24 22:30 BMI result Body Mass Index 23.0 General: AOx3, no acute distress. very difficult historian. difficult to redirect. Resp: CTA bilaterally CVS: S1, S2, RRR GI: +BS, NT, no distention Skin: Warm, dry Neuro: Cranial nerves II-XII grossly intact bilaterally. Motor grossly intact bilaterally Extremities: No pitting edema Psych: manic Const: General: No confusion Orientation/consciousness: No confusion Neuro: General: No confusion Results Labs 11/28/24 17:24 11/28/24 17:24 Labs: Laboratory Results - last 24 hr 11/28/24 11/28/24 17:24 17:59 MCV 80.0 MCH 27.2 MCHC 34.0 RDW 13.3 Plt Count 419 H MPV 9.0 L Immature Gran % (Auto) 0.4 Neut % (Auto) 73.2 H Lymph % (Auto) 15.5 L [place] % (Auto) 7.7 Eos % (Auto) 2.6 Baso % (Auto) 0.6 Lymph # (Auto) 1.7 [place] # (Auto) 0.8 Eos # (Auto) 0.3 Baso # (Auto) 0.1 Abs Immat Gran (auto) 0.04 H Absolute Neuts (auto) 7.9 Absolute Nucleated RBC 0.000 Nucleated RBC % (auto) 0.0 Anion Gap 14 Estim Creat Clear Calc 49.0 Estimated GFR > 60 Random Glucose 92 Calcium 9.9 D Magnesium 2.1 Total Bilirubin 0.1 AST 23 ALT 14 Alkaline Phosphatase 54 Total Protein 6.2 L Albumin 3.9 Urine Color Yellow Urine Appearance Clear Urine pH 6.0 Ur Specific [place] <= 1.005 Urine Protein Negative Urine Glucose (UA) Negative Urine Ketones Negative Urine Blood Negative Urine Nitrite Negative Ur Leukocyte Esterase Negative Urine RBC 0-2 Urine WBC 0-5 Ur Squamous Epith Cells 0-2 Urine Bacteria None Seen Hyaline Casts 0-2 Assessment and Plan (1) Syncope: Status: Acute (2) Acute hyponatremia: Status: Acute (3) Anemia: Status: Acute Plan Patient is a 64-year-old female with a past medical history significant for fibromyalgia, ulcerative colitis s/p J-pouch, anxiety, mood disorder, psoriasis, chronic hyponatremia (history psychogenic polydipsia), who presented the ED due to multiple syncopal episodes in the past 10 days. syncope, likely vasovagal - WBC 10.9, VS stable, no infection identified - UA negative - head CT/C-spine CT negative - EKG with normal sinus rhythm - troponin negative - orthostatics negative - monitor on telemetry - echocardiogram - cardiology consult Acute on chronic hyponatremia - pt reports chronic hyponatremia without w/u - hx of psychogenic polydipsia - denies heavy fluid intake - sodium 127 - nephrology consult Anemia, normocytic - hemoglobin 9.8, hematocrit 28.8 - no need for blood transfusion at this time - no obvious bleeding sources - check iron panel, B12, folate, FOBT - monitor CBC Fibromyalgia - continue gabapentin Anxiety/mood disorder - pt currently manic - psych consult - continue buspirone, lorazepam Psoriasis - continue triamcinolone Full code VTE prophylaxis: Lovenox Patient with syncopal episode, likely vasovagal with associated acute on chronic hyponatremia, requiring admission for observation and specialist consultation. Quality Stroke Does the patient have a stroke diagnosis?: No VTE Prior VTE?: No VTE Risk Level:: Medical - moderate - high VTE Device Contraindication: Treatment Not Indicated VTE Drug Contraindication: N/A - Med Ordered
[2024-11-29] VITALS (8 sets, daily range): BP systolic 115–172; BP diastolic 74–94; PULSE 76–101; RESP 10–18; TEMP 36.9–37.2; O2SAT 95–100
--- NOTE | 2024-11-29 07:00 | CA_ITS ---
Transthoracic Echocardiogram Patient (Last, First, Middle): Ana Weller, Gender: F Date of : 1960 Age: 64 Procedure Date: 11/29/2024 Procedure Type: Transthoracic Echocardiogram Location: [facility] [place] Height: 157.48 cm Weight: 56.7 kg BSA: 1.57 m2 Heart Rate: bpm BP: 120 / 78 mmHg Movement Assembly Final Inspector: TO Referring MD: Marli Yeung PA-C Symptoms: syncope Study Quality: Fair/Contrast ECG Rhythm: Sinus Conclusions: - The left ventricular systolic function is hyperdynamic. The calculated ejection fraction is 70% by biplane method. - There is moderate septal asymmetric hypertrophy. - No obvious valvular pathology seen on this study. Findings Procedure Information Contrast agent, definity, is being given per protocol without apparent complications. Left Ventricle Normal left ventricular cavity size. The left ventricular systolic function is hyperdynamic. The calculated ejection fraction is 70% by biplane method. There is no evidence of regional wall motion abnormalities. Evidence suggests grade I (mild) diastolic dysfunction. There is moderate septal asymmetric hypertrophy. Low-level intraventricular and LV outflow tract gradients. Right Ventricle Normal right ventricular cavity size and systolic function. Atria Both atria are normal in size. Aortic Valve There is a normal trileaflet aortic valve. There is no aortic valve stenosis. There is no aortic valve regurgitation. Mitral Valve The mitral valve appears normal. There is no mitral valve regurgitation. There is no mitral valve stenosis. Pulmonic Valve The pulmonic valve is likely normal. Tricuspid Valve There is trace tricuspid valve regurgitation. There is no evidence of pulmonary hypertension. Great Vessels The asc aorta is normal in size. Venous The inferior vena cava is normal in size and collapses greater than 50% with inspiration. Pericardium/Pleural There is no evidence of pericardial effusion. Prior Study Comparison No prior study available for comparison. Recommendations, Care & Conclusions No obvious valvular pathology seen on this study. Measurements 2D Linear Measurements IVSd: 1.35 0.6-0.9/0.6-1.0 cm LVIDd: 3.71 3.9-5.3/4.2-5.9 cm LVIDd Index: 2.36 2.4-3.2/2.2-3.1 cm/m2 LVIDs: 2.19 2.0-3.6 cm LVPWd: 0.83 0.7-1.1 cm LA Diam: 2.80 2.7-3.8/3.0-4.0 cm LAIDs Index: 1.78 1.5-2.3 cm/m2 LV Mass: 159.84 67-162/88-224 g LV Mass Index: 101.81 43-95/49-115 g/m2 LVOT Diam: 2.00 3.0+(-)1.3 cm 2D Systolic Function EF 4C: 68.70 >55% EF 2C: 72.10 >55% EF BiP: 70.20 >55% Mitral Valve MV Pk E: 0.50 MV PK A: 0.64 MV Decel Time: 126.00 E/A: 0.80 E'Lateral: 5.11 E'Medial: 4.03 E/E' Med: 12.30 E/E' Lat: 9.70 PHT: 37.00 MVA PHT: 5.95 Decel [place]: 3.91 Aortic Valve AoV Pk Varun: 1.81 AoV Mn Varun: 1.18 AoV VTI: 0.29 AoV Pk Grad: 13.00 Aov Mn Grad: 6.00 MARYLU Cont.VTI: 3.31 LVOT LVOT Pk Varun: 1.75 LVOT Mn Varun: 1.13 LVOT VTI: 0.31 LVOT Pk Grad: 12.00 LVOT Mn Grad: 6.00 LVOT Diam: 2.00 LVOT Area: 3.14 Diastolic Function MV Pk E: 0.50 MV Pk A: 0.64 E/A: 0.80 E'Medial: 4.03 E/E' Med: 12.30 E' Laterial: 5.11 E/E' Lat: 9.70 Right Ventricle TAPSE (mm): 16.50 TVS' Varun: 11.30 Tricuspid Valve RA Press: 3.00 Great Vessels Aorta Sinus of Valsalva: 3.13 2.0-3.[address] [place]: 2.43 1.7-3.4 cm Ao Asc: 3.50 2.1-3.4 cm Updated in Other Vendor System with Status of Final Vincenzo Kuo MD electronically signed on 11/29/2024 3:58:55 PM with status of Final
[2024-11-29 07:06] LABS: Hematocrit 33.7 % (37.0-47.0); Hemoglobin 11.2 g/dl (12.0-16.0); Mean Corpuscular HGB Conc 33.2 g/dl (31.0-35.0); Mean Corpuscular Hemoglobin 27.5 pg (27.0-33.0); Mean Corpuscular Volume 82.6 fL (80.0-98.0); NRBC Abs Auto 0.000 X10*3/uL (0.0-0.012); NRBC Pct Auto 0.0 /100WBC (0.0-0.2); Platelet Count 495 X10*3/uL (160-400); Red Blood Count 4.08 X10*6/uL (4.20-5.50); White Blood Count 10.4 X10*3/uL (4.8-10.8)
[2024-11-29 07:12] LABS: Anion Gap 12 (12-20); Blood Urea Nitrogen 12 mg/dL (9-16); Calcium 10.5 mg/dL (8.4-10.2); Carbon Dioxide 26 mmol/L (22-29); Chloride 100 mmol/L (96-108); Creatinine Clr Calc Pharmacy 53.0; Estimated Glomerular Filt Rate > 60; Iron 21 mcg/dL (30-160); Magnesium 2.2 mg/dL (1.6-2.6); Percent Iron Saturation 6 % (15-50); Potassium 4.3 mmol/L (3.3-5.1); Sodium 134 mmol/L (135-145); Total Iron Binding Capacity 368 mcg/dL (228-428); Unsaturated Iron Binding 347 ug/dL
[2024-11-29 07:47] LABS: Folate 14.2 ng/mL (> or = 4.0); Vitamin B12 805 pg/mL (200-900)
[2024-11-29] MEDS: 0.9 % Sodium Chloride Flush 3 ML SYRINGE IVFLUSH ×2 (08:58→15:14)
--- NOTE | 2024-11-29 08:59 | MHC.CM.PN ---
Addendum entered by Serina Abreu 11/29/24 10:29: CM was able to speak with Sister/HCP/Melisa. Patient lives alone in an apartment, uses a walker at times to assist with mobility, and had no in-home services [employer]. Ordered Psych Eval may help with disposition; CM has initiated and will follow for dc planning. PCP is unknown at this time. Addendum entered by Serina Abreu 11/29/24 09:19: After speaking with RN, it appears appropriate to call the HCP r/t Patient's refusing to speak with staff, including Cardiology. CM called Sister/HCP/Melisa @ [phone], but was only able to leave a detailed message addressing PULIDO with her. CM awaits a return call from Melisa in order to complete CM Initial Assessment. CM will follow. Original Note: CM attempted to meet with Patient; she was not willing to speak with CM. Patient complained of pain, not sleeping well,not eating well etc); CM informed RN.CM will follow.
[2024-11-29 09:12] LABS: OBS1 POSITIVE (NEGATIVE)
[2024-11-29 09:13] LABS: OBS Int Ctl Valid YES
--- NOTE | 2024-11-29 09:27 | P.CONNP_ITS ---
History of Present Illness Reason for Consult Consult date: 11/29/24 Chief Complaint Chief complaint: syncope History of Present Illness Narrative: 64 y/o female with a medical history of fibromyalgia, ulcerative colitis s/p J pouch, anxiety, psoriasis, chronic hyponatremia with history of psychogenic polydipsia. 11/28 presented with three syncopal episodes over 10 day period, one during bowel movement, other two when performing heavy lifting. Nephrology consulted for hyponatremia. Serum Sodium 127 on arrival 11/28, todau 11/29 is 134 per hospitalist note, patient attributed low sodium level to increased water intake due to summer weather. When entering room, patient declines to answer questions and asks me to leave the room, declines physical examination as well. States she has a lot going on and is eating and wants to be left alone. Review of Systems Review of Systems Yes Other (patient refused. ) [facility] Past Medical History Medical History AMADO (generalized anxiety disorder) MDD (major depressive disorder), recurrent episode, moderate Depression Anxiety Chronic back pain HTN (hypertension) Family History Family History Mother No problems noted. Father No problems noted. Surgical History Surgical History H/O total colectomy Social History Social History Household Members: None Housing: Apartment Do you presently have visiting nurse or other home services: No Unable to assess alcohol history related to: Unknown Alcohol intake: never Patient Tobacco Use Status: Former Tobacco user Tobacco use type: Cigarette Cigarettes Per Day: 2 Years Smoked: 30 e-Cigarette/Vaping Use: Former Use service: No Current occupational status: disabled Sexual orientation: Straight/Heterosexual Cognitive needs: Yes (walker) Hearing needs: No Vision needs: Yes (reading glasses) Meds Allergies Allergy/AdvReac Type Severity Reaction Status Date / Time amoxicillin (AMOXICILLIN) Allergy Intermediate HIVES Verified 11/28/24 17:03 Active Medications: Current Medications Acetaminophen (Acetaminophen 325 Mg Tablet) 975 mg PO Q6H PRN PRN Reason: Pain, Mild 1-3,fever,headache Last Admin: 08/27/25 08:57 Dose: 975 mg Buspirone HCl (Buspirone Hcl 5 Mg Tablet) 15 mg PO QID [facility] Last Admin: 11/29/24 08:56 Dose: 15 mg Calcium Carbonate (Calcium Carbonate 750 Mg Tab.Chew) 750 mg PO Q4H PRN PRN Reason: Heartburn Enoxaparin Sodium (Enoxaparin Sodium 40 Mg/0.4 Ml Syringe) 40 mg SUBCUT Q24H [facility] Last Admin: 11/29/24 00:05 Dose: 40 mg Gabapentin (Gabapentin 300 Mg Capsule) 300 mg PO QID [facility] Last Admin: 11/29/24 08:56 Dose: 300 mg Lorazepam (Lorazepam 0.5 Mg Tablet) 0.5 mg PO QID PRN PRN Reason: Anxiety Last Admin: 11/29/24 08:57 Dose: 0.5 mg Magnesium Hydroxide (Milk Of Magnesia 30 Ml Oral.Susp) 30 ml PO DAILY PRN PRN Reason: Constipation Melatonin (Melatonin 3 Mg Tablet) 6 mg PO BEDTIME PRN PRN Reason: Insomnia Multivitamins/Vitamin C (Multivitamin Tablet) 1 tab PO DAILY [facility] Last Admin: 11/29/24 08:57 Dose: 1 tab Ondansetron HCl (Ondansetron Hcl 4 Mg/2 Ml Vial) 4 mg IVPUSH Q8H PRN PRN Reason: Nausea and Vomiting Sodium Chloride (0.9 % Sodium Chloride Flush 3 Ml Syringe) 3 ml IVFLUSH QSHIFT [facility] Last Admin: 11/29/24 08:58 Dose: 3 ml Triamcinolone Acetonide (Triamcinolone Acet 0.1 % Cream 15 Gm Tube) 1 appl TOPICAL MO PRN; Protocol PRN Reason: psoriasis Vitamin D (Cholecalciferol (Vitamin D3) 25 Mcg Tablet) 25 mcg PO DAILY [facility] Last Admin: 11/29/24 08:57 Dose: 25 mcg Home Medications ?Medication ?Instructions ?Recorded ?Confirmed ?Last Taken ?Type cholecalciferol (vitamin D3) 25 25 mcg PO DAILY 11/28/24 11/28/24 History mcg (1,000 unit) tablet (Vitamin D3) mjscrxok-yailijb-wuxq-lutein tablet 1 tab PO DAILY 11/28/24 11/28/24 History triamcinolone acetonide 0.1 % 1 appl topical MO PRN ps oriasis 11/28/24 11/28/24 11/28/24 History topical cream Physical Exam Exam Exam: patient refused physical exam. She is awake, alert and speaking in full sentences. Agitated and stating she does not want more specialists to come into her room. Ambulating independently with walker, eating breakfast while standing. Vital Signs: Last Vital Signs Temp 98.6 F 11/29/24 07:42 Pulse 92 11/29/24 07:42 Resp 18 11/29/24 07:42 BP 120/79 11/29/24 07:42 Pulse Ox 100 11/29/24 07:42 O2 Del Method Room Air 11/29/24 07:42 BMI result Body Mass Index 23.0 Results Lab Results 11/29/24 05:54 11/29/24 05:54 Lab results: Chemistry 11/28/24 11/29/24 17:24 05:54 Sodium 127 L 134 L Potassium 4.5 4.3 Carbon Dioxide 22 26 BUN 20 H 12 Creatinine 0.93 0.86 Calcium 9.9 D 10.5 H D Hematology 11/28/24 11/29/24 17:24 05:54 WBC 10.9 H 10.4 Hgb 9.8 L 11.2 L Plt Count 419 H 495 H Urinalysis 11/28/24 17:59 Urine Color Yellow Urine Appearance Clear Urine pH 6.0 Ur Specific [place] <= 1.005 Urine Protein Negative Urine Glucose (UA) Negative Urine Ketones Negative Urine Blood Negative Urine Nitrite Negative Ur Leukocyte Esterase Negative Urine RBC 0-2 Urine WBC 0-5 Ur Squamous Epith Cells 0-2 Hyaline Casts 0-2 Assessment and Plan (1) Hyponatremia: Status: Acute Plan Hyponatremia likely secondary to increased water intake given history of psychogenic polydipsia from hospitalist. Patient refused further evaluation or exam today. Improving. Serum sodium is 134 today. Will check urine sodium and urine osmolality to better evaluate cause. Initial sodium level of 127 unlikely to have contributed to syncopal episode. Recommend limiting free water intake to 1.5L daily. No indication for urea powder or salt tablets at this time. Discussed with Dr Wolfe. Procedures Date of Service Date of Service: 11/29/24
[2024-11-29] MEDS: Lidocaine 4 % Patch ADH..PATCH 1 PATCH TRANSDERMA (12:13)
[2024-11-29] MEDS: Psyllium seed 3.7 GM PACKET PO (12:14)
--- NOTE | 2024-11-29 17:22 | P.DS_ITS ---
DS: Providers Provider Date of Service: 11/29/24 Date of admission: 11/28/24 22:21 Date of discharge: 11/29/24 Primary care physician: ELVI Tolentino Consults: 11/28/24 23:01 Consult to Nephrology Routine Consulting Provider: [facility] Reason for consultation: hyponatremia Has provider been notified: No DS: Diagnosis Discharge Diagnosis (1) Hyponatremia: Status: Acute (2) Vasovagal syncope: Status: Acute (3) Ulcerative colitis: Status: Acute (4) Anemia: Status: Acute (5) Shoulder pain, right: Status: Acute DS: Summary Hospital Course Hospital Course: From the history and physical by the admitting hospitalist, ELVI Lamar 11/28/24: Patient is a 64-year-old female with a past medical history significant for fibromyalgia, ulcerative colitis s/p J-pouch, anxiety, mood disorder, psoriasis, chronic hyponatremia (history psychogenic polydipsia), who presented the ED due to multiple syncopal episodes in the past 10 days. Patient reports 3 episodes, 1st 1 was after having a bowel movement, 2nd episode after lifting something heavy and again 3rd episode after lifting something heavy and experiencing significant right arm pain. Today she did fall and hit her head on the bed frame after lifting a heavy object. She reports the 2nd episode she was able to catch herself from having a full syncopal episode. She is very hyper focused on her diet and bowel movements. She does not wish to address her hyponatremia as she states it this summer and that is the reason. She denies any blood in the stool. She reports she was taking a B12 supplement with very high B12 levels therefore stopped. The history was almost impossible to take as the patient wants to focus on her diet and details regarding her bowel movements which are unrelated to the reason for admission aside from constipation. She was admitted to the hospitalist service on telemetry. Syncope did not recur. Seems to have been related to episodes of right shoulder pain and straining with bowel movement; likely vasovagal. Advised to avoid constipation/straining and to treat shoulder pain with acetaminophen and lidocaine patch and to consider outpatient PT. Orthostatics negative. Echocardiogram without obvious structural heart disease. No arrhythmias on telemetry. Sodium improved to 134 without any intervention. History of psychogenic polydipsia and counseled to limit water to 1500 mL/d. Repeat BMP in 1 week ordered. In terms of anemia, Hb increased from 9.8 to 11.2 without intervention. Studies consistent with iron deficiency and she was prescribed iron repletion. FOBT+ likely related to presence of J-pouch and she was advised to establish GI care. She was somewaht anxious and perseverative but did not seem to have florid juana and did not have hallucinations or SI. Time Attestation Discharge Coordination Time (in mins): 35 Quality: Safe Use of Opioids Does Pt have an Active Cancer Diagnosis on the Problem List?: No Quality: Stroke Does the patient have a stroke diagnosis?: No Physical Exam Vital Signs: Vital Signs: Last Vital Signs Temp 98.8 F 11/29/24 16:00 Pulse 91 11/29/24 16:00 Resp 18 11/29/24 16:00 BP 123/74 11/29/24 16:00 Pulse Ox 99 11/29/24 16:00 O2 Del Method Room Air 11/29/24 16:00 BMI result Body Mass Index 23.0 Gen: in no acute distress HEENT: sclera anicteric, moist mucus membranes Neck: supple Lungs: clear to auscultation bilaterally Heart: regular rate and rhythm, no murmurs Abd: soft, non-tender, non-distended Ext: no edema. R shoulder limited ROM with positive impingement signs Skin: warm/well-perfused Neuro: alert and oriented x3, no focal findings Psych: appropriate affect, somewhat anxious and perseverative DS: Data Data Completed and Pending Completed studies during hospitalization [Text1]: Laboratory Results WBC 10.4 X10*3/uL (4.8-10.8) 11/29/24 05:54 RBC 4.08 X10*6/uL (4.20-5.50) L 11/29/24 05:54 Hgb 11.2 g/dl (12.0-16.0) L 11/29/24 05:54 Hct 33.7 % (37.0-47.0) L 11/29/24 05:54 MCV 82.6 fL (80.0-98.0) 11/29/24 05:54 MCH 27.5 pg (27.0-33.0) 11/29/24 05:54 MCHC 33.2 g/dl (31.0-35.0) 11/29/24 05:54 RDW 13.6 % (11.0-16.0) 11/29/24 05:54 Plt Count 495 X10*3/uL (160-400) H 11/29/24 05:54 MPV 9.6 fL (9.4-12.3) 11/29/24 05:54 Immature Gran % (Auto) 0.4 % (0.0-0.4) 11/28/24 17:24 Neut % (Auto) 73.2 % (45-73) H 11/28/24 17:24 Lymph % (Auto) 15.5 % (20-40) L 11/28/24 17:24 [place] % (Auto) 7.7 % (2-11) 11/28/24 17:24 Eos % (Auto) 2.6 % (0-4) 11/28/24 17:24 Baso % (Auto) 0.6 % (0-2) 11/28/24 17:24 Lymph # (Auto) 1.7 X10*3/uL (1.2-4.9) 11/28/24 17:24 [place] # (Auto) 0.8 X10*3/uL (0.1-1.2) 11/28/24 17:24 Eos # (Auto) 0.3 X10*3/uL (0.0-0.4) 11/28/24 17:24 Baso # (Auto) 0.1 X10*3/uL (0.0-0.2) 11/28/24 17:24 Abs Immat Gran (auto) 0.04 X10*3/uL (0.00-0.03) H 11/28/24 17:24 Absolute Neuts (auto) 7.9 x10*3/uL (2.0-8.3) 11/28/24 17:24 Absolute Nucleated RBC 0.000 X10*3/uL (0.0-0.012) 11/29/24 05:54 Nucleated RBC % (auto) 0.0 /100WBC (0.0-0.2) 11/29/24 05:54 Sodium 134 mmol/L (135-145) L 11/29/24 05:54 Potassium 4.3 mmol/L (3.3-5.1) 11/29/24 05:54 Chloride 100 mmol/L (96-108) 11/29/24 05:54 Carbon Dioxide 26 mmol/L (22-29) 11/29/24 05:54 Anion Gap 12 (12-20) 11/29/24 05:54 BUN 12 mg/dL (9-16) 11/29/24 05:54 Creatinine 0.86 mg/dL (0.5-1.4) 11/29/24 05:54 Estim Creat Clear Calc 53.0 11/29/24 05:54 Estimated GFR > 60 11/29/24 05:54 Random Glucose 106 mg/dL (60-115) 11/29/24 05:54 Calcium 10.5 mg/dL (8.4-10.2) H D 11/29/24 05:54 Magnesium 2.2 mg/dL (1.6-2.6) 11/29/24 05:54 Iron 21 mcg/dL (30-160) L 11/29/24 05:54 TIBC 368 mcg/dL (228-428) 11/29/24 05:54 % Saturation 6 % (15-50) L 11/29/24 05:54 Unsat Iron Binding 347 ug/dL 11/29/24 05:54 Total Bilirubin 0.1 mg/dL (0.0-1.0) 11/28/24 17:24 AST 23 U/L (5-31) 11/28/24 17:24 ALT 14 U/L (0-31) 11/28/24 17:24 Alkaline Phosphatase 54 U/L (39-117) 11/28/24 17:24 Troponin I High Sens < 2.7 ng/L (<3.5-17.0) 11/28/24 20:07 Total Protein 6.2 g/dL (6.5-8.0) L 11/28/24 17:24 Albumin 3.9 g/dL (3.5-5.0) 11/28/24 17:24 Vitamin B12 805 pg/mL (200-900) 11/29/24 05:54 Folate 14.2 ng/mL (> or = 4.0) 11/29/24 05:54 Urine Color Yellow 11/28/24 17:59 Urine Appearance Clear 11/28/24 17:59 Urine pH 6.0 (5.0-9.0) 11/28/24 17:59 Ur Specific [place] <= 1.005 (1.005-1.025) 11/28/24 17:59 Urine Protein Negative mg/dL (Neg-Trace) 11/28/24 17:59 Urine Glucose (UA) Negative mg/dL (Negative) 11/28/24 17:59 Urine Ketones Negative mg/dL (Negative) 11/28/24 17:59 Urine Blood Negative (Negative) 11/28/24 17:59 Urine Nitrite Negative (Negative) 11/28/24 17:59 Ur Leukocyte Esterase Negative (Negative) 11/28/24 17:59 Urine RBC 0-2 /HPF (0-2) 11/28/24 17:59 Urine WBC 0-5 /HPF (0-5) 11/28/24 17:59 Ur Squamous Epith Cells 0-2 /HPF (0-2) 11/28/24 17:59 Urine Bacteria None Seen (None Seen) 11/28/24 17:59 Hyaline Casts 0-2 /LPF (0-2) 11/28/24 17:59 Urine Osmolality 229 mosm/kg (373-1093) L 11/29/24 12:28 Ur Random Sodium < 20.0 mmol/L 11/29/24 12:28 Stool Occult Blood POSITIVE (NEGATIVE) 11/29/24 Unknown TTE 11/29/24 - The left ventricular systolic function is hyperdynamic. The calculated ejection fraction is 70% by biplane method. - There is moderate septal asymmetric hypertrophy. - No obvious valvular pathology seen on this study. Discharge Plan Discharge Anticipated Discharge Date/Time: 11/29/24 17:08 Patient Disposition: Home, Self-Care Discharge Diagnosis: syncope, vasovagal hyponatremia, resolved chronic anemia shoulder pain Referrals: [facility] [Provider Group, Gastroenterology] - 2 Weeks Referral Note: ulcerative colitis s/p J pouch Physical Therapy - [facility] [Outside] - 1 Week Tika Reed PA [Primary Care Provider, Internal Medicine] - 1 Week Discharge Medications: New Hydrocil Instant Packet 1 packet PO DAILY Qty: 30 0RF lidocaine [Lidocaine Pain Relief] 4 % Adhesive Patch,Medicated 1 patch transdermal DAILY Qty: 30 0RF Protocol: Apply to: Apply to: R shoulder sennosides-docusate sodium [Senna Plus] 8.6-50 mg Tablet 2 tab PO BID Qty: 120 0RF ferrous sulfate 325 mg (65 mg iron) tablet 325 mg PO Q OTHER DAY Qty: 15 0RF Continued buspirone 15 mg tablet 15 mg PO QID Qty: 180 3RF gabapentin 300 mg capsule 300 mg PO QID Qty: 360 3RF lorazepam 0.5 mg tablet 0.5 mg PO QID PRN (Reason: anxiety) Qty: 112 1RF triamcinolone acetonide 0.1 % cream 1 appl topical MO PRN (Reason: psoriasis) [id number]-lruxhhp-fduo-lutein Tablet 1 tab PO DAILY cholecalciferol (vitamin D3) [Vitamin D3] 25 mcg (1,000 unit) Tablet 25 mcg PO DAILY Discharge Orders: Discharge Order (Routine); Ordered 11/29/24 Ordered By: Valarie Mullen Diet: Advance to usual diet Activity on Discharge: As tolerated Stand Alone Forms: Patient Portal Discharge page Print Language: Chinese Other Ambulatory Orders: Basic Metabolic Panel (Routine) Timeframe: 1 Week Facility: [facility] - Location: Laboratory Ordered By: Valarie Mullen Care Plan Goals: prevent syncope Health Concerns: syncope, vasovagal hyponatremia, resolved chronic anemia shoulder pain Plan of Treatment: avoid straining with defecation establish GI case as soon as possible limit water intake to 1500 mL/d; repeat BMP in 1 week take ferrous sulfate 325 mg every other day outpatient PT for the R shoulder; take acetaminophen and lidocaine patch for pain Please follow up with your primary care doctor within 1 week. Return to the hospital if you experience recurrent or worsening symptoms. Assessment: See Discharge Summary. Discharge Date/Time: 11/29/24 18:51
== END 2024-11-29 18:51 | disposition home or self-care (01) | DRG 204 ==
LOC: HO.ED 20:08 → HO.EDOVER 22:25 → HO.IMC 11-29 00:16
PROVIDERS: Nurse Practitioner Family; Admitting Provider Physician Assistant; Emergency Provider Emergency Medicine Emergency Medical Services; PCP Physician Assistant Medical; Visit Provider Family Medicine
DX: R55 Syncope and collapse (principal); E87.1 Hypo-osmolality and hyponatremia; Z93.4 Other artificial openings of gastrointestinal tract status; M79.7 Fibromyalgia; M25.511 Pain in right shoulder; F41.9 Anxiety disorder, unspecified; D50.9 Iron deficiency anemia, unspecified; K51.90 Ulcerative colitis, unspecified, without complications; L40.9 Psoriasis, unspecified; Z87.891 Personal history of nicotine dependence; Z79.899 Other long term (current) drug therapy
CPT/HCPCS: 36415; 70450; 72125; 80048; 80053; 81001; 82272; 82607; 82746; 83540; 83735; 83935; 84300; 84484; 85025; 85027; 93005; 93306; 97161; 99222; 99285; J1650; Q9957

== ENCOUNTER → 2024-11-28 17:22 | Outpatient (BNV) | payer OTHER, SELFPAY | PROVIDERS: Admitting Provider Physician Assistant; Emergency Provider Emergency Medicine Emergency Medical Services; PCP Physician Assistant Medical; Visit Provider Internal Medicine | DX: R55 Syncope and collapse (principal) | CPT/HCPCS: 93010 ==

== ENCOUNTER → 2024-11-28 19:59 | Outpatient (BNV) | payer OTHER, SELFPAY | PROVIDERS: Emergency Provider Emergency Medicine Emergency Medical Services; Visit Provider Student in an Organized Health Care Education/Training Program | DX: R55 Syncope and collapse (principal); S09.90XA Unspecified injury of head, initial encounter | CPT/HCPCS: 70450; 72125 ==

== ENCOUNTER 2024-11-28 22:21 | Outpatient (BNV) | payer OTHER, SELFPAY | END 2024-11-29 07:00 | PROVIDERS: Admitting Provider Physician Assistant; Emergency Provider Emergency Medicine Emergency Medical Services; PCP Physician Assistant Medical; Visit Provider Internal Medicine | DX: I42.2 Other hypertrophic cardiomyopathy (principal); I51.89 Other ill-defined heart diseases | CPT/HCPCS: 93306 ==

== ENCOUNTER → 2024-11-28 22:21 | Outpatient (BNV) | payer OTHER, SELFPAY | PROVIDERS: Admitting Provider Physician Assistant; Emergency Provider Emergency Medicine Emergency Medical Services; PCP Physician Assistant Medical; Visit Provider Nurse Practitioner Family | DX: E87.1 Hypo-osmolality and hyponatremia (principal) | CPT/HCPCS: 99221 ==

== ENCOUNTER → 2024-11-28 22:21 | Outpatient (BNV) | payer OTHER, SELFPAY | PROVIDERS: Admitting Provider Physician Assistant; Emergency Provider Emergency Medicine Emergency Medical Services; PCP Physician Assistant Medical; Visit Provider Physician Assistant | DX: R55 Syncope and collapse (principal); E87.1 Hypo-osmolality and hyponatremia; D64.9 Anemia, unspecified | CPT/HCPCS: 99223 ==

== ENCOUNTER 2024-12-12 14:40 | Observation (INO) | payer OTHER, SELFPAY ==
--- NOTE | ~2024-12-12 | XR_ITS ---
EXAMINATION: XR SHOULDER 2 OR MORE VIEWS RIGHT HISTORY: Right shoulder pain, limited ROM COMPARISON: There are no prior studies available for comparison. FINDINGS: Three views of the right shoulder are submitted. Osseous mineralization is normal. There is no fracture or dislocation. The glenohumeral and acromioclavicular joint spaces are preserved. The soft tissues are unremarkable. XR/XR shoulder RT min 2V IMPRESSION: Unremarkable examination of the right shoulder. Electronically signed by: Rafael Travis MD 12/13/2024 01:23 PM EDT
--- NOTE | ~2024-12-12 | CT_ITS ---
CLINICAL HISTORY: abdominal pain, back pain, weight loss CT abdomen and pelvis without IV contrast. COMPARISON: None provided. FINDINGS: Small pericardial effusion. Gallbladder is poorly visualized. Several hypoattenuating lesions present within the liver measuring up to 1.8 cm, indeterminate. Noncontrast appearance of the spleen, and pancreas are unremarkable. Diffuse adrenal gland thickening. No renal or ureteral calculus bilaterally. Diffuse thickening of the stomach mucosa with ulceration of the mucosa along the lesser curvature and adjacent inflammatory changes (best seen on sagittal series 7, image 33, coronal series 6, image 19 through 24 and axial series 4, image 2026). No evidence of abscess. Small volume perihepatic ascites. Suture material present along the sigmoid colon and along loops of bowel in the anterior abdomen. Appendix is not identified. Mild thickening of the mucosa of the colon in the right hemiabdomen (series 4, image 400), likely descending colon. Moderate amount of stool present within the distal sigmoid colon. Multiple normal-sized mesenteric lymph nodes. Mild aortoiliac atherosclerotic vascular calcifications. Normal appearance of the urinary bladder. Lobulated uterine contour likely representing a fibroid uterus. No adnexal mass Butterfly vertebral bodies present at L3 and L5. Moderate lower lumbar spondylosis. No acute fracture. IMPRESSION: 1. Large ulceration of the mid stomach body along the lesser curvature with small amount of inflammatory changes in the adjacent fat. No free intraperitoneal air or evidence of abscess. This is in the setting of diffuse stomach mucosal thickening which can be seen with gastritis. 2. Thickening of the mucosa of the colon suggestive of a focal colitis. 3. Small volume abdominal ascites. 4. Indeterminate hepatic lesions measuring up to 1.8 cm. Recommend comparison with prior imaging if available. Hepatic protocol CT or MR may be helpful for further characterization. This document has been electronically signed by: Hi Burk MD on 12/12/2024 18:19:19
[2024-12-12 14:48] VITALS: BP 91/63; PULSE 98; RESP 16; TEMP 36.7; O2SAT 100; BMI 19.1
--- NOTE | 2024-12-12 14:57 | ECG_ITS ---
Test Reason : TACHY Blood Pressure : */* mmHG Vent. Rate : 88 BPM Atrial Rate : 88 BPM P-R Int : 120 ms QRS Dur : 86 ms QT Int : 334 ms P-R-T Axes : 32 60 66 degrees QTcB Int : 404 ms Normal sinus rhythm Normal ECG When compared with ECG of 28-Nov-2024 17:56, No significant change was found Referred By: Generic ED Physician Electronically Signed By: SURYA PRADO MD
[2024-12-12 14:58] VITALS: BP 99/72; PULSE 100; O2SAT 98
[2024-12-12 15:20] LABS: MANUAL DIFF FLAG NO
[2024-12-12 15:22] LABS: Hematocrit 27.0 % (37.0-47.0); Hemoglobin 9.3 g/dl (12.0-16.0); Imm Gran Abs Auto 0.04 X10*3/uL (0.00-0.03); Imm Gran Pct Auto 0.4 % (0.0-0.4); Lymphocytes Absolute Auto 1.3 X10*3/uL (1.2-4.9); Mean Corpuscular HGB Conc 34.4 g/dl (31.0-35.0); Mean Corpuscular Hemoglobin 27.0 pg (27.0-33.0); Mean Corpuscular Volume 78.5 fL (80.0-98.0); NRBC Abs Auto 0.000 X10*3/uL (0.0-0.012); NRBC Pct Auto 0.0 /100WBC (0.0-0.2); Platelet Count 457 X10*3/uL (160-400); Red Blood Count 3.44 X10*6/uL (4.20-5.50); White Blood Count 10.1 X10*3/uL (4.8-10.8)
[2024-12-12 15:38] LABS: Alanine Aminotransferase 7 U/L (0-31); Albumin Level 3.3 g/dL (3.5-5.0); Alkaline Phosphatase 58 U/L (39-117); Anion Gap 16 (12-20); Aspartate Amino Transferase 35 U/L (5-31); Blood Urea Nitrogen 25 mg/dL (9-16); Calcium 9.3 mg/dL (8.4-10.2); Carbon Dioxide 20 mmol/L (22-29); Chloride 100 mmol/L (96-108); Creatinine Clr Calc Pharmacy 31.4; Estimated Glomerular Filt Rate 37; Magnesium 1.6 mg/dL (1.6-2.6); Potassium 4.1 mmol/L (3.3-5.1); Sodium 132 mmol/L (135-145); Total Protein 5.7 g/dL (6.5-8.0)
--- NOTE | 2024-12-12 15:44 | ED_ITS ---
HPI - Nausea/Vomiting/Diarrhea General Chief complaint: Nausea/Vomiting/Diarrhea Stated complaint: NAUSEA NO APPETITE Time Seen by Provider: 12/12/24 15:07 Source: patient, EMS and old records reviewed Mode of arrival: EMS Limitations: other (convoluted history) History of Present Illness ED Provider: TORO HPI Narrative: 64 yo female with PMH of fibromyalgia, UC s/p J-pouch, anxiety, mood disorder, chronic hyponatremia (psychogenic polydipsia), Fe deficiency anemia, she was just admitted here 11/28 to 11/29 for syncope, Na 131 who comes back stating she did okay after going home until Wednesday when she developed poor PO intake, acute on chronic back pain, change in stools but not bloody. She has not had fevers. She blames all of her symptoms on abdominal wall contractures and that she has had to compensate for her poor back for so long that she now cannot eat and has poor PO intake with 20lb weight loss in last 7 months. She was initially soft BPs with EMS they gave 600bolus of IVF. She denies urinary symptoms. She has no chest pain/dyspnea. She has not fainted again since discharge. She notes she also has R shoulder pain since the falls and thinks it is her rotator cuff MD elicited complaint: nausea and other (back pain, abdominal pain) Pertinent past history: other Onset (ago): day(s) (4) Description of diarrhea: loose Associated nausea: Yes Associated abdominal pain: No Location of pain: other (back) Pain consistency: constant Severity: moderate Quality: constant Exacerbating factors: eating and movement Relieving factors: none Context: other Associated symptoms: loss of appetite, malaise, nausea/vomiting and weakness Treatment prior to arrival: other Related Data Home Medications ?Medication ?Instructions ?Recorded ?Confirmed cholecalciferol (vitamin D3) 25 25 mcg PO DAILY 11/28/24 mcg (1,000 unit) tablet (Vitamin D3) ntyugoap-xwuafym-uylx-lutein tablet 1 tab PO DAILY 11/28/24 triamcinolone acetonide 0.1 % 1 appl topical MO PRN ps oriasis 11/28/24 11/28/24 topical cream Previous Rx's ?Medication ?Instructions ?Recorded buspirone 15 mg tablet 15 mg PO QID #180 tabs 06/30 gabapentin 300 mg capsule 300 mg PO QID #360 caps 06/04 11/27 lorazepam 0.5 mg tablet 0.5 mg PO QID PRN anxiety #1 12 tabs 10/09/24 ferrous sulfate 325 mg (65 mg 325 mg PO Q OTHER DAY #1 5 tabs 11/29/24 iron) tablet lidocaine 4 % topical patch 1 patch transdermal DAILY #30 ea 11/29/24 (Lidocaine Pain Relief) psyllium (Hydrocil Instant oral 1 packet PO DAILY #30 ea 11/29/24 packet) sennosides 8.6 mg-docusate sodium 2 tab PO BID #120 ta bs 11/29/24 50 mg tablet (Senna Plus) Allergies Allergy/AdvReac Type Severity Reaction Status Date / Time amoxicillin (AMOXICILLIN) Allergy Intermediate HIVES Verified 12/12/24 14:51 Review of Systems 2 Review of Systems: Constitutional : No Fever, No Chills, No Fatigue ENT/Mouth : No sore throat, No Rhinorrhea Eyes: No Eye Pain, No Swelling, No Redness Cardiovascular : No Chest Pain, No SOB, No Dyspnea on Exertion Respiratory : No Cough, No Sputum Gastrointestinal : No Nausea, No Vomiting, No Diarrhea, No abdominal Pain Genitourinary : No Dysuria, No Urinary Frequency, No Hematuria, Musculoskeletal : No joint pain, No Myalgias, No Joint Swelling Skin : No Skin Lesions, No rash Neuro : No Weakness, No Numbness, No Dizziness, positive Headache All other systems reviewed and are negative Gastrointestinal: Gastrointestinal: Reports nausea PMFSH Past Medical History Attestation statement: The following information was validated with the patient. Source: old records reviewed Medical History AMADO (generalized anxiety disorder) MDD (major depressive disorder), recurrent episode, moderate Depression Anxiety Chronic back pain HTN (hypertension) Surgical History H/O total colectomy Family History Family History Mother No problems noted. Father No problems noted. Social History Social History Household Members: None Housing: Apartment Do you presently have visiting nurse or other home services: No Unable to assess alcohol history related to: Unknown Alcohol intake: never Comment: pt refuses staff assistance Patient Tobacco Use Status: Former Tobacco user Tobacco use type: Cigarette Cigarettes Per Day: 2 Years Smoked: 30 Smoked in Last 30 Days: No e-Cigarette/Vaping Use: Former Use Use of substances other than those prescribed or required for medical reasons: No Advance Directives: No Advance Directives Information Provided: Yes Do you have a plan to hurt others: No Plan service: No Current occupational status: disabled Sexual orientation: Straight/Heterosexual Cognitive needs: Yes (walker) Hearing needs: No Vision needs: Yes (reading glasses) Physical Exam 2 Vital Signs: Vital Signs: Last Vital Signs Temp 98.0 F 12/12/24 14:48 Pulse 86 12/12/24 17:18 Resp 16 12/12/24 17:18 BP 133/89 12/12/24 17:18 Pulse Ox 100 12/12/24 17:18 O2 Del Method Room Air 12/12/24 17:18 BMI result Body Mass Index 19.1 Appearance: Alert. Oriented X3. No acute distress. Flat affect Eyes: Pupils equal, round and reactive to light. ENT: Pharynx dry MM brusing noted healing around R cheek Neck: Normal inspection. Neck supple. CVS: Normal heart rate and rhythm. Pulses normal. Respiratory: No respiratory distress. Breath sounds normal. Abdomen: Soft and nontender. Skin: Skin warm and dry. Normal skin color. poor skin turgor. Extremities: No lower extremity edema. I can range the R shoulder distal NV intact Neuro: Oriented X 3. No motor deficit. No sensory deficit. Medications Administered Discontinued Medications Generic Name Dose Route Start Last Admin Trade Name Nahid PRN Reason Stop Dose Admin Ceftriaxone Sodium 1 gm 12/12/24 16:23 12/12/24 16:46 Ceftriaxone Sodium 1 Gm Vial IVPUSH 12/12/24 16:24 1 gm ONCE ONE Administration Lactated Ringer's 500 mls @ 999 mls/hr 12/12/24 15:38 12/12/24 18:28 Lr IV 12/12/24 16:08 Infused .Q31M ONE Infusion Lactated Ringer's 1,000 mls @ 999 mls/hr 12/12/24 15:44 12/12/24 17:42 Lr IV 12/12/24 16:44 Infused .Q1H1M ONE Infusion Pantoprazole Sodium 40 mg 12/12/24 18:06 12/12/24 18:38 Pantoprazole Sodium 40 Mg/10 Ml Vial IVPUSH 12/12/24 18:07 40 mg ONCE ONE Administration Medical Decision Making Medical Decision Making [facility] Narrative: 64 yo female with PMH of fibromyalgia, UC s/p J-pouch, anxiety, mood disorder, chronic hyponatremia (psychogenic polydipsia), Fe deficiency anemia, she has vague complaints of nausea and vomiting with decreased PO intake x 4 days with worsening chronic back pain. She is very rigid and hard to interview at times but I am going to recheck labs and hydrate. I also want to obtain CT scan given her anemia and worsening pain. I am going to sign her out to Dr. Etienne pending work up Repeat troponin was 75.5. CT scan of the abdomen showed question gastritis. Started on antibiotics. Patient will require admission. Further hydration. Has a UTI. Patient's lactate is 1.1. There is no evidence for severe sepsis. After IV fluids patient is symptomatically slightly improved. Case was consulted by the hospitalist team. Will admit for further evaluation. Differential Diagnosis Differential Diagnoses: The differential diagnosis associated with the presentation includes hyponatremia, dehydration, anemia - had recent + stools felt to be from J pouch, FTT, mass, rhabdo Admission/Observation Consideration of admission/observation: Escalation of care including admission/observation considered Lab Data MDM Lab Attestation statement: I reviewed the patient's lab results. repeat trop ordered added on CPK 12/12/24 15:16 12/12/24 15:16 Labs: Lab Results 12/12/24 12/12/24 12/12/24 Range/Units 15:16 15:57 17:36 WBC 10.1 (4.8-10.8) X10*3/uL RBC 3.44 L (4.20-5.50) X10*6/uL Hgb 9.3 L (12.0-16.0) g/dl Hct 27.0 L (37.0-47.0) % MCV 78.5 L (80.0-98.0) fL MCH 27.0 (27.0-33.0) pg MCHC 34.4 (31.0-35.0) g/dl RDW 13.5 (11.0-16.0) % Plt Count 457 H (160-400) X10*3/uL MPV 8.9 L (9.4-12.3) fL Immature Gran % (Auto) 0.4 (0.0-0.4) % Neut % (Auto) 74.9 H (45-73) % Lymph % (Auto) 12.3 L (20-40) % [place] % (Auto) 10.8 (2-11) % Eos % (Auto) 0.8 (0-4) % Baso % (Auto) 0.8 (0-2) % Lymph # (Auto) 1.3 (1.2-4.9) X10*3/uL [place] # (Auto) 1.1 (0.1-1.2) X10*3/uL Eos # (Auto) 0.1 (0.0-0.4) X10*3/uL Baso # (Auto) 0.1 (0.0-0.2) X10*3/uL Abs Immat Gran (auto) 0.04 H (0.00-0.03) X10*3/uL Absolute Neuts (auto) 7.6 (2.0-8.3) x10*3/uL Absolute Nucleated RBC 0.000 (0.0-0.012) X10*3/uL Nucleated RBC % (auto) 0.0 (0.0-0.2) /100WBC Sodium 132 L (135-145) mmol/L Potassium 4.1 (3.3-5.1) mmol/L Chloride 100 (96-108) mmol/L Carbon Dioxide 20 L (22-29) mmol/L Anion Gap 16 (12-20) BUN 25 H (9-16) mg/dL Creatinine 1.42 H (0.5-1.4) mg/dL Estim Creat Clear Calc 31.4 Estimated GFR 37 Random Glucose 108 (60-115) mg/dL Lactic Acid 1.1 (0.5-2.0) mmol/L Calcium 9.3 D (8.4-10.2) mg/dL Magnesium 1.6 (1.6-2.6) mg/dL Total Bilirubin 0.2 (0.0-1.0) mg/dL Direct Bilirubin < 0.2 (0.0-0.5) mg/dL AST 35 H (5-31) U/L ALT 7 (0-31) U/L Alkaline Phosphatase 58 (39-117) U/L Total Creatine Kinase 67 (26-140) U/L Troponin I High Sens 67.7 H* D 75.5 H* (<3.5-17.0) ng/L Total Protein 5.7 L (6.5-8.0) g/dL Albumin 3.3 L (3.5-5.0) g/dL Urine Color Yellow Urine Appearance Cloudy Urine pH 5.5 (5.0-9.0) Ur Specific [place] 1.015 (1.005-1.025) Urine Protein 30 (1+) H (Neg-Trace) mg/dL Urine Glucose (UA) Negative (Negative) mg/dL Urine Ketones Trace (Negative) mg/dL Urine Blood Moderate (2+) H (Negative) Urine Nitrite Negative (Negative) Ur Leukocyte Esterase Large (3+) H (Negative) Urine RBC 3-5 H (0-2) /HPF Urine WBC >50 H (0-5) /HPF Ur Squamous Epith Cells 11-20 (0-2) /HPF Urine Bacteria 1+ (None Seen) Hyaline Casts 3-5 (0-2) /LPF Urine Opiates Screen Not Detected (Not Detect) Ur Buprenorphine Scrn Not Detected (Not Detect) ng/mL Ur Oxycodone Screen Not Detected (Not Detect) ng/mL Urine Methadone Screen Not Detected (Not Detect) ng/mL Urine Fentanyl Screen Not Detected (Not Detect) Ur Barbiturates Screen Not Detected (Not Detect) Ur Phencyclidine Scrn Not Detected (Not Detect) Ur Amphetamines Screen Not Detected (Not Detect) U Benzodiazepines Scrn Not Detected (Not Detect) Urine Cocaine Screen Not Detected (Not Detect) U Marijuana (THC) Screen Not Detected (Not Detect) Ethyl Alcohol < 10 mg/dL Independent Interpretation I performed an independent interpretation of an: EKG and CT Scan Interpretation: Rate: 88 Rhythm: NSR Julian: normal Normal P waves. Normal GIA. Normal QRS complex. ST T wave : no ANA M, flat t waves aVL qTC: 404 prior studies: no acute ischemia The study has been interpreted contemporaneously by me. . Radiology Impression Discussion of test interpretation with radiology: I have reviewed the radiologist's reading. Discharge Plan Discharge Clinical Impression: Acute dehydration, Elevated troponin
[2024-12-12 15:49] LABS: Troponin-I High Sensitivity 67.7 ng/L (<3.5-17.0)
[2024-12-12] MEDS: Lactated Ringers 1,000 ML 999 ML IV (15:55)
[2024-12-12] MEDS: Lactated Ringers 500 ML 999 ML IV (15:55)
[2024-12-12 16:04] LABS: Appearance Urine Cloudy; Glucose Urine UA Negative (Negative); PH 5.5 (5.0-9.0); Specific Gravity - Urine 1.015 (1.005-1.025); UMIC TRIGGER UACC YES
[2024-12-12 16:15] LABS: Cannabinoid Screen Urine Not Detected (Not Detect)
[2024-12-12 16:19] LABS: UACC Culture Trigger YES
[2024-12-12 17:18] VITALS: BP 133/89; PULSE 86; RESP 16; O2SAT 100
--- OUTSIDE RECORDS SUMMARY | 2024-12-12 17:30 | XMS_ITS | Patient Health Record ---
Author Organization [facility] Address [address] [place] [id number] Care Team Providers Care Boiler Erector Name Role Phone Talat Nguyen MD Primary Care Provider Rafael Waldron [phone] Reason For Referral No Information Plan Of Treatment No Information
--- OUTSIDE RECORDS SUMMARY | 2024-12-12 17:30 | XMS_ITS | Clinical Summary ---
Author Organization [facility] Facility Address [address] [place] [address] Care Team Providers Care Therapeutic Support Staff Name Role Phone Unavailable Primary Care Provider [...] age to complete this topic Insurance Medicaid [facility] Medicaid
[2024-12-12 18:16] LABS: Troponin-I High Sensitivity 75.5 ng/L (<3.5-17.0)
[2024-12-12 19:56] VITALS: BP 126/80; PULSE 89; RESP 13; TEMP 36.9; O2SAT 95
--- NOTE | 2024-12-12 21:09 | PHA.MEDREC ---
Addendum entered by Kim Saldana RPh 12/12/24 21:19: REVIEWED BY PHARMACIST Original Note: Pharmacy Consult ? Medication Reconciliation Pharmacy has completed the medication reconciliation. patient was able to name all of her medications. Patient states she is no longer taking Ferrous Sulfate 352 mg ( never started), and Senna Plus. Patient had all her morning g medications today.
[2024-12-12 22:45] VITALS: BP 102/65; PULSE 94; RESP 15; TEMP 36.5; O2SAT 100
--- NOTE | 2024-12-12 23:17 | PM.IMHP ---
History of Present Illness Date of Service: 12/12/24 Chief Complaint: Poor intake 64-year-old female with a past medical history of ulcerative colitis, fibromyalgia, prediabetes, chronic back pain, degenerative spine disease, anxiety, depression, ulcerative colitis, osteoporosis, anemia, shoulder pain, recent admission to the hospital for syncope, 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 Patient mentioned that over the past 4 days she has been not feeling well. Has been having abdominal discomfort and not eating well. Has had decreased appetite. Denies any falls or injury prior coming to the hospital. Denies any chest pain or palpitations. Denies any urinary symptoms. Review of all other systems is negative except mentioned above ER course: Per ER team, patient reported having an episode of near-syncope. EKG nonischemic. Troponins indeterminate and plateaued. On labs noted to have slightly elevated creatinine of 1.4. Sodium level was 132. CT abdomen pelvis showed findings concerning for gastritis. Urinalysis abnormal consistent UTI. Given ceftriaxone. [facility] Medical History AMADO (generalized anxiety disorder) MDD (major depressive disorder), recurrent episode, moderate Depression Anxiety Chronic back pain HTN (hypertension) Family History Mother No problems noted. Father No problems noted. Surgical History H/O total colectomy Social History Household Members: None Housing: Apartment Do you presently have visiting nurse or other home services: No Unable to assess alcohol history related to: Unknown Alcohol intake: never Comment: pt refuses staff assistance Patient Tobacco Use Status: Former Tobacco user Tobacco use type: Cigarette Cigarettes Per Day: 2 Years Smoked: 30 Smoked in Last 30 Days: No e-Cigarette/Vaping Use: Former Use Use of substances other than those prescribed or required for medical reasons: No Have you been hit, kicked, punched, or otherwise hurt by someone within the past year? If so, by whom?: No Do you feel safe in your current relationship?: No Current Relationship Is there a partner from a previous relationship who is making you feel unsafe now?: No Are you made to feel afraid or neglected: No Advance Directives: No Advance Directives Information Provided: Yes Do you have a plan to hurt others: No Plan Recently lost weight without trying: Yes How much weight loss: 2-13 pounds Eating poorly because of decreased appetite: Yes Nutrition screen score: 4 Nutrition Risks: No Nutritional Risk Patient : No : No Poor oral hygiene: No service: No Current occupational status: disabled Sexual orientation: Straight/Heterosexual Cognitive needs: Yes (walker) Hearing needs: No Vision needs: Yes (reading glasses) Meds Allergies Allergy/AdvReac Type Severity Reaction Status Date / Time amoxicillin (AMOXICILLIN) Allergy Intermediate HIVES Verified 12/12/24 14:51 Home Medications ?Medication ?Instructions ?Recorded ?Confirmed ?Last Taken ?Type cholecalciferol (vitamin D3) 25 25 mcg PO DAILY 11/28/24 12/12/24 12/12/24 History mcg (1,000 unit) tablet (Vitamin D3) ncprdwtz-lgtwjxg-crfa-lutein tablet 1 tab PO DAILY 11/28/24 12/12/24 12/12/24 History triamcinolone acetonide 0.1 % 1 appl topical MO PRN psoriasis 11/28/24 12/12/24 11/28/24 History topical cream ibuprofen 200 mg tablet 800 mg PO Q4H PRN Fever Or Pain 12/12/24 12/12/24 Unknown History lidocaine 4 % topical patch 1 patch transdermal DAILY PRN Pain 12/12/24 12/12/24 Unknown History (Lidocaine Pain Relief) Physical Exam Vital Signs and Narrative: Vital Signs: Last Vital Signs Temp 97.7 F 12/12/24 22:45 Pulse 94 12/12/24 22:45 Resp 15 12/12/24 22:45 BP 102/65 12/12/24 22:45 Pulse Ox 100 12/12/24 22:45 O2 Del Method Room Air 12/12/24 22:45 BMI result Body Mass Index 19.1 Gen: Appears be in no acute distress HEENT: NCAT, Moist mucosa. Pulmonary: Vesicular breath sounds, fair air entry CVS: Normal S1-S2 Abdomen: BS+, Soft, Nontender Extremities: Warm well perfused Neuro: Alert and awake. Results Labs 12/13/24 09:48 12/13/24 09:48 Labs: Laboratory Results - last 24 hr 12/12/24 12/12/24 12/12/24 15:16 15:57 17:36 MCV 78.5 L MCH 27.0 MCHC 34.4 RDW 13.5 Plt Count 457 H MPV 8.9 L Immature Gran % (Auto) 0.4 Neut % (Auto) 74.9 H Lymph % (Auto) 12.3 L [place] % (Auto) 10.8 Eos % (Auto) 0.8 Baso % (Auto) 0.8 Lymph # (Auto) 1.3 [place] # (Auto) 1.1 Eos # (Auto) 0.1 Baso # (Auto) 0.1 Abs Immat Gran (auto) 0.04 H Absolute Neuts (auto) 7.6 Absolute Nucleated RBC 0.000 Nucleated RBC % (auto) 0.0 Anion Gap 16 Estim Creat Clear Calc 31.4 Estimated GFR 37 Random Glucose 108 Lactic Acid 1.1 Calcium 9.3 D Magnesium 1.6 Total Bilirubin 0.2 Direct Bilirubin < 0.2 AST 35 H ALT 7 Alkaline Phosphatase 58 Total Creatine Kinase 67 Total Protein 5.7 L Albumin 3.3 L Urine Color Yellow Urine Appearance Cloudy Urine pH 5.5 Ur Specific [place] 1.015 Urine Protein 30 (1+) H Urine Glucose (UA) Negative Urine Ketones Trace Urine Blood Moderate (2+) H Urine Nitrite Negative Ur Leukocyte Esterase Large (3+) H Urine RBC 3-5 H Urine WBC >50 H Ur Squamous Epith Cells 11-20 Urine Bacteria 1+ Hyaline Casts 3-5 Urine Opiates Screen Not Detected Ur Buprenorphine Scrn Not Detected Ur Oxycodone Screen Not Detected Urine Methadone Screen Not Detected Urine Fentanyl Screen Not Detected Ur Barbiturates Screen Not Detected Ur Phencyclidine Scrn Not Detected Ur Amphetamines Screen Not Detected U Benzodiazepines Scrn Not Detected Urine Cocaine Screen Not Detected U Marijuana (THC) Screen Not Detected Ethyl Alcohol < 10 Assessment and Plan (1) Gastritis: Qualifiers: Chronicity: unspecified Gastritis bleeding: presence of bleeding unspecified Gastritis type: unspecified gastritis Qualified Code(s): K29.70 - Gastritis, unspecified, without bleeding Status: Acute Plan 64-year-old female with a past medical history of ulcerative colitis, fibromyalgia, prediabetes, chronic back pain, degenerative spine disease, anxiety, depression, ulcerative colitis, osteoporosis, anemia, shoulder pain, recent admission to the hospital for syncope, 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 Admitted for following Abdominal discomfort: CT abdomen pelvis showed large ulceration of the mid stomach along the lesser curvature. Gastritis. Also focal colitis. Small volume abdominal ascites. Hepatic lesion measuring 1.8 cm. IV PPI GI consult Gentle IV fluids IV antibiotics-ceftriaxone/Flagyl MRI abdomen Clear liquid diet MONSTER: Baseline creatinine around 0.8 Creatinine on presentation is 1.4 Gentle IV fluids Avoid nephrotoxins Anemia: Hemoglobin around baseline. Recommended follow-up with PCP. Patient currently denies any signs of bleeding. Elevated troponin: Patient denies chest pain Troponin 75<--67 Echocardiogram Cardiology consult Anxiety/depression: Continue home medications DVT prophylaxis: SCD boots Code status: Full code Quality Stroke Does the patient have a stroke diagnosis?: No VTE Prior VTE?: No VTE Risk Level:: Medical - moderate - high VTE Device Contraindication: N/A - Device Ordered VTE Drug Contraindication: N/A - Med Ordered
[2024-12-12] MEDS: Dextrose 5 % and 0.45 % NaCl 1,000 ML 100 ML IVCONT (23:47)
[2024-12-13 01:03] VITALS: BMI 19.6
[2024-12-13 01:09] VITALS: BP 102/77; PULSE 95; RESP 18; TEMP 36.4; O2SAT 95
[2024-12-13 04:00] VITALS: BP 115/71; PULSE 86; RESP 18; TEMP 36.2; O2SAT 98
--- NOTE | 2024-12-13 07:00 | CA_ITS ---
Transthoracic Echocardiogram Patient (Last, First, Middle): Ana Weller, Gender: F Date of : 1960 Age: 64 Procedure Date: 12/13/2024 Procedure Type: Transthoracic Echocardiogram [place] [facility] [place] Height: 160.02 cm Weight: 49.9 kg BSA: 1.50 m2 Heart Rate: bpm Bulk Truck Driver: KATHRINE/TRIP Referring MD: Khris Moreira MD Cargo Operations Agent: Gabino Do MD Symptoms: elevated troponin Study Quality: Adequate ECG Rhythm: Sinus Conclusions: - Hyperdynamic LV ejection fraction of greater than 70% with mild asymmetric septal hypertrophy with dynamic LVOT obstruction Findings Left Ventricle Normal left ventricular cavity size. The left ventricular systolic function is hyperdynamic. The visually estimated ejection fraction is >70%. There is dynamic left ventricular outflow tract obstruction. There is systolic anterior motion of the chordae of the mitral valve. There is mild septal asymmetric hypertrophy. peak gradient at rest is at 30 mm Hg which increases to 49 mm Hg with Valsalva suggestive of dynamic obstruction. Wall Motion Rest Echo Findings All wall segments showed normal motion. Prior Study Comparison Changes noted compared to prior study dated: 11/29/2024. dynamic LV OT obstruction is apparent Measurements 2D Linear Measurements IVSd: 1.36 0.6-0.9/0.6-1.0 cm LVIDd: 3.83 3.9-5.3/4.2-5.9 cm LVIDd Index: 2.55 2.4-3.2/2.2-3.1 cm/m2 LVIDs: 2.60 2.0-3.6 cm LVPWd: 0.84 0.7-1.1 cm LV Mass: 169.94 67-162/88-224 g LV Mass Index: 113.29 43-95/49-115 g/m2 LVOT Diam: 2.00 3.0+(-)1.3 cm Mitral Valve MV Pk E: 0.60 MV PK A: 0.72 MV Decel Time: 259.00 E/A: 0.80 E'Lateral: 5.66 E'Medial: 4.90 E/E' Med: 12.20 E/E' Lat: 10.60 PHT: 76.00 MVA PHT: 2.89 Decel Todd: 2.32 Aortic Valve AoV Pk Varun: 2.71 AoV Mn Varun: 1.83 AoV VTI: 0.46 AoV Pk Grad: 29.00 Aov Mn Grad: 16.00 MARYLU Cont.VTI: 2.79 LVOT LVOT Pk Varun: 2.35 LVOT Mn Varun: 1.63 LVOT VTI: 0.41 LVOT Pk Grad: 22.00 LVOT Mn Grad: 13.00 LVOT Diam: 2.00 LVOT Area: 3.14 Diastolic Function MV Pk E: 0.60 MV Pk A: 0.72 E/A: 0.80 E'Medial: 4.90 E/E' Med: 12.20 E' Laterial: 5.66 E/E' Lat: 10.60 Tricuspid Valve TR Pk Varun: 1.98 TR Pk Grad: 16.00 RA Press: 8.00 RVSP: 24.00 Updated in Other Vendor System with Status of Final Gabino Do MD electronically signed on 12/13/2024 1:18:42 PM with status of Final
--- NOTE | 2024-12-13 07:14 | PM.GICN ---
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 she noted a vague upper abdominal discomfort not worse with food and no relieving factors. She denies melena, diarrhea, rectal bleeding, hematuria. She does take chronic nsaid for back pain. she had hx of UC and had J pouch about 20 yrs ago but never had f/u after that or pouchoscopy. She denies chest pain, palptns, urine symptoms, GERD. Ct revealed thickened stomach with ulceration, lymph nodes and possible liver lesions, focal colitis. LABS: micorcytic anemia with HGB below baseline of 12, now 9 g/dl Review of Systems Review of Systems: Constitutional : No Weight loss, No Fever, No Chills ENT/Mouth : No sore throat, No Rhinorrhea Eyes: No Swelling, No Redness Cardiovascular : No Chest Pain, No SOB, No Edema Respiratory : No Cough, No Sputum, No Wheezing Gastrointestinal : see HPI Genitourinary : NO Dysuria, No Urinary Frequency, No Hematuria, No Urgency Musculoskeletal : + joint pain, No Myalgias, No Joint Swelling Skin : No Skin Lesions, No rash Neuro : No Weakness, No Numbness, No Dizziness, No Headache Psych : No Anxiety/Panic, No Depression Heme/Lymph: No Bruising, No Lymphadenopathy Endocrine : No Polyuria, No Polydipsia All other systems reviewed and are negative. [facility] Past Medical History Medical History AMADO (generalized anxiety disorder) MDD (major depressive disorder), recurrent episode, moderate Depression Anxiety Chronic back pain HTN (hypertension) Family History Family History Mother No problems noted. Father No problems noted. Surgical History Surgical History H/O total colectomy Social History Social History Household Members: None Housing: Apartment Do you presently have visiting nurse or other home services: No Unable to assess alcohol history related to: Unknown Alcohol intake: never Comment: pt refuses staff assistance Patient Tobacco Use Status: Former Tobacco user Tobacco use type: Cigarette Cigarettes Per Day: 2 Years Smoked: 30 Smoked in Last 30 Days: No e-Cigarette/Vaping Use: Former Use Use of substances other than those prescribed or required for medical reasons: No Have you been hit, kicked, punched, or otherwise hurt by someone within the past year? If so, by whom?: No Do you feel safe in your current relationship?: No Current Relationship Is there a partner from a previous relationship who is making you feel unsafe now?: No Are you made to feel afraid or neglected: No Advance Directives: No Advance Directives Information Provided: Yes Do you have a plan to hurt others: No Plan Recently lost weight without trying: Yes How much weight loss: 2-13 pounds Eating poorly because of decreased appetite: Yes Nutrition screen score: 4 Nutrition Risks: No Nutritional Risk Patient : No : No Poor oral hygiene: No service: No Current occupational status: disabled Sexual orientation: Straight/Heterosexual Cognitive needs: Yes (walker) Hearing needs: No Vision needs: Yes (reading glasses) Meds Allergies Allergy/AdvReac Type Severity Reaction Status Date / Time amoxicillin (AMOXICILLIN) Allergy Intermediate HIVES Verified 12/12/24 14:51 Active Medications: Current Medications Acetaminophen (Acetaminophen 325 Mg Tablet) 650 mg PO Q6H PRN PRN Reason: Pain, Mild 1-3,fever,headache Last Admin: 12/13/24 01:46 Dose: 650 mg Buspirone HCl (Buspirone Hcl 5 Mg Tablet) 15 mg PO QID SID Calcium Carbonate (Calcium Carbonate 750 Mg Tab.Chew) 750 mg PO Q4H PRN PRN Reason: Heartburn Ceftriaxone Sodium (Ceftriaxone Sodium 1 Gm Vial) 1 gm IVPUSH Q24H SID Gabapentin (Gabapentin 300 Mg Capsule) 300 mg PO QID [facility] Last Admin: 12/13/24 00:25 Dose: 300 mg Heparin Sodium (Porcine) (Heparin Sodium,Porcine 5,000 Unit/Ml Vial) 5,000 unit SUBCUT Q8H [facility] Last Admin: 12/13/24 01:47 Dose: 5,000 unit Dextrose/Sodium Chloride (D51/2ns) 1,000 mls @ 100 mls/hr IVCONT .Q10H [facility] Last Admin: 12/12/24 23:47 Dose: 100 mls/hr Lorazepam (Lorazepam 0.5 Mg Tablet) 0.5 mg PO QID PRN PRN Reason: Anxiety Magnesium Hydroxide (Milk Of Magnesia 30 Ml Oral.Susp) 30 ml PO DAILY PRN PRN Reason: Constipation Melatonin (Melatonin 3 Mg Tablet) 6 mg PO BEDTIME PRN PRN Reason: Insomnia Pantoprazole Sodium (Pantoprazole Sodium 40 Mg/10 Ml Vial) 40 mg IVPUSH BID@0630,1630 [facility] Last Admin: 12/13/24 05:39 Dose: 40 mg Sodium Chloride (0.9 % Sodium Chloride Flush 3 Ml Syringe) 3 ml IVFLUSH QSHIFT [facility] Last Admin: 12/13/24 01:50 Dose: Not Given Home Medications ?Medication ?Instructions ?Recorded ?Confirmed ?Last Taken ?Type cholecalciferol (vitamin D3) 25 25 mcg PO DAILY 11/28/24 12/12/24 12/12/24 History mcg (1,000 unit) tablet (Vitamin D3) erbctwne-zflkryo-pedh-lutein tablet 1 tab PO DAILY 11/28/24 12/12/24 12/12/24 History triamcinolone acetonide 0.1 % 1 appl topical MO PRN psoriasis 11/28/24 12/12/24 11/28/24 History topical cream ibuprofen 200 mg tablet 800 mg PO Q4H PRN Fever Or Pain 12/12/24 12/12/24 Unknown History lidocaine 4 % topical patch 1 patch transdermal DAILY PRN Pain 12/12/24 12/12/24 Unknown History (Lidocaine Pain Relief) Physical Exam Exam: Exam: EXAM: GENERAL: The patient is frail VITAL SIGNS:see workflow HEENT: Nonicteric sclerae, PERRLA, EOMI. Oropharynx clear. Moist mucous membranes. Conjunctivae appear well perfused. No thyroid mass. CHEST: Chest wall is nontender. HEART: Regular rate and rhythm without murmurs. LUNGS: Clear to auscultation bilaterally. ABDOMEN: Soft, positive bowel sounds, nontender, no organomegaly.no flank tenderness SKIN: No rash, no excessive bruising, petechiae, or purpura. NEUROLOGIC: Cranial nerves II-XII intact without motor/sensory deficit. Psych: normal affect Vital Signs: Vital Signs: Last Vital Signs Temp 97.2 F 12/13/24 04:00 Pulse 86 12/13/24 04:00 Resp 18 12/13/24 04:00 BP 115/71 12/13/24 04:00 Pulse Ox 98 12/13/24 04:00 O2 Del Method Room Air, Non-Radha reather Mask 12/13/24 04:00 BMI result Body Mass Index 19.6 Results Labs 12/13/24 09:48 12/13/24 09:48 Labs: Short CBC 12/12/24 Range/Units 15:16 WBC 10.1 (4.8-10.8) X10*3/uL Hgb 9.3 L (12.0-16.0) g/dl Hct 27.0 L (37.0-47.0) % Plt Count 457 H (160-400) X10*3/uL BMP 12/12/24 15:16 Sodium 132 L Potassium 4.1 Chloride 100 Carbon Dioxide 20 L BUN 25 H Creatinine 1.42 H Calcium 9.3 D Cardiac Enzymes 12/12/24 Range/Units 15:16 Total Creatine Kinase 67 (26-140) U/L Liver Function 12/12/24 Range/Units 15:16 Total Bilirubin 0.2 (0.0-1.0) mg/dL Direct Bilirubin < 0.2 (0.0-0.5) mg/dL AST 35 H (5-31) U/L ALT 7 (0-31) U/L Alkaline Phosphatase 58 (39-117) U/L Albumin 3.3 L (3.5-5.0) g/dL Urine 12/12/24 Range/Units 15:57 Urine Color Yellow Urine Appearance Cloudy Urine pH 5.5 (5.0-9.0) Ur Specific [place] 1.015 (1.005-1.025) Urine Protein 30 (1+) H (Neg-Trace) mg/dL Urine Glucose (UA) Negative (Negative) mg/dL Imaging CT scan - abdomen: Attestation: I personally reviewed and interpreted this imaging study as follows: (thickened stomahc with dense material and ulceration, liver lesions noted- hypoattenuated ) Assessment and Plan (1) Gastritis: Qualifiers: Chronicity: unspecified Gastritis bleeding: presence of bleeding unspecified Gastritis type: unspecified gastritis Qualified Code(s): K29.70 - Gastritis, unspecified, without bleeding Status: Acute Plan 1/ Abn imaging, poor appetite and NSAId use, maybe gastric ulcer, vs malignant lesion e.g lymphoma, adenoca. metastatic lesion, also never had pouchoscopy PLAN: /1 EGD with pouchoscopy 2/ ok to use PPI, avoid nsaids. Procedures Date of Service Date of Service: 12/13/24
[2024-12-13 08:00] VITALS: BP 107/69; PULSE 83; RESP 20; TEMP 36.6; O2SAT 99
[2024-12-13] MEDS: 0.9 % Sodium Chloride Flush 3 ML SYRINGE IVFLUSH ×3 (08:23→22:18)
[2024-12-13] MEDS: Dextrose 5 % and 0.45 % NaCl 1,000 ML 100 ML IVCONT (08:27)
--- NOTE | 2024-12-13 09:23 | MHC.CM.PN ---
CM addressed PULIDO with Patient, providing her with the original and a copy has been placed on the chart. Patient lives alone in an apartment,she has REVIVAL CLERK through [facility] 2.3 hours/week & MOWs, and she uses a walker for outdoor ambulation. Home/ resume said services is the goal and CM has initiated and will follow for dc planning. PCP is Dr. Tika Reed and Sister/Melisa is the HCP. Patient will use a LYFT for transport at dc.
[2024-12-13 10:11] LABS: Hematocrit 25.8 % (37.0-47.0); Hemoglobin 8.8 g/dl (12.0-16.0); Mean Corpuscular HGB Conc 34.1 g/dl (31.0-35.0); Mean Corpuscular Hemoglobin 26.6 pg (27.0-33.0); Mean Corpuscular Volume 77.9 fL (80.0-98.0); NRBC Abs Auto 0.000 X10*3/uL (0.0-0.012); NRBC Pct Auto 0.0 /100WBC (0.0-0.2); Platelet Count 426 X10*3/uL (160-400); Red Blood Count 3.31 X10*6/uL (4.20-5.50); White Blood Count 8.0 X10*3/uL (4.8-10.8)
--- NOTE | 2024-12-13 10:15 | PM.CNCAR ---
History of Present Illness History of Present Illness Date of Service: 12/13/24 Requesting physician: Khris Moreira Consult reason: troponin elevation Chief complaint: Weakness, elevated troponin Narrative: I was consulted to see Ana in cardiology consultation today for minimally elevated troponin. Patient is a 64 year female who came with poor oral intake and lack of appetite to the hospital. She has prior history of syncope few weeks ago when she had syncopized multiple times while straining and/or lifting heavy objects. It was felt at that time was syncopal was related to dehydration and vasovagal syncope. Patient has multiple issues including prior history of ulcerative colitis, fibromyalgia, anxiety, chronic back pain, major depression and possible IBS. Patient came to the hospital with the above complaints and was noted to be dehydrated clinically and subsequent workup with CT scan showed large gastric ulcer on the lateral curvature with diffuse gastritis as well as small area of colitis. Patient is therefore admitted and being hydrated. Patient had no syncopal episode at this time. Patient does not have any prior history of syncope. Denies any symptoms of palpitations with episodes of syncope. No exertional chest pain or shortness of breath. Echocardiogram done last admission showed moderate asymmetric septal hypertrophy with mild LVOT gradients, there were no clear dynamic gradients noted. Patient has no arrhythmias last time and including this time. No ventricular arrhythmias noted. Cardiology consult was sought because troponin was drawn for some reason although patient does not have any chest pain and there were minimally elevated. EKGs shows no acute changes Review of Systems Constitutional: Constitutional: Reports poor appetite Eyes: Eyes: Reports no additional eye complaints Cardiovascular: Cardiovascular: Reports no additional cardiovascular complaints Respiratory: Respiratory: Reports no additional respiratory complaints Gastrointestinal: Gastrointestinal: Reports abdominal pain and Reports nausea Genitourinary: Genitourinary: Reports no additional female genitourinary complaints Musculoskeletal: Musculoskeletal: Reports no additional musculoskeletal complaints Integumentary/Breasts: Skin/Breast: Reports system reviewed and no additional complaints, except as docu Neurologic: Reports system reviewed and no additional complaints, except as documented Psychiatric: Psychiatric: Reports no additional psychiatric complaints Endocrine: Endocrine: Reports no additional endocrine complaints Hematologic/Lymphatic: Hematologic/Lymphatic: Reports no additional hematologic/lymphatic complaints PMFSH Past Medical History Medical History AMADO (generalized anxiety disorder) MDD (major depressive disorder), recurrent episode, moderate Depression Anxiety Chronic back pain HTN (hypertension) Family History Family History Mother No problems noted. Father No problems noted. Surgical History Surgical History H/O total colectomy Social History Social History Household Members: None Housing: Apartment Do you presently have visiting nurse or other home services: No Unable to assess alcohol history related to: Unknown Alcohol intake: never Comment: pt refuses staff assistance Patient Tobacco Use Status: Former Tobacco user Tobacco use type: Cigarette Cigarettes Per Day: 2 Years Smoked: 30 Smoked in Last 30 Days: No e-Cigarette/Vaping Use: Former Use Use of substances other than those prescribed or required for medical reasons: No Have you been hit, kicked, punched, or otherwise hurt by someone within the past year? If so, by whom?: No Do you feel safe in your current relationship?: No Current Relationship Is there a partner from a previous relationship who is making you feel unsafe now?: No Are you made to feel afraid or neglected: No Advance Directives: No Advance Directives Information Provided: Yes Do you have a plan to hurt others: No Plan Recently lost weight without trying: Yes How much weight loss: 2-13 pounds Eating poorly because of decreased appetite: Yes Nutrition screen score: 4 Nutrition Risks: No Nutritional Risk Patient : No : No Poor oral hygiene: No service: No Current occupational status: disabled Sexual orientation: Straight/Heterosexual Cognitive needs: Yes (walker) Hearing needs: No Vision needs: Yes (reading glasses) Meds Allergies Allergy/AdvReac Type Severity Reaction Status Date / Time amoxicillin (AMOXICILLIN) Allergy Intermediate HIVES Verified 12/12/24 14:51 Active Medications: Current Medications Acetaminophen (Acetaminophen 325 Mg Tablet) 650 mg PO Q6H PRN PRN Reason: Pain, Mild 1-3,fever,headache Last Admin: 12/13/24 08:24 Dose: 650 mg Buspirone HCl (Buspirone Hcl 5 Mg Tablet) 15 mg PO QID SID Last Admin: 12/13/24 08:22 Dose: 15 mg Calcium Carbonate (Calcium Carbonate 750 Mg Tab.Chew) 750 mg PO Q4H PRN PRN Reason: Heartburn Ceftriaxone Sodium (Ceftriaxone Sodium 1 Gm Vial) 1 gm IVPUSH Q24H [facility] Gabapentin (Gabapentin 300 Mg Capsule) 300 mg PO QID [facility] Last Admin: 12/13/24 08:22 Dose: 300 mg Heparin Sodium (Porcine) (Heparin Sodium,Porcine 5,000 Unit/Ml Vial) 5,000 unit SUBCUT Q8H [facility] Last Admin: 12/13/24 08:22 Dose: 5,000 unit Dextrose/Sodium Chloride (D51/2ns) 1,000 mls @ 100 mls/hr IVCONT .Q10H [facility] Last Admin: 12/13/24 08:27 Dose: 100 mls/hr Lorazepam (Lorazepam 0.5 Mg Tablet) 0.5 mg PO QID PRN PRN Reason: Anxiety Last Admin: 12/13/24 08:22 Dose: 0.5 mg Magnesium Hydroxide (Milk Of Magnesia 30 Ml Oral.Susp) 30 ml PO DAILY PRN PRN Reason: Constipation Melatonin (Melatonin 3 Mg Tablet) 6 mg PO BEDTIME PRN PRN Reason: Insomnia Pantoprazole Sodium (Pantoprazole Sodium 40 Mg/10 Ml Vial) 40 mg IVPUSH BID@0630,1630 [facility] Last Admin: 12/13/24 05:39 Dose: 40 mg Sodium Chloride (0.9 % Sodium Chloride Flush 3 Ml Syringe) 3 ml IVFLUSH QSHIFT [facility] Last Admin: 12/13/24 08:23 Dose: 3 ml Home Medications ?Medication ?Instructions ?Recorded ?Confirmed ?Last Taken ?Type cholecalciferol (vitamin D3) 25 25 mcg PO DAILY 11/28/24 12/12/24 12/12/24 History mcg (1,000 unit) tablet (Vitamin D3) vqlnalxe-igfyvvg-mzhd-lutein tablet 1 tab PO DAILY 11/28/24 12/12/24 12/12/24 History triamcinolone acetonide 0.1 % 1 appl topical MO PRN psoriasis 11/28/24 12/12/24 11/28/24 History topical cream ibuprofen 200 mg tablet 800 mg PO Q4H PRN Fever Or Pain 12/12/24 12/12/24 Unknown History lidocaine 4 % topical patch 1 patch transdermal DAILY PRN Pain 12/12/24 12/12/24 Unknown History (Lidocaine Pain Relief) Physical Exam Vital Signs: Vital Signs: Last Vital Signs Temp 97.9 F 12/13/24 08:00 Pulse 83 12/13/24 08:00 Resp 20 12/13/24 08:00 BP 107/69 12/13/24 08:00 Pulse Ox 99 12/13/24 08:00 O2 Del Method Room Air 12/13/24 08:00 BMI result Body Mass Index 19.6 Const: General: cooperative, comfortable, no acute distress, alert, awake, Physically active and anxious Nutritional Appearance: thin Orientation/consciousness: patient oriented x3 Limitations: no limitations HEENT: Head: Yes normocephalic and Yes atraumatic Neck: Neck: Yes trachea midline, Yes supple and Yes no JVD Resp: Effort & Inspection: normal respiratory effort Auscultation: clear to auscultation bilaterally Cardio: Jugular venous distension: no JVD Rate: regular rate Rhythm: regular rhythm Heart sounds: S1 normal heart sound present, S2 normal heart sound present, no click, no gallops and Murmur heart sound present systolic decrescendo, crescendo, harsh, III/, at the base and at the left sternal border GI: Auscultation: normal bowel sounds Skin: General skin exam: no rashes or lesions noted Neuro: General: patient oriented x3 and no focal motor deficits Extrem: General: Yes no clubbing, cyanosis or edema Psych: Appearance: grossly normal Affect: Anxious affect present Objective Labs and Meds 12/13/24 09:48 12/12/24 15:16 Lab results: Laboratory Results - last 24 hr 12/12/24 12/12/24 12/12/24 15:16 15:57 17:36 WBC 10.1 RBC 3.44 L Hgb 9.3 L Hct 27.0 L MCV 78.5 L MCH 27.0 MCHC 34.4 RDW 13.5 Plt Count 457 H MPV 8.9 L Immature Gran % (Auto) 0.4 Neut % (Auto) 74.9 H Lymph % (Auto) 12.3 L [place] % (Auto) 10.8 Eos % (Auto) 0.8 Baso % (Auto) 0.8 Lymph # (Auto) 1.3 [place] # (Auto) 1.1 Eos # (Auto) 0.1 Baso # (Auto) 0.1 Abs Immat Gran (auto) 0.04 H Absolute Neuts (auto) 7.6 Absolute Nucleated RBC 0.000 Nucleated RBC % (auto) 0.0 Sodium 132 L Potassium 4.1 Chloride 100 Carbon Dioxide 20 L Anion Gap 16 BUN 25 H Creatinine 1.42 H Estim Creat Clear Calc 31.4 Estimated GFR 37 Random Glucose 108 Lactic Acid 1.1 Calcium 9.3 D Magnesium 1.6 Total Bilirubin 0.2 Direct Bilirubin < 0.2 AST 35 H ALT 7 Alkaline Phosphatase 58 Total Creatine Kinase 67 Troponin I High Sens 67.7 H* D 75.5 H* Total Protein 5.7 L Albumin 3.3 L Urine Color Yellow Urine Appearance Cloudy Urine pH 5.5 Ur Specific [place] 1.015 Urine Protein 30 (1+) H Urine Glucose (UA) Negative Urine Ketones Trace Urine Blood Moderate (2+) H Urine Nitrite Negative Ur Leukocyte Esterase Large (3+) H Urine RBC 3-5 H Urine WBC >50 H Ur Squamous Epith Cells 11-20 Urine Bacteria 1+ Hyaline Casts 3-5 Urine Opiates Screen Not Detected Ur Buprenorphine Scrn Not Detected Ur Oxycodone Screen Not Detected Urine Methadone Screen Not Detected Urine Fentanyl Screen Not Detected Ur Barbiturates Screen Not Detected Ur Phencyclidine Scrn Not Detected Ur Amphetamines Screen Not Detected U Benzodiazepines Scrn Not Detected Urine Cocaine Screen Not Detected U Marijuana (THC) Screen Not Detected Ethyl Alcohol < 10 12/13/24 09:48 WBC 8.0 RBC 3.31 L Hgb 8.8 L Hct 25.8 L MCV 77.9 L MCH 26.6 L MCHC 34.1 RDW 13.7 Plt Count 426 H MPV 9.5 Immature Gran % (Auto) Neut % (Auto) Lymph % (Auto) [place] % (Auto) Eos % (Auto) Baso % (Auto) Lymph # (Auto) [place] # (Auto) Eos # (Auto) Baso # (Auto) Abs Immat Gran (auto) Absolute Neuts (auto) Absolute Nucleated RBC 0.000 Nucleated RBC % (auto) 0.0 Sodium Potassium Chloride Carbon Dioxide Anion Gap BUN Creatinine Estim Creat Clear Calc Estimated GFR Random Glucose Lactic Acid Calcium Magnesium Total Bilirubin Direct Bilirubin AST ALT Alkaline Phosphatase Total Creatine Kinase Troponin I High Sens Total Protein Albumin Urine Color Urine Appearance Urine pH Ur Specific [place] Urine Protein Urine Glucose (UA) Urine Ketones Urine Blood Urine Nitrite Ur Leukocyte Esterase Urine RBC Urine WBC Ur Squamous Epith Cells Urine Bacteria Hyaline Casts Urine Opiates Screen Ur Buprenorphine Scrn Ur Oxycodone Screen Urine Methadone Screen Urine Fentanyl Screen Ur Barbiturates Screen Ur Phencyclidine Scrn Ur Amphetamines Screen U Benzodiazepines Scrn Urine Cocaine Screen U Marijuana (THC) Screen Ethyl Alcohol Assessment and Plan (1) Elevated troponin: Status: Acute Elevated troponin with normal EKGs with no other cardiac ischemic symptoms. Most likely elevated troponin appear to be due to subendocardial strain. Patient may have hypertrophic cardiomyopathy based on prior echocardiogram in his clinical exam this consistent with a obstructive physiology at the LVOT level. Repeat echocardiogram today to assess for any evidence of takotsubo cardiomyopathy with elevated troponins although EKGs and no symptoms would rule that out. Will also reassess LVOT gradient. Her prior syncopal episode although could be vasovagal could also be related to straining and doing a Valsalva maneuver with increased LVOT gradient causing hypotension and passing out. May need further evaluation as outpatient with a cardiac MRI and clinical follow-up. Advised to maintain adequate hydration to avoid significant obstructive physiology with LVOT. Can also consider low-dose beta-xavier therapy to reduce LVOT obstruction. Will sign of the case. Please consult if there any other issues that arise. Will follow up as outpatient Procedures Date of Service Date of Service: 12/13/24
[2024-12-13 10:27] LABS: Anion Gap 11 (12-20); Blood Urea Nitrogen 16 mg/dL (9-16); Calcium 8.9 mg/dL (8.4-10.2); Carbon Dioxide 22 mmol/L (22-29); Chloride 103 mmol/L (96-108); Creatinine Clr Calc Pharmacy 51.3; Estimated Glomerular Filt Rate > 60; Potassium 3.4 mmol/L (3.3-5.1); Sodium 133 mmol/L (135-145)
[2024-12-13 11:37] VITALS: BP 92/60; PULSE 81; RESP 18; TEMP 36.8; O2SAT 99
[2024-12-13 11:50] LABS: E. coli EAEC Not Detected (Not Detect.); E. coli EPEC Not Detected (Not Detect.); E. coli ETEC Not Detected (Not Detect.); E. coli STEC Not Detected (Not Detect.); Shigella sp./EIEC Not Detected (Not Detect.)
[2024-12-13 12:07] LABS: CDiff Gene PCR NEGATIVE (Negative)
[2024-12-13] MEDS: Lidocaine 4 % Patch ADH..PATCH 1 PATCH TRANSDERMA (14:43)
--- NOTE | 2024-12-13 14:48 | P.PNIM_ITS ---
Subjective Subjective Date of Service: 12/13/24 Interval History: Chronic back pain, not comfortable in bed Feels exhausted Complains of right shoulder pain ongoing for some time, unclear duration No N/V or abd pain, has been tolerating clear liquid diet Review of Systems Review of Systems: Yes all other systems are reviewed and are negative Physical Exam 2 Exam: Exam: General: AOx3, no acute distress Resp: CTA bilaterally CVS: S1, S2, RRR GI: +BS, NT, no distention Skin: Warm, dry Neuro: Cranial nerves II-XII grossly intact bilaterally. Motor grossly intact bilaterally Extremities: No edema. Right shoulder with reduced flexion. Non-painful to palpation Psych: Appropriate affect Vital Signs: Vital Signs: Last Vital Signs Temp 98.2 F 12/13/24 11:37 Pulse 81 12/13/24 11:37 Resp 18 12/13/24 11:37 BP 92/60 12/13/24 11:37 Pulse Ox 99 12/13/24 11:37 O2 Del Method Room Air 12/13/24 11:37 BMI result Body Mass Index 19.6 Objective Data Active Medications Acetaminophen (Acetaminophen 325 Mg Tablet) 650 mg PO Q6H PRN PRN Reason: Pain, Mild 1-3,fever,headache Last Admin: 12/13/24 14:42 Dose: 650 mg Documented By: SERJIO Buspirone HCl (Buspirone Hcl 5 Mg Tablet) 15 mg PO QID [facility] Last Admin: 12/13/24 12:50 Dose: 15 mg Documented By: SERJIO Calcium Carbonate (Calcium Carbonate 750 Mg Tab.Chew) 750 mg PO Q4H PRN PRN Reason: Heartburn Ceftriaxone Sodium (Ceftriaxone Sodium 1 Gm Vial) 1 gm IVPUSH Q24H [facility] Gabapentin (Gabapentin 300 Mg Capsule) 300 mg PO QID [facility] Last Admin: 12/13/24 12:50 Dose: 300 mg Documented By: SERJIO Heparin Sodium (Porcine) (Heparin Sodium,Porcine 5,000 Unit/Ml Vial) 5,000 unit SUBCUT Q8H [facility] Last Admin: 12/13/24 08:22 Dose: 5,000 unit Documented By: SERJIO Dextrose/Sodium Chloride (D51/2ns) 1,000 mls @ 100 mls/hr IVCONT .Q10H [facility] Last Admin: 12/13/24 08:27 Dose: 100 mls/hr Documented By: SERJIO Lidocaine (Lidocaine 4 % Patch Adh..Patch) 1 patch TRANSDERMA DAILY PRN; Protocol PRN Reason: Pain, Mild (Pain Scale 1-3) Last Admin: 12/13/24 14:43 Dose: 1 patch Documented By: SERJIO Lorazepam (Lorazepam 0.5 Mg Tablet) 0.5 mg PO QID PRN PRN Reason: Anxiety Last Admin: 12/13/24 08:22 Dose: 0.5 mg Documented By: SERJIO Magnesium Hydroxide (Milk Of Magnesia 30 Ml Oral.Susp) 30 ml PO DAILY PRN PRN Reason: Constipation Melatonin (Melatonin 3 Mg Tablet) 6 mg PO BEDTIME PRN PRN Reason: Insomnia Pantoprazole Sodium (Pantoprazole Sodium 40 Mg/10 Ml Vial) 40 mg IVPUSH BID@0630,1630 [facility] Last Admin: 12/13/24 05:39 Dose: 40 mg Documented By: ONI Polyethylene Glycol/Electrolytes (Peg 3350/Na Sulf,Bicarb,Cl/Kcl 4,000 Ml Soln.Recon) 4,000 ml PO ONCE ONE Stop: 12/13/24 18:01 Sodium Chloride (0.9 % Sodium Chloride Flush 3 Ml Syringe) [facility] Last Admin: 12/13/24 08:23 Dose: 3 ml Documented By: SERJIO Labs 12/13/24 09:48 12/13/24 09:48 Labs: Laboratory Results - last 24 hr 12/12/24 12/12/24 12/12/24 15:16 15:57 17:36 MCV 78.5 L MCH 27.0 MCHC 34.4 RDW 13.5 Plt Count 457 H MPV 8.9 L Immature Gran % (Auto) 0.4 Neut % (Auto) 74.9 H Lymph % (Auto) 12.3 L [place] % (Auto) 10.8 Eos % (Auto) 0.8 Baso % (Auto) 0.8 Lymph # (Auto) 1.3 [place] # (Auto) 1.1 Eos # (Auto) 0.1 Baso # (Auto) 0.1 Abs Immat Gran (auto) 0.04 H Absolute Neuts (auto) 7.6 Absolute Nucleated RBC 0.000 Nucleated RBC % (auto) 0.0 Anion Gap 16 Estim Creat Clear Calc 31.4 Estimated GFR 37 Random Glucose 108 Lactic Acid 1.1 Calcium 9.3 D Magnesium 1.6 Total Bilirubin 0.2 Direct Bilirubin < 0.2 AST 35 H ALT 7 Alkaline Phosphatase 58 Total Creatine Kinase 67 Total Protein 5.7 L Albumin 3.3 L Urine Color Yellow Urine Appearance Cloudy Urine pH 5.5 Ur Specific [place] 1.015 Urine Protein 30 (1+) H Urine Glucose (UA) Negative Urine Ketones Trace Urine Blood Moderate (2+) H Urine Nitrite Negative Ur Leukocyte Esterase Large (3+) H Urine RBC 3-5 H Urine WBC >50 H Ur Squamous Epith Cells 11-20 Urine Bacteria 1+ Hyaline Casts 3-5 Stl C. cayetanensis PCR Stool Rotavirus A PCR Stl Adenov F 40/41 PCR Stool Astrovirus (PCR) Stool Campylobacter PCR Stool Cryptosporidium PCR Stl Sh Tox Pr E STEC PCR Stool E coli O157 PCR Stl Enterotoxigenic E PCR Stool EPEC (PCR) Stool EAEC (PCR) Stl E. histolytica PCR Stool Giardia Lamblia PCR Stl P. shigelloides PCR Stool Salmonella PCR Stool Sapovirus (PCR) Stl Shigella/EIEC PCR St Y.enterocolitica PCR Stool Vibrio (PCR) Stl Vibrio cholerae PCR Stl Norovirus GI/GII PCR Urine Opiates Screen Not Detected Ur Buprenorphine Scrn Not Detected Ur Oxycodone Screen Not Detected Urine Methadone Screen Not Detected Urine Fentanyl Screen Not Detected Ur Barbiturates Screen Not Detected Ur Phencyclidine Scrn Not Detected Ur Amphetamines Screen Not Detected U Benzodiazepines Scrn Not Detected Urine Cocaine Screen Not Detected U Marijuana (THC) Screen Not Detected Ethyl Alcohol < 10 C. difficile Tox B Gene 12/13/24 12/13/24 07:45 09:48 MCV 77.9 L MCH 26.6 L MCHC 34.1 RDW 13.7 Plt Count 426 H MPV 9.5 Immature Gran % (Auto) Neut % (Auto) Lymph % (Auto) [place] % (Auto) Eos % (Auto) Baso % (Auto) Lymph # (Auto) [place] # (Auto) Eos # (Auto) Baso # (Auto) Abs Immat Gran (auto) Absolute Neuts (auto) Absolute Nucleated RBC 0.000 Nucleated RBC % (auto) 0.0 Anion Gap 11 L Estim Creat Clear Calc 51.3 Estimated GFR > 60 Random Glucose 149 H Lactic Acid Calcium 8.9 Magnesium Total Bilirubin Direct Bilirubin AST ALT Alkaline Phosphatase Total Creatine Kinase Total Protein Albumin Urine Color Urine Appearance Urine pH Ur Specific [place] Urine Protein Urine Glucose (UA) Urine Ketones Urine Blood Urine Nitrite Ur Leukocyte Esterase Urine RBC Urine WBC Ur Squamous Epith Cells Urine Bacteria Hyaline Casts Stl C. cayetanensis PCR Not Detected Stool Rotavirus A PCR Not Detected Stl Adenov F 40/41 PCR Not Detected Stool Astrovirus (PCR) Not Detected Stool Campylobacter PCR Not Detected Stool Cryptosporidium PCR Not Detected Stl Sh Tox Pr E STEC PCR Not Detected Stool E coli O157 PCR Not applicable Stl Enterotoxigenic E PCR Not Detected Stool EPEC (PCR) Not Detected Stool EAEC (PCR) Not Detected Stl E. histolytica PCR Not Detected Stool Giardia [place]lia PCR Not Detected Stl P. shigelloides PCR Not Detected Stool Salmonella PCR Not Detected Stool Sapovirus (PCR) Not Detected Stl Shigella/EIEC PCR Not Detected St Y.enterocolitica PCR Not Detected Stool Vibrio (PCR) Not Detected Stl Vibrio cholerae PCR Not Detected Stl Norovirus GI/GII PCR Not Detected Urine Opiates Screen Ur Buprenorphine Scrn Ur Oxycodone Screen Urine Methadone Screen Urine Fentanyl Screen Ur Barbiturates Screen Ur Phencyclidine Scrn Ur Amphetamines Screen U Benzodiazepines Scrn Urine Cocaine Screen U Marijuana (THC) Screen Ethyl Alcohol C. difficile Tox B Gene NEGATIVE Microbiology Microbiology Results: Microbiology 12/12/24 16:19 Urine Culture - Preliminary Urine clean catch - Clean Catch Midstream Culture in progress. 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 Admitted for following Abdominal discomfort: CT abdomen pelvis showed large ulceration of the mid stomach along the lesser curvature. Gastritis. Also focal colitis. Small volume abdominal ascites. H epatic lesion measuring 1.8 cm. IV PPI IV antibiotics-ceftriaxone/Flagyl GI consulted, plan on EGD and colonsocopy in the morning Clear liquid diet for now, NPO after midnight; bowel prep MONSTER, resolved Baseline creatinine around 0.8; creatinine on presentation is 1.4, now 0.89 Gentle IV fluids Avoid nephrotoxins Follow bmp Anemia: Hemoglobin around baseline. Recommended follow-up with PCP. Patient currently denies any signs of bleeding. Elevated troponin: Patient denies chest pain Troponin 75<--67 Echocardiogram Cardiology consult Monitor on telemetry Right shoulder pain Possibly secondary to syncopal episode 1-2 weeks ago Will get x-ray of shoulder Chronic hyponatremia Stable, at baseline Anxiety/depression: Continue home medications DVT prophylaxis: SCD boots Code status: Full code Quality Stroke Does the patient have a stroke diagnosis?: No VTE Prior VTE?: No VTE Risk Level:: Medical - moderate - high VTE Device Contraindication: N/A - Device Ordered VTE Drug Contraindication: Treatment Not Indicated
[2024-12-13 15:23] VITALS: BP 102/52; PULSE 74; RESP 18; TEMP 36.9; O2SAT 98
[2024-12-13 20:00] VITALS: BP 105/64; PULSE 78; RESP 17; RESP 18; TEMP 36.7; O2SAT 99
[2024-12-13] MEDS: PEG 3350/Na Sulf,Bicarb,Cl/KCL 4,000 ML SOLN.RECON 2000 ML PO (21:12)
[2024-12-14] VITALS (11 sets, daily range): BP systolic 93–122; BP diastolic 58–80; PULSE 68–95; RESP 16–20; TEMP 36.1–36.8; O2SAT 95–100
--- NOTE | 2024-12-14 01:43 | PC.NURSE ---
CARE ASSUMED 7PM..ALERT..ORIENTED X3....DRANK APPROX 1300ML BOWEL PREP...INITIALLY LIQUIED BROWN STOOL THEN PALE YELLOW CLEAR LIQUIED STOOL..REFUSED FURTHER COLYTE BOWEL PREP...AMBULATES TO BR WITH WALKER AND STEADY GAIT..REFUSES BED ALARM..DENIES DISCOMFORT
[2024-12-14] MEDS: 0.9 % Sodium Chloride Flush 3 ML SYRINGE IVFLUSH ×3 (07:53→20:06)
[2024-12-14] MEDS: Lidocaine 4 % Patch ADH..PATCH 1 PATCH TRANSDERMA (07:53)
[2024-12-14 09:18] LABS: Hematocrit 25.4 % (37.0-47.0); Hemoglobin 8.6 g/dl (12.0-16.0); Mean Corpuscular HGB Conc 33.9 g/dl (31.0-35.0); Mean Corpuscular Hemoglobin 26.5 pg (27.0-33.0); Mean Corpuscular Volume 78.2 fL (80.0-98.0); NRBC Abs Auto 0.000 X10*3/uL (0.0-0.012); NRBC Pct Auto 0.0 /100WBC (0.0-0.2); Platelet Count 417 X10*3/uL (160-400); Red Blood Count 3.25 X10*6/uL (4.20-5.50); White Blood Count 7.4 X10*3/uL (4.8-10.8)
[2024-12-14 09:34] LABS: Anion Gap 12 (12-20); Blood Urea Nitrogen 14 mg/dL (9-16); Calcium 9.3 mg/dL (8.4-10.2); Carbon Dioxide 23 mmol/L (22-29); Chloride 105 mmol/L (96-108); Creatinine Clr Calc Pharmacy 54.3; Estimated Glomerular Filt Rate > 60; Potassium 3.4 mmol/L (3.3-5.1); Sodium 137 mmol/L (135-145)
--- NOTE | 2024-12-14 10:21 | PM.PNCARD ---
Subjective Subjective Date of Service: 12/14/24 Principal diagnosis: Hypertrophic obstructive cardiomyopathy. Interval history: Patient's echocardiogram suggestive of outflow tract obstruction with dynamic component suggestive of hypertrophic obstructive cardiomyopathy. Overnight has had no arrhythmias. Currently still receiving IV fluids. Review of Systems Constitutional: Reports no additional constitutional complaints Cardiovascular: Reports no additional cardiovascular complaints Gastrointestinal: Reports no additional gastrointestinal complaints Musculoskeletal: Reports no additional musculoskeletal complaints Reports system reviewed and no additional complaints, except as documented Physical Exam Vital Signs: Last Vital Signs Temp 98.1 F 12/14/24 08:00 Pulse 95 12/14/24 08:00 Resp 18 12/14/24 08:00 BP 103/71 12/14/24 08:00 Pulse Ox 98 12/14/24 08:00 O2 Del Method Room Air 12/14/24 08:00 BMI result Body Mass Index 19.6 Const General: cooperative, comfortable, no acute distress, alert, awake, Physically active and anxious Nutritional Appearance: thin Orientation/consciousness: patient oriented x3 Limitations: no limitations HEENT Head: Yes normocephalic and Yes atraumatic Neck Neck: Yes trachea midline, Yes supple and Yes no JVD Resp Effort & Inspection: normal respiratory effort Auscultation: clear to auscultation bilaterally Cardio Jugular venous distension: no JVD Rate: regular rate Rhythm: regular rhythm Heart sounds: S1 normal heart sound present, S2 normal heart sound present, no click, no gallops and Murmur heart sound present systolic decrescendo, crescendo, soft, III/, at the base, at the left sternal border and other (Only heard today in standing position and absent in supine position) GI Auscultation: normal bowel sounds Skin General skin exam: no rashes or lesions noted Neuro General: patient oriented x3 and no focal motor deficits Extrem General: Yes no clubbing, cyanosis or edema Psych Appearance: grossly normal Affect: Anxious affect present Objective Labs and Meds 12/14/24 08:49 12/14/24 08:49 Lab results: Laboratory Results - last 24 hr 12/13/24 12/13/24 12/14/24 07:45 09:48 08:49 WBC 7.4 RBC 3.25 L Hgb 8.6 L Hct 25.4 L MCV 78.2 L MCH 26.5 L MCHC 33.9 RDW 13.6 Plt Count 417 H MPV 9.5 Absolute Nucleated RBC 0.000 Nucleated RBC % (auto) 0.0 Sodium 133 L 137 Potassium 3.4 3.4 Chloride 103 105 Carbon Dioxide 22 23 Anion Gap 11 L 12 BUN 16 14 Creatinine 0.89 0.84 Estim Creat Clear Calc 51.3 54.3 Estimated GFR > 60 > 60 Random Glucose 149 H 95 Calcium 8.9 9.3 Stl C. cayetanensis PCR Not Detected Stool Rotavirus A PCR Not Detected Stl Adenov F 40/41 PCR Not Detected Stool Astrovirus (PCR) Not Detected Stool Campylobacter PCR Not Detected Stool Cryptosporidium PCR Not Detected Stl Sh Tox Pr E STEC PCR Not Detected Stool E coli O157 PCR Not applicable Stl Enterotoxigenic E PCR Not Detected Stool EPEC (PCR) Not Detected Stool EAEC (PCR) Not Detected Stl E. histolytica PCR Not Detected Stool Giardia Lamblia PCR Not Detected Stl P. shigelloides PCR Not Detected Stool Salmonella PCR Not Detected Stool Sapovirus (PCR) Not Detected Stl Shigella/EIEC PCR Not Detected St Y.enterocolitica PCR Not Detected Stool Vibrio (PCR) Not Detected Stl Vibrio cholerae PCR Not Detected Stl Norovirus GI/GII PCR Not Detected C. difficile Tox B Gene NEGATIVE Imaging Radiologist's impression: Impressions Shoulder X-Ray 12/13/24 13:03 IMPRESSION: Unremarkable examination of the right shoulder. Electronically signed by: Rafael Travis MD 12/13/2024 01:23 PM EDT RP Progress Note: A&P Assessment and plan (1) Hypertrophic obstructive cardiomyopathy: Status: Acute Assessment and Plan: Hypertrophic obstructive cardiomyopathy in this middle-aged woman with prior history of syncope. Need to evaluate if this was vasovagal versus related to hypertrophic obstructive cardiomyopathy. Will need outpatient workup including cardiac MRI, ETT as well as event monitor. Will schedule this and follow up in the clinic after that. Had a long discussion with her about the condition but Caprice's still very focused on her prior episodes and other noncardiac issues. Discussed that when she gets these symptoms she should try to laid down with elevate her legs. Also advised to maintain adequate hydration. She is worried about hyponatremia and discussed that her hydration should include salt intake as well. Start Toprol 25 mg daily. Will set up for outpatient follow-up. Will sign of the case. Thank you for allowing me to partake in her care Time Spent With Patient Time: Total time managing care of this patient today ____ minutes. Progress Note: Quality Stroke Does the patient have a stroke diagnosis?: No Procedures Date of Service Date of Service: 12/14/24
--- NOTE | 2024-12-14 12:55 | HO.ANESPROP2 ---
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 Na is 132 on current admission Elevated troponin: cardiology was consulted due to elevated troponin, seen by Dr. Do, however had normal EKG, no CP/SOB s/p total colectomy PMFSH Active Problems Active Problems: All Active Problems Gastritis (Acute) Elevated troponin (Acute) Acute dehydration (Acute) Shoulder pain, right (Acute) Vasovagal syncope (Acute) Anemia (Acute) Syncope (Acute) Osteoporosis (Acute) Ulcerative colitis (Acute) Prediabetes (Acute) Fibromyalgia (Acute) Bilateral anterior knee pain (Acute) Lumbar spinal stenosis (Acute) Herniation of intervertebral disc between L4 and L5 (Acute) Lumbar degenerative disc disease (Acute) Lumbar back pain with radiculopathy affecting left lower extremity (Acute) Lumbar spondylosis (Acute) Chronic back pain (Acute) MDD (major depressive disorder), recurrent episode, moderate (Acute) AMADO (generalized anxiety disorder) (Acute) Past Medical History Medical History AMADO (generalized anxiety disorder) MDD (major depressive disorder), recurrent episode, moderate Depression Anxiety Chronic back pain HTN (hypertension) Family History Family History Mother No problems noted. Father No problems noted. Surgical History Surgical History H/O total colectomy Social History Social History Household Members: None Housing: Apartment Are you a primary chiropractic care to a significant other at home: No Do you presently have visiting nurse or other home services: No Unable to assess alcohol history related to: Unknown Alcohol intake: never Comment: refusing alarms Patient Tobacco Use Status: Former Tobacco user Tobacco use type: Cigarette Cigarettes Per Day: 2 Years Smoked: 30 Smoked in Last 30 Days: No e-Cigarette/Vaping Use: Former Use Second Hand Smoke Exposure: No Use of substances other than those prescribed or required for medical reasons: No Currently Displaying Signs/Symptoms of Drug Intoxication Withdrawal: No Have you been hit, kicked, punched, or otherwise hurt by someone within the past year? If so, by whom?: No Do you feel safe in your current relationship?: No Current Relationship Is there a partner from a previous relationship who is making you feel unsafe now?: No Are you made to feel afraid or neglected: No Are you DNR?: No Advance Directives: No Advance Directives Information Provided: Yes Advance Directives on File: No Do you have a plan to hurt others: No Plan Recently lost weight without trying: Yes How much weight loss: 2-13 pounds Eating poorly because of decreased appetite: Yes Nutrition screen score: 4 Nutrition Risks: No Nutritional Risk Patient : No : No Poor oral hygiene: No service: No Current occupational status: disabled Sexual orientation: Straight/Heterosexual Cognitive needs: Yes (walker) Hearing needs: No Vision needs: Yes (reading glasses) Meds Allergies Allergy/AdvReac Type Severity Reaction Status Date / Time amoxicillin (AMOXICILLIN) Allergy Intermediate HIVES Verified 12/12/24 14:51 Active Medications: Current Medications Acetaminophen (Acetaminophen 325 Mg Tablet) 650 mg PO Q6H PRN PRN Reason: Pain, Mild 1-3,fever,headache Last Admin: 12/13/24 08:24 Dose: 650 mg Buspirone HCl (Buspirone Hcl 5 Mg Tablet) 15 mg PO QID [facility] Last Admin: 12/13/24 08:22 Dose: 15 mg Calcium Carbonate (Calcium Carbonate 750 Mg Tab.Chew) 750 mg PO Q4H PRN PRN Reason: Heartburn Ceftriaxone Sodium (Ceftriaxone Sodium 1 Gm Vial) 1 gm IVPUSH Q24H [facility] Gabapentin (Gabapentin 300 Mg Capsule) 300 mg PO QID [facility] Last Admin: 12/13/24 08:22 Dose: 300 mg Heparin Sodium (Porcine) (Heparin Sodium,Porcine 5,000 Unit/Ml Vial) 5,000 unit SUBCUT Q8H [facility] Last Admin: 12/13/24 08:22 Dose: 5,000 unit Dextrose/Sodium Chloride (D51/2ns) 1,000 mls @ 100 mls/hr IVCONT .Q10H [facility] Last Admin: 12/13/24 08:27 Dose: 100 mls/hr Lorazepam (Lorazepam 0.5 Mg Tablet) 0.5 mg PO QID PRN PRN Reason: Anxiety Last Admin: 12/13/24 08:22 Dose: 0.5 mg Magnesium Hydroxide (Milk Of Magnesia 30 Ml Oral.Susp) 30 ml PO DAILY PRN PRN Reason: Constipation Melatonin (Melatonin 3 Mg Tablet) 6 mg PO BEDTIME PRN PRN Reason: Insomnia Pantoprazole Sodium (Pantoprazole Sodium 40 Mg/10 Ml Vial) 40 mg IVPUSH BID@0630,1630 [facility] Last Admin: 12/13/24 05:39 Dose: 40 mg Sodium Chloride (0.9 % Sodium Chloride Flush 3 Ml Syringe) 3 ml IVFLUSH QSHIFT [facility] Last Admin: 12/13/24 08:23 Dose: 3 ml Home Medications ?Medication ?Instructions ?Recorded ?Confirmed ?Last Taken ?Type cholecalciferol (vitamin D3) 25 25 mcg PO DAILY 11/28/24 12/12/24 12/12/24 History mcg (1,000 unit) tablet (Vitamin D3) zaemsevf-wmgmeku-aiav-lutein tablet 1 tab PO DAILY 11/28/24 12/12/24 12/12/24 History triamcinolone acetonide 0.1 % 1 appl topical MO PRN psoriasis 11/28/24 12/12/24 11/28/24 History topical cream ibuprofen 200 mg tablet 800 mg PO Q4H PRN Fever Or Pain 12/12/24 12/12/24 Unknown History lidocaine 4 % topical patch 1 patch transdermal DAILY PRN Pain 12/12/24 12/12/24 Unknown History (Lidocaine Pain Relief) Exam Height,Weight and Vital Signs: Height 5 ft 3 in Weight 50.2 kg Last Vital Signs Temp 97.9 F 12/13/24 08:00 Pulse 83 12/13/24 08:00 Resp 20 12/13/24 08:00 BP 107/69 12/13/24 08:00 Pulse Ox 99 12/13/24 08:00 O2 Del Method Room Air 12/13/24 08:00 Pertinent Lab Results Pertinent Lab Results: Laboratory Tests 12/12/24 12/12/24 12/12/24 15:16 15:57 17:36 WBC 10.1 RBC 3.44 L Hgb 9.3 L Hct 27.0 L MCV 78.5 L MCH 27.0 MCHC 34.4 RDW 13.5 Plt Count 457 H MPV 8.9 L Immature Gran % (Auto) 0.4 Neut % (Auto) 74.9 H Lymph % (Auto) 12.3 L [place] % (Auto) 10.8 Eos % (Auto) 0.8 Baso % (Auto) 0.8 Lymph # (Auto) 1.3 [place] # (Auto) 1.1 Eos # (Auto) 0.1 Baso # (Auto) 0.1 Abs Immat Gran (auto) 0.04 H Absolute Neuts (auto) 7.6 Absolute Nucleated RBC 0.000 Nucleated RBC % (auto) 0.0 Sodium 132 L Potassium 4.1 Chloride 100 Carbon Dioxide 20 L Anion Gap 16 BUN 25 H Creatinine 1.42 H Estim Creat Clear Calc 31.4 Estimated GFR 37 Random Glucose 108 Lactic Acid 1.1 Calcium 9.3 D Magnesium 1.6 Total Bilirubin 0.2 Direct Bilirubin < 0.2 AST 35 H ALT 7 Alkaline Phosphatase 58 Total Creatine Kinase 67 Troponin I High Sens 67.7 H* D 75.5 H* Total Protein 5.7 L Albumin 3.3 L Urine Color Yellow Urine Appearance Cloudy Urine pH 5.5 Ur Specific [place] 1.015 Urine Protein 30 (1+) H Urine Glucose (UA) Negative Urine Ketones Trace Urine Blood Moderate (2+) H Urine Nitrite Negative Ur Leukocyte Esterase Large (3+) H Urine RBC 3-5 H Urine WBC >50 H Ur Squamous Epith Cells 11-20 Urine Bacteria 1+ Hyaline Casts 3-5 Urine Opiates Screen Not Detected Ur Buprenorphine Scrn Not Detected Ur Oxycodone Screen Not Detected Urine Methadone Screen Not Detected Urine Fentanyl Screen Not Detected Ur Barbiturates Screen Not Detected Ur Phencyclidine Scrn Not Detected Ur Amphetamines Screen Not Detected U Benzodiazepines Scrn Not Detected Urine Cocaine Screen Not Detected U Marijuana (THC) Screen Not Detected Ethyl Alcohol < 10 12/13/24 09:48 WBC 8.0 RBC 3.31 L Hgb 8.8 L Hct 25.8 L MCV 77.9 L MCH 26.6 L MCHC 34.1 RDW 13.7 Plt Count 426 H MPV 9.5 Immature Gran % (Auto) Neut % (Auto) Lymph % (Auto) [place] % (Auto) Eos % (Auto) Baso % (Auto) Lymph # (Auto) [place] # (Auto) Eos # (Auto) Baso # (Auto) Abs Immat Gran (auto) Absolute Neuts (auto) Absolute Nucleated RBC 0.000 Nucleated RBC % (auto) 0.0 Sodium Potassium Chloride Carbon Dioxide Anion Gap BUN Creatinine Estim Creat Clear Calc Estimated GFR Random Glucose Lactic Acid Calcium Magnesium Total Bilirubin Direct Bilirubin AST ALT Alkaline Phosphatase Total Creatine Kinase Troponin I High Sens Total Protein Albumin Urine Color Urine Appearance Urine pH Ur Specific [place] Urine Protein Urine Glucose (UA) Urine Ketones Urine Blood Urine Nitrite Ur Leukocyte Esterase Urine RBC Urine WBC Ur Squamous Epith Cells Urine Bacteria Hyaline Casts Urine Opiates Screen Ur Buprenorphine Scrn Ur Oxycodone Screen Urine Methadone Screen Urine Fentanyl Screen Ur Barbiturates Screen Ur Phencyclidine Scrn Ur Amphetamines Screen U Benzodiazepines Scrn Urine Cocaine Screen U Marijuana (THC) Screen Ethyl Alcohol Documented by User: Filomena Aguilera DO 12/14/24 13:37 HPI - Anesthesia Eval Consult details Narrative: 64 yr old female for upper endoscopy, colonscopy HOCM Chronic hyponatremia secondary to psychogenic polydipsia: she was referred to nephrology however hestitant to go per PCP note from 11/2024. Na is 132 on current admission Elevated troponin: cardiology was consulted due to elevated troponin, seen by Dr. Do, however had normal EKG, no CP/SOB s/p total colectomy PMFSH Past Medical History Medical History AMADO (generalized anxiety disorder) MDD (major depressive disorder), recurrent episode, moderate Depression Anxiety Chronic back pain HTN (hypertension) Family History Family History Mother No problems noted. Father No problems noted. Family history of problems with anesthesia: No Surgical History Surgical History H/O total colectomy History of Problems with Anesthesia: No Social History Social History Household Members: None Housing: Apartment Are you a primary chiropractic care to a significant other at home: No Do you presently have visiting nurse or other home services: No Unable to assess alcohol history related to: Unknown Alcohol intake: never Comment: refusing alarms Patient Tobacco Use Status: Former Tobacco user Tobacco use type: Cigarette Cigarettes Per Day: 2 Years Smoked: 30 Smoked in Last 30 Days: No e-Cigarette/Vaping Use: Former Use Second Hand Smoke Exposure: No Use of substances other than those prescribed or required for medical reasons: No Currently Displaying Signs/Symptoms of Drug Intoxication Withdrawal: No Have you been hit, kicked, punched, or otherwise hurt by someone within the past year? If so, by whom?: No Do you feel safe in your current relationship?: No Current Relationship Is there a partner from a previous relationship who is making you feel unsafe now?: No Are you made to feel afraid or neglected: No Are you DNR?: No Advance Directives: No Advance Directives Information Provided: Yes Advance Directives on File: No Do you have a plan to hurt others: No Plan Recently lost weight without trying: Yes How much weight loss: 2-13 pounds Eating poorly because of decreased appetite: Yes Nutrition screen score: 4 Nutrition Risks: No Nutritional Risk Patient : No : No Poor oral hygiene: No service: No Current occupational status: disabled Sexual orientation: Straight/Heterosexual Cognitive needs: Yes (walker) Hearing needs: No Vision needs: Yes (reading glasses) Meds Allergies Allergy/AdvReac Type Severity Reaction Status Date / Time amoxicillin (AMOXICILLIN) Allergy Intermediate HIVES Verified 12/12/24 14:51 Home Medications ?Medication ?Instructions ?Recorded ?Confirmed ?Last Taken ?Type cholecalciferol (vitamin D3) 25 25 mcg PO DAILY 11/28/24 12/12/24 12/12/24 History mcg (1,000 unit) tablet (Vitamin D3) ahrgromu-xbubgnc-exrl-lutein tablet 1 tab PO DAILY 11/28/24 12/12/24 12/12/24 History triamcinolone acetonide 0.1 % 1 appl topical MO PRN psoriasis 11/28/24 12/12/24 11/28/24 History topical cream ibuprofen 200 mg tablet 800 mg PO Q4H PRN Fever Or Pain 12/12/24 12/12/24 Unknown History lidocaine 4 % topical patch 1 patch transdermal DAILY PRN Pain 12/12/24 12/12/24 Unknown History (Lidocaine Pain Relief) Exam Exam Date and Time: 12/14/24 1255 Height,Weight and Vital Signs: Height 5 ft 3 in Weight 50.2 kg Last Vital Signs Temp 97.9 F 12/13/24 08:00 Pulse 83 12/13/24 08:00 Resp 20 12/13/24 08:00 BP 107/69 12/13/24 08:00 Pulse Ox 99 12/13/24 08:00 O2 Del Method Room Air 12/13/24 08:00 Vital Signs Temperature 98.0 F 12/12/24 14:48 Pulse Rate 98 12/12/24 14:48 Respiratory Rate 16 12/12/24 14:48 Blood Pressure 91/63 12/12/24 14:48 Pulse Oximetry 100 12/12/24 14:48 Oxygen Delivery Method Room Air 12/12/24 14:48 Temperature 97.9 F 12/14/24 12:19 Pulse Rate 88 12/14/24 12:19 Respiratory Rate 16 12/14/24 12:19 Blood Pressure 98/68 12/14/24 12:19 Pulse Oximetry 95 12/14/24 12:19 Oxygen Delivery Method Room Air 12/14/24 12:19 Airway Mallampati Class: II TM Dist: >3cm Neck ROM: Full Loose/Missing/Broken Teeth: Yes (broken molar right lower jaw) Heart: S1S2 Lungs: CTAB Assessment and Plan Assessment Anesthesia Assessment: Anesthesia Plan Discussed and Chart Reviewed Final Anesthetic Review Family History of Problems with Anesthesia: No History of Problems with Anesthesia: No NPO: Yes ASA Class: III Final Preanesthetic Review: No Changes in Pt Med Stat, Meds/Allgs Chart Reviewed, Consent Obtained/Reviewed and Anes Risks/Benef Reviewed Patient Risk: Intermediate Procedure Risk: Low Anesthetic Plan Anesthetic Plan: MAC: and Agree w/ Assess. and Plan Disposition: Standard PACU
--- NOTE | 2024-12-14 13:06 | P.PNGI_ITS ---
Subjective Subjective Date of Service: 12/14/24 Interval History: no nausea or vomiting no rectal bleeding, HGB stable Critical Care Time (minutes): 0 Physical Exam 2 Exam: Exam: EXAM: GENERAL: The patient is relaxed VITAL SIGNS:see workflow HEENT: Nonicteric sclerae, PERRLA, EOMI. Oropharynx clear. Moist mucous membranes. Conjunctivae appear well perfused. No thyroid mass. CHEST: Chest wall is nontender. HEART: Regular rate and rhythm without murmurs. LUNGS: Clear to auscultation bilaterally. ABDOMEN: Soft, positive bowel sounds, nontender, no organomegaly.no flank tenderness SKIN: No rash, no excessive bruising, petechiae, or purpura. NEUROLOGIC: Cranial nerves II-XII intact without motor/sensory deficit. Psych: normal affect Vital Signs: Vital Signs: Last Vital Signs Temp 97.9 F 12/14/24 12:19 Pulse 88 12/14/24 12:19 Resp 16 12/14/24 12:19 BP 98/68 12/14/24 12:19 Pulse Ox 95 12/14/24 12:19 O2 Del Method Room Air 12/14/24 12:19 BMI result Body Mass Index 19.6 Objective Data Labs 12/14/24 08:49 12/14/24 08:49 Labs: Laboratory Results - last 24 hr 12/14/24 08:49 WBC 7.4 RBC 3.25 L Hgb 8.6 L Hct 25.4 L MCV 78.2 L MCH 26.5 L MCHC 33.9 RDW 13.6 Plt Count 417 H MPV 9.5 Absolute Nucleated RBC 0.000 Nucleated RBC % (auto) 0.0 Sodium 137 Potassium 3.4 Chloride 105 Carbon Dioxide 23 Anion Gap 12 BUN 14 Creatinine 0.84 Estim Creat Clear Calc 54.3 Estimated GFR > 60 Random Glucose 95 Calcium 9.3 Microbiology Microbiology Results: Microbiology 12/12/24 16:19 Urine clean catch - Clean Catch Midstream Urine Culture - Final 12/12/24 16:42 Blood - Venous Blood Culture - Preliminary No growth after 24 hours. 12/12/24 16:42 Blood - Venous Blood Culture - Preliminary No growth after 24 hours. Procedures Date of Service Date of Service: 12/14/24 Progress Note: A&P Assessment and plan (1) Anemia: Status: Acute Plan A/P: 1/ Anemia, stbale, abn imaging may have gastric ulcer, also colitis on imaging but hx of pouchoscopy PLAN: 1/ EGD today with pouchoscopy 2/ cont with PPI Time Spent With Patient Time: Total time managing care of this patient today ____ minutes. Quality Stroke Does the patient have a stroke diagnosis?: No VTE Prior VTE?: No VTE Risk Level:: Medical - moderate - high VTE Device Contraindication: N/A - Device Ordered VTE Drug Contraindication: N/A - Med Ordered
--- NOTE | 2024-12-14 13:42 | W.PM.OPN ---
Operative Note Operative Note Date of Service: 12/14/24 Narrative: Procedure Description: EGD, pouchoscopy Indication: anemia Anesthesia: MAC FLEXIBLE TRANSORAL UPPER GASTROINTESTINAL ENDOSCOPY UPPER ENDOSCOPY Consent: Indications for the procedure and potential complications of bleeding, perforation, reaction to medications and missed diagnosis were discussed with the patient and informed consent was obtained. Instrument: Olympus GIF H 190 J mid size upper endoscope Monitoring: Vital signs and clinical assessment, continuous EKG monitoring, Pulse oximetry, Carbon Dioxide monitoring and blood pressure monitoring were done throughout the procedure. Procedure: The patient was placed in the left lateral decubitis position and pre-procedure medications were administered and a bite block was placed. The endoscope was inserted into the mouth and advanced under direct vision to the third part of duodenum. A careful inspection was made as the upper endoscope was withdrawn including a retroflexed examination of the proximal stomach; Findings and interventions are described below. Findings: Larynx:normal Esophagus: GE junction at 38 cm, diaphragm hiatus at 38 cm, normal mucosa Stomach: Large crateriform ulcer in the posterior wall of the stomach close to the pre pyloric area measuring about 2 cm in diameter. A staple was noted in the middle of the ulcer. Biopsies were obtained. Grade 2 flap valve on retroflexed examination of the cardia. Duodenum: mild to moderate duodenitis, bx taken Intervention: Biopsies as noted above, Patient was then turned for pouchoscopy. Small bowel afferent limb with superficial ulcerations, patchy erythema and edema. bx taken. Pouch looked normal, bx taken, also from rectal cuff. Impression/Findings: gastritis gastric ulcer enteritis PLAN: above most likely due to nsaid use, crohsn disease less likely, recommend stop nsaids, high dose PPI repeat EGD and pouch in 3-6 months if H pylori pos then treat check gastrin level
--- NOTE | 2024-12-14 14:02 | HO.PM.IMPN ---
Subjective Subjective Date of Service: 12/14/24 Interval History: Appears anxious regarding EGD/colonoscopy procedures today Complains of chronic kassy pain No N/V/D or abd pain Denies lightheadedness or dizziness Reports appetite has returned Review of Systems Review of Systems: Yes all other systems are reviewed and are negative Physical Exam Exam: Exam: General: AOx3, no acute distress Resp: CTA bilaterally CVS: S1, S2, RRR GI: Soft, NT, no distention Skin: Warm, dry Neuro: Cranial nerves II-XII grossly intact bilaterally. Motor grossly intact bilaterally Extremities: No edema Psych: Anxious, sometimes difficult to redirect Vital Signs: Vital Signs: Last Vital Signs Temp 97 F 12/14/24 13:46 Pulse 73 12/14/24 13:50 Resp 16 12/14/24 12:19 BP 102/66 12/14/24 13:50 Pulse Ox 99 12/14/24 13:50 O2 Del Method Room Air 12/14/24 13:50 BMI result Body Mass Index 19.6 Objective Data Active Medications Acetaminophen (Acetaminophen 325 Mg Tablet) 975 mg PO Q6H PRN PRN Reason: Pain, Mild 1-3,fever,headache Last Admin: 12/14/24 07:54 Dose: 975 mg Documented By: SARA Buspirone HCl (Buspirone Hcl 5 Mg Tablet) 15 mg PO QID [facility] Last Admin: 12/14/24 07:54 Dose: 15 mg Documented By: SARA Calcium Carbonate (Calcium Carbonate 750 Mg Tab.Chew) 750 mg PO Q4H PRN PRN Reason: Heartburn Ceftriaxone Sodium (Ceftriaxone Sodium 1 Gm Vial) 1 gm IVPUSH Q24H [facility] Last Admin: 12/13/24 17:21 Dose: 1 gm Documented By: SERJIO Gabapentin (Gabapentin 300 Mg Capsule) 300 mg PO QID [facility] Last Admin: 12/14/24 07:54 Dose: 300 mg Documented By: SARA Heparin Sodium (Porcine) (Heparin Sodium,Porcine 5,000 Unit/Ml Vial) 5,000 unit SUBCUT Q8H [facility] Last Admin: 12/14/24 07:32 Dose: Not Given Documented By: SARA Non-Admin Reason: holding for procedure Lidocaine (Lidocaine 4 % Patch Adh..Patch) 1 patch TRANSDERMA DAILY PRN; Protocol PRN Reason: Pain, Mild (Pain Scale 1-3) Last Admin: 12/14/24 07:53 Dose: 1 patch Documented By: SARA Lorazepam (Lorazepam 0.5 Mg Tablet) 0.5 mg PO QID PRN PRN Reason: Anxiety Last Admin: 12/14/24 07:54 Dose: 0.5 mg Documented By: SARA Magnesium Hydroxide (Milk Of Magnesia 30 Ml Oral.Susp) 30 ml PO DAILY PRN PRN Reason: Constipation Melatonin (Melatonin 3 Mg Tablet) 6 mg PO BEDTIME PRN PRN Reason: Insomnia Pantoprazole Sodium (Pantoprazole Sodium 40 Mg/10 Ml Vial) 40 mg IVPUSH BID@0630,1630 [facility] Last Admin: 12/14/24 05:49 Dose: 40 mg Documented By: SUSAN Sodium Chloride (0.9 % Sodium Chloride Flush 3 Ml Syringe) 3 ml IVFLUSH QSHIFT [facility] Last Admin: 12/14/24 07:53 Dose: 3 ml Documented By: SARA Labs 12/14/24 08:49 12/14/24 08:49 Labs: Laboratory Results - last 24 hr 12/14/24 08:49 MCV 78.2 L MCH 26.5 L MCHC 33.9 RDW 13.6 Plt Count 417 H MPV 9.5 Absolute Nucleated RBC 0.000 Nucleated RBC % (auto) 0.0 Anion Gap 12 Estim Creat Clear Calc 54.3 Estimated GFR > 60 Random Glucose 95 Calcium 9.3 Microbiology Microbiology Results: Microbiology 12/12/24 16:19 Urine Culture - Final Urine clean catch - Clean Catch Midstream 12/12/24 16:42 Blood Culture - Preliminary Blood - Venous No growth after 24 hours. 12/12/24 16:42 Blood Culture - Preliminary Blood - Venous No growth after 24 hours. Assessment and Plan (1) Gastritis: Status: Acute Plan 64-year-old female with a past medical history of ulcerative colitis, fibromyalgia, prediabetes, chronic back pain, degenerative spine disease, anxiety, depression, ulcerative colitis, osteoporosis, anemia, shoulder pain, recent admission to the hospital for syncope, 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 Admitted for following Gastritis and colitis CT abdomen pelvis showed large ulceration of the mid stomach along the lesser curvature. Gastritis. Also focal colitis. Small volume abdominal ascites. Hepatic lesion measuring 1.8 cm. Likely secondary to chronic heavy NSAID use IV PPI GI consulted, plan on EGD and pouchoscopy later in the day NPO, bowel prep last night MONSTER, resolved Baseline creatinine around 0.8; creatinine on presentation is 1.4, now 0.89 Gentle IV fluids Avoid nephrotoxins Follow bmp Anemia: Hemoglobin around baseline. Recommended follow-up with PCP. Patient currently denies any signs of bleeding. Elevated troponin: Patient denies chest pain Troponin 75<--67 Echocardiogram suggestive of outflow tract obstruction with dynamic component suggestive of hypertrophic obstructive cardiomyopathy Cardiology consulted, will need outpatient workup including cardiac MRI, ETT as well as event monitor. Start on metoprolol XL 25mg daily Monitor on telemetry Right shoulder pain Possibly secondary to syncopal episode 1-2 weeks ago X-ray of shoulder negative for acute abnormality PT consult for possible outpatient PT Chronic hyponatremia Stable, at baseline Anxiety/depression: Continue home medications DVT prophylaxis: SCD boots Code status: Full code Quality Stroke Does the patient have a stroke diagnosis?: No VTE Prior VTE?: No VTE Risk Level:: Medical - moderate - high VTE Device Contraindication: N/A - Device Ordered VTE Drug Contraindication: N/A - Med Ordered
[2024-12-15] VITALS: BP 92/51; PULSE 72; RESP 18; TEMP 36.2; O2SAT 98
[2024-12-15 03:08] VITALS: BP 98/57; PULSE 69; RESP 18; TEMP 36.2; O2SAT 98
[2024-12-15 07:00] VITALS: BP 99/70; PULSE 84; RESP 18; TEMP 36.6; O2SAT 100
[2024-12-15 07:24] LABS: Hematocrit 28.0 % (37.0-47.0); Hemoglobin 9.3 g/dl (12.0-16.0); Mean Corpuscular HGB Conc 33.2 g/dl (31.0-35.0); Mean Corpuscular Hemoglobin 25.9 pg (27.0-33.0); Mean Corpuscular Volume 78.0 fL (80.0-98.0); NRBC Abs Auto 0.000 X10*3/uL (0.0-0.012); NRBC Pct Auto 0.0 /100WBC (0.0-0.2); Platelet Count 481 X10*3/uL (160-400); Red Blood Count 3.59 X10*6/uL (4.20-5.50); White Blood Count 7.5 X10*3/uL (4.8-10.8)
[2024-12-15] MEDS: Psyllium seed 3.7 GM PACKET PO ×2 (07:40→12:07)
[2024-12-15] MEDS: Metoprolol Succinate ER 25 MG TAB.ER.24H PO (08:01)
[2024-12-15] MEDS: Lidocaine 4 % Patch ADH..PATCH 1 PATCH TRANSDERMA (08:02)
[2024-12-15] MEDS: 0.9 % Sodium Chloride Flush 3 ML SYRINGE IVFLUSH (08:03)
[2024-12-15 08:54] VITALS: BP 99/70; PULSE 84; O2SAT 100
[2024-12-15 11:02] VITALS: BP 105/72; PULSE 85; RESP 18; TEMP 36.8; O2SAT 100
[2024-12-15] MEDS: Milk of Magnesia 30 ML ORAL.SUSP PO (12:19)
--- NOTE | 2024-12-15 13:37 | MHC.CM.PN ---
Addendum entered by Juliet Perez 12/15/24 16:21: New PCP appointment with Dr. Tika Reed on December 26 at 11am. Addendum entered by Juliet Perez 12/15/24 15:33: New HCP completed with pt, now on file. Original Note: Pt is medically cleared for discharge with [facility] and resumption of [facility] services, she will transport home via lyft today.
--- NOTE | 2024-12-15 14:57 | P.DS_ITS ---
DS: Providers Provider Date of Service: 12/15/24 Date of admission: 12/12/24 18:40 Date of discharge: 12/15/24 Primary care physician: ELVI Tolentino Consults: 12/12/24 23:30 Consult to Cardiology Routine Consulting Provider[place] [facility] [place] Reason for consultation: elevated troponin Consult to Gastroenterology Routine Consulting Provider: [facility] [place] [facility] Reason for consultation: large gastric ulcer DS: Diagnosis Discharge Diagnosis (1) Gastritis: Status: Acute DS: Summary Hospital Course Hospital Course: From admission HPI: Date of Service: 12/12/24 Chief Complaint: Poor intake 64-year-old female with a past medical history of ulcerative colitis, fibromyalgia, prediabetes, chronic back pain, degenerative spine disease, anxiety, depression, ulcerative colitis, osteoporosis, anemia, shoulder pain, recent admission to the hospital for syncope, 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 Patient mentioned that over the past 4 days she has been not feeling well. Has been having abdominal discomfort and not eating well. Has had decreased appetite. Denies any falls or injury prior coming to the hospital. Denies any chest pain or palpitations. Denies any urinary symptoms. Review of all other systems is negative except mentioned above ER course: Per ER team, patient reported having an episode of near-syncope. EKG nonischemic. Troponins indeterminate and plateaued. On labs noted to have slightly elevated creatinine of 1.4. Sodium level was 132. CT abdomen pelvis showed findings concerning for gastritis. Urinalysis abnormal consistent UTI. Given ceftriaxone. Hospital course: Pt was admitted to the hospital for erosive gastritis, focal colitis, and MONSTER in setting of nausea, vomiting, and poor p.o. intake. Pt was treated with IVF and MONSTER resolved. For gastritis and colitis, pt was treated with IV Protonix and underwent EGD and colonoscopy which found deep gastric ulcer and small bowel superficial ulcerations likely secondary to NSAID use; Crohn's disease less likely. Recommendation was to stop NSAIDs, start omeprazole 40 mg b.i.d., repeat EGD and pouchoscopy in 3-6 months, and check gastrin level. Biopsies were taken from both upper and lower tracts; pt should follow up outpatient with Dr. Adan in GI and 1-2 weeks for biopsy and gastrin level results. Pt also seen and evaluated by Cardiology for mildly elevated but flat troponins. Underwent repeat echocardiogram that was suggestive of outflow track obstruction with dynamic component suggestive of hypertrophic obstructive cardiomyopathy. Pt was started on metoprolol 25 mg ER daily with additional recommendations for outpatient cardiac MRI, ET, and event monitor. Pt should follow up in 2-[address] Do in Cardiology. Pt also complained of right shoulder pain possibly secondary to fall some weeks ago. X-ray of shoulder negative. Was seen evaluate physical therapy who recommended home PT as well as VNA services. Pt should resume all other home medications and follow up with PCP in 1 week for routine post-hospitalization visit. Time Attestation Discharge Coordination Time (in mins): 32 Quality: Safe Use of Opioids Does Pt have an Active Cancer Diagnosis on the Problem List?: No Quality: Stroke Does the patient have a stroke diagnosis?: No Physical Exam Exam: Exam: General: AOx3, no acute distress Resp: CTA bilaterally CVS: S1, S2, RRR GI: Soft, NT, no distention Skin: Warm, dry Neuro: Cranial nerves II-XII grossly intact bilaterally. Motor grossly intact bilaterally Extremities: No edema Psych: Anxious, sometimes difficult to redirect. Tends to perseverate on chronic issues. Vital Signs: Vital Signs: Last Vital Signs Temp 98.3 F 12/15/24 11:02 Pulse 85 12/15/24 11:02 Resp 18 12/15/24 11:02 BP 105/72 12/15/24 11:02 Pulse Ox 100 12/15/24 11:02 O2 Del Method Room Air 12/15/24 11:02 BMI result Body Mass Index 19.6 DS: Data Data Completed and Pending Pending studies at discharge: Pending at discharge 12/14/24 13:48 Surgical [PTH] Routine Labs on day of discharge: Laboratory Results - last 24 hr 12/13/24 12/15/24 07:45 07:11 WBC 7.5 RBC 3.59 L Hgb 9.3 L Hct 28.0 L MCV 78.0 L MCH 25.9 L MCHC 33.2 RDW 13.9 Plt Count 481 H MPV 9.2 L Absolute Nucleated RBC 0.000 Nucleated RBC % (auto) 0.0 Stool H. pylori Ag SEE NOTE Preliminary micro results at discharge 12/12/24 16:42 Blood Culture - Preliminary Blood - Venous No growth after 48 hours. 12/12/24 16:42 Blood Culture - Preliminary Blood - Venous No growth after 48 hours. Discharge Plan Discharge Anticipated Discharge Date/Time: 12/15/24 12:42 Patient Disposition: Home Health Service Discharge Diagnosis: Erosive gastritis Referrals: Sherry Amin [Outside] - 1 Week Osman Adan MD [Physician, Gastroenterology] - 1 Week Referral Note: Gastritis Tika Reed PA [Primary Care Provider, Internal Medicine] - 1 Week Gabino Do MD [Physician, Cardiology] - 1 Week Referral Note: HOCM Discharge Medications: New metoprolol succinate [Toprol XL] 25 mg tablet extended release 24 hr 25 mg PO DAILY Qty: 90 0RF acetaminophen 325 mg capsule 975 mg PO TID Qty: 90 0RF Rx Instructions: Take up to 3 capsules 3 times a day for chronic back pain omeprazole 40 mg capsule,delayed release(DR/EC) 40 mg PO BID Qty: 120 0RF Rx Instructions: Take one capsule twice a day Continued buspirone 15 mg tablet 15 mg PO QID Qty: 180 3RF gabapentin 300 mg capsule 300 mg PO QID Qty: 360 3RF lorazepam 0.5 mg tablet 0.5 mg PO QID PRN (Reason: anxiety) Qty: 112 1RF triamcinolone acetonide 0.1 % cream 1 appl topical MO PRN (Reason: psoriasis) pqiauqco-eezjwvw-isyd-lutein Tablet 1 tab PO DAILY cholecalciferol (vitamin D3) [Vitamin D3] 25 mcg (1,000 unit) Tablet 25 mcg PO DAILY Hydrocil Instant Packet 1 packet PO DAILY Qty: 30 0RF ibuprofen 200 mg Tablet 800 mg PO Q4H PRN (Reason: Fever Or Pain) lidocaine [Lidocaine Pain Relief] 4 % adhesive patch,medicated 1 patch transdermal DAILY PRN (Reason: Pain) Protocol: Apply to: Apply to: R shoulder Discharge Orders: Discharge Order (Routine); Ordered 12/15/24 Ordered By: Dayna Sandoval Activity on Discharge: As tolerated Stand Alone Forms: Patient Portal Discharge page Print Language: Korean Care Plan Goals: See below Health Concerns: Gastritis Prolonged NSAID use Shoulder pain Failure to thrive Elevated troponins Hypertrophic obstructive cardiomyopathy Plan of Treatment: You were admitted to the hospital for erosive gastritis, focal colitis, and MONSTER in the setting of nausea, vomiting, and poor intake. You were treated with IV fluids and MONSTER resolved. You were also treated with IV Protonix for gastritis and colitis. You were seen and evaluated GI and underwent both EGD and colonoscopy. Upper endoscopy showed deep gastric ulceration likely secondary to chronic NSAID/ibuprofen use. Pouchoscopy showed superficial ulcerations likely secondary from NSAID use, not from Crohn's. Biopsies were taken and still pending. You were also seen and evaluated by Cardiology for elevated troponins. You underwent an echocardiogram which showed possible hypertrophic obstructive cardiomyopathy, for which you restarted on metoprolol ER 25 mg daily You were also seen and evaluated by Physical therapy and will be sent home with VNA and PT services. -- for gastritis and colitis, avoid all NSAIDs including ibuprofen -- take omeprazole 40 mg twice a day for at least the next 8 weeks or until GI follow up -- repeat EGD and pouchoscopy in 3-6 months -- follow up with Dr. Adan in GI in 1-2 weeks for biopsy and gastrin level results -- take metoprolol 25mg ER daily for hypertrophic obstructive cardiomyopathy -- follow up with Dr. Do in Cardiology in 1-2 weeks -- you need outpatient cardiac workup including cardiac MRI, EEG, and event monitor -- resume all of your other home medications -- follow up with your PCP in 1 week for routine post-hospitalization visit Assessment: See discharge summary Patient Instructions: Dehydration (ED)
--- NOTE | 2024-12-15 15:43 | P.F2F_ITS ---
Service Date Service Date: 12/15/24 Encounter Date of encounter: 12/15/24 Reasons for Services Signs and symptoms assessed: Difficulty with ambulation, chronic lower back pain, right shoulder pain, high anxiety. Reason for [facility]: medication management Reason for physical therapy: home safety and mobility and restore joint function Homebound: Leaving the home is medically contraindicated at this time without the asist of a device and/or another person due th the listed conditions above and below. Reason homebound: unsteady gait / fall risk and poor balance / fall risk Certification: Based on the above findings, I certify that this patient is confined to the home and needs intermittent [facility] care, physical therapy and/or speech therapy, or continues to need occupational therapy. The patient is under my care, and I have initiated the establishment of the plan of care. The patient will be followed by a physician who will periodically review the plan of care. Time Spent With Patient Time: Total time managing care of this patient today ____ minutes.
[2024-12-15 15:47] VITALS: BP 119/71; PULSE 92; RESP 20; TEMP 36.4; O2SAT 100
== END 2024-12-15 16:00 | disposition home health service (06) ==
LOC: HO.ED 16:10 → HO.EDOVER 19:07 → HO.IMC 23:43
PROVIDERS: Emergency Medicine; Hospitalist; Internal Medicine Gastroenterology; Admitting Provider Internal Medicine; Emergency Provider Emergency Medicine Emergency Medical Services; PCP Physician Assistant Medical; Visit Provider Student in an Organized Health Care Education/Training Program
PROC: (CPT 44386; principal; 2024-12-14 14:10)
DX: K29.70 Gastritis, unspecified, without bleeding (principal); R00.0 Tachycardia, unspecified; E86.0 Dehydration; R11.2 Nausea with vomiting, unspecified; R19.7 Diarrhea, unspecified; M25.511 Pain in right shoulder; N17.9 Acute kidney failure, unspecified; D64.9 Anemia, unspecified; E87.1 Hypo-osmolality and hyponatremia; I42.1 Obstructive hypertrophic cardiomyopathy; M54.9 Dorsalgia, unspecified; R79.89 Other specified abnormal findings of blood chemistry; K51.90 Ulcerative colitis, unspecified, without complications; R63.1 Polydipsia; F41.8 Other specified anxiety disorders; R63.4 Abnormal weight loss; Z68.1 Body mass index [BMI] 19.9 or less, adult; Z79.899 Other long term (current) drug therapy
CPT/HCPCS: 44386; 43239; 36415; 73030; 74176; 80048; 80053; 80307; 81001; 82248; 82550; 82941; 83605; 83735; 84484; 85025; 85027; 87040; 87086; 87338; 87493; 87507; 88305; 88313; 88342; 93005; 93306; 93308; 96361; 96372; 96374; 96375; 96376; 97161; 99222; 99285; J0696; J1171; J1644; J2470; J2704; J7120; Q9957

== ENCOUNTER → 2024-12-12 15:38 | Outpatient (BNV) | payer OTHER, SELFPAY | PROVIDERS: Emergency Provider Emergency Medicine Emergency Medical Services; PCP Physician Assistant Medical; Visit Provider Radiology Diagnostic Radiology | DX: K25.9 Gastric ulcer, unspecified as acute or chronic, without hemorrhage or perforation (principal); K63.89 Other specified diseases of intestine; R18.8 Other ascites; K76.89 Other specified diseases of liver | CPT/HCPCS: 74176 ==

== ENCOUNTER 2024-12-12 18:40 | Outpatient (BNV) | payer OTHER, SELFPAY | END 2024-12-13 07:00 | PROVIDERS: Admitting Provider Internal Medicine; Emergency Provider Emergency Medicine Emergency Medical Services; PCP Physician Assistant Medical; Visit Provider Internal Medicine Cardiovascular Disease | DX: I42.1 Obstructive hypertrophic cardiomyopathy (principal); I51.89 Other ill-defined heart diseases | CPT/HCPCS: 93308 ==

== ENCOUNTER 2024-12-12 18:40 | Outpatient (BNV) | payer OTHER, SELFPAY | END 2024-12-13 13:03 | PROVIDERS: Admitting Provider Internal Medicine; Emergency Provider Emergency Medicine Emergency Medical Services; PCP Physician Assistant Medical; Visit Provider Radiology Diagnostic Radiology | DX: M25.511 Pain in right shoulder (principal) | CPT/HCPCS: 73030 ==

== ENCOUNTER → 2024-12-12 18:40 | Outpatient (BNV) | payer OTHER, SELFPAY | PROVIDERS: Admitting Provider Internal Medicine; Emergency Provider Emergency Medicine Emergency Medical Services; PCP Physician Assistant Medical; Visit Provider Student in an Organized Health Care Education/Training Program | DX: K29.70 Gastritis, unspecified, without bleeding (principal); N17.9 Acute kidney failure, unspecified | CPT/HCPCS: 99223; 99233 ==

== ENCOUNTER → 2024-12-12 18:40 | Outpatient (BNV) | payer OTHER, SELFPAY | PROVIDERS: Admitting Provider Internal Medicine; Emergency Provider Emergency Medicine Emergency Medical Services; PCP Physician Assistant Medical; Visit Provider Internal Medicine Gastroenterology | DX: K29.70 Gastritis, unspecified, without bleeding (principal) | CPT/HCPCS: 99223 ==

== ENCOUNTER → 2024-12-12 18:40 | Outpatient (BNV) | payer OTHER, SELFPAY | PROVIDERS: Admitting Provider Internal Medicine; Emergency Provider Emergency Medicine Emergency Medical Services; PCP Physician Assistant Medical; Visit Provider Internal Medicine Cardiovascular Disease | DX: R79.89 Other specified abnormal findings of blood chemistry (principal); R00.0 Tachycardia, unspecified | CPT/HCPCS: 93010; 99222 ==

== ENCOUNTER 2024-12-19 15:34 | Outpatient (AMB) | payer OTHER, SELFPAY ==
--- NOTE | 2024-12-19 18:31 | MHC.OFFVIS ---
Intake Visit Reasons: dizziness/fogginess Allergies amoxicillin (AMOXICILLIN) Allergy (Intermediate, Verified 12/12/24 14:51) HIVES Medication List - Last Reconciled 12/19/24 by ELVI Tolentino acetaminophen 975 mg (3 x 325 mg) PO TID buspirone 15 mg PO QID cholecalciferol (vitamin D3) (Vitamin D3) 25 mcg PO DAILY gabapentin 300 mg PO QID ibuprofen 800 mg PO Q4H PRN lidocaine 4% (Lidocaine Pain Relief) 1 patch See Protocol transdermal DAILY PRN lorazepam 0.5 mg PO QID PRN metoprolol succinate ER (Toprol XL) 25 mg PO DAILY uvxhumez-wzcrniu-bstv-lutein 1 tab PO DAILY omeprazole 40 mg PO BID psyllium (Hydrocil Instant oral packet) 1 packet PO DAILY triamcinolone acetonide 0.1% 1 appl topical MO PRN HPI Comments Details: This visit was conducted via Telemedicine by phone. The patient Ana Weller has consented to the visit to be held via phone. The location of the patient: at home in [place]. The location of the provider: [facility] Chief complaint/reason for visit:Dizziness The names of all persons participating in the telemedicine service and their role in the encounter: Tika Reed PA-C, Provider, Ana Mainpetersonalexandra, Patient. Relevant history, background, and/or results: 64 year old female with PreDM, HTN, Ulcerative colitis, Chronic pain, MDD and anxiety for IP follow up by phone. She was IP 12/12-12/15 with Gastritis, dehydration and MONSTER. She states she has not been feeling well since she went home. She states [facility] came to her house. They told her the swelling in her legs was concerning and that she needed a follow up with PCP and cardiology. Patient states she told them she has transporation issues and is not feeling well. She was told they would be discharging her because she is not willing to go for appointments. She has arranged transportation and has an appointment on 12/27. She has been getting meals on wheels. She was started on Metoprolol 25mg which she has been taking in the am. She has been feeling tired and dizzy after taking her medication. She states that she has been drinking electrolyte fluids and water. She needs a follow up with Cardiology for further testing and GI for follow up. [facility] Medical History (Updated 12/19/24 @ 18:52 by ELVI Tolentino) Anxiety Chronic back pain Depression Edema AMADO (generalized anxiety disorder) HTN (hypertension) MDD (major depressive disorder), recurrent episode, moderate Surgical History H/O total colectomy Family History Mother No problems noted. Father No problems noted. Social History Household Members: None Housing: Apartment Are you a primary care professional to a significant other at home: No Do you presently have visiting nurse or other home services: No Unable to assess alcohol history related to: Unknown Alcohol intake: never Comment: refusing bed alarm Patient Tobacco Use Status: Former Tobacco user Tobacco use type: Cigarette Cigarettes Per Day: 2 Years Smoked: 30 e-Cigarette/Vaping Use: Former Use Second Hand Smoke Exposure: No service: No Current occupational status: disabled Sexual orientation: Straight/Heterosexual Cognitive needs: Yes (walker) Hearing needs: No Vision needs: Yes (reading glasses) Assessment & Plan Assessment & Plan (1) Elevated troponin: Code(s): R79.89 - Other specified abnormal findings of blood chemistry Category: Medical Plan: Patient to call cardiology for follow up (2) Gastritis: Code(s): K29.70 - Gastritis, unspecified, without bleeding Category: Medical Qualifiers: Gastritis type: unspecified gastritis Chronicity: unspecified Gastritis bleeding: presence of bleeding unspecified Qualified Code(s): K29.70 - Gastritis, unspecified, without bleeding Plan: Patient to call GI for follow up (3) Dizziness: Code(s): R42 - Dizziness and giddiness Plan: Patient advised to change Metoprolol to bedtime. Continue fluids. Patient to follow up as needed if symptoms persist or worsen (4) Edema: Code(s): R60.9 - Edema, unspecified Category: Medical Plan: Patient to elevate legs. Patient to follow up as needed if symptoms persist or worsen Plan Assessment/Plan as follows: Gastritis- Patient to call GI for follow up Elevated Treponin- Patient to call cardiology for follow up Dizziness- Patient advised to change Metoprolol to bedtime. Continue fluids. Patient to follow up as needed if symptoms persist or worsen Edema in legs- Patient to elevate legs. Patient to follow up as needed if symptoms persist or worsen. Total time spent on medical discussion: 25 min I spent 10 min on chart review, history, counseling, medical decision making, medication reconciliation, patient education, ordering testing, referrals and arranging follow up. Coding Level of Care Code Established Pt Tele Est Pt Level 4 (56598) Patient Type Established Diagnoses Elevated troponin R79.89 Gastritis, presence of bleeding unspecified, unspecified chronicity, unspecified gastritis type K29.70 Gastritis type: unspecified gastritis Chronicity: unspecified Gastritis bleeding: presence of bleeding unspecified Dizziness R42 Edema R60.9 Time Spent (min) 35
--- OUTSIDE RECORDS SUMMARY | 2024-12-19 18:53 | XMS_ITS | Clinical Summary ---
Author Organization [facility] Facility Address [address] [place] [id number] Care Team Providers Care Varnish Supervisor Name Role Phone Unavailable Primary Care Provider [...] age to complete this topic Insurance Medicaid [facility] Medicaid
--- OUTSIDE RECORDS SUMMARY | 2024-12-19 18:53 | XMS_ITS | Patient Health Record ---
Author Organization [facility] Address [address] [place] [id number] Care Team Providers Care Industrial Machine Assembler Name Role Phone Talat Nguyen MD Primary Care Provider Rafael Waldron [phone] Reason For Referral No Information Plan Of Treatment No Information
== END 2024-12-19 16:35 | disposition home or self-care (01) ==
LOC: HO.HMCHD 15:34
PROVIDERS: PCP Physician Assistant Medical; Visit Provider Physician Assistant Medical
DX: R79.89 Other specified abnormal findings of blood chemistry (principal); K29.70 Gastritis, unspecified, without bleeding; R42 Dizziness and giddiness; R60.9 Edema, unspecified

== ENCOUNTER 2025-01-02 14:02 | Outpatient (AMB) | payer OTHER, SELFPAY ==
--- NOTE | 2025-01-02 08:19 | A.OFFPC_ITS ---
Vital Signs 01/02/25 14:19 Height 5 ft 2 in Weight 114 lb BMI 20.8 BP 120/70 Blood Pressure Location Rt brachial Position Sitting Pulse 77 Pulse Source Pulse Oximeter Temp 98.4 F Temp Source Temporal Artery Scan Pulse Oximetry (%) 98 Oxygen Delivery Method Room Air Intake Visit Reasons: f/u hospital discharge 12/15 Electric Tool Repairer Required: No Accompanied by: Self / Same As Patient Allergies amoxicillin (AMOXICILLIN) Allergy (Intermediate, Verified 01/02/25 08:19) HIVES Medication List - Last Reconciled 01/02/25 by ELVI Tolentino acetaminophen 975 mg (3 x 325 mg) PO TID buspirone 15 mg PO QID cholecalciferol (vitamin D3) (Vitamin D3) 25 mcg PO DAILY gabapentin 300 mg PO QID lorazepam 0.5 mg PO BID PRN metoprolol succinate ER (Toprol XL) 25 mg PO DAILY ayvrmyjn-npwqely-woyp-lutein 1 tab PO DAILY omeprazole 40 mg PO BID psyllium (Hydrocil Instant oral packet) 1 packet PO DAILY triamcinolone acetonide 0.1% 1 appl topical MO PRN Tobacco use date assessed: 01/02/25 Dental Screening Dental Screen Date: 01/02/25 Did you have a dental visit in the last 12 months?: Yes Did you have a dental problem in the last 6 months where you did not have access to dental care?: No HPI HPI Comments History of Present Illness Details The patient is a 64-year-old female with Ulcerative Colitis, HTN, PreDM, hypertrophic obstructive cardiomyopathy, MDD/Anxiety, chronic low back pain, Fibromyalgia presenting for IP follow up. She was IP 12/12-12/15 for a gastric ulcer. She states that since she has been home her appetite has been improving and her dizziness has gotten less but is not gone. She has been working with [facility] and home care agencies. The patient reports experiencing chronic pain, which she manages with medications including gabapentin and Tylenol. She also experiences bowel incontinence, which has been ongoing and is managed with dietary adjustments and medications. The patient was found to have a gastric ulcer, for which she is taking pantoprazole. She has not yet scheduled a follow-up appointment with her commercial real estate appraiser, Dr. Adan, but plans to do so. The patient has been experiencing dizziness, which she attributes to changes in her routine and possibly her medications. She has adjusted her daily activities to manage these symptoms, including using a walker for stability. The patient also reports a history of fibromyalgia, which she believes is exacerbated by stress. She is currently taking lorazepam at night to help with sleep and manage anxiety. The patient has a history of hypertension, for which she is Metoprolol. She is also taking buspirone for anxiety management. She needs refills of medication. Patient was informed and verbally consented to the use of an ambient scribe for clinic note documentation during this visit. [facility] Medical History (Updated 01/02/25 @ 18:05 by ELVI Tolentino) Anemia Anxiety Chronic back pain Depression Dizziness Edema Elevated troponin AMADO (generalized anxiety disorder) HTN (hypertension) Hypertrophic obstructive cardiomyopathy MDD (major depressive disorder), recurrent episode, moderate Surgical History H/O total colectomy Family History (Updated 01/02/25 @ 14:25 by Enriqueta Rodriguez MA) Mother No problems noted. Father No problems noted. Other Substance abuse Social History Household Members: None Housing: Apartment Are you a primary acute care surgeon to a significant other at home: No Do you presently have visiting nurse or other home services: No Alcohol intake: never Comment: refusing bed alarm Patient Tobacco Use Status: Former Tobacco user Tobacco use type: Cigarette Cigarettes Per Day: 2 Years Smoked: 30 Packs per year/per ci.00 e-Cigarette/Vaping Use: Former Use Second Hand Smoke Exposure: No service: No Current occupational status: disabled Sexual orientation: Straight/Heterosexual Cognitive needs: Yes (walker) Hearing needs: No Vision needs: Yes (reading glasses) Questionnaire PHQ-9 Over the last 2 weeks, how often have you been bothered by any of the following problems? 1. Little interest or pleasure in doing things: not at all 2. Feeling down, depressed, or hopeless: not at all 3. Trouble falling or staying asleep, or sleeping too much: not at all 4. Feeling tired or having little energy: not at all 5. Poor appetite or overeating: not at all 6. Feeling bad about yourself - or that you are a failure or have let yourself or your family down: not at all 7. Trouble concentrating on things, such as reading the newspaper or watching television: not at all 8. Moving or speaking so slowly that other people could have noticed. Or the opposite - being so fidgety or restless that you have been moving around a lot more than usual: not at all 9. Thoughts that you would be better off or of hurting yourself in some way: not at all Total score: 0 Depression Screening Interpretation: Negative Depression Screening Done: Yes Source: Developed by Drs. Rafael Reynolds, Kimberly La, Ebenezer Cooper and colleagues, with an educational rodrigo from [employer]. Thrive Questionnaire Date Thrive assessed: 01/02/25 I am a: Patient Within the past 12 months, did the food you bought not last and you didn't have the money to get more?: Never true Within the past 12 months, did you worry whether your food would run out before you got money to buy more?: Never true Do you have trouble paying for medicines?: No Do you have trouble getting transportation to medical appointments?: No Do you have trouble paying your heating and electricity bill?: No Do you have trouble taking care of your child, family member or friend?: No Do you have trouble with day-to-day activities such as bathing, preparing meals, shopping, managing finances, etc.?: No Are you currently unemployed and looking for a job?: No Are you interested in more education?: No THRIVE Score: 0 AUDIT C Alcohol Use Questionnaire (AUDIT-C) 1. How often do you have a drink containing alcohol?: Never 3. How often do you have six or more drinks on one occasion?: Never Total Score: 0 AMADO-7 AMB Questionnaire AMADO-7 Date AMADO - 7 assessed: 01/02/25 Feeling nervous, anxious, or on edge: 0 = Not at all Not being able to stop or control worryin = Not at all Worrying too much about different things: 0 = Not at all Trouble relaxin = Not at all Being so restless that it is hard to sit still: 0 = Not at all Becoming easily annoyed or irritable: 0 = Not at all Feeling afraid as if something awful might happen: 0 = Not at all Total AMADO-7 score (0-4 normal; 5-9 mild; 10-14 moderate; 15-21 severe): 0 Source: Developed by Drs. Rafael Reynolds, Kimberly La, Ebenezer Cooper and colleagues, with an educational rodrigo from [employer]. Review of Systems Const Details: CONSTITUTIONAL Negative HEAD/NECK Reports dizziness, denies headaches. RESPIRATORY Negative CARDIOVASCULAR Negative GASTROINTESTINAL No abdominal pain Reports bowel incontinence and constipation. MUSCULOSKELETAL Reports chronic pain, denies swelling in ankles NEUROLOGICAL Negative PSYCHIATRIC Reports anxiety and insomnia. Physical exam (Primary Care) Vital Signs: Last Vital Signs Temp 98.4 F 01/02/25 14:19 Pulse 77 01/02/25 14:19 BP 120/70 01/02/25 14:19 Pulse Ox 98 01/02/25 14:19 Oxygen Delivery Method Room Air 01/02/25 14:19 BMI result Body Mass Index 20.8 GENERAL Well developed, Well nourished, in no apparent distress HEENT Head-Normocephalic Eyes- PERRLA, EOMI, Conjuctiva clear, lids WNL Ears- Canals clear, TMs WNL Mouth/Throat-No lesions, no erythema, no exudate Neck- Supple, No lymphadenopathy, thyroid WNL RESPIRATORY Normal I:E, Clear to auscultation CARDIOVASCULAR Regular, rate and rhythm, No murmurs or rubs GASTROINTESTINAL Soft, nontender, normal bowel sounds, no masses MUSCULOSKELETAL Back- nontender Joints- no pain swelling or deformity NEUROLOGICAL Gait normal PSYCHIATRIC Oriented to person, place and time Mood and affect anxiety Appearance WNL Speech WNL Thought processes WNL Tobacco/Smoking Status: Tobacco use Status Tobacco use date assessed 01/02/25 01/02/25 08:20 Patient Tobacco Use Status Former Tobacco user 01/02/25 08:20 Tobacco use type Cigarette 01/02/25 08:20 e-Cigarette/Vaping Use Former Use 01/02/25 08:20 PHQ-9: PHQ-9 Score PHQ-9: Total score 0 01/02/25 14:26 Depression Screening Interpretation: Negative Thrive Assessment: Date of Thrive Assessment Date Thrive assessed 01/02/25 01/02/25 08:20 Coding Level of Care Code Established Pt Est Pt Level 4 (71239) Patient Type Established Diagnoses Gastric ulcer K25.9 Gastric ulcer chronicity: acute Dizziness R42 AMADO (generalized anxiety disorder) F41.1 Fibromyalgia M79.7 Primary hypertension I10 Hypertension type: primary hypertension Time Spent (min) 35 Comment Time spent on Chart review, medication reconciliation, H&P, patient education and orders Assessment & Plan Assessment & Plan (1) Gastric ulcer: Code(s): K25.9 - Gastric ulcer, unspecified as acute or chronic, without hemorrhage or perforation Qualifiers: Gastric ulcer chronicity: acute Plan: The patient is taking pantoprazole and is advised to schedule a follow-up ap pointment with her commercial real estate appraiser, Dr. Adan. (2) Dizziness: Code(s): R42 - Dizziness and giddiness Category: Medical Plan: The patient reports dizziness, which may be related to her medication or changes in routine. She is advised to continue using her walker for stability and to monitor her symptoms. (3) AMADO (generalized anxiety disorder): Code(s): F41.1 - Generalized anxiety disorder Category: Medical Plan: The patient is taking buspirone for anxiety management and is advised to continue her current medication regimen. Patient will continue current medications. Will monitor. Patient will follow up in 2-3 months. (4) Fibromyalgia: Code(s): M79.7 - Fibromyalgia Category: Medical Plan: The patient reports a history of fibromyalgia, which she believes is exacerbated by stress. She is advised to manage stress levels and continue her current medication regimen. (5) HTN (hypertension): Comment: BP today was 120/70 Code(s): I10 - Essential (primary) hypertension Category: Medical Qualifiers: Hypertension type: primary hypertension Qualified Code(s): I10 - Essential (primary) hypertension Plan: The patient is on metoprolol for hypertension and is advised to continue her current treatment plan. Patient will continue current medications. Will monitor. Patient will follow up in 3 months Plan During the visit, we discussed the patient's ongoing management of chronic pain, bowel incontinence, and gastroesophageal reflux disease. The importance of follow-up with the commercial real estate appraiser was emphasized, and the patient was advised to continue her current medication regimen for anxiety and insomnia. We also discussed the need for a flu shot, which will be addressed at a future visit due to clinic relocation. Medications: Changed From lorazepam 0.5 mg PO QID PRN 112 tabs 1RF anxiety To lorazepam 0.5 mg PO BID PRN 60 tabs 1RF anxiety Refilled gabapentin 300 mg PO QID 360 caps 3RF buspirone 15 mg PO QID 180 tabs 3RF metoprolol succinate ER (Toprol XL) 25 mg PO DAILY 90 tabs 1RF Patient Instructions: - Continue taking gabapentin and Tylenol for pain management. - Follow up with commercial real estate appraiser Dr. Adan for bowel incontinence and gastroesophageal reflux disease management. - Use walker for stability to manage dizziness. - Continue taking lorazepam at night for sleep and anxiety management. - Schedule a flu shot at the next available opportunity.
[2025-01-02 14:19] VITALS: BP 120/70; PULSE 77; TEMP 36.9; O2SAT 98; BMI 20.8
--- OUTSIDE RECORDS SUMMARY | 2025-01-02 15:24 | XMS_ITS | Patient Health Record ---
Author Organization [facility] Address [address] [place] [id number] Care Team Providers Care Warehouse Shipper Name Role Phone Talat Nguyen MD Primary Care Provider Rafael Waldron [phone] Reason For Referral No Information Plan Of Treatment No Information
--- OUTSIDE RECORDS SUMMARY | 2025-01-02 15:24 | XMS_ITS | Clinical Summary ---
Author Organization [facility] Address [address] [place] [id number] Care Team Providers Care Pattern Molder Name Role Phone Unavailable Primary Care Provider [...] age to complete this topic Insurance Medicaid [facility] Medicaid
--- OUTSIDE RECORDS SUMMARY | 2025-02-13 20:00 | XMS_ITS | Clinical Summary ---
Author Organization Unknown Care Team Providers Care Clearing House Clerk Name Role Phone PASSER AUREA BOLES Unavailable Unavailable ASHU ARIZMENDI, GUILLERMO Unavailable Unavailable Payers Payer Name Policy Type Policy Number Effective Date Expira tion Date [facility] [place] [id number] [place] [id number] Problems Condition Name Condition Details Condition Category Status Onset Date Resolution Date Last Treatment Date Treating Clinician Comments OTHER SPECIFIED ANXIETY DISORDERS Active 12-12 00:00: 00 Allergies, Adverse Reactions, Alerts Allergy Name Allergy Type Status Severity Reaction(s) Onset Date Inactive Date Treating Clinician Comments AMOXICILLIN Propensity to adverse reactions Active 12-17 11:09: 21 Vital Signs Vital Name Observation Time Observation Value Commen ts BMI (%) 2024-12-17 11:06:00.000 20 kg/m2 Height 2024-12-17 11:06:00.000 62 [in_us] Pulse 2024-12-18 12:28:00.000 74 /min Pulse 2024-12-17 11:06:00.000 89 /min O2 Saturation (%) 2024-12-18 12:28:00.000 99 % O2 Saturation (%) 2024-12-17 11:06:00.000 99 % Respirations 2024-12-18 12:28:00.000 20 /min Respirations 2024-12-17 11:06:00.000 20 /min Weight (lbs) 2024-12-17 11:06:00.000 110 [lb_av] Systolic Blood Pressure 2024-12-18 12:28:00.000 108 mm [Hg] Systolic Blood Pressure 2024-12-17 11:06:00.000 124 mm [Hg] Diastolic Blood Pressure 2024-12-18 12:28:00.000 82 mm [Hg] Diastolic Blood Pressure 2024-12-17 11:06:00.000 74 mm [Hg] Plan of Treatment Planned Activity Planned Date Details Comments Future Scheduled Test SKILLED NU RSE TO EVALUATE PATIENT, IDENTIFY PRIMARY AND CO-MORBID CONDITIONS CODED PER CODING GUIDELINES, AND DEVELOP PATIENT SPECIFIC PLAN OF CARE THAT INCLUDES PATIENT GOAL FOR HOME HEALTH. [code = SKILLED NURSE TO EVALUATE PATIENT, IDENTIFY PRIMARY AND CO-MORBID CONDITIONS CODED PER CODING GUIDELINES, AND DEVELOP PATIENT SPECIFIC PLAN OF CARE THAT INCLUDES PATIENT GOAL FOR HOME HEALTH.] Future Scheduled Test SKILLED NU RSE WILL MAINTAIN SITUATIONAL AWARENESS FOR SAFETY AND WILL NOTIFY CLINICAL CONTINUOUS PROCESS COFFEE ROASTER AND PHYSICIAN/PROVIDER WITH ANY CHANGE IN CONDITION. [code = SKILLED NURSE WILL MAINTAIN SITUATIONAL AWARENESS FOR SAFETY AND WILL NOTIFY CLINICAL CONTINUOUS PROCESS COFFEE ROASTER AND PHYSICIAN/PROVIDER WITH ANY CHANGE IN CONDITION.] Future Scheduled Test SKILLED NU RSE TO O/A OF PATIENTS MENTAL/BEHAVIORAL STATUS, ASSESS VITAL SIGNS 3WK8 ALLOW 2 PRNS FOR MEDICATION MANAGEMENT. [code = SKILLED NURSE TO O/A OF PATIENTS MENTAL/BEHAVIORAL STATUS, ASSESS VITAL SIGNS 3WK8 ALLOW 2 PRNS FOR MEDICATION MANAGEMENT.] Future Scheduled Test SKILLED NU RSE FOR O/A OF GENERAL HEALTH STATUS OF PAIN, CARDIAC, RESPIRATORY, GASTROINTESTINAL, GENITOURINARY, SKIN, NEUROLOGIC, ENDOCRINE SYSTEMS TO IDENTIFY CHANGES ASSOCIATED WITH EXACERBATION FOR EARLY INTERVENTION OF COMPLICATIONS WEEKLY [code = SKILLED NURSE FOR O/A OF GENERAL HEALTH STATUS OF PAIN, CARDIAC, RESPIRATORY, GASTROINTESTINAL, GENITOURINARY, SKIN, NEUROLOGIC, ENDOCRINE SYSTEMS TO IDENTIFY CHANGES ASSOCIATED WITH EXACERBATION FOR EARLY INTERVENTION OF COMPLICATIONS WEEKLY] Future Scheduled Test SKILLED NU RSE TO REVIEW PATIENT MEDICATIONS. INSTRUCT PATIENT/CAREGIVER ON MONITORING OF EFFECTIVENESS, ADVERSE DRUG REACTIONS, SIDE EFFECTS OF ALL MEDICATIONS (PRESCRIPTION/-OTC), AND HOW AND WHEN TO REPORT PROBLEMS. [code = SKILLED NURSE TO REVIEW PATIENT MEDICATIONS. INSTRUCT PATIENT/CAREGIVER ON MONITORING OF EFFECTIVENESS, ADVERSE DRUG REACTIONS, SIDE EFFECTS OF ALL MEDICATIONS (PRESCRIPTION/-OTC), AND HOW AND WHEN TO REPORT PROBLEMS.] Future Scheduled Test SKILLED NU RSE TO PRE-POUR MEDICATION PER MEDICATION LIST WEEKLY [code = SKILLED NURSE TO PRE-POUR MEDICATION PER MEDICATION LIST WEEKLY] Future Scheduled Test SKILLED NU RSE FOR O/A AND SKILLED TEACHING OF COPING SKILLS TO MANAGE ANXIETY AND MAINTAIN SAFETY. [code = SKILLED NURSE FOR O/A AND SKILLED TEACHING OF COPING SKILLS TO MANAGE ANXIETY AND MAINTAIN SAFETY.] Future Scheduled Test SKILLED NU RSE TO ASSESS PATIENT S PSYCHOSOCIAL STATUS TO IDENTIFY POTENTIAL ISSUES THAT MAY COMPLICATE THE PROVISION OF THE PLAN OF CARE INCLUDING THE PATIENT S ABILITY TO ACCESS COMMUNITY RESOURCES AND PSYCHOSOCIAL SUPPORT SERVICES. [code = SKILLED NURSE TO ASSESS PATIENT S PSYCHOSOCIAL STATUS TO IDENTIFY POTENTIAL ISSUES THAT MAY COMPLICATE THE PROVISION OF THE PLAN OF CARE INCLUDING THE PATIENT S ABILITY TO ACCESS COMMUNITY RESOURCES AND PSYCHOSOCIAL SUPPORT SERVICES.] Future Scheduled Test SKILLED NU RSE FOR O/A, TEACHING RELATED TO COLITIS FOR EARLY IDENTIFICATION OF EXACERBATION OF DISEASE PROCESS. [code = SKILLED NURSE FOR O/A, TEACHING RELATED TO COLITIS FOR EARLY IDENTIFICATION OF EXACERBATION OF DISEASE PROCESS.] Goal Patient Goal - TAKE MY MEDS ON TIME Goal Provider Goal - A PLAN OF CARE WILL BE ESTABLISHED THAT MEETS PATIENT'S JAIL NEEDS AND INCLUDES PATIENT GOAL FOR HOME HEALTH. Goal Provider Goal - PATIENT WILL REMAIN SAFE IN THE COMMUNITY AND WILL BE FREE OF DANGER TO SELF AND OTHERS THROUGHOUT THE CERTIFICATION PERIOD. Goal Provider Goal - ALTERED MENTAL/BEHAVIORAL STATUS WILL BE IDENTIFIED PROMPTLY AND INTERVENTION INITIATED QUICKLY TO MINIMIZE ASSOCIATED RISKS THROUGHOUT CERTIFICATION PERIOD. Goal Provider Goal - CHANGE IN GENERAL HEALTH STATUS WILL BE IDENTIFIED AND REPORTED TO PHYSICIAN FOR PROMPT INTERVENTION TO MINIMIZE ASSOCIATED RISKS THROUGHOUT CERTIFICATION PERIOD. Goal Provider Goal - PATIENT/CAREGIVER WILL VERBALIZE UNDERSTANDING OF EDUCATION PROVIDED ON MEDICATIONS BY THE END OF THE CERTIFICATION PERIOD. Goal Provider Goal - PATIENT WILL COMPLY WITH MEDICATION WHEN SKILLED NURSE PRE-POURS MEDICATION THROUGHOUT CERTIFICATION PERIOD. Goal Provider Goal - PATIENT WILL BE ABLE TO PERFORM DAILY FUNCTIONS AND HAVE OPTIMAL IMPROVEMENT IN LEVEL OF ANXIETY THROUGHOUT CERTIFICATION PERIOD. Goal Provider Goal - PSYCHOSOCIAL NEEDS WILL BE IDENTIFIED AND PLAN IMPLEMENTED TO MINIMIZE RISK THROUGHOUT CERTIFICATION PERIOD. Goal Provider Goal - EXACERBATIONS OF COLITIS GASTROINTESTINAL DISEASE WILL BE PROMPTLY IDENTIFIED AND INTERVENTIONS IMPLEMENTED TO MINIMIZE RISKS TO PATIENT BY END OF EPISODE. Encounters Start Date/Time End Date/Time Encounter Type Admission Type Attending Clinicians Care Facility Care Department Encounter ID Discharge Date Discharge Status Discharge Condition Discharge Reason Percent Goals Met 2024-12-17 00:00:00 2025-02-14 00:00:00 Outpatient NEW ADMISSION ASHU GUILLERMO [facility] [id number] [id number]
== END 2025-01-02 15:27 | disposition home or self-care (01) ==
LOC: HO.HMCHD 14:02
PROVIDERS: PCP Physician Assistant Medical; Visit Provider Physician Assistant Medical
DX: K25.9 Gastric ulcer, unspecified as acute or chronic, without hemorrhage or perforation (principal); R42 Dizziness and giddiness; F41.1 Generalized anxiety disorder; M79.7 Fibromyalgia; I10 Essential (primary) hypertension

== ENCOUNTER → 2025-01-02 14:02 | Outpatient (BNVA) | payer OTHER, SELFPAY | PROVIDERS: PCP Physician Assistant Medical; Visit Provider Physician Assistant Medical | DX: Z09 Encounter for follow-up examination after completed treatment for conditions other than malignant neoplasm (principal); F41.1 Generalized anxiety disorder; K25.9 Gastric ulcer, unspecified as acute or chronic, without hemorrhage or perforation; M79.7 Fibromyalgia; I10 Essential (primary) hypertension; R42 Dizziness and giddiness; Z13.31 Encounter for screening for depression; Z13.39 Encounter for screening examination for other mental health and behavioral disorders | CPT/HCPCS: 96127; 99212 ==